=== PATIENT | female | born 1950 | race Caucasian/White ===

== ENCOUNTER 2016-03-04 14:40 | Emergency (ER) | payer OTHER, MEDICARE ==
[~2016-03-04] VITALS: Ht 147.3 cm; Wt 51.3 kg
[2016-03-04] MEDS ORDERED: LAMOTRIGINE150 M1 PO (14:44)
[2016-03-04] MEDS ORDERED: LAMICTAL200 M1 PO (14:45)
[2016-03-04] MEDS ORDERED: PAXIL30 M1 PO (14:45)
[2016-03-04] MEDS ORDERED: TRAZODONE HCL100 M1 PO (14:46)
[2016-03-04] MEDS ORDERED: KLONOPIN0.5 M1 PO (14:46)
[2016-03-04] MEDS ORDERED: WELLBUTRIN SR100 M2 PO (14:46)
[2016-03-04] MEDS ORDERED: SIMVASTATIN40 M1 PO (14:47)
[2016-03-04] MEDS ORDERED: ABILIFY5 M1 PO (14:47)
[2016-03-04] MEDS ORDERED: VESICARE10 MG PO (14:47)
[2016-03-04] MEDS ORDERED: SODIUM BICARBO650 M1 PO (14:48)
--- NOTE | 2016-03-04 16:06 | ED PSYCHIATRIC COMPLAINT ---
See Addendum History of Present Illness General Chief Complaint: Psychiatric Related Complaint Stated Complaint: ANXIETY Source: patient, old records Exam Limitations: no limitations Vital Signs & Intake/Output Vital Signs & Intake/Output Vital Signs Date Time Temp Pulse Resp B/P Pulse O2 O2 Flow FiO2 Ox Delivery Rate 03/04 1931 97.0 70 20 144/68 96 Room Air 03/04 1722 97.5 81 20 132/70 95 Room Air 03/04 1446 96 03/04 1444 99.3 84 16 140/78 96 Room Air Allergies Coded Allergies: cephalexin (INAFFECTIVE 03/04/16) hydrocodone (I DONT DO WELL AT ALL ON VICODIN 03/04/16) Reconcile Medications Aripiprazole (Abilify) 5 MG TABLET 1 TAB PO QPM MENTAL HEALTH (Reported) Bupropion HCl (Wellbutrin Sr) 100 MG TABLET.ER 1 TAB PO BID MENTAL HEALTH ( Reported) Clonazepam (Klonopin) 0.5 MG TABLET 1 TAB PO TID ANXIETY (Reported) Lamotrigine 150 MG TABLET 1 TAB PO DAILY UNKNOWN (Reported) Lamotrigine (Lamictal) 200 MG TABLET 1 TAB PO DAILY UNKNOWN (Reported) Paroxetine HCl (Paxil) 30 MG TABLET 2 TAB PO DAILY MENTAL HEALTH (Reported) Simvastatin (Simvastatin*) 40 MG TABLET 1 TAB PO QPM CHOLESTEROL (Reported) Sodium Bicarbonate 650 MG TABLET 1 TAB PO BID SUPPLEMENT (Reported) Solifenacin Succinate (Vesicare) 10 MG TABLET 1 TAB PO DAILY BLADDER ( Reported) Trazodone HCl 100 MG TABLET 2 TAB PO QPM SLEEP (Reported) Triage Note: PT BIBA FROM HOME FOR ANXIETY STATES SHE HAS SO MANY PEOPLE LIVING IN HER SECTION 8 HOUSING AND SHE IS TRYING TO GET THEM TO MOVE OUT. PT IS ALERT/ORIENTED DENIES SI/HI DRUG OR ETOH USE. PT STATES SHE IS TAKING HER MEDICATION PRESCRIBED. SECURITY IN FOR WANDING. Triage Nurses Notes Reviewed? yes HPI: Patient presents for evaluation of anxiety. The patient has a past history of anxiety but states that she has been concerned recently about the number of people staying in her apartment. She states that she is in "section 8" and is afraid that having so many people in the apartment will get her in trouble. Her visitors are beginning to leave but she is now becoming concerned that her daughter will feel uncomfortable whenever body is gone. Her daughter has expressed concerns about being home alone. Patient states that she does not feel suicidal at all and has been compliant with Clonopin and other anxiety medications. She denies any drug or alcohol use. Past History Travel History Traveled to [place] past 21 day No Medical History Any Pertinent Medical History? see below for history Cardiovascular: hyperlipidemia Psychiatric: bipolar disease Surgical History Surgical History: non-contributory Psychosocial History What is your primary language Czech Tobacco Use: Current Daily Use Daily Tobacco Use Amount/Type: => 5 Cigarettes daily ETOH Use: denies use Illicit Drug Use: denies illicit drug use Family History Hx Contributory? No Review of Systems Review of Systems Constitutional: Reports: no symptoms. EENTM: Reports: no symptoms. Respiratory: Reports: no symptoms. Cardiovascular: Reports: no symptoms. GI: Reports: no symptoms. Genitourinary: Reports: no symptoms. Musculoskeletal: Reports: no symptoms. Skin: Reports: no symptoms. Neurological/Psychological: Reports: see HPI. Hematologic/Endocrine: Reports: no symptoms. Immunologic/Allergic: Reports: no symptoms. All Other Systems: Reviewed and Negative Physical Exam Physical Exam General Appearance: see below Neurological/Psychiatric: see below Comments: General: Alert, calm, cooperative Head: Normocephalic, atraumatic Eyes: Normal inspection, no nystagmus, EOMI Ears: Normal inspection Nose: Normal inspection Throat: Moist mucosa Neck: Supple, no goiter Heart: Regular rate and rhythm, no murmurs rubs or gallops Lungs: Clear to auscultation bilaterally with good air entry Abdomen: Soft nontender nondistended, normal bowel sounds Chest: Nontender Extremities: Normal range of motion grossly, mild tremors present, no cyanosis clubbing or edema of the upper extremities Neurologic: cranial nerves II through XII grossly intact, speech clear, gait normal Psychiatric: No apparent delusions or hallucinations, no pressured speech or thought blocking SAD PERSONS Done? patient not suicidal Progress Differential Diagnosis: anxiety, depression, bipolar disorder, personality disorder Plan of Care: Orders Procedure Date/time Status URINE DRUG SCREEN FOR ER ONLY 03/04 1610 Complete ED CRISIS PSYCH CONSULT 03/04 1610 Active Laboratory Tests 03/04/16 1215: Urine Opiates Screen < 100.00, Methadone Screen 43, Barbiturate Screen < 60, Ur Phencyclidine Scrn < 6.00, Amphetamines Screen 185, U Benzodiazepines Scrn < 85, Urine Cocaine Screen < 50, Urine Cannabis Screen < 5.00 Comments: 03/04/2016 7:22:51 PM patient has been cleared for outpatient management by crisis. Departure Departure Disposition: HOME OR SELF CARE Condition: Stable Clinical Impression Primary Impression: Anxiety Referrals: GERI SIMPSON MD (PCP/Family) Additional Instructions: Follow-up with your counselor and outpatient appointment as scheduled. Notify your primary care doctor of this emergency department visit and treatment plan. Continue your current medications. Return if any concerns or sudden worsening. Departure Forms: Customer Survey General Discharge Information
--- NOTE | 2016-03-04 19:55 | ED PSYCH CRISIS CONSULTATION ---
Crisis Consult Basic Assessment Date of Consult: 03/04/16 Responsible Person/Accompanied By: ben Insurance Authorization: Insurance #1: Insurance name: MEDICARE A Phone number: Policy number: [id number] Group number: Authorization number: ED Provider: Patient's ED Provider: KEENAN WEBSTER MD Primary Care Physician: Patient's PCP: GERI SIMPSON MD PCP's Current Psychiatrist: Lilian Lott APRN Chief Complaint: Psychiatric Related Complaint Patient's Quote: 'not functioning very well" Present Illness: Pt is a 65 year old female, arriving to ER after having a panic attack. Pt looks frail and is shaking she reports her mouth is dry. Pt states she had some family;her sons and one son's girlfriend stay at her house that is section 8 approved, she is very nervous that she will lose her housing because she is not allowed to have that many people stay there. Her son Khurram left this morning to move to [place] with his Grandmother, her son Clement and his GF are moving out tomorrow. She will be left with her daughter Moraima who "talks to her self and sings all the time", she also mentions her daughter does not want to be alone in the house. The patient will not ellaborate, just states she got out of her routine, and it feels chaotic. She has visiting nurse and attends DBT group weekly at [facility] she also sees an MOLDER HELPER "Kaylie", she had a panic attack this evening leading her to come to ER. She had one previous admission in 2013 in [facility] and followed up with IOP and OP. Denies si/hi/ah/vh. Patient's Address: [address] [place] [address] Other Phone Number: Who Do You Live With? Family Family/Informants Interviewed: Moraima daughter, and Clement her son live in the house and stated Mom had a panic attack, and started shaking after there brother came to visit. Her children are not concerned about her saftey at this time Allergies - Coded Allergies: cephalexin (INAFFECTIVE 03/04/16) hydrocodone (I DONT DO WELL AT ALL ON VICODIN 03/04/16) Current Medications - Scheduled Medications Aripiprazole (Abilify) 5 MG TABLET 1 TAB PO QPM MENTAL HEALTH (Reported) Entered as Reported by GLORY TIRADO on 03/04/16 1447 Bupropion HCl (Wellbutrin Sr) 100 MG TABLET.ER 1 TAB PO BID MENTAL HEALTH ( Reported) Entered as Reported by GLORY TIRADO on 03/04/16 1446 Clonazepam (Klonopin) 0.5 MG TABLET 1 TAB PO TID ANXIETY (Reported) Entered as Reported by GLORY TIRADO on 03/04/16 1446 Lamotrigine 150 MG TABLET 1 TAB PO DAILY UNKNOWN (Reported) Entered as Reported by GLORY TIRADO on 03/04/16 1444 Lamotrigine (Lamictal) 200 MG TABLET 1 TAB PO DAILY UNKNOWN (Reported) Entered as Reported by GLORY TIRADO on 03/04/16 1445 Paroxetine HCl (Paxil) 30 MG TABLET 2 TAB PO DAILY MENTAL HEALTH (Reported) Entered as Reported by GLORY TIRADO on 03/04/16 1445 Simvastatin (Simvastatin*) 40 MG TABLET 1 TAB PO QPM CHOLESTEROL (Reported) Entered as Reported by GLORY TIRADO on 03/04/16 1447 Sodium Bicarbonate 650 MG TABLET 1 TAB PO BID SUPPLEMENT (Reported) Entered as Reported by GLORY TIRADO on 03/04/16 1448 Solifenacin Succinate (Vesicare) 10 MG TABLET 1 TAB PO DAILY BLADDER ( Reported) Entered as Reported by GLORY TIRADO on 03/04/16 1447 Trazodone HCl 100 MG TABLET 2 TAB PO QPM SLEEP (Reported) Entered as Reported by GLORY TIRADO on 03/04/16 1446 Laboratory Results: Laboratory Tests 03/04/16 1215: Urine Opiates Screen < 100.00, Methadone Screen 43, Barbiturate Screen < 60, Ur Phencyclidine Scrn < 6.00, Amphetamines Screen 185, U Benzodiazepines Scrn < 85, Urine Cocaine Screen < 50, Urine Cannabis Screen < 5.00 Past History Past Medical History Cardiovascular: hyperlipidemia Psychiatric: bipolar disease Past Surgical History Surgical History: non-contributory Psychosocial History Strengths/Capabilities: In treatment, has a visiting nurse and has housing Physical Limitations (Interventions): denies Psychiatric Treatment History Psych Treatment Psychiatric Treatment Yes Inpatient Treatment Yes Outpatient Treatment Yes Location of Treatment [facility] and [facility] in [place] Reason for Treatment Mood disorder Dates of Treatment 2012 [facility] and currently in [facility] Response to Treatment does well, its helpful Diagnosis by History: Mood disorder Substance Use/Abuse History Drug Use/Abuse Substances Used/Abused No Substance Abuse Treatment Substance Abuse Treatment Past Substance Abuse [place] No Current Mental Status Mental Status Orientation: Person, Place, Situation Affect: Anxious, Flat Speech: Perseveration Neuro-vegetative: Concentration Poor, Helpless, Loss of Interest, Sleep Disturbance Appearance Appearance- Dress/Hygiene: Looks stated age, WNL. Behaviors Thought Process: Disorganized Thought Content: WNL Memory: Immediate Insight: Fair SI/HI Risk Assessment Past Suicidal Ideation/Attempts No Current Suicidal Ideation/Att No Past Homicidal Ideation/Att: No Current Homicidal Ideation/Attempts No Degree of Intent: None Risk Factors: age (under 24/over 65), high anxiety/distress, limited support Lethality Ratin (mild) PTSD Checklist PTSD Done? patient declined ED Management Sitter: Yes Restraints: No DSM5/PS Stressors/Medical Prob Diagnosis' (DSM 5, Stressors, Medical): Major depressive disorder, recurrent, severe F33.2 benzo dependence prescribed F13.20 Current GAF: 33 Departure Disposition Psych Medical Clearance Date: 03/04/16 Medically Cleared at: 1900 Time Started: 1899 Time Ended: 2000 Psychiatrist Consulted: nico Date Disposition Established: 03/04/16 Time Disposition Established: 2000 Plan for Disposition - Modality: Outpatient Facility: [facility] Follow-up Appt Date: 03/09/16 Follow-Up Appt Time: 1000 Contact: Lilian Rationale for Disposition: Consulted with Dr. Cisneros pt has outpatient appointments Mar 09 and with her presciber the at [facility]. Pt to return to these providers. Pt denies si/hi/ah/vh. Additional Instructions: Pt to follow up with providers, and to reassess living situation after some family has elft her home. Referrals GERI SIMPSON MD (PCP/Family)
[2016-03-04 22:12] VITALS: BP 142/86
== END 2016-03-04 22:13 ==
LOC: ERH 14:40
DX: F41.9 Anxiety disorder, unspecified (principal)
CPT/HCPCS: 80307; G0463

== ENCOUNTER 2016-03-09 20:49 | Inpatient (IN) | payer OTHER, MEDICARE ==
[~2016-03-09] VITALS: Ht 152.4 cm; Wt 48.2 kg
[~2016-03-09 20:49] MED LIST: ABILIFY5 M1 PO; KLONOPIN0.5 M1 PO; LAMICTAL200 M1 PO; LAMOTRIGINE150 M1 PO; PAXIL30 M1 PO; SIMVASTATIN40 M1 PO; SODIUM BICARBO650 M1 PO; TRAZODONE HCL100 M1 PO; VESICARE10 MG PO; WELLBUTRIN SR100 M2 PO
--- NOTE | 2016-03-09 21:06 | NUR ---
2 PERSONAL BELONGINGS PUT IN CLOSET. 1 VALUABLES TO ED SAFE.
--- NOTE | 2016-03-09 21:07 | NUR ---
PT BIBA C/O INCREASED DEPRESSION, ANXIETY AND S/P MAKING A +SI STATEMENT TO SON THAT SHE WAS GOING TO STAB HERSELF. PT DENIES SI UPON ARRIVAL, DENIES HI. PT ALSO STATES SHE HAS BEEN "AFRAID OF LOUD NOISES." PT CHANGED INTO HOSPITAL SCRUBS AND WANDED BY SECURITY.
--- NOTE | 2016-03-09 21:10 | ED PSYCHIATRIC COMPLAINT ---
See Addendum History of Present Illness General Chief Complaint: Psychiatric Related Complaint Stated Complaint: BIBA FOR DEPRESSION , + SI Source: patient, old records, EMS Exam Limitations: no limitations Vital Signs & Intake/Output Vital Signs & Intake/Output Vital Signs Date Time Temp Pulse Resp B/P Pulse O2 O2 Flow FiO2 Ox Delivery Rate 03/09 2343 98.5 76 18 122/71 98 Room Air 03/09 2125 Room Air 03/09 2100 96.5 82 20 131/82 96 Room Air ED Intake and Output 03/10 0000 03/09 1200 Intake Total 240 Output Total Balance 240 Intake, Oral 240 Patient 110 lb Weight Allergies Coded Allergies: cephalexin (INAFFECTIVE 03/04/16) hydrocodone (I DONT DO WELL AT ALL ON VICODIN 03/04/16) Reconcile Medications Aripiprazole (Abilify) 5 MG TABLET 1 TAB PO QPM MENTAL HEALTH (Reported) Bupropion HCl (Wellbutrin Sr) 100 MG TABLET.ER 1 TAB PO BID MENTAL HEALTH ( Reported) Clonazepam (Klonopin) 0.5 MG TABLET 1 TAB PO TID ANXIETY (Reported) Lamotrigine 150 MG TABLET 1 TAB PO DAILY UNKNOWN (Reported) Lamotrigine (Lamictal) 200 MG TABLET 1 TAB PO DAILY UNKNOWN (Reported) Paroxetine HCl (Paxil) 30 MG TABLET 2 TAB PO DAILY MENTAL HEALTH (Reported) Simvastatin (Simvastatin*) 40 MG TABLET 1 TAB PO QPM CHOLESTEROL (Reported) Sodium Bicarbonate 650 MG TABLET 1 TAB PO BID SUPPLEMENT (Reported) Solifenacin Succinate (Vesicare) 10 MG TABLET 1 TAB PO DAILY BLADDER ( Reported) Trazodone HCl 100 MG TABLET 2 TAB PO QPM SLEEP (Reported) Triage Note: PT BIBA C/O INCREASED DEPRESSION, ANXIETY AND S/P MAKING A +SI STATEMENT TO SON THAT SHE WAS GOING TO STAB HERSELF. PT DENIES SI UPON ARRIVAL, DENIES HI. PT ALSO STATES SHE HAS BEEN "AFRAID OF LOUD NOISES." PT CHANGED INTO HOSPITAL SCRUBS AND WANDED BY SECURITY. Triage Nurses Notes Reviewed? yes HPI: Patient comes in for evaluation of worsening depression with suicidal ideations. Patient was put in the dishes away and picked up at night to prevent away and had a thought of how good it would be to use a knife to kill herself. Patient denies any hallucinations. Patient denies any homicidal ideations. Patient has been taking her medication as prescribed. Past History Travel History Traveled to [place] past 21 day No Medical History Any Pertinent Medical History? see below for history Cardiovascular: hyperlipidemia Psychiatric: bipolar disease Surgical History Surgical History: non-contributory Psychosocial History Who do you live with Family What is your primary language Japanese Tobacco Use: Current Daily Use Daily Tobacco Use Amount/Type: => 5 Cigarettes daily ETOH Use: denies use Illicit Drug Use: denies illicit drug use Family History Hx Contributory? No Review of Systems Review of Systems Constitutional: Reports: no symptoms. EENTM: Reports: no symptoms. Respiratory: Reports: no symptoms. Cardiovascular: Reports: no symptoms. GI: Reports: no symptoms. Genitourinary: Reports: no symptoms. Musculoskeletal: Reports: no symptoms. Skin: Reports: no symptoms. Neurological/Psychological: Reports: see HPI, anxiety, depressed. Hematologic/Endocrine: Reports: no symptoms. Immunologic/Allergic: Reports: no symptoms. All Other Systems: Reviewed and Negative Physical Exam Physical Exam General Appearance: well developed/nourished, mild distress Head: atraumatic Eyes: Bilateral: PERRL, EOMI. Ears, Nose, Throat: normal pharynx, normal ENT inspection, hearing grossly normal Neck: normal inspection, supple Respiratory: normal breath sounds Cardiovascular: regular rate/rhythm Gastrointestinal: soft, non-tender Extremities: normal range of motion Neurological/Psychiatric: no motor/sensory deficits, awake, alert, calm, oriented x 3 Appearance/Memory/Insight: appropriate appearance, appropriate insight Behavoir/Eye Contact/Speech: cooperative, normal speech, good eye contact Thoughts/Hallucinations: normal thought pattern, no apparent hallucination Skin: intact, normal color, warm/dry SAD PERSONS Done? CRISIS CONSULT OBTAINED Progress Differential Diagnosis: drug intoxication, drug overdose, drug withdrawal, electrolyte abnormality Plan of Care: Orders Procedure Date/time Status Continuous Observation Monitor 03/09 2108 Active URINE DRUGS OF ABUSE 03/09 2108 Active TROPONIN LEVEL 03/09 2108 Complete ETHANOL 03/09 2108 Complete COMPREHENSIVE METABOLIC PANEL 03/09 2108 Complete CBC WITHOUT DIFFERENTIAL 03/09 2108 Complete EKG 03/09 2108 Active ED CRISIS PSYCH CONSULT 03/09 2108 Active Current Medications Sig/Carol Start time Last Medication Dose Stop Time Status Admin Aripiprazole 5 MG ONCE ONE 03/10 0015 UNVr (Abilify) 03/10 0016 Laboratory Tests 03/09/16 2359: Methadone Screen Pending, Barbiturate Screen Pending, Ur Phencyclidine Scrn Pending, Amphetamines Screen Pending, U Benzodiazepines Scrn Pending, Urine Cocaine Screen Pending, Urine Cannabis Screen Pending 03/09/16 2119: Anion Gap 8, Estimated GFR 28 L, BUN/Creatinine Ratio 20.6, Glucose 145 H, Calcium 10.0, Total Bilirubin 0.4, AST 26, ALT 22, Alkaline Phosphatase 54, Troponin I < 0.01, Total Protein 7.1, Albumin 4.2, Globulin 2.9, Albumin/ Globulin Ratio 1.4, CBC w Diff NO MAN DIFF REQ, RBC 4.21, MCV 90.8, MCH 30.6, RDW 12.5, MPV 7.1 L, Gran % 76.4 H, Lymphocytes % 13.8 L, Monocytes % 8.2, Eosinophils % 1.3, Basophils % 0.3, Absolute Granulocytes 7.1 H, Absolute Lymphocytes 1.3, Absolute Monocytes 0.8 H, Absolute Eosinophils 0.1, Absolute Basophils 0, PUBS MCHC 33.7, Serum Alcohol < 10.0 Initial ED EKG: NSR, nonspecific ST T wave chg Prior EKG: unchanged Hand-Off Endorsed To: LILY RUIZ MD Endorsed Time: 0700 Pending: consult Departure Departure Disposition: STILL A PATIENT Condition: Stable Clinical Impression Primary Impression: Depression Referrals: GERI SIMPSON MD (PCP/Family) Departure Forms: Customer Survey General Discharge Information
--- NOTE | 2016-03-09 21:10 | NUR ---
AT BEDSIDE FOR EVAL
--- NOTE | 2016-03-09 21:23 | NUR ---
LABS DRAWN AND SENT TO LAB (1SST,1LAV,1GRAY). PT AWARE OF NEED FOR URINE SAMPLE. PT CALM AND COOPERATIVE AT THIS TIME. SITTER IN ATTENDANCE.
[2016-03-09 21:27] LABS: ABSOLUTE BASOPHIL COUNT 0 /CUMM (0.0-0.2); ABSOLUTE EOSINOPHIL COUNT 0.1 /CUMM (0.0-0.7); ABSOLUTE GRANULOCYTE CT 7.1 /CUMM (1.4-6.5); ABSOLUTE LYMPH COUNT 1.3 /CUMM (1.2-3.4); ABSOLUTE MONOCYTE COUNT 0.8 /CUMM (0.10-0.60); BASOPHIL % 0.3 % (0.0-2.0); EOSINOPHIL % 1.3 % (0-5); GRANULOCYTE % 76.4 % (42.2-75.2); HEMATOCRIT 38.3 % (37-47); MEAN CORPUSCULAR HGB 30.6 PG (27.0-31.0); MEAN CORPUSCULAR HGB CONC 33.7 G/DL (33.0-37.0); MEAN CORPUSCULAR VOLUME 90.8 FL (81.0-99.0); MEAN PLATELET VOLUME 7.1 FL (7.4-10.4); PLATELET COUNT 220 /CUMM (130-400); RBC DISTRIBUTION WIDTH 12.5 % (11.5-14.5); RED BLOOD CELL CT 4.21 /CUMM (4.20-5.40); WHITE BLOOD CELL COUNT 9.3 /CUMM (4.8-10.8)
--- NOTE | 2016-03-09 22:02 | RADIOLOGY REPORT ---
EXAMINATION: XR CHEST CLINICAL INFORMATION: Smoker. Cough. COMPARISON: No relevant prior imaging is available. TECHNIQUE: PA and lateral views of the chest were obtained. FINDINGS: There is a dense 6 mm subpleural pulmonary nodule within the right upper lobe near the major fissure. Lungs are otherwise clear and well expanded. There is no focal consolidative disease, pleural effusion, or pneumothorax. The cardiac silhouette and upper mediastinal contours are normal. No acute osseous finding. IMPRESSION: There is a dense likely calcified 6 mm subpleural pulmonary nodule within the right upper lobe near the major fissure. Correlation with prior imaging is recommended if available. Otherwise a dedicated CT scan of the chest can be obtained to provide a baseline for follow-up if necessary. No consolidative disease or effusion.
--- NOTE | 2016-03-09 22:08 | NUR ---
PT PROVIDED WITH BOXED LUNCH
--- NOTE | 2016-03-09 23:04 | NUR ---
Labs remain outstanding. Pt will be evaluated by crisis in the morning.
--- NOTE | 2016-03-10 00:02 | NUR ---
URINE COLLECTED AND SENT TO LAB
--- NOTE | 2016-03-10 00:25 | NUR ---
PT REQUESTING NIGHTTIME MEDS. MEDICATED WITH ABILIFY, TRAZADONE AND KLONOPIN PER ORDER (SEE MAR). WILL CTM. SITTER IN DOORWAY.
--- NOTE | 2016-03-10 02:42 | NUR ---
PT NOTED TO BE SLEEPING ON STRETCHER WITH REGULAR RR. LIGHTS IN ROOM REMAIN ON ZEKE [place] IS IN VIEW MONITORING PT.
--- NOTE | 2016-03-10 04:20 | NUR ---
PT CONTINUES TO SLEEP WITH REGULAR RR. RESPIRATIONS EVEN AND UNLABORED. SITTER IN VIEW. WILL CONTINUE TO MONITOR.
--- NOTE | 2016-03-10 07:50 | NUR ---
CRISIS AT BEDSIDE.
--- NOTE | 2016-03-10 08:30 | NUR ---
PLAN IS FOR ADMISSION TO [facility]. Informed waiting has been performed.
--- NOTE | 2016-03-10 10:30 | ED PSYCH CRISIS CONSULTATION ---
Crisis Consult Basic Assessment Date of Consult: 03/10/16 Responsible Person/Accompanied By: None Insurance Authorization: Insurance #1: Insurance name: MEDICARE A Phone number: Policy number: [id number] Group number: Authorization number: ED Provider: Patient's ED Provider: LILY RUIZ MD Primary Care Physician: Patient's PCP: GERI SIMPSON MD PCP's Current Psychiatrist: [phone] Chief Complaint: Psychiatric Related Complaint Patient's Quote: " Very Nervous." Present Illness: The patient is a 65 year old, , female presenting to the ED after having suicidal thoughts with a plan to stab herself with a knife. The patient presents disoriented, disorganized anxious and very fidgety during the evaluation. The patient reports that she has been feeling depressed, anxious, helpless, hopeless, with decreased energy, decreased concentration and has had sleep disturbance. She states that yesterday she was feeling overwhelmed with having all of her children staying with her and became suicidal. She states she was putting the dishes away and started to "fantasize, wouldn't it be wonderful if I could just put an end to the chaos." She denies any current or history of hallucinations or delusions. The patient reports that she does have a visiting nurse that comes to her home and dispenses her psychiatric medications. The patient denies any current or history of substance abuse issues. The patient notes that an inpatient admission would be helpful at this time. The patient does have a long history of mental health issues with one hospitalization on [facility] (2012). She is currently managed on an outpatient basis, with [facility] in [place] ([phone]). KOLBY spoke to Dyan ROMERO) from [facility], who gave collateral on the patient. Dyan notes that the patient has been in treatment with them 20+ years and is currently receiving medication management and attends DBT groups. Dyan notes that the patient is an intelligent women, who does very well when she is stable. Dyan notes that the patient has done very well since her last admission to [facility] in 2012, noting the change in the patient was astounding. Dyan notes that the patient struggles with relationships and setting boundaries with her children. Dyan notes that when the patient decompensates she gets very disorganized and disoriented. Dyan believes, given the patients current presentation that she requires an inpatient admission at this time. Patient's Address: [address] [place] [id number] Other Phone Number: Who Do You Live With? Patient/Self (Children have been staying ) Family/Informants Interviewed: Dyan Gill- collar worker at [facility] Allergies - Coded Allergies: cephalexin (INAFFECTIVE 03/04/16) hydrocodone (I DONT DO WELL AT ALL ON VICODIN 03/04/16) Current Medications - Scheduled Medications Aripiprazole (Abilify) 5 MG TABLET 1 TAB PO QPM MENTAL HEALTH (Reported) Entered as Reported by GLORY TIRADO on 03/04/16 144 Last Taken: 03/08/16 Bupropion HCl (Wellbutrin Sr) 100 MG TABLET.ER 1 TAB PO BID MENTAL HEALTH ( Reported) Entered as Reported by GLORY TIRADO on 03/04/16 1446 Clonazepam (Klonopin) 0.5 MG TABLET 1 TAB PO TID ANXIETY (Reported) Entered as Reported by GLORY TIRADO on 03/04/16 1446 Last Taken: 03/08/16 Lamotrigine 150 MG TABLET 1 TAB PO DAILY UNKNOWN (Reported) Entered as Reported by GLORY TIRADO on 03/04/16 1444 Lamotrigine (Lamictal) 200 MG TABLET 1 TAB PO DAILY UNKNOWN (Reported) Entered as Reported by GLORY TIRADO on 03/04/16 1445 Paroxetine HCl (Paxil) 30 MG TABLET 2 TAB PO DAILY MENTAL HEALTH (Reported) Entered as Reported by GLORY TIRADO on 03/04/16 1445 Simvastatin (Simvastatin*) 40 MG TABLET 1 TAB PO QPM CHOLESTEROL (Reported) Entered as Reported by GLORY TIRADO on 03/04/16 1447 Sodium Bicarbonate 650 MG TABLET 1 TAB PO BID SUPPLEMENT (Reported) Entered as Reported by GLORY TIRADO on 03/04/16 1448 Solifenacin Succinate (Vesicare) 10 MG TABLET 1 TAB PO DAILY BLADDER ( Reported) Entered as Reported by GLORY TIRADO on 03/04/16 1447 Trazodone HCl 100 MG TABLET 2 TAB PO QPM SLEEP (Reported) Entered as Reported by GLORY TIRADO on 03/04/16 1446 Laboratory Results: Laboratory Tests 03/09/16 7649: Urine Opiates Screen < 100.00, Methadone Screen 42, Barbiturate Screen < 60, Ur Phencyclidine Scrn < 6.00, Amphetamines Screen < 100, U Benzodiazepines Scrn < 85, Urine Cocaine Screen < 50, Urine Cannabis Screen < 5.00 03/09/16 2119: Anion Gap 8, Estimated GFR 28 L, BUN/Creatinine Ratio 20.6, Glucose 145 H, Calcium 10.0, Total Bilirubin 0.4, AST 26, ALT 22, Alkaline Phosphatase 54, Troponin I < 0.01, Total Protein 7.1, Albumin 4.2, Globulin 2.9, Albumin/ Globulin Ratio 1.4, CBC w Diff NO MAN DIFF REQ, RBC 4.21, MCV 90.8, MCH 30.6, RDW 12.5, MPV 7.1 L, Gran % 76.4 H, Lymphocytes % 13.8 L, Monocytes % 8.2, Eosinophils % 1.3, Basophils % 0.3, Absolute Granulocytes 7.1 H, Absolute Lymphocytes 1.3, Absolute Monocytes 0.8 H, Absolute Eosinophils 0.1, Absolute Basophils 0, PUBS MCHC 33.7, Serum Alcohol < 10.0 Past History Past Medical History Cardiovascular: hyperlipidemia Psychiatric: bipolar disease Cancer(s): breast cancer Past Surgical History Surgical History: non-contributory Psychosocial History Strengths/Capabilities: The patient has been connected to her outpatient provider for 20+ years, receives SSDI and has section 8 housing assistance. Physical Limitations (Interventions): None noted Psychiatric Treatment History Psych Treatment Psychiatric Treatment Yes Inpatient Treatment Yes Outpatient Treatment Yes Location of Treatment [facility] and [facility] Reason for Treatment Depression and anxiety Dates of Treatment [facility] 2012 and OPS 2012 [facility]- 1991- current Response to Treatment Per her social psychologist Dyan, the patient has been stable and doing well since her admission to [facility] in 2012. Diagnosis by History: Mood disorder Substance Use/Abuse History Drug Use/Abuse Substances Used/Abused No First Use N/A Last Used N/A How much used/taken N/A How often N/A For how long N/A Route of use N/A Substance Abuse Treatment Substance Abuse Treatment Past Substance Abuse TX No Inpatient Treatment No Outpatient Treatment No Location of Treatment N/A Reason for Treatment N/A Dates of Treatment N/A Response to Treatment N/A Comments: N/A Current Mental Status Mental Status Orientation: Confused, Disoriented- The patient believed that it was February 1969 and did not know what day of the week it is. She did appear to have memory issues and had difficulty answering some of the questions. Affect: Anxious Speech: Delayed, Soft Neuro-vegetative: Concentration Poor, Energy Decreased, Helpless, Sleep Disturbance, Feeling hopeless Appearance Appearance- Dress/Hygiene: The patient was sitting on the bed, in hospital attire,visibly anxious and fidgety during the evaluation. Behaviors Thought Process: Disorganized Thought Content: The patient was ruminating on getting her children to move out of her apartment. Memory: Impaired Insight: Fair SI/HI Risk Assessment Past Suicidal Ideation/Attempts No Current Suicidal Ideation/Att Yes Past Homicidal Ideation/Att: No Current Homicidal Ideation/Attempts No Degree of Intent: The patient states that while she was doing dishes she began to "fantasize" about stabbing herself with a knife she was putting away. She said she was thiking "how wonderful it would be if I could just put an end to the chaos." Danger To: Self Gravely Disabled: The patient is disorganized and disoriented. Risk Factors: age (under 24/over 65), chronic/serious med cond., high anxiety/ distress, history of suicide atmpts, SA/MH hospitalized, weapons access Lethality Ratin PTSD Checklist PTSD Done? patient declined (Pt. denies trauma or abuse hx.) ED Management Sitter: Yes Restraints: No DSM5/PS Stressors/Medical Prob Diagnosis' (DSM 5, Stressors, Medical): F32.9 Unspecified Depressive Disorder and F41.9 Unspecified Anxiety Disorder. Current GAF: 25 Comments: N/A Departure Disposition Psych Medical Clearance Date: 03/10/16 Medically Cleared at: 0700 Time Started: 0730 Time Ended: 0800 Psychiatrist Consulted: Pradeep Chiang MD Date Disposition Established: 03/10/16 Time Disposition Established: 08 Plan for Disposition - Modality: Inpatient Psychiatry Facility: [facility] Contact: N/A Telephone: N/A Rationale for Disposition: The patient presents with depressed mood, anxiety, decreased energy, decreased concentration, sleep disturbance, feeling helpless, feeling hopeless and fantasizing about killing herself. The patient is disoriented, disorganized and ruminating on having her children move out of her apartment. Case discussed with Dr. Chiang and he finds the patient to be an acute risk to self and in need of an inpatient hospitalization at this time. Type of IP Admission: Voluntary Additional Instructions: N/A Referrals GERI SIMPSON MD (PCP/Family)
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
--- NOTE | 2016-03-10 12:23 | NUR ---
MEDICATED WITH LAMICTAL PER EMAR. INFORMED OF PLAN FOR EVAL BY PSYCHIATRIST ONCE ADMITTED TO DETERMINE PLAN FOR POSSIBLE MED ADJUSTMENTS. SLIGHTLY TREMULOUS AND ANXIOUS ABOUT ADMISSION. ENCOURAGED TO PRACTICE MINDFULNESS AND ASSISTED BY THIS RN TO EXPLORE FEARS OF THE UNKNOWN AND THE FUTURE. RESPONSIVE TO EMOTIONAL SUPPORT
--- NOTE | 2016-03-10 14:04 | NUR ---
REPORT GIVEN TO RECEIVING RN AND DISTRIBUTION CALLED
[2016-03-10 14:27] VITALS: BP 143/66
--- NOTE | 2016-03-10 15:44 | NUR ---
65 YR OLD FEMALE ADMITTED FOR INCREASED ANXIETY AND DEPRESSION. PT HAS INCREASED STRESS AT HOME WITH 3 ADULT KIDS LIVING IN HER SECTION 8 HOUSING. PT HAS BEEN AT [facility] FOR 24 YEARS. PT LAST ON 2012. PT HELPLESS, HOPELESS, POOR SLEEP, POOR EATING. PT DENIES SI NOW. - HI. PT -AH, -VH. SHE RECEIVED KLONOPIN 0.5 ON ADMIT. SHE ADMITS TO PSYCHOSOMATIC PAIN. PT HAS HX OF BREAST CA. NO HISTORY OF DRUG AND ETOH ABUSE. SHORT TERM MEMORY ISSUES APPARENT. VISIBLE SKIN INTACT WITHOUT PROBLEM- PT DENIES ANY ALTERATION OF SKIN UNDERNEATH CLOTHING.
[2016-03-10 20:17] VITALS: BP 146/85
--- NOTE | 2016-03-10 23:17 | NUR ---
PT IS CALM, COOPERATIVE WITH STAFF AND PEERS, AND COMPLIANT WITH UNIT RULES. EARLIER IN SHIFT PT SEEMED UPSET AND WAS CRYING, BUT THIS SEEMED TO LIFT THE SHIFT PROGRESSED. PT STARTED OFF SHIFT BEING SLIGHTLY WITHDRAWN AND ISOLATIVE, THOUGH LATER WAS SPENDING LONGER PERIODS OF TIME IN [place], INTERACTING WELL WITH PEERS. PT MOOD IS STABLE, AFFECT IS EUTHYMIC, COMMUNICATION APPEARS NORMAL, AND APPETITE IS NORMAL. PT DENIES SI AT THIS TIME.
--- NOTE | 2016-03-11 04:15 | NUR ---
Patient slept well, no issues.
[2016-03-11 08:14] VITALS: BP 144/72
--- NOTE | 2016-03-11 09:11 | History & Physical ---
General Information and HPI MD Statement: I have seen and personally examined LEDIY CHAVIS and documented this H&P. The patient is a 65 year old F who presented with a patient stated chief complaint of "very nervous"]. Source of Information: patient, family Exam Limitations: no limitations History of Present Illness: 65-year-old white female is brought in by ambulance for depression and suicidal ideations with patient comes in for evaluation of worsening depression and suicidal ideations with plans to stab herself with a knife with feeling depressed and anxious hopeless, helpless, lack of energy, poor concentration and sleep problems. For all those reasons is admitted for evaluation and treatment Allergies/Medications Allergies: Coded Allergies: cephalexin (INAFFECTIVE 03/04/16) hydrocodone (I DONT DO WELL AT ALL ON VICODIN 03/04/16) Home Med list Aripiprazole (Abilify) 5 MG TABLET 1 TAB PO QPM MENTAL HEALTH (Reported) Bupropion HCl (Wellbutrin Sr) 100 MG TABLET.ER 1 TAB PO BID MENTAL HEALTH ( Reported) Clonazepam (Klonopin) 0.5 MG TABLET 1 TAB PO TID ANXIETY (Reported) Lamotrigine (Lamictal) 200 MG TABLET 1 TAB PO DAILY UNKNOWN (Reported) Paroxetine HCl (Paxil) 30 MG TABLET 2 TAB PO DAILY MENTAL HEALTH (Reported) Simvastatin (Simvastatin*) 40 MG TABLET 1 TAB PO QPM CHOLESTEROL (Reported) Sodium Bicarbonate 650 MG TABLET 1 TAB PO BID SUPPLEMENT (Reported) Solifenacin Succinate (Vesicare) 10 MG TABLET 1 TAB PO DAILY BLADDER ( Reported) Trazodone HCl 100 MG TABLET 2 TAB PO QPM SLEEP (Reported) Compliance With Home Meds: GOOD Past History Travel History Traveled to [place] past 21 day No Medical History Neurological: NONE EENT: NONE Cardiovascular: hyperlipidemia Respiratory: SMOKER- 1 PACK A DAY; Gastrointestinal: POOR EATING; INDIGESTION Renal: LITHIUM FOR MANY YEARS Musculoskeletal: ARTHRITIS Psychiatric: bipolar disease Endocrine: NONE Blood Disorders: NONE Cancer(s): breast cancer 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 Home ETOH Use: denies use Illicit Drug Use: denies illicit drug use Employment History Employment Disability Profession/Employer N/A Review of Systems Review of Systems Constitutional: Reports: see HPI. Exam & Diagnostic Data Last 24 Hrs of Vital Signs/I&O Vital Signs Date Time Temp Pulse Resp B/P Pulse O2 O2 Flow FiO2 Ox Delivery Rate 03/11 0814 96.4 89 144/72 03/10 2016 97.3 86 146/85 03/10 1427 98.0 88 143/66 03/10 1222 97.5 83 20 166/78 97 Room Air Physical Exam General Appearance Alert, Oriented X3, Cooperative, No Acute Distress Skin No Rashes, No Breakdown HEENT PERRLA, EOMI, Mucous Membr. moist/pink Neck Supple, No JVD, No thryomegaly, +2 Carotid Pulse wo Bruit, No LAD Lymphatic Axillary nl, Cervical nl Cardiovascular Regular Rate Lungs decreased breath sounds Abdomen Normal Bowel Sounds, Soft, No Tenderness Neurological Exam Findings: nonfocal Cranial Nerves II through XII: Intact Extremities No Cyanosis, No Edema Last 24 Hrs of Labs/Lars: Laboratory Tests 03/10/16 1221: Urine Color STRAW, Urine Clarity CLEAR, Urine pH 6.5, Ur Specific Cummings <= 1.005, Urine Protein NEG, Urine Ketones NEG, Urine Nitrite NEG, Urine Bilirubin NEG, Urine Urobilinogen 0.2, Ur Leukocyte Esterase NEG, Ur Microscopic SEDIMENT EXAMINED, Urine RBC 3-5, Ur Epithelial Cells RARE, Urine Hemoglobin TRACE-INTACT , Urine Glucose NEG 03/09/16 2359: Urine Opiates Screen < 100.00, Methadone Screen 42, Barbiturate Screen < 60, Ur Phencyclidine Scrn < 6.00, Amphetamines Screen < 100, U Benzodiazepines Scrn < 85, Urine Cocaine Screen < 50, Urine Cannabis Screen < 5.00 03/09/16 2119: Anion Gap 8, Estimated GFR 28 L, BUN/Creatinine Ratio 20.6, Glucose 145 H, Calcium 10.0, Total Bilirubin 0.4, AST 26, ALT 22, Alkaline Phosphatase 54, Troponin I < 0.01, Total Protein 7.1, Albumin 4.2, Globulin 2.9, Albumin/ Globulin Ratio 1.4, Triglycerides 103, Cholesterol 171, LDL Cholesterol, Calc 59 L, HDL Cholesterol 92 H, Cholesterol/HDL Ratio 2, TSH 1.770, CBC w Diff NO MAN DIFF REQ, RBC 4.21, MCV 90.8, MCH 30.6, RDW 12.5, MPV 7.1 L, Gran % 76.4 H, Lymphocytes % 13.8 L, Monocytes % 8.2, Eosinophils % 1.3, Basophils % 0.3, Absolute Granulocytes 7.1 H, Absolute Lymphocytes 1.3, Absolute Monocytes 0.8 H, Absolute Eosinophils 0.1, Absolute Basophils 0, PUBS MCHC 33.7, Serum Alcohol < 10.0 03/09/16 2109: Hemoglobin A1c 5.2 Laboratory Tests 03/10/16 1221: Urine Color STRAW, Urine Clarity CLEAR, Urine pH 6.5, Ur Specific Cummings <= 1.005, Urine Protein NEG, Urine Ketones NEG, Urine Nitrite NEG, Urine Bilirubin NEG, Urine Urobilinogen 0.2, Ur Leukocyte Esterase NEG, Ur Microscopic SEDIMENT EXAMINED, Urine RBC 3-5, Ur Epithelial Cells RARE, Urine Hemoglobin TRACE-INTACT , Urine Glucose NEG Diagnostic Data EKG Results LVH Assessment/Plan As Ranked By This Provider Problem List: 1. Depression 2. Anxiety Miscellaneous Miscellaneous Documentation Attending Case Discussed With: PRADEEP CHIANG MD Primary Care Physician: GERI SIMPSON MD Patient sees these Specialists Psychiatry Level of Patient Care: [facility] Consults Needed: Consulting Specialty: Psychiatry Consulting Physician: Pradeep Chiang MD Reason for Consult: depression and suicidal ideations
--- NOTE | 2016-03-11 10:42 | SOCIAL WORKER TX PLAN PSYCH ---
Treatment Plan - Please Document: - Evidence that there is ongoing collaboration between - the patient and the interdisciplinary team, - including the patient's active participation and - responsibility for engaging in the treatment regimen, - and that the treatment plan is individualized and - relevant to the patient's conditions. - Treatment plan should reflect documentation indicating - that all active therapeutic efforts are included. Strengths/Capabilities: The patient has been connected to her outpatient provider for 20+ years, receives SSDI and has section 8 housing assistance. Physical Limitations (Interventions): None noted Patient Identified Trmt Goals: " I want to get things in order." Discharge Plan: IOP Problem/Goals #1 Problem #1: suicidal ideation Goal (Short Term): Today I will attend 2 groups Today I will identify 2 stressors Today I will identify 2 positive supports Today I will work on recognizing 3 emotions I am feeling Goal (Extension Service Specialist In Charge): Be free of suicidal thoughts/attempts Develop 3 coping skills to deal with depression Identify 3 positive support systems to call in crisis Develop a crisis plan with 3 hurley people Identify 2 positive traits per week about myself Identify 2 things I have to look forward to Identify 2 positive people in my life and 1 thing I appreciate about them Interventions: Learn ways to manage depressive symptoms accordingly and identify positive supports to manage life stressors and mood fluctuations. Modalities: Encourage groups, education on depression, provide CBT treatment, family meeting. DSM5/PS Stressors/Medical Prob Diagnosis' (DSM 5, Stressors, Medical): F32.9 Unspecified Depressive Disorder and F41.9 Unspecified Anxiety Disorder. Current GAF: 25 Treatment Team - Responsibilities of members of the treatment team include: - Medication Management- MD or RIB PULLER - Medication Administration and Monitoring- Nurse - Group Therapy- Occupational Therapist - 1:1 Therapy,Disch Planning,family involvement-Street Light Servicer Helper
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
[2016-03-11 12:13] VITALS: BP 139/80
--- NOTE | 2016-03-11 13:58 | NUR ---
PT IS COMPLIANT AND COOPERATIVE. MOOD IS STABLE WITH A FLAT AFFECT. PT APPEARS DEPRESSED. PT DENIES SI AT THIS TIME, NO COMPLAINTS OFFERED. PT TENDS TO BE ISOLATIVE IN ROOM, HAS MINIMAL INTERACTION WITH OTHERS. PT PRESENT IN COMMUNITY FOR MEALS AND VITALS. PT IS ATTENDING SOME GROUPS. VITALS ARE STABLE, APPETITE IS GOOD.
--- NOTE | 2016-03-11 14:06 | SOCIAL WORKER PROG NOTE PSYCH ---
Social Work Progress Note Progress Note Pt would like help with having her grown children that have not been given permission to stay in her home, out of her home. She is approved with section 8 for herself and her daughter to reside in her home. "Yoni" and her other son (who she states may be inpatient at [facility]) are not allowed in her home. Pt agreeable to speaking with elderly protective services and possibly her landlord if it would be helpful in getting the unwanted co-habitant out fo her house, she doesn't feel [facility]iley eviction is appropriate because they aren't approved to live there. Pt is getting acclimated but is very fragile mentally and physically at this point.
[2016-03-11 16:09] VITALS: BP 149/75
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
[2016-03-11 19:44] VITALS: BP 145/79
--- NOTE | 2016-03-11 22:11 | NUR ---
PT IS STABLE WITH FULL RANGE OF AFFECT. PT IS VERY ANXIOUS AND IS TREMULOUS. CURRENTLY IN THE LOUNGE WATCHING TV AND INTERACTING WITH PEERS. COMPLIANT AND COOPERATIVE WITH THERAPIES. APPROPRIATE TO THE UNIT PT DID ATTEND WARP UP GROUP. VERY PLEASANT WHEN ENGAGING. VS ARE STABLE AND DENIES ANY SI/HI.
[2016-03-12 07:31] VITALS: BP 155/87
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
[2016-03-12 12:44] VITALS: BP 156/89
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
--- NOTE | 2016-03-12 14:12 | NUR ---
PT IS COMPLIANT AND COOPERATIVE. MOOD IS STABLE WITH A FLAT AFFECT. PT PRESENTS DEPRESSED AND ANXIOUS. PT DENIES SI AT THIS TIME, REPORTS HIGH ANXIETY. PT NOTED TO BE QUITE TREMULOUS. PT IS PRESENT ON UNIT AT TIMES, HAS MINIMAL INTERACTION WITH PEERS AND STAFF. PT IS ATTENDING GROUPS. VITALS ARE STABLE, APPETITE IS GOOD.
[2016-03-12 16:25] VITALS: BP 151/81
--- NOTE | 2016-03-12 16:46 | IP INCIDENTAL NOTE PSYCH ---
Incidental Note Notation: The patient's son, Clement, has called the patient advocate's office to complain about a conversation he held today, along with his mother and one of the unit's social workers. At this time, the patient has requested that neither of her sons, her son's girlfriend, or her daughter be allowed to visit her on the unit. In consultation with patient advocate, I spoke with Clement, and informed him that he and his girlfriend, his brother and sister would not be welcome on the unit this weekend. I invited him to call me on the phone on Tuesday, if he should so wish. Patient advocate will call the patient's daughter Moraima to inform her. Patient advocate will also be in touch with Security to inform them that these individuals are not welcome on [facility] this weekend. The patient and I agreed that we would revisit this decision after the weekend. Social work has been working with the patient to form a plan, which may include obtaining a Restraining Order against her two son's, and the son's girlfriend.
[2016-03-12 19:29] VITALS: BP 136/77
--- NOTE | 2016-03-12 22:22 | NUR ---
PT COMPLAINS OF FEELING DEPRESSED, TO THE POINT THAT SHE SAYS SHE IS HAVING DIFFICULTIES ACCOMPLISHING TASKS. PT IS CALM, COOPERATIVE WITH STAFF AND PEERS, AND COMPLIANT WITH UNIT RULES. PT APEARS TO BE SHAKING SLIGHTLY, AND COMPLAINS OF BEING A LITTLE ANXIOUS. PT HAS BEEN IN [place] FOR THE MOST-PART OF SHIFT, INTERACTING WELL WITH PEERS. PT MOOD IS STABLE, AFFECT IS EUTHYMIC, COMMUNICATION IS NORMAL, AND APPETITE IS NORMAL. PT DENIES SI AT THIS TIME.
[2016-03-13 08:05] VITALS: BP 146/98
[2016-03-13 12:00] VITALS: BP 134/85
--- NOTE | 2016-03-13 13:58 | NUR ---
PT IS OUT IN COMMUNITY ITNERACTING WITH STAFF AND PEERS. PT IS QUIET AND HANGS OUT THE OUTSKIRTS OF THE BIGGER GROUPS. PT MOOD IS STABLE WITH A FLAT AFFECT. PT IS AWARE SHE IS GETTING BETTER PHYICALLY AND COMMENTED THAT SHE WAS ABLE TO SHOWER BY HERSELF TODAY AND NOT NEED HELP. PT IS ACTIVE IN GROUPS. PT DENIES SI THOUGHTS
--- NOTE | 2016-03-13 14:11 | CP SOUTH PROGRESS NOTE PSYCH ---
Psych (Inpt) Progress Note Progress Note Include the following elements, when applicable: Involvement in the active treatment of the patient with behavioral observations of the patient and the patient's response to the treatment. Review of the ongoing treatment process in the context of the treatment plan. Indication of how multi-disciplinary staff members are carrying out the treatment plan. Plans for future interventions and recommendations for revision of the treatment plan. Liaison with other physicians/providers. Progress Note: Notes reviewed, discussed progress with nursing staff. Interviewed patient this morning. She reports an increase in anxiety after significant disturbance from another patient on the unit last night, though overall feels she continues to improve. She feels her mood has improved as well. She denies SI or HI or psychotic symptoms. She feels she is not getting a lot of benefit from her group treatment saying, "really everyone else seems to be using drugs, doesn't seem like the right group for me". MSE: Well-groomed, appropriately dressed, thin female, with whole body tremulousness. Chronically anxious appearing. Cooperative with interview, with good eye contact. Speech was within normal limits. Mood was "doing okay". Affect was anxious appearing, non-labile. Thought process was logical and linear. Thought content was within normal limits, denies SI or HI. Denies perceptual disturbances. Cognition was grossly intact. Insight and judgment were fair. Vitals reviewed and were within normal limits. No new laboratory results today. A/P: Improving mood and anxiety symptoms. Continue present management as per primary team.
--- NOTE | 2016-03-13 14:27 | NUR ---
PT WAS VISIBLE IN THE MILIEU TODAY. She came up with the goal during planning meeting to "work on feelings, especially anxiety". Pt has been participating in groups, she has some interactions with her peers but keeps a lot to herself. Pt did report feeling anxious and has been very shaky. She shared that a lot of her anxiety has to go on to what goes on in her household. When asked if pt has thoughts to of hurting herself, pt denies.
[2016-03-13 15:57] VITALS: BP 147/92
[2016-03-13 20:01] VITALS: BP 123/83
--- NOTE | 2016-03-13 23:33 | NUR ---
PATIENT IN A BAD MOOD THIS EVENING; SHE REPORTED AT WRAP UP HAVING HAD A BAD DAY AND NOT FEELING COMFORTABLE ON THE UNIT; SHE DID DRESS UP AND PUT ON MAKEUP TODAY, AND IS INTERACTING WITH ONE PEER SHE HAS GOTTEN TO KNOW; SHE DENIES S/I AT THIS TIME.
--- NOTE | 2016-03-14 05:55 | NUR ---
PATIENT SLEPT ALL NIGHT.
[2016-03-14 08:08] VITALS: BP 147/76
--- NOTE | 2016-03-14 11:32 | CP SOUTH PROGRESS NOTE PSYCH ---
Psych (Inpt) Progress Note Progress Note Include the following elements, when applicable: Involvement in the active treatment of the patient with behavioral observations of the patient and the patient's response to the treatment. Review of the ongoing treatment process in the context of the treatment plan. Indication of how multi-disciplinary staff members are carrying out the treatment plan. Plans for future interventions and recommendations for revision of the treatment plan. Liaison with other physicians/providers. Progress Note: Notes reviewed, discussed progress with nursing staff. Interviewed patient this morning. She reports an increase in anxiety from thinking about whether or not to take legal action against her children. Though overall feels she continues to improve. She feels her mood has improved as well. She denies SI or HI or psychotic symptoms. She meaningfully articulated her troubles with taking legal action, and at least stated that she recognizes she needs to worry about herself first. MSE: Well-groomed, appropriately dressed, thin female, with whole body tremulousness. Chronically anxious appearing. Cooperative with interview, with good eye contact. Speech was within normal limits. Mood was "a bit anxious". Affect was anxious appearing, non-labile. Thought process was logical and linear. Thought content was within normal limits, denies SI or HI. Denies perceptual disturbances. Cognition was grossly intact. Insight and judgment were fair. Vitals reviewed and were within normal limits. No new laboratory results today. A/P: Ongoing but seemingly improving mood and anxiety symptoms. Continue present management as per primary team.
[2016-03-14 12:11] VITALS: BP 136/84
--- NOTE | 2016-03-14 14:33 | NUR ---
OUT IN COMMUNITY INTERACTING/PLAYING CARDS WITH PEERS. HAS RECEIVED SEVERAL PHONE CALLS FROM CHILDREN AND REPORTS ANXIETY RELATED TO FAMILY MATTERS. REMINDED BY STAFF AND PEERS THAT SHE CAN LIMIT HER INTERACTIONS SHE SEE FIT. DENIED THOUGHTS OF SELF HARM WHEN ASKED.
[2016-03-14 16:00] VITALS: BP 150/79
[2016-03-14 19:50] VITALS: BP 116/70
--- NOTE | 2016-03-14 19:55 | NUR ---
PT. OUT TO NURSES STATION ASKING TO CHANGE HER ROOM. C/O THAT HER ROOMMATE GETS ANNOYED WITH HER BECAUSE SHE PUTS THE LIGHT ON. TOLD HER IT IS OK TO PUT THE SMALL LIGHT ON ABOVE HER BED UNTIL A REASONABLE TIME.
[2016-03-15 08:02] VITALS: BP 138/77
[2016-03-15 12:28] VITALS: BP 145/79
--- NOTE | 2016-03-15 13:42 | NUR ---
PT IS COMPLIANT AND COOPERATIVE. MOOD IS STABLE WITH A FLAT AFFECT. PT PRESENTS ANXIOUS AND REPORTS THE SAME. PT DENIES SI AT THIS TIME, C/O FEELING WEAK AND SHAKY. PT IS PRESENT IN THE COMMUNITY- CAN BE WITHDRAWN FROM OTHERS. PT HAS LITTLE INTERACTION WITH OTHERS. PT IS ATTENDING GROUPS. VITALS ARE STABLE, APPETITE IS GOOD.
--- NOTE | 2016-03-15 14:12 | CP SOUTH PROGRESS NOTE PSYCH ---
Psych (Inpt) Progress Note Progress Note Progress Note: I discussed this patient's progress to date, current mental status, treatment process in the context of the treatment plan, and discharge planning with staff/ team in the daily morning inpatient team meeting. I also met with the patient myself in individual session. A total of 15 minutes was spent with the patient with more than 50% spent in counseling and/or coordination of care. SUBJECTIVE: "I want them out of their." (Her children, out of her house.) OBJECTIVE: Current Medications Sig/Carol Start time Last Medication Dose Route Stop Time Status Admin Aripiprazole 5 MG QPM 03/10 2200 AC 03/14 PO 2140 Atorvastatin Calcium 20 MG 1700 03/10 1700 AC 03/14 PO 1712 Bupropion HCl 100 MG 0800,1700 03/11 0800 AC 03/15 PO 0809 Clonazepam 0.5 MG TID 03/10 1600 AC 03/15 PO 03/17 1559 0809 Gabapentin 300 MG 0800,1300,1700,2200 03/12 1145 AC 03/15 PO 1316 Lamotrigine 350 MG DAILY 03/10 1200 AC 03/15 PO 0809 Nicotine 2 MG Q2 HRS NEEDED PRN 03/11 1630 AC PO Oxybutynin Chloride 5 MG BID 03/10 2200 AC 03/15 PO 0932 Paroxetine HCl 50 MG 0800 03/13 0800 AC 03/15 PO 0809 Propranolol HCl 10 MG 0800,1300,0 03/15 1400 AC 03/15 PO 1357 Sodium Bicarbonate 650 MG BID 03/10 220 AC 03/15 PO 0809 Trazodone HCl 200 MG AT BEDTIME NEED.. 03/10 220 AC 03/10 PO 2110 Vital Signs Date Time Temp Pulse Resp B/P Pulse O2 O2 Flow FiO2 Ox Delivery Rate 03/15 1357 98.4 80 20 145/79 03/15 1228 80 145/79 03/15 0802 98.4 94 138/77 03/14 1950 97.6 72 116/70 03/14 1600 81 150/79 ASSESSMENT: Patient presents today with continuing tremor/shaking, apparently from the anxiety caused by the upheaval in her home, after both her sons and one of the girlfriends moved in with her. This puts her Section 8 housing at risk. I met the patient today along with protective services social worker Juana Hodgson Together we discussed a plan going forward, patient stated that she would call her son and his girlfriend to tell them that they were not welcome in the house, and that they needed to leave. She was offered the opportunity to ask for a restraining order from the court, which she is refusing to do at this time. As per our physical therapist, patient was unable to correctly draw the time on the face of a clock today. She was however able to draw the clock and its numbers. Denies suicidal ideation, homicidal ideation, auditory hallucinations, visual hallucinations, paranoid ideation. She states that she felt some suicidal thoughts, which brought her to the emergency department, however she never had any plan or actual intent to harm herself. She just felt overwhelmed with her domestic difficulties. Speech is well articulated, goal-directed, average in rate, volume and tone. Patient presents as very anxious. The patient understands the risks/benefits/side effects of the medication and is agreeable to continue taking them. PLAN: Repeat renal panel tomorrow morning. Propranolol for continuing tremor/ shaking. Anticipate family meeting tomorrow with the patient's sister. Continue with other current management as patient is improving. Continue to provide support and encouragement.
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
[2016-03-15 16:14] VITALS: BP 146/86
[2016-03-15 19:51] VITALS: BP 129/73
--- NOTE | 2016-03-15 22:26 | NUR ---
PT IS CALM, COOPERATIVE WITH STAFF AND PEERS, AND COMPLIANT WITH UNIT RULES. PT HAS BEEN IN [place] FOR THE MOST PART, INTERACTING WELL WITH STAFF/PEERS. MOOD IS STABLE, AFFECT IS RELATIVELY FLAT, COMMUNICATION IS NORMAL, AND APPETTIE IS NORMAL. PT DENIES SI AT THIS TIME.
--- NOTE | 2016-03-16 06:07 | NUR ---
PATIENT SLEPT ALL NIGHT; AWAKE AT 0600 FOR BLOOD DRAW.
[2016-03-16 08:16] VITALS: BP 117/76
--- NOTE | 2016-03-16 09:05 | CP SOUTH PROGRESS NOTE PSYCH ---
Psych (Inpt) Progress Note Progress Note Progress Note: I discussed this patient's progress to date, current mental status, treatment process in the context of the treatment plan, and discharge planning with staff/ team in the daily morning inpatient team meeting. I also met with the patient myself in individual session. A total of 25 minutes was spent with the patient with more than 50% spent in counseling and/or coordination of care. SUBJECTIVE: "I'm not able to function well. I'm a wreck. I'm dizzy, I'm afraid I'm going to fall." OBJECTIVE: Current Medications Sig/Carol Start time Last Medication Dose Route Stop Time Status Admin Aripiprazole 5 MG QPM 03/10 220 AC 03/15 PO 2134 Atorvastatin Calcium 20 MG 1700 03/10 170 AC 03/15 PO 1613 Bupropion HCl 100 MG 0800,1700 03/11 0800 AC 03/16 PO 0844 Clonazepam 0.5 MG TID 03/10 1600 AC 03/16 PO 03/17 1559 0848 Gabapentin 300 MG 0800,1300,1700,03/12 1145 AC 03/16 PO 0844 Glycerin 2 SPRAY Q2P PRN 03/16 0915 UNVr PO Lamotrigine 350 MG DAILY 03/10 1200 AC 03/16 PO 0844 Nicotine 2 MG Q2 HRS NEEDED PRN 03/11 1630 AC PO Oxybutynin Chloride 5 MG BID 03/10 220 AC 03/16 PO 0844 Paroxetine HCl 50 MG 0800 03/13 0800 AC 03/16 PO 0844 Propranolol HCl 10 MG 0800,1300,0 03/15 1400 AC 03/16 PO 0844 Sodium Bicarbonate 650 MG BID 03/10 220 AC 03/16 PO 0844 Trazodone HCl 200 MG AT BEDTIME NEED.. 03/10 2199 AC 03/10 PO 2110 Laboratory Tests 03/16 0609 Chemistry Sodium (137 - 145 mmol/L) 155 H Potassium (3.5 - 5.1 mmol/L) 5.1 Chloride (98 - 107 mmol/L) 117 H Carbon Dioxide (22 - 30 mmol/L) 30 Anion Gap (5 - 16) 8 BUN (7 - 17 mg/dL) 47 H Creatinine (0.5 - 1.0 mg/dL) 2.1 H Estimated GFR (>60 ml/min) 24 L BUN/Creatinine Ratio (7 - 25 %) 22.4 Glucose (65 - 99 mg/dL) 95 Calcium (8.4 - 10.2 mg/dL) 9.8 Phosphorus (2.5 - 4.5 mg/dL) 4.4 Albumin (3.5 - 5.0 g/dL) 3.6 Vital Signs Date Time Temp Pulse Resp B/P Pulse O2 O2 Flow FiO2 Ox Delivery Rate 03/16 0844 98.3 82 20 117/76 03/16 0816 98.3 82 117/76 03/15 1951 97.2 63 129/73 03/15 1614 66 146/86 03/15 1357 98.4 80 20 145/79 03/15 1228 80 145 ASSESSMENT: Nephrology consult was ordered this morning, I spoke with Charles Hogue MD who will have the patient admitted to medicine. Patient presented this morning crying and tearful, stating "I'm not able to function well. Complaint of dizziness and an inability to attend to some of her activities of daily living. She reports increasing depression and anxiety, stating that that "there is no flow to my life." She also reports, that as per her daughter Moraima, her son Rick and his girlfriend have moved out of her house. Her other son Khurram is currently in psychiatric care at [facility]. I discussed changing or increasing the patient's psychiatric medications, but the patient states adamantly that she had been stable for many years on the current medications, is unwilling at this time to make changes. States that her present condition is a direct result of difficulties at home, which appear to be resolving. Tremors and shaking from upper and lower extremities appears much improved this morning after initiating propranolol 10 mg 3 times daily yesterday. She continues to complain of dry mouth, and [place] mouth spray has been ordered as needed for her comfort. Denies suicidal ideation, homicidal ideation, auditory hallucinations, visual hallucinations, paranoid ideation. Patient states and also believes that she will not kill herself. She stated that she was suicidal in the emergency department, however now states this was a fleeting thought, and she has no suicidal ideation, plan or intent to harm herself. Speech is well articulated, goal-directed, average in rate, volume and tone. Alert and oriented 3. The patient understands the risks/benefits/side effects of the medication and is agreeable to continue taking them. PLAN: Patient is being admitted to medicine. Continue with current management as patient. Continue to provide support and encouragement.
--- NOTE | 2016-03-16 10:44 | SOCIAL WORKER PROG NOTE PSYCH ---
See Addendum Social Work Progress Note Progress Note Patient presented this AM sad and tearful. Patient shared late yesterday afternoon that she was able to get ahold of her daughter Moraima who confirmed that her brother Clement and his girlfriend Carmelita have left the house. Patient expressed relief after hearing this but still was concerned about her son Khurram who may be currently at [place] or [facility]. Patient this morning had a dificult time expressing her current feelings and concerns but was very tearful and upset. It appears patient may be feeling overwhelmed with everything that has occurred over the past few days, especially yesterday. Patient has agreed to refrain from calling her children today and focus on herself while she remains in the hospital.
--- NOTE | 2016-03-16 12:51 | DISCHARGE SUMMARY REPORT-PSYCH ---
Visit Information Visit Dates/Diagnosis' Admission Date: 03/10/16 Discharge Date: 03/16/16 Reason for Admission: As per Crisis: Patient states that yesterday she was feeling overwhelmed with having all of her adult children staying with her and she became suicidal. She is in Section 8 housing, and her adult children residing in her home puts her lease at risk. She states she was putting the dishes away and started to "fantasize, wouldn't it be wonderful if I could just put an end to the chaos." Psy Discharge Primary Diag: Bipolar II d/o, mre depressed. Psy Discharge Secondary Diag: Generalized Anxiety d/o; Chronic Kidney Disease ( discontinued lithium at least 10 years ago); hyperlipidemia; arthritis; hx of breast cancer. ; Hospital Course Significant Lab Findings: Lab BUN 47 mg/dL H 03/16/16 0609 BUN/Creatinine Ratio 22.4 % 03/16/16 0609 Chloride 117 mmol/L H 03/16/16 0609 Creatinine 2.1 mg/dL H 03/16/16 0609 Estimated GFR 24 ml/min L 03/16/16 0609 Sodium 155 mmol/L H 03/16/16 0609 TSH 1.770 uIU/mL 03/09/16 2119 Course Complications: The patient was discharged to medicine for hypernatremia and elevated renal labs. Consultations: Patient was seen for admission history and physical by Dr. Capellan. Please refer to his note for additional information. Patient was seen for nephrology consult by Charles Hogue MD. Please refer to his note for additional information. Allergies: Coded Allergies: cephalexin (INAFFECTIVE 03/04/16) hydrocodone (I DONT DO WELL AT ALL ON VICODIN 03/04/16) Hospital Course/TX Response: The patient was monitored on the unit for safety, suicidal ideation, mood stability, depression and anxiety. She participated in multimodal treatments on the unit. In addition to her home medications on which, as per her visiting nurse, she has been stable for many years, she was medicated with gabapentin for anxiety and propranolol for tremor/shaking. She reported tolerating her medications well, to good effect. Please refer to the discharge medications list. Although the patient has been reticent to change the dosing of her medications, or the medications themselves, we were in the process of reevaluating her medications, when she was admitted to medicine for hypernatremia and abnormal renal labs. Today, the day of discharge, she presented this morning crying and tearful, stating "I'm not able to function well." Complaining of dizziness and an inability to attend to some of her activities of daily living. She reports increasing depression and anxiety, stating that "there is no flow to my life." She also reports, that as per her daughter Moraima, her son Rick and his girlfriend have moved out of her house, as per her demand. Her other son Khurram is currently in psychiatric care at [facility]. I discussed changing or increasing the patient's psychiatric medications, but the patient states adamantly that she had been stable for many years on the current medications, is unwilling at this time to make changes. States that her present condition is a direct result of difficulties at home, which appear to be resolving. Tremors and shaking from upper and lower extremities appears much improved this morning after initiating propranolol 10 mg 3 times daily yesterday. She continues to complain of dry mouth, and [place] mouth spray has been ordered as needed for her comfort. Denies suicidal ideation, homicidal ideation, auditory hallucinations, visual hallucinations, paranoid ideation. Patient states and also believes that she will not kill herself. She stated that she was suicidal in the emergency department, however now states this was a fleeting thought, and she has no suicidal ideation, plan or intent to harm herself. Speech is well articulated, goal-directed, average in rate, volume and tone. Alert and oriented 3. The patient understands the risks/benefits/side effects of the medication and is agreeable to continue taking them. She reports tolerating her medications well, without complaint. She is being admitted directly from the [facility] to medicine for hypernatremia and elevated renal labs. Discharge HBIPS - Tobacco Use Treatment Offered Post DC Medications Offered: Script Given-See Med List Post DC Tobacco Treatment Plan: Other Tobacco Tx Pgm (Patient admitted to medicine) - EtOH/Drug Use D/O Treatment Offered Post DC Medications Offered: NA-No EtOH/Drug Use D/O Post DC EtOH/SubAbuse TX Plan: NA-No EtOH/Drug Use D/O Metabolic Screening - Screen if on a Neuroleptic Medication - Metabolic screening should include: - Blood Pressure, BMI, Glucose or Hgb A1c, & a - Lipid profile from within the past 365 days. Metabolic Screening () Not Applicable, patient not on a neuroleptic. OR ([x]) Patient on a neuroleptic(s) . Enter below results for Glucose or Hemoglobin A1C, and lipid panel if obtained during the last 365 days. BMI: Blood Pressure: 137/73 Laboratory Results (If applicable): Lab Cholesterol 171 MG/DL 03/09/162118 Cholesterol/HDL Ratio 2 % 03/09/162118 Glucose 95 mg/dL 03/16/1609 HDL Cholesterol 92 mg/dL H 03/09/162118 Hemoglobin A1c 5.2 03/09/162108 LDL Cholesterol, Calc 59 mg/dL L 03/09/162118 Triglycerides 103 mg/dL 03/09/162118 Discharge Instructions General Discharge Information Discharge Medications: Discharge Medications- (Dose, route, freq, indication): Patient is admitted to medicine. No outpatient prescriptions have been issued. HOME MEDICATION LIST START taking these NEW Home Medications: Nicotine Dose: ORAL, EVERY 2 HOURS (Nicorelief) 2 MG 2 Milligram NEEDED as needed for GUM smoking cessation Last Taken:NOT GIVEN Time: Atorvastatin Calcium Dose: ORAL, 5 PM for (Atorvastatin 20 Milligram cholesterol Calcium) 20 MG Last Taken:03/15 TABLET Time:1613 Propranolol HCl Dose: ORAL, 0800,1300,2200 for (Propranolol HCl) 10 10 Milligram TREMORS MG TABLET Last Taken:03/16 1300 Time: Gabapentin Dose: ORAL, (Gabapentin) 300 MG 300 Milligram 0800,1300,1700,2200 for CAPSULE ANXIETY Last Taken:03/16 Time:1316 Paroxetine HCl Dose: ORAL, DAILY @8 AM for (Paxil) 20 MG TABLET 50 Milligram DEPRESSION Oxybutynin Chloride Dose: ORAL, TWICE DAILY for (Oxybutynin 5 Milligram bladder health Chloride) 5 MG Last Taken:03/16 TABLET 0800 Time:Last Taken:03/16 Time:0800 CONTINUE taking these Home Medications: Trazodone HCl (Trazodone Dose: ORAL, Every night for HCl) 100 MG TABLET 2 Tablet SLEEP Last Taken:NOT GIVEN WAS ON 2OOMG lt 03/10, 10PM Time: Bupropion HCl Dose: ORAL, TWICE DAILY for (Wellbutrin Sr) 100 MG 1 Tablet MENTAL HEALTH TABLET.ER Clonazepam (Klonopin) Dose: ORAL, THREE TIMES DAILY 0.5 MG TABLET 1 Tablet for ANXIETY Last Taken:03/16 Time:9A Aripiprazole (Abilify) 5 Dose: ORAL, Every night for MG TABLET 1 Tablet MENTAL HEALTH Last Taken:03/16 Time:0800 Sodium Bicarbonate Dose: ORAL, TWICE DAILY for (Sodium Bicarbonate) 650 1 Tablet SUPPLEMENT MG TABLET Reason to Stop at ADM: not needed Last Taken:03/16 Time:0900 Lamotrigine (Lamictal) Dose: ORAL, DAILY for MOOD Renewed 200 MG TABLET 350 Milligram STABILITY Last Taken:03/16 0800A Time:350MG DOSE STOP taking these DISCONTINUED Home Medications: Paroxetine HCl (Paxil) 30 MG Dose: ORAL, DAILY for MENTAL HEALTH TABLET 2 Tablet Reason Stopped: Changed Dose Simvastatin (Simvastatin*) 40 Dose: ORAL, Every night for CHOLESTEROL MG TABLET 1 Tablet Reason Stopped: Changed Dose Solifenacin Succinate Dose: ORAL, DAILY for BLADDER (Vesicare) 10 MG TABLET 1 Tablet Reason Stopped: Changed to different med Multiple Neuroleptics: (x) Not Applicable OR Document below three failed attempts at monotherapy, or a plan to taper to monotherapy, or augmentation of Clozapine. () Patient's Diet: Regular Patient's Activity: Patient is admitted to medicine. DC Disposition: Patient is admitted to medicine. Recommendations: Patient is admitted to medicine. Referred To: Patient is admitted to medicine. Copies To: *
[2016-03-16] MEDS ORDERED: PAXIL20 M1 PO (12:57)
[2016-03-16] MEDS ORDERED: LAMICTAL200 M1 PO (13:00)
[2016-03-16] MEDS ORDERED: NICORELIEF2 MG PO (13:22)
[2016-03-16] MEDS ORDERED: ATORVASTATIN CA20 M1 PO (13:23)
[2016-03-16] MEDS ORDERED: PROPRANOLOL HCL10 M1 PO (13:24)
[2016-03-16] MEDS ORDERED: GABAPENTIN300 M2 PO (13:28)
[2016-03-16 13:32] VITALS: BP 150/94
[2016-03-16] MEDS ORDERED: OXYBUTYNIN CHLOR5 M2 PO (13:39)
--- NOTE | 2016-03-16 14:03 | NUR ---
DISCHARGE ASSESSMENT PATIENT TO BE TRANSFERRED TO MEDICINE FOR HARPER/NONA AND HYPERNATREMIA.DR. GOLDMAN EXAMINED THE PATIENT AND FELT THE PATIENT SHE NEEDED TO GO TO MEDICINE. PATIENT DENIES SI/INTENT/OR PLAN.
--- NOTE | 2016-03-16 16:08 | Cons- Nephrology ---
General Information and HPI Consulting Request Date of Consult: 03/16/16 Requested By: FELISA LOCKWOOD MD Reason for Consult: Rising creatinine and sodium levels History of Present Illness: 65-year-old woman admitted on 03/10 with depression, anxiety and suicidal ideation. Her creatinine level on 03/09/16 was 1.8 and one week later was 2.1 today. The only previous creatinine level available in [facility] was 1.2 in July 2012. Her serum sodium lubna from 147-->155 since admission despite the fact that the patient has been drinking a lot of fluid. She carries a bottle of water around with her throughout the day and is constantly thirsty. Intake and output has not been measured. She states that she had been on lithium for about 5 years but stopped 6 months ago on her own because she was concerned about side effects to her thyroid and kidneys. She is unaware of any kidney disease in the past. She has not had any fever, vomiting, or diarrhea and has not been hypotensive nor has she been exposed to any parenteral contrast, NSAIDs or other potential nephrotoxins. She was on sodium bicarbonate as an outpatient (I'm not sure why) which has been continued during this admission. Serum bicarbonate levels have not been low. Past medical history is positive for hyperlipidemia, arthritis, breast cancer, bipolar disease Current medications: See below Allergies: Hydrocodone, cephalexin Family history: Negative for any known kidney disease or hormonal disorders and her parents or other family members Social history: Lives with one of her children (daughter), , smokes 1 pack of cigarettes per day, no history of alcohol or drug abuse Allergies/Medications Allergies: Coded Allergies: cephalexin (INAFFECTIVE 03/04/16) hydrocodone (I DONT DO WELL AT ALL ON VICODIN 03/04/16) Home Med List: Aripiprazole (Abilify) 5 MG TABLET 1 TAB PO QPM MENTAL HEALTH (Reported) Atorvastatin Calcium 20 MG TABLET 20 MG PO 1700 cholesterol Bupropion HCl (Wellbutrin Sr) 100 MG TABLET.ER 1 TAB PO BID MENTAL HEALTH ( Reported) Clonazepam (Klonopin) 0.5 MG TABLET 1 TAB PO TID ANXIETY (Reported) Gabapentin 300 MG CAPSULE 300 MG PO 0800,1300,1700,2200 ANXIETY Lamotrigine (Lamictal) 200 MG TABLET 1 TAB PO DAILY UNKNOWN (Reported) Lamotrigine (Lamictal) 200 MG TABLET 350 MG PO DAILY MOOD STABILITY Nicotine (Nicorelief) 2 MG GUM 2 MG PO Q2 HRS NEEDED PRN smoking cessation Oxybutynin Chloride 5 MG TABLET 5 MG PO BID bladder health Paroxetine HCl (Paxil) 20 MG TABLET 50 MG PO 0800 DEPRESSION Propranolol HCl 10 MG TABLET 10 MG PO 0800,1300,2200 TREMORS Sodium Bicarbonate 650 MG TABLET 1 TAB PO BID SUPPLEMENT (Reported) Trazodone HCl 100 MG TABLET 2 TAB PO QPM SLEEP (Reported) Review of Systems Review of Systems Constitutional: Denies: no symptoms. EENTM: Denies: no symptoms. Cardiovascular: Denies: no symptoms. Respiratory: Denies: no symptoms. GI: Denies: no symptoms. Genitourinary: Denies: no symptoms. Musculoskeletal: Denies: no symptoms. Skin: Denies: no symptoms. Neurological/Psychological: Reports: anxiety, depressed, emotional problems. Hematologic/Endocrine: Denies: no symptoms. Immunologic/Allergic: Denies: no symptoms. 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 Home ETOH Use: denies use Illicit Drug Use: denies illicit drug use Employment History Employment: Disability Profession/Employer: N/A Exam & Diagnostic Data Vital Signs and I&O Vital Signs Date Time Temp Pulse Resp B/P Pulse O2 O2 Flow FiO2 Ox Delivery Rate 03/16 1332 74 150/94 03/16 1316 74 150/99 03/16 0844 98.3 82 20 117/76 03/16 0816 98.3 82 117/76 03/15 1951 97.2 63 129/73 03/15 1614 66 146/86 Physical Exam: General: Anxious, ectomorphic white female in NAD Skin: No rash or jaundice HEENT: Conjunctivae pink, sclerae anicteric, mucous membranes moist Neck: Without masses or thyromegaly, no supraclavicular or cervical adenopathy Chest: Clear to P&A Heart: Regular rate and rhythm without S3 or rub Abdomen: Soft and nontender without palpable masses or organomegaly Extremities: Without cyanosis or edema Neuro: No focal findings, no asterixis or myoclonus Results Pertinent Lab Results: Laboratory Tests 03/16 0609 Chemistry Sodium (137 - 145 mmol/L) 155 H Potassium (3.5 - 5.1 mmol/L) 5.1 Chloride (98 - 107 mmol/L) 117 H Carbon Dioxide (22 - 30 mmol/L) 30 Anion Gap (5 - 16) 8 BUN (7 - 17 mg/dL) 47 H Creatinine (0.5 - 1.0 mg/dL) 2.1 H Estimated GFR (>60 ml/min) 24 L BUN/Creatinine Ratio (7 - 25 %) 22.4 Glucose (65 - 99 mg/dL) 95 Calcium (8.4 - 10.2 mg/dL) 9.8 Phosphorus (2.5 - 4.5 mg/dL) 4.4 Albumin (3.5 - 5.0 g/dL) 3.6 Assessment/Plan Assessment/Recommendations Assessment: 65-year-old woman with significant kidney injury some of which may be chronic but some certainly acute with associated hypernatremia indicating significant free water deficit. 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 This remains to be documented and then addressed. Recommendations: 1. Transfer to medical floor 2. Spot urine for osmolality, sodium and protein to creatinine ratio 3. Urinalysis 4. Renal ultrasound 5. Daily weights, strict intake and output 6. IV D5W at 100 mL per hour 7. Check CBC, calcium, phosphorus, magnesium and albumin levels as well as daily BMP 8. If we can establish a diagnosis of nephrogenic diabetes insipidus, will consider long-term therapy with amiloride Thank you. Will follow along with you.
[2016-03-16 16:16] VITALS: BP 137/73
--- NOTE | 2016-03-16 17:47 | PN- Att Addend ---
Attending Addendum Attending Brief Note Medical service was notified by the inpatient psychiatric service regarding recommendations to admit this patient by the nephrology service for further workup or management of electrolyte abnormalities. Patient is a 65-year-old female was medical history significant for depression, dyslipidemia, arthritis and bipolar disorder. She was admitted to the inpatient psychiatric service on March 10 due to worsening depression and suicidal ideations. She had plans to stab herself with a knife due to feeling of hopelessness. Admission labs revealed a creatinine of 1.8 and sodium of 147. The only comparison labs are from 2012 where her creatinine was 1.2. Blood work was repeated today and revealed creatinine of 2.1 and sodium of 155. Patient denies any nausea vomiting. She denies any diarrhea she actually complains of constipation on and off. She admits to feeling thirsty all the time at [place] bottled water with her. Staff in the inpatient psychiatric service admit to seeing her drinking water frequently. Significant in her history is the fact that she was on lithium for over 5 years. She reports stopping this medication about 6 months ago on her own accord due to concerns about its side effects. Review of her current psychiatric medications no not sure any other potentially nephrotoxic medications. Vital Signs Date Time Temp Pulse Resp B/P Pulse O2 O2 Flow FiO2 Ox Delivery Rate 03/16 1616 71 137/73 03/16 1332 74 150/94 03/16 1316 74 150/99 03/16 0844 98.3 82 20 117/76 03/16 0816 98.3 82 117/76 03/15 1951 97.2 63 129/73 Gen. appearance: Well-developed, not in acute distress HEENT: Anicteric, no pallor, moist oral mucosa Heart: S1-S2 regular Lungs: Clear to auscultation bilaterally, good entry Abdomen: Soft, nontender with normal bowel sounds Extremities: No pedal edema. Skin: Intact with no rashes Laboratory Tests 03/16/16 0609: Anion Gap 8, Estimated GFR 24 L, BUN/Creatinine Ratio 22.4, Glucose 95, Calcium 9.8, Phosphorus 4.4, Albumin 3.6 Problems: 1. Acute kidney injury 2. Hypernatremia; likely secondary to nephrogenic diabetes insipidus 3. Bipolar disorder; currently on admission due to suicidal ideations. Recommendations: -Admit to the inpatient general medical service. - Fluid replacement with D5W at 100 mL per hour - Strict monitoring of input output. -Obtain urinalysis and renal ultrasound. -Nephrology consultation appreciated. Follow-up recommendations. -Place formal psychiatric consultation in the morning. Maintain one-to-one sitter for suicide precaution. -Daily serum chemistry. -DVT prophylaxis with heparin subcutaneous.
== END 2016-03-16 17:55 | disposition short-term general hospital (02) | DRG 885 ==
LOC: ENRESERVDT → ENRESERVTM → ERH 20:49 → ERHI 03-10 08:12 → ENPENDDIS 03-10 08:12 → CP SOUTH 03-10 08:12
PROVIDERS: Emergency Medicine; ADMIT Psychiatry & Neurology Psychiatry
DX: F31.9 Bipolar disorder, unspecified (principal); E78.5 Hyperlipidemia, unspecified; F41.1 Generalized anxiety disorder; N18.9 Chronic kidney disease, unspecified; M19.90 Unspecified osteoarthritis, unspecified site; Z85.3 Personal history of malignant neoplasm of breast
CPT/HCPCS: 84133; 84300; 36415; 80307; 81001; 82570; 93005; 93010; G0480; J7060

== ENCOUNTER 2016-03-16 12:52 | Inpatient (IN) | payer OTHER, MEDICARE ==
[~2016-03-16] VITALS: Ht 152.4 cm; Wt 49.0 kg
[2016-03-16] MEDS ORDERED: PAXIL20 M1 PO (12:57)
[2016-03-16] MEDS ORDERED: LAMICTAL200 M1 PO (13:00)
[2016-03-16] MEDS ORDERED: NICORELIEF2 MG PO (13:22)
[2016-03-16] MEDS ORDERED: ATORVASTATIN CA20 M1 PO (13:23)
[2016-03-16] MEDS ORDERED: PROPRANOLOL HCL10 M1 PO (13:24)
[2016-03-16] MEDS ORDERED: GABAPENTIN300 M2 PO (13:28)
[2016-03-16] MEDS ORDERED: OXYBUTYNIN CHLOR5 M2 PO (13:39)
--- NOTE | 2016-03-16 18:21 | History & Physical ---
ISI PATEL,LAWRENCE 03/16/16 1821: General Information and [facility] MD Statement: I have seen and personally examined LEIDY CHAVIS and documented this H&P. The patient is a 65 year old F who presented with a patient stated chief complaint of abnormal laboratory values. Source of Information: patient, old records Exam Limitations: no limitations History of Present Illness: Ms. Chavis is a pleasant 65 year old female with PMH HLD, bipolar depression, anxiety, breast cancer s/p left mastectomy who presented initally to [place] on 03/09/16 with worsening depression and suicidal ideations. At that time, patient endorsed thoughts about harming herself with a knife and she was subsequently admitted to [facility] for further management of suicidal ideations with underlying depression. Patient was admitted to the general medicine floor today after laboratory work showed a sodium level of 155. Current symptoms at this time include polydipsia, polyuria, anxiety, nervousness, blurred vision and dizziness. Patient reports that she is very anxious about her transfer up to the general medicine floor and she is nervous about leaving her 27 year old daughter at home while she is in the hospital. She endorses dizziness with blurred vision that have been present for at least a few weeks for which she attributed to her psychiatric medications. She denies fever, chills, confusion, lethargy, chest pain, palpitations, shortness of breath, abdominal pain, nausea, vomiting or weakness. Of note, patient reports that she has been on several medications throught the years to help with her bipolar depression, including lithium which she stopped over 6 months ago. Patient also had admission labs drawn at time of initial presentation to the ED which showed creatinine 1.8 and Na 147 (baseline cre believed to be 1.2 as seen on labs drawn in 2012). Social history is significant for tobacco abuse of 1 ppd. Allergies/Medications Allergies: Coded Allergies: cephalexin (INAFFECTIVE 03/04/16) hydrocodone (I DONT DO WELL AT ALL ON VICODIN 03/04/16) Home Med list Aripiprazole (Abilify) 5 MG TABLET 1 TAB PO QPM MENTAL HEALTH (Reported) Atorvastatin Calcium 20 MG TABLET 20 MG PO 1700 cholesterol Bupropion HCl (Wellbutrin Sr) 100 MG TABLET.ER 1 TAB PO BID MENTAL HEALTH ( Reported) Clonazepam (Klonopin) 0.5 MG TABLET 1 TAB PO TID ANXIETY (Reported) Gabapentin 300 MG CAPSULE 300 MG PO 0800,1300,1700,2200 ANXIETY Lamotrigine (Lamictal) 200 MG TABLET 350 MG PO DAILY MOOD STABILITY Nicotine (Nicorelief) 2 MG GUM 2 MG PO Q2 HRS NEEDED PRN smoking cessation Oxybutynin Chloride 5 MG TABLET 5 MG PO BID bladder health Paroxetine HCl (Paxil) 20 MG TABLET 50 MG PO 0800 DEPRESSION Propranolol HCl 10 MG TABLET 10 MG PO 0800,1300,2200 TREMORS Sodium Bicarbonate 650 MG TABLET 1 TAB PO BID SUPPLEMENT (Reported) Reason to Stop at ADM: not needed Trazodone HCl 100 MG TABLET 2 TAB PO QPM SLEEP (Reported) Compliance With Home Meds: UNKNOWN Past History Medical History Neurological: NONE EENT: NONE Cardiovascular: hyperlipidemia Respiratory: SMOKER- 1 PACK A DAY; Gastrointestinal: POOR EATING; INDIGESTION Renal: LITHIUM FOR MANY YEARS Musculoskeletal: ARTHRITIS Psychiatric: bipolar disease Endocrine: NONE Blood Disorders: NONE Cancer(s): breast cancer 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 Home Who Do You Live With? child Primary Language: Slovak Smoking Status: Current Everyday Smoker ETOH Use: denies use Illicit Drug Use: denies illicit drug use Living Will? no Functional Ability ADLs Independent: dressing, eating, toileting, bathing. Ambulation: independent IADLs Independent: shopping, housework, finances, food prep, telephone, transportation , medication admin. Review of Systems Review of Systems Constitutional: Denies: chills, fever, weakness, unexplained weight loss. EENTM: Reports: blurred vision. Denies: hearing changes, nasal congestion, throat pain. Cardiovascular: Denies: chest pain, palpitations. Respiratory: Denies: cough, short of breath, sputum production. GI: Denies: abdominal pain, bloating, constipation, diarrhea, nausea, vomiting. Genitourinary: Reports: frequency. Denies: dysuria, hematuria, pain. Musculoskeletal: Denies: back pain, joint pain, joint swelling. Skin: Denies: change in skin color, change in hair/nails, lesions. Neurological/Psychological: Reports: anxiety, emotional problems. Denies: confusion, headache, numbness, paresthesia. Hematologic/Endocrine: Reports: polyuria, polydipsia. Denies: bruising, bleeding. Immunologic/Allergic: Denies: splenectomy. All Other Systems: Reviewed and Negative Exam & Diagnostic Data Last 24 Hrs of Vital Signs/I&O None entered at time of documentation. Physical Exam General Appearance Alert, Oriented X3, Cooperative, Anxious Skin No Rashes, No Significant Lesion HEENT Atraumatic, PERRLA, EOMI, Mucous Membr. moist/pink Neck Supple, No JVD, No thryomegaly Lymphatic Cervical nl Cardiovascular Regular Rate, Normal S1, Normal S2, No Murmurs Lungs Clear to Auscultation, Normal Air Movement Abdomen Normal Bowel Sounds, Soft, No Tenderness, No Hepatospenomegaly, No Masses Neurological Normal Gait, Normal Speech, Strength at 5/5 X4 Ext, Normal Tone, Sensation Intact, Cranial Nerves 3-12 NL Extremities No Clubbing, No Cyanosis, No Edema Vascular Pulses Symmetrical Diagnostic Data CXR Results Chest XR on 03/09/16: EXAMINATION: XR CHEST CLINICAL INFORMATION: Smoker. Cough. COMPARISON: No relevant prior imaging is available. TECHNIQUE: PA and lateral views of the chest were obtained. FINDINGS: There is a dense 6 mm subpleural pulmonary nodule within the right upper lobe near the major fissure. Lungs are otherwise clear and well expanded. There is no focal consolidative disease, pleural effusion, or pneumothorax. The cardiac silhouette and upper mediastinal contours are normal. No acute osseous finding. IMPRESSION: There is a dense likely calcified 6 mm subpleural pulmonary nodule within the right upper lobe near the major fissure. Correlation with prior imaging is recommended if available. Otherwise a dedicated CT scan of the chest can be obtained to provide a baseline for follow-up if necessary. No consolidative disease or effusion. Assessment/Plan Assessment: Ms. Chavis is a pleasant 65 year old female with PMH bipolar depression previously on lithium, anxiety, HLD, arthritis and left breast cancer s/p mastectomy who was admitted to the general medicine floor from [facility] after noting abnormal renal function and hypernatremia on lab work. Patient currently admits to dizziness, occasional blurry vision, anxiety, nervousness and polyuria /polydipsia. Labs: CBC withou acute abnormality, BEP with Na 155, K 5.1, Cl 117, HCO3 30, AG 8, BUN 47, cre 2.1, Glu 95. Patient was admitted to the general medicine floor and the following is the management: 1. NONA * Cre significantly above prior cre noted in July 2012 (cre at that time was 1.2 ) * Continue IVF * Repeat BEP at 9pm and in AM * Hold all nephrotoxic medications * Nephrology on board, will continue following nephrology recommendations * UA and renal US ordered, f/u results * Spot urine for osmolality, sodium and protein to creatinine ratio 2. Hypernatremia * Likely 2/2 nephrogenic diabetes insipidus in the setting of prior lithium use for >5 years * IVF with D5W at 100 cc/h * Repeat BEP to be drawn at 9 pm to monitor Na level * Strict Is/Os 3. Bipolar depression with suicidal ideations * Continue all psychiatric medications, including paxil 50 mg PO daily, lamictal 350 mg PO daily, propanolol 10 mg PO TID, ditropan 5 mg PO BID, neurontin 300 mg PO 4x/d, klonipin 0.5 mg PO TID, wellbutrin 100 mg PO BID, abilify 5 mg PO QPM * Trazodone 200 mg PO QPM PRN for insomnia * Continue 1:1 sitter for SI * Patient currently denies SI/HI * Formal psych consult to be placed in AM 4. HLD * Continue atorvastatin 20 mg PO daily 5. Tobacco abuse * Nicotine gum 2 mg PO Q2 hours as needed for smoking FULL CODE DVTP: Heparin SC Heart Healthy Diet Mild pain pathway As Ranked By This Provider Problem List: 1. Anxiety 2. Depression 3. Hypernatremia 4. Suicidal ideations Core Measures/Miscellaneous Acute Coronary Syndrome ACS Diagnosis: No Cerebrovascular Accident CVA/TIA Diagnosis: No Congestive Heart Failure CHF Diagnosis: No Venous Thromboembolism VTE Risk Factors: Acute medical illness VTE Prophylaxis Ordered Inpt: Mech & Pharm No Mech VTE prophylaxis d/t: No contraindications No VTE Pharm Prophylaxis d/t: No contraindications VTE Diagnosis: No VTE Type: NONE VTE Confirmed by (Test): NONE Severe Sepsis Severe Sepsis Present: No Septic Shock Septic Shock Present: No Miscellaneous Documentation Attending Case Discussed With: ERICK HEBERT M.D Primary Care Physician: GERI SIMPSON MD Patient sees these Specialists Psychiatrist. Level of Patient Care: General Medicine [facility] ,GABY 03/16/164: Resident Review Statement Resident Statement: examined this patient, discussed with analysis internship, agreed with analysis internship, discussed with family, reviewed EMR data (avail), discussed with nursing , discussed with case mgmt, reviewed images, amended to note Other Findings: 65 yo female with pmh of HLD, bipolar disorder, anxiety, hx of breast ca s/p Lt. mastectomy who was initially admitted to inpatient psychiatric unit due to suicidal ideation on 03/09 was transferred to general medicine floor due to worsening kidney function with hypernatremia. Her initial Cr was 1.8 (baseline 1.2 in 2012) on 03/09 which was increased to 2.1 on 03/16. Na 147 (03/09) to 155 (). She has been on po lithium for bipolar disorder for many years but stopped it about 6 months ago. She c/o polydipsia, polyuria and constipation. She denies any nausea/vomiting/abdominal pain. She also has dizziness with blurred vision about 1 week. She denies any headache, weakness, numbness or seizures. She luiz any SI/HI currently but has anxiety. Current smoker 1 ppd, not interested in nicotine patch. V/S stable, alert, oriented x 3, anxious, PERRLA, EOM intact, normal mucosa, no cervical LAD, cardiovascular: regulr rate, normal S1/S2, no murmurs, lung: CTA, abdomen: soft, non-tendern, normal bowel sound, LE: no edema, normal pulses, motor 5/5, cranial nerves grossly intact, no tremor. Labs: (03/16 am) Na 155 K 5.1 bicarb 30 BUN/Cr 47/2.1 Ca 9.8 Phosphorus 4.4 albumin 3.6 1. Hypernatremia with NONA: likely secondary to nephrogenic DI with lithium intake. Nephrology consult is appreciated. Pt was started on IV D5W @ 100cc/hr. Check follow up BEP and adjust the rate. Check UA, spot lytes, protein/Cr ratio, serum/urine Osm, kidney ultrasound. AVOID NSAIDS or nephrotoxic medication for pain control. 2. Bipolar disorder with suicidal ideation: Continue psy medication including abilify, paxil, lamictal, wellbutrin. Keep 1:1 sitter and follow psy consult. 3. Anxiety: c/w clonazepam, propranolol, gabapentin. 4. HLD: lipid panel on 03/09 showed cholesterol 171, low LDL 59 and high HLD 92. Would hold statin. 5. Current smoker: not interested in nicotine patch as it gives headache. nicotine gum as needed. DVT ppx : SC heparin, full code. Case was discussed with attending, Dr. Hebert. LENO PATEL,[facility] 03/17/16 1154: Attending MD Review Statement Attending Statement Attending MD Statement: examined this patient, discuss w/resident/PA/INTENSIVE CARE SPECIALIST, agreed w/resident/PA/INTENSIVE CARE SPECIALIST, reviewed EMR data (avail), discussed with nursing, amended to note Attending Assessment/Plan: I have reviewed and agree with the resident's notes. Please see my addendum note in addition.
--- NOTE | 2016-03-16 20:22 | ULTRASOUND REPORT ---
EXAMINATION: US RETROPERITONEAL COMPLETE (RENAL) CLINICAL INFORMATION: Acute kidney injury. Hypernatremia. COMPARISON: None. TECHNIQUE: Real-time imaging of the kidneys and bladder. FINDINGS: RIGHT KIDNEY: 9.3 x 6.1 x 5.6 cm (SAG x AP x TRV). There is increased echogenicity of the renal parenchyma, indicative of underlying medical renal disease. Additionally, there are innumerable punctate echogenic foci scattered throughout the renal parenchyma, which could reflect renal cortical calcifications. No appreciable hydronephrosis of the right kidney. LEFT KIDNEY: 9.1 x 5.5 x 5.2 cm (SAG x AP x TRV). There is increased echogenicity of the renal parenchyma, indicative of underlying medical renal disease. Additionally, there are innumerable punctate echogenic foci scattered throughout the left kidney, which could reflect renal cortical calcifications. There is no appreciable hydronephrosis of the left kidney. BLADDER: Partially distended and filled with clear hypoechoic urine. Bilateral ureteral jets are demonstrated. Prevoid bladder volume is 139 mL. IMPRESSION: Increased echogenicity of the bilateral kidneys, indicative of underlying medical renal disease. Of note, there are innumerable punctate echogenic foci scattered throughout the parenchyma of the bilateral kidneys. These could reflect innumerable cortical calcifications. No appreciable hydronephrosis of either kidney.
[2016-03-16 22:14] VITALS: BP 110/60
--- NOTE | 2016-03-17 06:42 | PN- Housestaff ---
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 She continues to endorse both anxiety and nervousness. She also admits to continued polyuria and polydipsia. Review of Systems Constitutional: Denies: chills, fever, malaise. EENTM: Reports: blurred vision. Denies: visual changes, hearing changes, nasal congestion. Cardiovascular: Denies: chest pain, palpitations, syncope. Respiratory: Denies: cough, short of breath. Gastrointestinal: Denies: abdominal pain, bloating, constipation, diarrhea. Genitourinary: Reports: frequency. Denies: dysuria, pain. Musculoskeletal: Denies: back pain, joint pain. Skin: Denies: change in skin color, change in hair/nails. Neurological/Psychological: Reports: anxiety. Denies: confusion, headache, numbness, paresthesia, tingling. Hematologic/Endocrine: Reports: polyuria, polydipsia. Denies: bruising, bleeding. Immunologic/Allergic: Denies: splenectomy. Objective Last 24 Hrs of Vital Signs/I&O Vital Signs Date Time Temp Pulse Resp B/P Pulse O2 O2 Flow FiO2 Ox Delivery Rate 03/17 1517 98.7 64 18 110/60 97 03/17 1441 116/68 03/17 0916 126/78 03/16 2214 97.7 62 20 110/60 98 Room Air 03/16 2124 64 110/60 Intake & Output 03/17 1600 03/17 0800 03/17 0000 Intake Total 950 Output Total 900 300 Balance -900 650 Intake, IV 800 Intake, Oral 150 Output, Urine 900 300 Patient 113 lb 108 lb Weight Physical Exam General Appearance: Alert, Oriented X3, Cooperative, No Acute Distress Other Physical Findings: Skin No Rashes, No Significant Lesion HEENT Atraumatic, PERRLA, EOMI, Mucous Membr. moist/pink Neck Supple, No JVD, No thryomegaly Lymphatic Cervical nl Cardiovascular Regular Rate, Normal S1, Normal S2, No Murmurs Lungs Clear to Auscultation, Normal Air Movement Abdomen Normal Bowel Sounds, Soft, No Tenderness, No Hepatospenomegaly, No Masses Neurological Normal Gait, Normal Speech, Strength at 5/5 X4 Ext, Normal Tone, Sensation Intact, Cranial Nerves 3-12 NL Extremities No Clubbing, No Cyanosis, No Edema Vascular Pulses Symmetrical Current Medications: Current Medications Sig/Carol Start time Last Medication Dose Route Stop Time Status Admin Acetaminophen 650 MG Q6P PRN 03/16 1845 AC PO Aripiprazole 5 MG QPM 03/16 2200 AC 03/16 PO 2122 Atorvastatin Calcium 20 MG 1700 03/17 1700 CAN PO Bupropion HCl 100 MG .[0600, 1400] 03/18 0000 UNVr PO Bupropion HCl 100 MG BID 03/16 2200 r 03/17 PO 03/17 220 0916 Clonazepam 0.5 MG .[0600, 1400, 2000] 03/17 1536 UNVr PO 03/24 1535 Clonazepam 0.5 MG TID 03/16 2199 DC 03/17 PO 03/23 215 0913 Desmopressin Acetate 4 MCG ONCE ONE 03/17 1400 DC 03/17 SC 03/17 1401 1401 Dextrose/Water 1,000 ML Q20H 03/17 0915 DC 03/17 IV 0916 Dextrose/Water 1,000 ML Q20H 03/17 0715 DC IV Dextrose/Water 1,000 ML Q10H 03/16 1830 DC 03/16 IV 2125 Gabapentin 300 MG 0800,1300,1700,0 03/16 220 AC 03/17 PO 1440 Heparin Sodium 5,000 UNIT Q8 03/16 2199 AC 03/17 (Porcine) SC 1441 Lamotrigine 350 MG 0603/18 0600 UNVr PO Lamotrigine 350 MG DAILY 03/17 1000 DC 03/17 PO 0914 Nicotine 2 MG Q2 HRS NEEDED PRN 03/16 1900 AC PO Oxybutynin Chloride 5 MG BID 03/16 220 AC 03/17 PO 0916 Paroxetine HCl 50 MG 0603/18 0600 UNVr PO Paroxetine HCl 50 MG 0800 03/17 0800 DC 03/17 PO 0915 Polyethylene Glycol 17 GM AT BEDTIME PRN 03/16 1845 AC PO Propranolol HCl 10 MG 0800,1300,2200 03/16 220 AC 03/17 PO 1441 Trazodone HCl 200 MG AT BEDTIME NEED.. 03/16 2199 AC 03/16 PO 2122 Last 24 Hrs of Lab/Lars Results Last 24 Hrs of Labs/Mics: Laboratory Tests 03/17/16 1319: Urine Osmolality 149 L 03/17/16 0655: Anion Gap 7, Estimated GFR 25 L, BUN/Creatinine Ratio 25.0, Calcium 9.2, Phosphorus 4.3, Magnesium 2.5 H, Albumin 3.2 L, CBC w Diff NO MAN DIFF REQ, RBC 3.85 L, MCV 91.9, MCH 31.1 H, RDW 12.4, MPV 7.9, Gran % 62.0, Lymphocytes % 25.9, Monocytes % 8.3, Eosinophils % 3.1, Basophils % 0.7, Absolute Granulocytes 3.9, Absolute Lymphocytes 1.6, Absolute Monocytes 0.5, Absolute Eosinophils 0.2, Absolute Basophils 0, PUBS MCHC 33.9 03/16/16 2114: Anion Gap 9, Estimated GFR 21 L, BUN/Creatinine Ratio 24.8, Serum Osmolality 314 H Orders Radiology Findings: EXAMINATION: US RETROPERITONEAL COMPLETE (RENAL) CLINICAL INFORMATION: Acute kidney injury. Hypernatremia. COMPARISON: None. TECHNIQUE: Real-time imaging of the kidneys and bladder. FINDINGS: RIGHT KIDNEY: 9.3 x 6.1 x 5.6 cm (SAG x AP x TRV). There is increased echogenicity of the renal parenchyma, indicative of underlying medical renal disease. Additionally, there are innumerable punctate echogenic foci scattered throughout the renal parenchyma, which could reflect renal cortical calcifications. No appreciable hydronephrosis of the right kidney. LEFT KIDNEY: 9.1 x 5.5 x 5.2 cm (SAG x AP x TRV). There is increased echogenicity of the renal parenchyma, indicative of underlying medical renal disease. Additionally, there are innumerable punctate echogenic foci scattered throughout the left kidney, which could reflect renal cortical calcifications. There is no appreciable hydronephrosis of the left kidney. BLADDER: Partially distended and filled with clear hypoechoic urine. Bilateral ureteral jets are demonstrated. Prevoid bladder volume is 139 mL. IMPRESSION: Increased echogenicity of the bilateral kidneys, indicative of underlying medical renal disease. Of note, there are innumerable punctate echogenic foci scattered throughout the parenchyma of the bilateral kidneys. These could reflect innumerable cortical calcifications. No appreciable hydronephrosis of either kidney. Assessment/Plan Assessment: Ms. Macias is a pleasant 65 year old female with PMH bipolar depression previously on lithium, anxiety, HLD, arthritis and left breast cancer s/p mastectomy who was admitted to the general medicine floor from [facility] after noting abnormal renal function and hypernatremia on lab work. Patient currently admits to dizziness, occasional blurry vision, anxiety, nervousness and polyuria /polydipsia. Labs: CBC without acute abnormality, BEP with Na 155, K 5.1, Cl 117, HCO3 30, AG 8, BUN 47, cre 2.1, Glu 95. Patient was admitted to the general medicine floor and the following is the management: 1. NONA * Cre significantly above prior cre noted in July 2012 (cre at that time was 1.2 ) * Patient may have history of CKD as she was provided with sodium cl tablets by a nephrology office who reports she was placed on these medications for CKD * IVF on hold while we are performing a desmopressin challenge * Repeat BEP at 3pm to determine if patient will require more fluids after desmopressin challenge * Hold all nephrotoxic medications * Nephrology on board, will continue following nephrology recommendations 2. 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 Bipolar depression with suicidal ideations * Continue all psychiatric medications, including paxil 50 mg PO daily, lamictal 350 mg PO daily, propanolol 10 mg PO TID, ditropan 5 mg PO BID, neurontin 300 mg PO 4x/d, klonipin 0.5 mg PO TID, wellbutrin 100 mg PO BID, abilify 5 mg PO QPM * Trazodone 200 mg PO QPM PRN for insomnia * Discontinued 1:1 sitter for SI as patient has made a verbal contract for safety while in the hospital * Patient currently denies SI/HI * Formal psych consult appreciatd, will continue to follow rec's * Social work consult placed, will follow up rec's 4. HLD * Continue atorvastatin 20 mg PO daily 5. Tobacco abuse * Nicotine gum 2 mg PO Q2 hours as needed for smoking FULL CODE DVTP: Heparin SC Heart Healthy Diet Mild pain pathway Problem List: 1. Anxiety 2. Depression 3. Hypernatremia 4. Suicidal ideations Pain Ratin Pain Location: n/a Pain Goal: Remain pain free Pain Plan: Mild pain pathway Tomorrow's Labs & Rationales: BEP (monitor hypernatremia) ERICK BURR MD 03/17/16 1155: Attending MD Review Statement Attending Statement Attending MD Statement: examined this patient, discuss w/resident/PA/DUMPMAN, agreed w/resident/PA/DUMPMAN, reviewed EMR data (avail), discussed with nursing, discussed with case mgmt, amended to note Attending Assessment/Plan: No issues overnight reported by nursing staff. No new complaints this morning. She remains hypernatremic this morning despite hydration overnight. Urine osmolarity was very low this morning. Findings raise concern for nephrogenic diabetes insipidus. Follow-up with the nephrology service regarding fluid restriction tests/desmopressin challenge. Continue one-to-one sitter and follow -up recommendations of the psychiatric service.
[2016-03-17 08:04] LABS: ABSOLUTE BASOPHIL COUNT 0 /CUMM (0.0-0.2); ABSOLUTE EOSINOPHIL COUNT 0.2 /CUMM (0.0-0.7); ABSOLUTE GRANULOCYTE CT 3.9 /CUMM (1.4-6.5); ABSOLUTE LYMPH COUNT 1.6 /CUMM (1.2-3.4); ABSOLUTE MONOCYTE COUNT 0.5 /CUMM (0.10-0.60); BASOPHIL % 0.7 % (0.0-2.0); EOSINOPHIL % 3.1 % (0-5); HEMATOCRIT 35.4 % (37-47); MEAN CORPUSCULAR HGB 31.1 PG (27.0-31.0); MEAN CORPUSCULAR HGB CONC 33.9 G/DL (33.0-37.0); MEAN CORPUSCULAR VOLUME 91.9 FL (81.0-99.0); MEAN PLATELET VOLUME 7.9 FL (7.4-10.4); PLATELET COUNT 177 /CUMM (130-400); RBC DISTRIBUTION WIDTH 12.4 % (11.5-14.5); RED BLOOD CELL CT 3.85 /CUMM (4.20-5.40); WHITE BLOOD CELL COUNT 6.2 /CUMM (4.8-10.8)
--- NOTE | 2016-03-17 11:55 | Admission Certification ---
Admission Certification Certification Statement - As attending physician, I certify that at the time of - admission, based on clinical presentation, severity of - symptoms, need for further diagnostic testing and - therapeutic interventions, and risk of adverse outcomes - without in-hospital treatment, in my clinical assessment, - this patient requires an acute hospital stay for a minimum - of two nights or longer. I have also considered psychsocial - factors such as support system, advanced age, financial - issues, cognitive issues, and failed out-patient treatments, - past re-admission history, safety of patient, and lack of - compliance as applicable. Specific rationale supporting this admission is: Inpatient medical management is required for further workup and management of her severe hypernatremia
--- NOTE | 2016-03-17 12:31 | PN- Nephrology ---
Assessment/Plan Assessment: 1. 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 Anxiety/depression Suggestion: 1. Would hold IV fluids for the moment and proceed with testing for nephrogenic DI 2. Testing for nephrogenic DI as follows: Obtain baseline urine osmolality and baseline 2 hour urine volume. Would then administer DDAVP 2 g subcutaneously with subsequent measurement of urine osmolality and 2 hour urine volume 3. Repeat BMP later today in order to ascertain whether she will need further IV fluids 4. Once a diagnosis has been established, will consider long-term therapy Subjective Subjective: Patient remains anxious but has no other specific complaints today. She remains thirsty and voids frequently. Urine output 1200 mL over an unspecified period of time since she has been transferred up to medical floor. Serum sodium was repeated at 141 yesterday but is again up at 146 this morning. Urine osmolality this morning was low at 172. Creatinine down from 2.3 to 2.0. Objective Vital Signs and I&Os Vital Signs Date Time Temp Pulse Resp B/P Pulse O2 O2 Flow FiO2 Ox Delivery Rate 03/17 0916 126/78 03/16 2213 97.7 62 20 110/60 98 Room Air 03/16 2123 64 110/60 Intake & Output 03/17 1600 03/17 0400 03/16 1600 03/16 0400 03/15 1600 03/15 0400 Intake Total 950 Output Total 1200 Balance -250 Intake, IV 800 Intake, Oral 150 Output, Urine 1200 Patient 113 lb 108 lb Weight Physical Exam: General: Anxious, ectomorphic white female in NAD Skin: No rash or jaundice HEENT: Conjunctivae pink, sclerae anicteric, mucous membranes moist Neck: Without masses or thyromegaly, no supraclavicular or cervical adenopathy Chest: Clear to P&A Heart: Regular rate and rhythm without S3 or rub Abdomen: Soft and nontender without palpable masses or organomegaly Extremities: Without cyanosis or edema Neuro: No focal findings, no asterixis or myoclonus Current Medications: Current Medications Sig/Carol Start time Last Medication Dose Route Stop Time Status Admin Acetaminophen 650 MG Q6P PRN 03/16 1845 AC PO Aripiprazole 5 MG QPM 03/16 2199 AC 03/16 PO 2121 Atorvastatin Calcium 20 MG 1700 03/17 1700 CAN PO Bupropion HCl 100 MG BID 03/16 2200 AC 03/17 PO 0916 Clonazepam 0.5 MG TID 03/16 2199 AC 03/17 PO 03/23 2159 0913 Desmopressin Acetate 4 MCG ONCE ONE 03/17 1400 AC SC 03/17 1401 Dextrose/Water 1,000 ML Q20H 03/17 0915 DC 03/17 IV 0916 Dextrose/Water 1,000 ML Q20H 03/17 0715 DC IV Dextrose/Water 1,000 ML Q10H 03/16 1830 DC 03/16 IV 2125 Gabapentin 300 MG 0800,1300,1700,2200 03/16 220 AC 03/17 PO 0915 Heparin Sodium 5,000 UNIT Q8 03/16 2199 AC 03/17 (Porcine) SC 0615 Lamotrigine 350 MG DAILY 03/17 1000 AC 03/17 PO 0914 Nicotine 2 MG Q2 HRS NEEDED PRN 03/16 1900 AC PO Oxybutynin Chloride 5 MG BID 03/16 2199 AC 03/17 PO 0916 Paroxetine HCl 50 MG 0800 03/17 0800 AC 03/17 PO 0915 Polyethylene Glycol 17 GM AT BEDTIME PRN 03/16 1845 AC PO Propranolol HCl 10 MG 0800,1300,0 03/16 2199 AC 03/17 PO 0916 Trazodone HCl 200 MG AT BEDTIME NEED.. 03/16 2199 AC 03/16 PO 2121 Results Pertinent Lab Results: Laboratory Tests 03/17 03/16 0655 2114 Chemistry Sodium (137 - 145 mmol/L) 146 H 141 Potassium (3.5 - 5.1 mmol/L) 4.7 4.6 Chloride (98 - 107 mmol/L) 113 H 103 Carbon Dioxide (22 - 30 mmol/L) 26 29 Anion Gap (5 - 16) 7 9 BUN (7 - 17 mg/dL) 50 H 57 H Creatinine (0.5 - 1.0 mg/dL) 2.0 H 2.3 H Estimated GFR (>60 ml/min) 25 L 21 L BUN/Creatinine Ratio (7 - 25 %) 25.0 24.8 Serum Osmolality (285 - 295 MOSM/KG) 314 H Calcium (8.4 - 10.2 mg/dL) 9.2 Phosphorus (2.5 - 4.5 mg/dL) 4.3 Magnesium (1.6 - 2.3 mg/dL) 2.5 H Albumin (3.5 - 5.0 g/dL) 3.2 L Hematology CBC w Diff NO MAN DIFF REQ WBC (4.8 - 10.8 /CUMM) 6.2 RBC (4.20 - 5.40 /CUMM) 3.85 L Hgb (12.0 - 16.0 G/DL) 12.0 Hct (37 - 47 %) 35.4 L MCV (81.0 - 99.0 FL) 91.9 MCH (27.0 - 31.0 PG) 31.1 H RDW (11.5 - 14.5 %) 12.4 Plt Count (130 - 400 /CUMM) 177 MPV (7.4 - 10.4 FL) 7.9 Gran % (42.2 - 75.2 %) 62.0 Lymphocytes % (20.5 - 51.1 %) 25.9 Monocytes % (1.7 - 9.3 %) 8.3 Eosinophils % (0 - 5 %) 3.1 Basophils % (0.0 - 2.0 %) 0.7 Absolute Granulocytes (1.4 - 6.5 /CUMM) 3.9 Absolute Lymphocytes (1.2 - 3.4 /CUMM) 1.6 Absolute Monocytes (0.10 - 0.60 /CUMM) 0.5 Absolute Eosinophils (0.0 - 0.7 /CUMM) 0.2 Absolute Basophils (0.0 - 0.2 /CUMM) 0 PUBS MCHC (33.0 - 37.0 G/DL) 33.9 03/16 03/16 0900 0900 Urines Urine Color (YEL,AMB,STR) YEL Urine Clarity (CLEAR) CLEAR Urine pH (5.0 - 8.0) 6.5 Ur Specific [place] (1.001 - 1.035) <= 1.005 Urine Protein (NEG,<30 MG/DL) NEG Urine Ketones (NEG) NEG Urine Nitrite (NEG) NEG Urine Bilirubin (NEG) NEG Urine Urobilinogen (0.1 - 1.0 EU/dl) 0.2 Ur Leukocyte Esterase (NEG) NEG Ur Microscopic EXAM NOT REQUIRED Urine Hemoglobin (NEG) NEG Urine Osmolality (300 - 1000 MOSM/KG) 172 L Ur Random Creatinine (mg/dL) 13.9 Ur Random Sodium (30 - 90 mmol/L) 29 L Ur Random Potassium (mmol/L) 15.4 Fraction Sodium Excret (<1% %) 2.8 H Urine Glucose (N MG/DL) NEG
--- NOTE | 2016-03-17 15:01 | Cons- Psychiatry ---
Psychiatric Consult Date of Consult: 03/17/16 Reason for Consult: "Suicidal Ideation, bipolar disorder" History of Present Illness: This is a 65-year-old female, who presented to the hospital on 03/09/2016 with depression and suicidal ideation. She was subsequently admitted to acute inpatient psychiatry, where her suicidality resolved, but required transfer to the medical floor before her treatment was completed there for hypernatremia and NONA. House staff reports that on the evening of the transfer, 03/16/2016, the patient had made suicidal statement again. I visited the patient today, 03/17/2016, with Hilario Woodard APRN, in [facility], both of whom are treating the patient on acute inpatient psychiatry. We interviewed the patient, who denied suicidality, but reports that she is depressed about returning to her home situation. The patient normally lives at home with her disabled daughter, Moraima, who is on the section 8 housing contract and entitled to live there. However, the patient 's son and his girlfriend, both of whom are using drugs, have moved in, which is jeopardizing the patient's section 8 housing. Elderly protective services was contacted, and have told the patient that they will help her find a fci bed, if she loses her housing. The patient has another son, Khurram, who is currently being treated at [facility], possibly for schizophrenia, who normally lives in [place], and who also expects to discharge to the patient's home, further jeopardizing her chances of remaining in her housing. She has also lost her redetermination paperwork, which is possibly in the house. The patient is treated at [facility], the local [facility], and is seen by Kaylie Singleton APRN, . With the patient's written permission, I have placed a call to Kaylie, and expect a return call tomorrow, , 2016, to discuss history, treatment, medication and plan. Allergies: Coded Allergies: cephalexin (INAFFECTIVE 03/04/16) hydrocodone (I DONT DO WELL AT ALL ON VICODIN 03/04/16) Current Medications: Note: The patient has not been on lithium for the 8 years that her current home care nurse, Laury Reed, of patient care, , has known her. Current Medications Sig/Carol Start time Last Medication Dose Route Stop Time Status Admin Acetaminophen 650 MG Q6P PRN 03/16 1845 AC PO Aripiprazole 5 MG QPM 03/16 2200 AC 03/16 PO 2122 Atorvastatin Calcium 20 MG 1700 03/17 1700 CAN PO Bupropion HCl 100 MG BID 03/16 2200 AC 03/17 PO 0916 Clonazepam 0.5 MG TID 03/16 2200 AC 03/17 PO 03/23 2159 0913 Desmopressin Acetate 4 MCG ONCE ONE 03/17 1400 DC 03/17 SC 03/17 1401 1401 Dextrose/Water 1,000 ML Q20H 03/17 0915 DC 03/17 IV 0916 Dextrose/Water 1,000 ML Q20H 03/17 0715 DC IV Dextrose/Water 1,000 ML Q10H 03/16 1830 DC 03/16 IV 2125 Gabapentin 300 MG 0800,1300,1700,2200 03/16 2200 AC 03/17 PO 1440 Heparin Sodium 5,000 UNIT Q8 03/16 2200 AC 03/17 (Porcine) SC 1441 Lamotrigine 350 MG DAILY 03/17 1000 AC 03/17 PO 0914 Nicotine 2 MG Q2 HRS NEEDED PRN 03/16 1900 AC PO Oxybutynin Chloride 5 MG BID 03/16 220 AC 03/17 PO 0916 Paroxetine HCl 50 MG 0800 03/17 0800 AC 03/17 PO 0915 Polyethylene Glycol 17 GM AT BEDTIME PRN 03/16 1845 AC PO Propranolol HCl 10 MG 0800,1300,2200 03/16 2200 AC 03/17 PO 1441 Trazodone HCl 200 MG AT BEDTIME NEED.. 03/16 220 AC 03/16 PO 2122 Past History Past Medical History Neurological: NONE EENT: NONE Cardiovascular: hyperlipidemia Respiratory: SMOKER- 1 PACK A DAY; Gastrointestinal: POOR EATING; INDIGESTION Renal: LITHIUM FOR MANY YEARS Musculoskeletal: ARTHRITIS Psychiatric: bipolar disease Endocrine: NONE Blood Disorders: NONE Cancer(s): breast cancer [employer]/Reproductive: POST MENEPAUSAL Past Surgical History Surgical History: non-contributory Psychosocial History Strengths/Capabilities: The patient has been connected to her outpatient provider for 20+ years, receives SSDI and has section 8 housing assistance. Physical Limitations (Interventions): None noted Psychiatric Treatment History Diagnosis: Mood disorder Risk Factors: age (under 24/over 65), chronic/serious med cond., high anxiety/ distress, history of suicide atmpts, SA/MH hospitalized, weapons access Substance Use/Abuse History Drug Use/Abuse Substances Used/Abused No (denies) Assessment/Plan Mental Status Mental Status Exam: The patient is alert, oriented to person, place, reason for admission, but not the day. She denies auditory or visual hallucinations, and presents no cluady delusions. She reports that she normally sleeps 9 hours per night at home. Her mood is nervous and depressed, with congruent affect. She reports her current depressive symptoms as 10/10, which would be the most severe. She is unable to scale her anxiety, but reports that she feels anxious. She denies suicidal or homicidal ideation. Lab Results: Laboratory Tests 03/17 03/17 03/16 1319 0655 2114 Chemistry Sodium (137 - 145 mmol/L) 146 H 141 Potassium (3.5 - 5.1 mmol/L) 4.7 4.6 Chloride (98 - 107 mmol/L) 113 H 103 Carbon Dioxide (22 - 30 mmol/L) 26 29 Anion Gap (5 - 16) 7 9 BUN (7 - 17 mg/dL) 50 H 57 H Creatinine (0.5 - 1.0 mg/dL) 2.0 H 2.3 H Estimated GFR (>60 ml/min) 25 L 21 L BUN/Creatinine Ratio (7 - 25 %) 25.0 24.8 Serum Osmolality (285 - 295 MOSM/KG) 314 H Calcium (8.4 - 10.2 mg/dL) 9.2 Phosphorus (2.5 - 4.5 mg/dL) 4.3 Magnesium (1.6 - 2.3 mg/dL) 2.5 H Albumin (3.5 - 5.0 g/dL) 3.2 L Hematology CBC w Diff NO MAN DIFF REQ WBC (4.8 - 10.8 /CUMM) 6.2 RBC (4.20 - 5.40 /CUMM) 3.85 L Hgb (12.0 - 16.0 G/DL) 12.0 Hct (37 - 47 %) 35.4 L MCV (81.0 - 99.0 FL) 91.9 MCH (27.0 - 31.0 PG) 31.1 H RDW (11.5 - 14.5 %) 12.4 Plt Count (130 - 400 /CUMM) 177 MPV (7.4 - 10.4 FL) 7.9 Gran % (42.2 - 75.2 %) 62.0 Lymphocytes % (20.5 - 51.1 %) 25.9 Monocytes % (1.7 - 9.3 %) 8.3 Eosinophils % (0 - 5 %) 3.1 Basophils % (0.0 - 2.0 %) 0.7 Absolute Granulocytes (1.4 - 6.5 /CUMM) 3.9 Absolute Lymphocytes (1.2 - 3.4 /CUMM) 1.6 Absolute Monocytes (0.10 - 0.60 /CUMM) 0.5 Absolute Eosinophils (0.0 - 0.7 /CUMM) 0.2 Absolute Basophils (0.0 - 0.2 /CUMM) 0 PUBS MCHC (33.0 - 37.0 G/DL) 33.9 Urines Urine Osmolality (300 - 1000 MOSM/KG) 149 L Diffential Diagnosis: Bipolar disorder NOS Impression: The patient does not wish to return home until the matter of her unauthorized children living in her home has resolved. One son and his girlfriend have supposedly moved out, but returned daily to provide food to the patient's daughter Moraima, who is authorized to live there. The patient has an appointment to see her prescriber at [facility] on 03/19/2016; the patient will make a telephone call to reschedule this appointment. The patient is currently not suicidal, and is cleared psychiatrically for discharge to home. She is asking that her psychotropic medication regimen be adjusted closer to the times that she takes medications in her home: 1. Abilify 5 mg PO at bedtime 2. Bupropion/Wellbutrin SR 100 mg 2 times per day, taken at 6-7 a.m., and again no later than 2 p.m. she reports that if taken later than this, we will keep her awake at night. 3. Gabapentin 300 mg by mouth 4 times per day 4. Paroxetine 50 mg by mouth every morning at 6-7 a.m. 5. Clonazepam 0.5 mg by mouth 3 times per day, taken with bupropion, with a third dose at 8 p.m. 6. Lamotrigine 350 mg by mouth every morning at 6-7 a.m. 7. Trazodone 200 mg by mouth at bedtime Provisional Treatment Plan: 1. The 1:1 safety monitor is not required for suicidality at this time. The patient has made a verbal contract for safety while in the hospital, promises to not leave the hospital before treatment is finished, and also promises to use the call renee to call her nurse, and to provide the nurse with adequate notice before toileting. 2. Please try to adjust medication administration times, per above. In particular, the patient finds bupropion activating if taken to late in the day. 3. Please assess social work to assist the patient in discussing with her family the need for her to live alone in her home, along with her daughter Moraima , but without the other children, who may be jeopardizing her section 8 standing. 4. I am expecting a return telephone call from the patient's communications intern at [facility] , Kaylie Singleton APRN, to discuss history, treatment and plan. I will also verify that the patient has rescheduled her appointment. We will continue to follow along with you. Chan Loyola APRN, pager [phone].
[2016-03-17 15:17] VITALS: BP 110/60
--- NOTE | 2016-03-17 20:39 | NUR ---
STRICT I&O BETWEEN 12-4 INTAKE 12-2: 1003 ML OUTPUT 12-2: 750 ML OSMOLALITY SENT WITH 1ST VOIDED URINE DESMOPRESSIN GIVEN AT 1400 INTAKE 2-4: 805 ML OUTPUT 2-4: 500 ML OSMOLALITY SENT WITH 1ST VOIDED URINE
[2016-03-17 23:13] VITALS: BP 110/56
[2016-03-18 05:47] VITALS: BP 120/60
--- NOTE | 2016-03-18 06:51 | PN- Housestaff ---
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 She remains anxious and nervous and does not want to be discharged home as she feels the environment there is unsafe and will likely worsen her depression. She is aware that there is case management, social work and psychiatry on board and we are attempting to address this issue. Review of Systems Constitutional: Denies: chills, fever, malaise. EENTM: Denies: blurred vision, visual changes. Cardiovascular: Denies: chest pain. Respiratory: Denies: cough, short of breath. Gastrointestinal: Denies: abdominal pain, bloating, constipation, diarrhea. Genitourinary: Reports: frequency. Denies: dysuria. Musculoskeletal: Denies: back pain. Skin: Denies: change in skin color, change in hair/nails. Neurological/Psychological: Reports: anxiety, depressed, emotional problems. Denies: confusion, headache. Hematologic/Endocrine: Reports: polyuria, polydipsia. Immunologic/Allergic: Denies: splenectomy. Objective Last 24 Hrs of Vital Signs/I&O Vital Signs Date Time Temp Pulse Resp B/P Pulse O2 O2 Flow FiO2 Ox Delivery Rate 03/18 0838 80 118/70 03/18 0547 98.2 67 20 120/60 94 Room Air 03/17 2313 97.8 55 20 110/56 95 Room Air 03/17 2106 120/70 03/17 1517 98.7 64 18 110/60 97 03/17 1441 116/68 Intake & Output 03/18 1600 03/18 0800 03/18 0000 Intake Total 805 Output Total 600 1000 Balance -600 -195 Intake, Oral 805 Output, Urine 600 1000 Physical Exam General Appearance: Alert, Oriented X3, Cooperative, No Acute Distress Skin: No Significant Lesion HEENT: Atraumatic, Mucous Membr. moist/pink Neck: Supple, No JVD Lymphatic: Cervical nl Cardiovascular: Regular Rate, Normal S1, Normal S2 Lungs: Clear to Auscultation, Normal Air Movement Abdomen: Normal Bowel Sounds, Soft, No Tenderness, No Hepatospenomegaly Neurological: Normal Speech, Strength at 5/5 X4 Ext, Normal Tone Extremities: No Clubbing, No Cyanosis, No Edema Vascular: Pulses Symmetrical Current Medications: Current Medications Sig/Carol Start time Last Medication Dose Route Stop Time Status Admin Acetaminophen 650 MG .STK-MED ONE 03/17 2108 DC PO 03/17 2109 Acetaminophen 650 MG Q6P PRN 03/16 1845 03/17 PO 211 Aripiprazole 5 MG QPM 03/16 2199 AC 03/17 PO 2106 Bupropion HCl 100 MG 0600,1400 03/18 0600 AC 03/18 PO 0621 Bupropion HCl 100 MG BID 03/16 2199 DC 03/17 PO 03/17 Clonazepam 0.5 MG 0600,1400,03/17 1536 AC 03/18 PO 03/24 153 0620 Clonazepam 0.5 MG TID 03/16 2199 ND 03/17 PO 03/23 2158 0913 Desmopressin Acetate 4 MCG ONCE ONE 03/17 1400 DC 03/17 SC 03/17 1401 1401 Gabapentin 300 MG 0800,1300,1700,0 03/16 2199 03/18 PO 0837 Heparin Sodium 5,000 UNIT Q8 03/16 2199 03/18 (Porcine) SC 0623 Hydrochlorothiazide 12.5 MG DAILY 03/18 1000 AC PO Lamotrigine 350 MG 0600 03/18 0600 AC 03/18 PO 0621 Lamotrigine 350 MG DAILY 03/17 1000 ND 03/17 PO 0914 Nicotine 2 MG Q2 HRS NEEDED PRN 03/16 1900 AC PO Oxybutynin Chloride 5 MG BID 03/16 2199 AC 03/18 PO 0837 Paroxetine HCl 50 MG 0603/18 0600 AC 03/18 PO 0621 Paroxetine HCl 50 MG 0803/17 0800 ND 03/17 PO 0915 Polyethylene Glycol 17 GM AT BEDTIME PRN 03/16 184 AC PO Propranolol HCl 10 MG 0800,1300,2200 03/16 2199 AC 03/18 PO 0838 Trazodone HCl 200 MG AT BEDTIME NEED.. 03/16 2199 03/16 PO 2121 Last 24 Hrs of Lab/Lars Results Last 24 Hrs of Labs/Mics: Laboratory Tests 03/18/16 0728: Anion Gap 7, Estimated GFR 24 L, BUN/Creatinine Ratio 19.5 03/17/16 1602: Anion Gap 8, Estimated GFR 24 L, BUN/Creatinine Ratio 22.4, Serum Osmolality 302 H 03/17/16 1531: Urine Osmolality 184 L 03/17/16 1319: Urine Osmolality 149 L Orders Radiology Findings: EXAMINATION: US RETROPERITONEAL COMPLETE (RENAL) CLINICAL INFORMATION: Acute kidney injury. Hypernatremia. COMPARISON: None. TECHNIQUE: Real-time imaging of the kidneys and bladder. FINDINGS: RIGHT KIDNEY: 9.3 x 6.1 x 5.6 cm (SAG x AP x TRV). There is increased echogenicity of the renal parenchyma, indicative of underlying medical renal disease. Additionally, there are innumerable punctate echogenic foci scattered throughout the renal parenchyma, which could reflect renal cortical calcifications. No appreciable hydronephrosis of the right kidney. LEFT KIDNEY: 9.1 x 5.5 x 5.2 cm (SAG x AP x TRV). There is increased echogenicity of the renal parenchyma, indicative of underlying medical renal disease. Additionally, there are innumerable punctate echogenic foci scattered throughout the left kidney, which could reflect renal cortical calcifications. There is no appreciable hydronephrosis of the left kidney. BLADDER: Partially distended and filled with clear hypoechoic urine. Bilateral ureteral jets are demonstrated. Prevoid bladder volume is 139 mL. IMPRESSION: Increased echogenicity of the bilateral kidneys, indicative of underlying medical renal disease. Of note, there are innumerable punctate echogenic foci scattered throughout the parenchyma of the bilateral kidneys. These could reflect innumerable cortical calcifications. No appreciable hydronephrosis of either kidney. Assessment/Plan Assessment: Ms. Macias is a pleasant 65 year old female with PMH bipolar depression previously on lithium, anxiety, HLD, arthritis and left breast cancer s/p mastectomy who was admitted to the general medicine floor from [facility] after noting abnormal renal function and hypernatremia on lab work. Patient currently admits to dizziness, occasional blurry vision, anxiety, nervousness and polyuria /polydipsia. Labs: CBC without acute abnormality, BEP with Na 155, K 5.1, Cl 117, HCO3 30, AG 8, BUN 47, cre 2.1, Glu 95. Patient was admitted to the general medicine floor and the following is the management: 1. NONA * Cre significantly above prior cre noted in July 2012 (cre at that time was 1.2 ) * Patient likely has a history of CKD as she was provided with sodium cl tablets by a nephrology office who reports she was placed on these medications for CKD * Desmopressin challenge peformed yesterday suggestive of DI (no significant change in urine osmolality pre and post desmopressin) * As instructed by Dr. Hogue, we have started patient on low dose HCTZ for nephrogenic DI. We will hold off on amiloride at this time as patient is * Hold all nephrotoxic medications * Nephrology on board, will continue following nephrology recommendations 2. 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 Bipolar depression with suicidal ideations * Continue all psychiatric medications, including paxil 50 mg PO daily, lamictal 350 mg PO daily, propanolol 10 mg PO TID, ditropan 5 mg PO BID, neurontin 300 mg PO 4x/d, klonipin 0.5 mg PO TID, wellbutrin 100 mg PO BID, abilify 5 mg PO QPM * Trazodone 200 mg PO QPM PRN for insomnia * Discontinued 1:1 sitter for SI as patient has made a verbal contract for safety while in the hospital * Patient currently reports severe anxiety and nervousness about discharge home, will discuss with case management and social work about discharge planning * Formal psych consult appreciatd * Social work consult placed, will follow up rec's 4. HLD * Continue atorvastatin 20 mg PO daily 5. Tobacco abuse * Nicotine gum 2 mg PO Q2 hours as needed for smoking FULL CODE DVTP: Heparin SC Heart Healthy Diet Mild pain pathway Problem List: 1. Anxiety 2. Depression 3. Hypernatremia 4. Suicidal ideations Pain Ratin Pain Location: n/a Pain Goal: Remain pain free Pain Plan: Mild pain pathways. Tomorrow's Labs & Rationales: BEP (monitor Na) BEP (monitor Na)
--- NOTE | 2016-03-18 12:34 | PN- Nephrology ---
Assessment/Plan Assessment: 1. CKD/NONA - improved; suspect CKD is secondary to chronic interstitial nephritis due to lithium that her baseline creatinine is approximately 2 mg/dL 2. 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 Anxiety/depression with a number of social issues at home Suggestion: 1. Begin hydrochlorothiazide 12.5 mg by mouth daily and encourage by mouth fluids 2. Recheck labs tomorrow 3. Strict intake and output monitoring 4. Once discharged, she will need outpatient renal follow-up - perhaps closer to her home in [place] Subjective Subjective: Patient remains quite anxious today and has made it clear that she does not feel that she is ready to go home. Urine osmolality increased slightly following a dose of DDAVP but still remained quite low - consistent with a diagnosis of nephrogenic diabetes insipidus despite the fact that her urine volume appeared to have decreased somewhat following the desmopressin. Of note is the fact that her 24-hour urine volume was 4350ml. Spot urine for protein to creatinine ratio was low as expected at 0.1. Serum sodium 145 today with a potassium of 4.9. Objective Vital Signs and I&Os Vital Signs Date Time Temp Pulse Resp B/P Pulse O2 O2 Flow FiO2 Ox Delivery Rate 03/18 0838 80 118/70 03/18 0547 98.2 67 20 120/60 94 Room Air 03/17 2313 97.8 55 20 110/56 95 Room Air 03/17 2106 120/70 03/17 1517 98.7 64 18 110/60 97 03/17 1441 116/68 Intake & Output 03/18 1600 03/18 0400 03/17 1600 03/17 0400 03/16 1600 03/16 0400 Intake Total 3855 Output Total 919 422 7464 Balance -600 -500 5 Intake, IV 1000 Intake, Oral 2855 Output, Urine 758 300 1273 Patient 113 lb 108 lb Weight Physical Exam: General: Anxious white female in NAD Skin: No rash or jaundice HEENT: Conjunctivae pink, sclerae anicteric, mucous membranes moist Neck: Without masses or thyromegaly, no supraclavicular or cervical adenopathy Chest: Clear to P&A Heart: Regular rate and rhythm without S3 or rub Abdomen: Soft and nontender without palpable masses or organomegaly Extremities: Without cyanosis or edema Neuro: No focal findings, no asterixis or myoclonus Current Medications: Current Medications Sig/Carol Start time Last Medication Dose Route Stop Time Status Admin Acetaminophen 650 MG .STK-MED ONE 03/17 2108 DC PO 03/17 2109 Acetaminophen 650 MG Q6P PRN 03/16 1845 03/17 PO 211 Aripiprazole 5 MG QPM 03/16 2199 03/17 PO 2106 Bupropion HCl 100 MG 0600,1400 03/18 0600 AC 03/18 PO 0621 Bupropion HCl 100 MG BID 03/16 2199 DC 03/17 PO 03/17 Clonazepam 0.5 MG 0600,1400,03/17 1536 AC 03/18 PO 03/24 153 0620 Clonazepam 0.5 MG TID 03/16 2199 LA 03/17 PO 03/23 215 0913 Desmopressin Acetate 4 MCG ONCE ONE 03/17 1400 DC 03/17 SC 03/17 1401 1401 Gabapentin 300 MG 0800,1300,1700,0 03/16 2199 03/18 PO 0837 Heparin Sodium 5,000 UNIT Q8 03/16 2199 03/18 (Porcine) SC 0623 Hydrochlorothiazide 12.5 MG DAILY 03/18 1000 AC PO Lamotrigine 350 MG 03/18 06 03/18 PO 0621 Lamotrigine 350 MG DAILY 03/17 1000 LA 03/17 PO 0914 Nicotine 2 MG Q2 HRS NEEDED PRN 03/16 1900 AC PO Oxybutynin Chloride 5 MG BID 03/16 2199 AC 03/18 PO 0837 Paroxetine HCl 50 MG 03/18 0600 03/18 PO 0621 Paroxetine HCl 50 MG 0803/17 0800 DC 03/17 PO 0915 Polyethylene Glycol 17 GM AT BEDTIME PRN 03/16 1845 AC PO Propranolol HCl 10 MG 0800,1300,0 03/16 2199 03/18 PO 0838 Trazodone HCl 200 MG AT BEDTIME NEED.. 03/16 2199 03/16 PO 2122 Results Pertinent Lab Results: Laboratory Tests 03/18 03/17 03/17 03/17 0728 1602 1531 1319 Chemistry Sodium (137 - 145 mmol/L) 145 137 Potassium (3.5 - 5.1 mmol/L) 4.9 4.5 Chloride (98 - 107 mmol/L) 111 H 104 Carbon Dioxide (22 - 30 mmol/L) 28 25 Anion Gap (5 - 16) 7 8 BUN (7 - 17 mg/dL) 41 H 47 H Creatinine (0.5 - 1.0 mg/dL) 2.1 H 2.1 H Estimated GFR (>60 ml/min) 24 L 24 L BUN/Creatinine Ratio (7 - 25 %) 19.5 22.4 Serum Osmolality (285 - 295 MOSM/KG) 302 H Urines Urine Osmolality (300 - 1000 MOSM/KG) 184 L 149 L 03/17 03/16 03/16 0655 2114 1834 Chemistry Sodium (137 - 145 mmol/L) 146 H 141 Potassium (3.5 - 5.1 mmol/L) 4.7 4.6 Chloride (98 - 107 mmol/L) 113 H 103 Carbon Dioxide (22 - 30 mmol/L) 26 29 Anion Gap (5 - 16) 7 9 BUN (7 - 17 mg/dL) 50 H 57 H Creatinine (0.5 - 1.0 mg/dL) 2.0 H 2.3 H Estimated GFR (>60 ml/min) 25 L 21 L BUN/Creatinine Ratio (7 - 25 %) 25.0 24.8 Serum Osmolality (285 - 295 MOSM/KG) 314 H Calcium (8.4 - 10.2 mg/dL) 9.2 Phosphorus (2.5 - 4.5 mg/dL) 4.3 Magnesium (1.6 - 2.3 mg/dL) 2.5 H Albumin (3.5 - 5.0 g/dL) 3.2 L Hematology CBC w Diff NO MAN DIFF REQ WBC (4.8 - 10.8 /CUMM) 6.2 RBC (4.20 - 5.40 /CUMM) 3.85 L Hgb (12.0 - 16.0 G/DL) 12.0 Hct (37 - 47 %) 35.4 L MCV (81.0 - 99.0 FL) 91.9 MCH (27.0 - 31.0 PG) 31.1 H RDW (11.5 - 14.5 %) 12.4 Plt Count (130 - 400 /CUMM) 177 MPV (7.4 - 10.4 FL) 7.9 Gran % (42.2 - 75.2 %) 62.0 Lymphocytes % (20.5 - 51.1 %) 25.9 Monocytes % (1.7 - 9.3 %) 8.3 Eosinophils % (0 - 5 %) 3.1 Basophils % (0.0 - 2.0 %) 0.7 Absolute Granulocytes (1.4 - 6.5 /CUMM) 3.9 Absolute Lymphocytes (1.2 - 3.4 /CUMM) 1.6 Absolute Monocytes (0.10 - 0.60 /CUMM) 0.5 Absolute Eosinophils (0.0 - 0.7 /CUMM) 0.2 Absolute Basophils (0.0 - 0.2 /CUMM) 0 PUBS MCHC (33.0 - 37.0 G/DL) 33.9 Urines Ur Random Creatinine (mg/dL) 15 U Random Total Protein (0 - 12 mg/dL) 1.3 Protein/Creatinin Ratio (< 0.2) 0.1 03/16 03/16 0900 0900 Urines Urine Color (YEL,AMB,STR) YEL Urine Clarity (CLEAR) CLEAR Urine pH (5.0 - 8.0) 6.5 Ur Specific [place] (1.001 - 1.035) <= 1.005 Urine Protein (NEG,<30 MG/DL) NEG Urine Ketones (NEG) NEG Urine Nitrite (NEG) NEG Urine Bilirubin (NEG) NEG Urine Urobilinogen (0.1 - 1.0 EU/dl) 0.2 Ur Leukocyte Esterase (NEG) NEG Ur Microscopic EXAM NOT REQUIRED Urine Hemoglobin (NEG) NEG Urine Osmolality (300 - 1000 MOSM/KG) 172 L Ur Random Creatinine (mg/dL) 13.9 Ur Random Sodium (30 - 90 mmol/L) 29 L Ur Random Potassium (mmol/L) 15.4 Fraction Sodium Excret (<1% %) 2.8 H Urine Glucose (N MG/DL) NEG
[2016-03-18] MEDS ORDERED: HYDROCHLOROTH12.5 M3 PO (13:39)
[2016-03-18] MEDS ORDERED: PAXIL20 M1 PO ×2 (13:39→13:40)
--- NOTE | 2016-03-18 13:43 | Patient Discharge Instructions ---
Discharge Instructions General Discharge Information You were seen/treated for: Suicidal ideations Hypernatremia Diabetes insipidus Special Instructions: Please follow up with your PCP Dr. Harris within 1 week of discharge. Please take all medications as directed. I have called all of your prescriptions in to [facility], you may pick them up there. Please follow up with your signal intelligence analyst in [place] within 2 weeks of discharge and discuss that you were started on hydrochlorothiazide for nephrogrenic diabetes insipidus. If you would like to follow up with Dr. Hogue, the signal intelligence analyst who saw you while you were admitted, you may call his office to schedule an appt ( ). Please attend/participate in your outpatient psychiatric care/follow up. Diet Recommended Diet: Heart Healthy Activity Activity Self Limited: Yes Acute Coronary Syndrome Inclusion Criteria At DC or during hospital stay patient has or had the following: ACS DIAGNOSIS No Discharge Core Measures Meds if any: Prescribed or Continued at Discharge Meds if any: NOT Prescribed or Continued at Discharge Congestive Heart Failure Inclusion Criteria At DC or during hospital stay patient has or had the following: CHF DIAGNOSIS No Discharge Core Measures Meds if any: Prescribed or Continued at Discharge Meds if any: NOT Prescribed or Continued at Discharge Cerebrovascular accident Inclusion Criteria At DC or during hospital stay patient has or had the following: CVA/TIA Diagnosis No Discharge Core Measures Meds if any: Prescribed or Continued at Discharge Meds if any: NOT Prescribed or Continued at Discharge Venous thromboembolism Inclusion Criteria VTE Diagnosis No VTE Type NONE VTE Confirmed by (Test) NONE Discharge Core Measures - Per Current guidelines, there needs to be overlap - treatment for the first 5 days of Warfarin therapy. - If discharged on Warfarin prior to 5 days of - overlap therapy, the patient will need to be - assessed for post discharge needs including - *Post discharge parental anticoagulation - *Warfarin and/or parental anticoagulation education - *Follow up date to check INR post discharge At least 5 days overlap therapy as Inpatient No Meds if any: Prescribed or Continued at Discharge Note: Overlap Therapy is Warfarin and Anticoagulant Meds if any: NOT Prescribed or Continued at Discharge
[2016-03-18 13:46] VITALS: BP 118/72
--- NOTE | 2016-03-18 14:30 | PN- Psychiatry ---
Assessment/Plan Impression: Patient seen at 1315 today. Brenda denies suicidality, but reports she is very anxious about returning to her home, if her two sons are still there, thus jeopardizing her [employer] [address] housing. She is supposed to live in the unit with her disabled daughter, Moraima, only. With the patient's written permission, I have spoken to her prescriber, Kaylie Singleton APRN, at [facility], the [facility], who are aware of the social problem at the home. We agree with the medical team that the housing problem is so distressing to the patient, that it might lead to rehospitaliztion, if not addressed. The patient does not have a psych social worker at [facility]. Our medical record librarians teacher, Meghan German LCSW, has been following this case. Psychotropic medications confirmed with [facility] Singleton: 1. Abilify 5 mg PO at bedtime 2. Bupropion SR 100 mg PO 2X/day 3. Paroxetine 60 mg PO daily 4. Clonazepam 0.5 mg PO 3X/day 5. Lamotrigine 350 mg PO daily 6. Trazodone 200 mg PO at bedtime Gabapentin is not prescribed by CHAP[facility] Singleton Suggestion: 1. Continue psychotropic medications as currently ordered, except, change the praoxetine to 60 mg PO daily. This is a larger dose than recommended for depression, but her prescriber states that she has been tolerating it. 2. Continue to try and determine if the patient's sons have moved out of her house. 3. Discharge summary to Kaylie Singleton APRN at [place], [place] [facility] [place] APRN, Pager [phone] Subjective Subjective: The patient is alert, with nervous mood, congruent affect. She is alert to person, place, reason for admission. She endorses anxiety r/t her pending discharge to home. She denies SI/HI. Objective Last 24 Hrs of Vital Signs/I&O Vital Signs Date Time Temp Pulse Resp B/P Pulse O2 O2 Flow FiO2 Ox Delivery Rate 03/18 1346 98.3 65 20 118/72 98 03/18 1308 72 118/80 03/18 0838 80 118/70 03/18 0547 98.2 67 20 120/60 94 Room Air 03/17 2313 97.8 55 20 110/56 95 Room Air 03/17 2106 120/70 Intake & Output 03/18 1600 03/18 0800 03/18 0000 Intake Total 600 805 Output Total 0968 485 9454 Balance -500 -600 -195 Intake, Oral 600 805 Output, Urine 3173 151 4496 Laboratory Tests 03/18 0728 Chemistry Sodium (137 - 145 mmol/L) 145 Potassium (3.5 - 5.1 mmol/L) 4.9 Chloride (98 - 107 mmol/L) 111 H Carbon Dioxide (22 - 30 mmol/L) 28 Anion Gap (5 - 16) 7 BUN (7 - 17 mg/dL) 41 H Creatinine (0.5 - 1.0 mg/dL) 2.1 H Estimated GFR (>60 ml/min) 24 L BUN/Creatinine Ratio (7 - 25 %) 19.5 Serum Osmolality (285 - 295 MOSM/KG) 316 H Current Medications: Current Medications Sig/Carol Start time Last Medication Dose Route Stop Time Status Admin Acetaminophen 650 MG .STK-MED ONE 03/17 210 DC PO 03/17 211 Acetaminophen 650 MG Q6P PRN 03/16 1845 03/17 PO 2111 Aripiprazole 5 MG QPM 03/16 220 03/17 PO 2106 Bupropion HCl 100 MG 0600,1400 03/18 0600 03/18 PO 1306 Bupropion HCl 100 MG BID 03/16 2199 [place] 03/17 PO 03/17 2199 2107 Clonazepam 0.5 MG 0600,1400,2000 03/17 1536 AC 03/18 PO 03/24 1535 1306 Gabapentin 300 MG 0800,1300,1700,2200 03/16 2200 03/18 PO 1549 Heparin Sodium 5,000 UNIT Q8 03/16 (Porcine) SC 1305 Hydrochlorothiazide 12.5 MG DAILY 03/18 1000 AC 03/18 PO 1305 Lamotrigine 350 MG 0600 03/18 0600 03/18 PO 0621 Nicotine 2 MG Q2 HRS NEEDED PRN 03/16 1900 AC PO Oxybutynin Chloride 5 MG BID 03/16 220 03/18 PO 0837 Paroxetine HCl 60 MG 0600 03/19 0600 AC PO Paroxetine HCl 50 MG 0600 03/18 0600 DC 03/18 PO 0621 Patient Medication 1 ED .STK-MED ONE 03/18 1343 DC Teaching ED 03/18 1344 Polyethylene Glycol 17 GM AT BEDTIME PRN 03/16 1845 AC PO Propranolol HCl 10 MG 0800,1300,0 03/16 2199 03/18 PO 1308 Trazodone HCl 200 MG AT BEDTIME NEED.. 03/16 2199 03/16 PO 2122
--- NOTE | 2016-03-18 14:59 | Discharge Summary ---
Visit Information Visit Dates Admission Date: 03/16/16 Discharge Date: 03/20/16 Hospital Course Course Attending Physician: ERICK BURR M.D Primary Care Physician: GERI SIMPSON MD Consulting Request: 1 Consulting Specialty: Psychiatry Consulting Physician: LAMAR Loyola Reason for Consult: Suicidal ideations in the setting of bipolar depression Consulting Request: 2 Consulting Specialty: Nephrology Consulting Physician: Dr. Hogue Reason for Consult: NONA on CKD, nephrogenic diabetes insipidus Hospital Course: Ms. Macias is a pleasant 65 year old female with PMH HLD, bipolar depression, anxiety, breast cancer s/p left mastectomy who presented initally to [facility] on 03/09/16 with worsening depression and suicidal ideations. At that time, patient endorsed thoughts about harming herself with a knife and she was subsequently admitted to [facility] for further management of suicidal ideations with underlying depression. Patient was admitted to the general medicine floor subsequently on 03/16/16 after laboratory work showed a sodium level of 155. Symptoms at that time included polydipsia, polyuria, anxiety, nervousness, blurred vision and dizziness. Patient reported that she was very anxious about her transfer up to the general medicine floor and she was nervous about leaving her 27 year old daughter at home while she is in the hospital. She endorsed dizziness with blurred vision that has been present for at least a few weeks for which she attributed to her psychiatric medications. She denied fever, chills, confusion, lethargy, chest pain, palpitations, shortness of breath, abdominal pain, nausea, vomiting or weakness. Of note, patient reported that she had been on several medications throughout the years to help with her bipolar depression, including lithium which she stopped over 6 months ago. Patient also had admission labs drawn at time of initial presentation to the ED which showed creatinine 1.8 and Na 147 (baseline cre believed to be 1.2 as seen on labs drawn in 2012). Social history was significant for tobacco abuse of 1 ppd. Physical exam showed: General Appearance Alert, Oriented X3, Cooperative, Anxious Skin No Rashes, No Significant Lesion HEENT Atraumatic, PERRLA, EOMI, Mucous Membr. moist/pink Neck Supple, No JVD, No thryomegaly Lymphatic Cervical nl Cardiovascular Regular Rate, Normal S1, Normal S2, No Murmurs Lungs Clear to Auscultation, Normal Air Movement Abdomen Normal Bowel Sounds, Soft, No Tenderness, No Hepatospenomegaly, No Masses Neurological Normal Gait, Normal Speech, Strength at 5/5 X4 Ext, Normal Tone, Sensation Intact, Cranial Nerves 3-12 NL Extremities No Clubbing, No Cyanosis, No Edema Vascular Pulses Symmetrical Patient was admitted to the general medicine floor and the following was the management: 1. Acute on chronic kidney injury: BUN/cre noted to be 47/2.1 with prior BUN/cre noted to be 17/1.2 in July of 2012. This drastic change along with the mild increase of BUN/cre from admission labs on the prompted the diagnosis of acute kidney injury. BEP was trended daily and cre remained close to 2 during her stay. It was noted that the patient was previously followed outpatient in 2012 by a magnetic healer whose office was called and it was discovered that the patient has a history of CKD. This CKD is likely secondary to chronic interstitial nephritis in the setting of lithium use. Patient should have her BEP checked periodically and she should follow with her magnetic healer from [place] for continued care. 2. 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 Patient did report occasional blurred vision and dizziness along with polydipsia/polyuria. We encouraged oral hydration. BEP was checked periodically and Na trended down to normal limits. Patient had a desmopressin challenge with measurements of pre and post desmopressin urine osmolality and results were consistent with nephrogenic diabetes insipidus. This nephrogenic DI is likely due to prior lithium use. Patient was started on 12.5 mg PO daily of HCTZ to address this issue; amiloride was not added as patient's potassium was consistently on the higher end of normal. Again, patient should follow up closely with her magnetic healer in [place]. A referral to Dr. Hogue's office was provided in case she wants to transfer her care there. 3. Bipolar depression with suicidal ideations: Patient initially had a continuous observation monitor as she was believed to be actively suicidal due to the fact that was the reason she was admitted in [facility]. A formal psychiatric consult was placed and they suggested the patient made a formal contract for her safety and she would not harm herself. Therefore, her 1:1 sitter was discontinued. She was continued on all of her psychotropic medications. As patient was nervous about her living situation, social work was consulted. Social work was needed to assist the patient in discussing with her family the need for her to live alone in her home, along with her daughter Moraima , but without the other children, who may be jeopardizing her section 8 standing. This was accomplished and patient was safely discharged home with home services. We stressed that the patient should have close contact with her cafeteria monitor Kaylie Singleton APRN. 4. HLD: Patient was continued on her home medication of atorvastatin 20 mg PO daily. 5. Tobacco abuse: Nicotine gum 2 mg PO Q2 hours as needed for smoking was provided. She may continue this upon discharge. 6. Code: FULL 7. DVT Prophylaxis: SC Heparin Complications: None. Allergies: Coded Allergies: cephalexin (INAFFECTIVE 03/04/16) hydrocodone (I DONT DO WELL AT ALL ON VICODIN 03/04/16) Significant Procedures: EXAMINATION: US RETROPERITONEAL COMPLETE (RENAL) CLINICAL INFORMATION: Acute kidney injury. Hypernatremia. COMPARISON: None. TECHNIQUE: Real-time imaging of the kidneys and bladder. FINDINGS: RIGHT KIDNEY: 9.3 x 6.1 x 5.6 cm (SAG x AP x TRV). There is increased echogenicity of the renal parenchyma, indicative of underlying medical renal disease. Additionally, there are innumerable punctate echogenic foci scattered throughout the renal parenchyma, which could reflect renal cortical calcifications. No appreciable hydronephrosis of the right kidney. LEFT KIDNEY: 9.1 x 5.5 x 5.2 cm (SAG x AP x TRV). There is increased echogenicity of the renal parenchyma, indicative of underlying medical renal disease. Additionally, there are innumerable punctate echogenic foci scattered throughout the left kidney, which could reflect renal cortical calcifications. There is no appreciable hydronephrosis of the left kidney. BLADDER: Partially distended and filled with clear hypoechoic urine. Bilateral ureteral jets are demonstrated. Prevoid bladder volume is 139 mL. IMPRESSION: Increased echogenicity of the bilateral kidneys, indicative of underlying medical renal disease. Of note, there are innumerable punctate echogenic foci scattered throughout the parenchyma of the bilateral kidneys. These could reflect innumerable cortical calcifications. No appreciable hydronephrosis of either kidney. Disposition Summary Disposition Principal Diagnosis: Nephrogenic diabetes insipidus with hypernatremia Acute on chronic kidney injury Suicidal ideations in the setting bipolar depression Additional Diagnosis: Anxiety HLD Tobacco abuse Discharge Disposition: home health services Discharge Instructions General Discharge Information Code Status: Full Code Patient's Diet: Heart Healthy. Patient's Activity: Self-limited. Follow-Up Instructions/Appts: Please follow up with your PCP Dr. Simpson within 1 week of discharge. Please take all medications as directed. Please follow up with your magnetic healer in [place] within 2 weeks of discharge and discuss that you were started on hydrochlorothiazide for nephrogrenic diabetes insipidus. Please attend/participate in your outpatient psychiatric care/follow up. Medications at Discharge Discharge Medications: Stop taking the following medications: Sodium Bicarbonate (Sodium Bicarbonate) 650 MG TABLET ORAL TWICE DAILY Continue taking these medications: Trazodone HCl (Trazodone HCl) 100 MG TABLET 2 Tablet ORAL Every night Comments: Last Taken: 03/20/16 Time: 9PM Bupropion HCl (Wellbutrin Sr) 100 MG TABLET.ER 1 Tablet ORAL TWICE DAILY Comments: Last Taken: 03/20/16 Time: 5:30AM Clonazepam (Klonopin) 0.5 MG TABLET 1 Tablet ORAL THREE TIMES DAILY Comments: Last Taken: 03/20/16 Time: 5:30AM Aripiprazole (Abilify) 5 MG TABLET 1 Tablet ORAL Every night Comments: Last Taken: 03/19/16 Time: 9PM Nicotine (Nicorelief) 2 MG GUM 2 Milligram ORAL EVERY 2 HOURS NEEDED as needed for smoking cessation Qty = 30 Comments: Last Taken:NOT GIVEN Time: Atorvastatin Calcium (Atorvastatin Calcium) 20 MG TABLET 20 Milligram ORAL 5 PM Qty = 14 Comments: Last Taken:NOT GIVEN IN HOSPITAL Time: Propranolol HCl (Propranolol HCl) 10 MG TABLET 10 Milligram ORAL 0800,1300,2200 Qty = 14 Comments: Last Taken: 03/20/16 Time: 8AM Gabapentin (Gabapentin) 300 MG CAPSULE 300 Milligram ORAL 0800,1300,1700,2200 Qty = 56 Comments: Last Taken: 03/20/16 Time: 8AM Lamotrigine (Lamictal) 200 MG TABLET 350 Milligram ORAL DAILY Days = 14 Comments: Last Taken: 03/20/16 Time: 6AM Oxybutynin Chloride (Oxybutynin Chloride) 5 MG TABLET 5 Milligram ORAL TWICE DAILY Qty = 28 Comments: Last Taken: 03/20/16 Time: 8AM Paroxetine HCl (Paxil) 20 MG TABLET 3 Tablet ORAL DAILY Days = 28 Start taking the following new medications: Hydrochlorothiazide (Hydrochlorothiazide) 12.5 MG CAPSULE 1 Capsule ORAL DAILY Qty = 30 Refills = 1 Comments: Last Taken: 03/20/16 Time: 8AM Copies To: TATIANA PATEL,GERI; Kaylie Singleton APRN Attending MD Review Statement Documenting Attending: ERICK BURR M.D Other Findings: I have reviewed the discharge summary
--- NOTE | 2016-03-18 18:11 | NUR ---
PT STATED THAT SHE THINKS SHE LEFT A [employer] BACKPACK IN [facility] BEFORE HER TRANSFER. THIS RN CALLED [facility] TO SEE IF BACKPACK WAS DOWN THERE. PER [employer] EMPLOYEE, BACKPACK IS DOWN IN [facility]. [facility] TO BRING UP BACKPACK. PT AWARE. WILL CONTINUE TO MONITOR.
--- NOTE | 2016-03-18 19:13 | NUR ---
Referral received yesterday via electronic job order clerk. This patient is a 65 year old female, admitted to the medical unit from inpatient psychiatry on the evening of 03/16/16 for acute kidney injury and hypernatremia. Reason for social woek consult "Patient feels unsafe for discharge home". Patient lives in [place], [facility] her adult daughter, and both are approved to live in a section 8 apartment. However, it seems as though the patient has 2 other sons who tend to stay there as well, thus violating the terms of the section 8 contract. While Brenda was hospitalized in the inpatient unit, a referral was made to Adult Protective Services by the socially responsible investment adviser. Unfortunately, the referral was not accepted as the agency felt as though the patient should assert herself and tell her children that they needed to leave. I met with patient this afternoon. She was alert, pleasant and engaged in interview. She remains anxious about the "situation" at home and gave me permisison to call her daughter Moraima, to check on the "situation". Call placed to Moraima who reports that her brothers are no longer "staying there at night; they come during the day and bring me food". Carla asked again, directly, if the siblings are staying there, she reports not. Please see comprehensive note from Gama Loyola APRN which outines recommended aftercare plan. Follow.
[2016-03-18 22:33] VITALS: BP 120/80
[2016-03-19 06:03] VITALS: BP 130/60
--- NOTE | 2016-03-19 07:20 | PN- Housestaff ---
See Addendum Subjective Follow-up For: NONA Nephrogenic diabetes insipidus Suicidal ideations Subjective: Patient seen and examined at bedside this AM. She reports she feels well, however she is worried about her living situation at home. I discussed with her that we would clarify who is currently living at her house and I will discuss with Meghan German her interpretation of the living situation. She also admits to low back pain due to abnormal sleeping position. Review of Systems Constitutional: Denies: chills, fever. EENTM: Denies: visual changes, hearing changes. Cardiovascular: Denies: chest pain, palpitations. Respiratory: Denies: cough, short of breath. Gastrointestinal: Denies: abdominal pain, bloating, constipation, diarrhea. Genitourinary: Reports: frequency. Denies: dysuria, hematuria. Musculoskeletal: Reports: back pain. Denies: joint pain. Skin: Denies: change in skin color, change in hair/nails. Neurological/Psychological: Reports: anxiety, emotional problems. Denies: confusion, headache, paresthesia. Hematologic/Endocrine: Reports: polyuria, polydipsia. Denies: bruising. Objective Last 24 Hrs of Vital Signs/I&O Vital Signs Date Time Temp Pulse Resp B/P Pulse O2 O2 Flow FiO2 Ox Delivery Rate 03/19 0603 98.2 60 20 130/60 93 Room Air 03/18 2233 97.7 60 20 120/80 98 Room Air 03/18 2128 64 120/80 03/18 1346 98.3 65 20 118/72 98 03/18 1308 72 118/80 03/18 0838 80 118/70 Intake & Output 03/19 1600 03/19 0800 03/19 0000 Intake Total 200 700 Output Total 1500 2100 Balance -1300 -1400 Intake, IV 0 0 Intake, Oral 200 700 Number 0 0 Bowel Movements Output, Urine 1500 2100 Patient 110 lb Weight Physical Exam General Appearance: Alert, Oriented X3, Cooperative, No Acute Distress Other Physical Findings: Skin: No Significant Lesion HEENT: Atraumatic, Mucous Membr. moist/pink Neck: Supple, No JVD Lymphatic: Cervical nl Cardiovascular: Regular Rate, Normal S1, Normal S2 Lungs: Clear to Auscultation, Normal Air Movement Abdomen: Normal Bowel Sounds, Soft, No Tenderness, No Hepatospenomegaly Neurological: Normal Speech, Strength at 5/5 X4 Ext, Normal Tone Extremities: No Clubbing, No Cyanosis, No Edema Vascular: Pulses Symmetrical Current Medications: Current Medications Sig/Carol Start time Last Medication Dose Route Stop Time Status Admin Acetaminophen 650 MG Q6P PRN 03/16 1845 AC 03/17 PO 2111 Aripiprazole 5 MG QPM 03/16 2200 AC 03/18 PO 2128 Bupropion HCl 100 MG 0600,1400 03/18 0600 AC 03/19 PO 0611 Clonazepam 0.5 MG 0600,1400,2000 03/17 1536 AC 03/19 PO 03/24 1535 0609 Gabapentin 300 MG 0800,1300,1700,2200 03/16 2200 AC 03/18 PO 2128 Heparin Sodium 5,000 UNIT Q8 03/16 2199 03/19 (Porcine) SC 0609 Hydrochlorothiazide 12.5 MG DAILY 03/18 1000 AC 03/18 PO 1305 Lamotrigine 350 MG 0600 03/18 0600 03/19 PO 0611 Nicotine 2 MG Q2 HRS NEEDED PRN 03/16 1900 AC PO Oxybutynin Chloride 5 MG BID 03/16 2200 03/18 PO 2128 Paroxetine HCl 60 MG 0603/19 0600 AC 03/19 PO 0609 Paroxetine HCl 50 MG 03/18 0600 DC 03/18 PO 0621 Patient Medication 1 ED .STK-MED ONE 03/18 1343 [facility] 03/18 1344 Polyethylene Glycol 17 GM AT BEDTIME PRN 03/16 1845 AC PO Propranolol HCl 10 MG 0800,1300,0 03/16 2200 03/18 PO 2128 Trazodone HCl 200 MG AT BEDTIME NEED.. 03/16 2199 03/16 PO 2122 Last 24 Hrs of Lab/Lars Results Last 24 Hrs of Labs/Mics: Laboratory Tests 03/19/16 0640: Sodium Pending, Potassium Pending, Chloride Pending, Carbon Dioxide Pending, Anion Gap Pending, BUN Pending, Creatinine Pending, BUN/Creatinine Ratio Pending Orders Radiology Findings: EXAMINATION: US RETROPERITONEAL COMPLETE (RENAL) CLINICAL INFORMATION: Acute kidney injury. Hypernatremia. COMPARISON: None. TECHNIQUE: Real-time imaging of the kidneys and bladder. FINDINGS: RIGHT KIDNEY: 9.3 x 6.1 x 5.6 cm (SAG x AP x TRV). There is increased echogenicity of the renal parenchyma, indicative of underlying medical renal disease. Additionally, there are innumerable punctate echogenic foci scattered throughout the renal parenchyma, which could reflect renal cortical calcifications. No appreciable hydronephrosis of the right kidney. LEFT KIDNEY: 9.1 x 5.5 x 5.2 cm (SAG x AP x TRV). There is increased echogenicity of the renal parenchyma, indicative of underlying medical renal disease. Additionally, there are innumerable punctate echogenic foci scattered throughout the left kidney, which could reflect renal cortical calcifications. There is no appreciable hydronephrosis of the left kidney. BLADDER: Partially distended and filled with clear hypoechoic urine. Bilateral ureteral jets are demonstrated. Prevoid bladder volume is 139 mL. IMPRESSION: Increased echogenicity of the bilateral kidneys, indicative of underlying medical renal disease. Of note, there are innumerable punctate echogenic foci scattered throughout the parenchyma of the bilateral kidneys. These could reflect innumerable cortical calcifications. No appreciable hydronephrosis of either kidney. Assessment/Plan Assessment: Ms. Macias is a pleasant 65 year old female with PMH bipolar depression previously on lithium, anxiety, HLD, arthritis and left breast cancer s/p mastectomy who was admitted to the general medicine floor from [facility] after noting abnormal renal function and hypernatremia on lab work. Patient currently admits to dizziness, occasional blurry vision, anxiety, nervousness and polyuria /polydipsia. Labs: CBC without acute abnormality, BEP with Na 155, K 5.1, Cl 117, HCO3 30, AG 8, BUN 47, cre 2.1, Glu 95. Patient was admitted to the general medicine floor and the following is the management: 1. NONA * Cre significantly above prior cre noted in July 2012 (cre at that time was 1.2 ) * Patient likely has a history of CKD as she was provided with sodium bicarb tablets by a nephrology office who reports she was placed on these medications for CKD * Desmopressin challenge peformed suggestive of DI (no significant change in urine osmolality pre and post desmopressin) * As instructed by Dr. Hogue, we have started patient on low dose HCTZ for nephrogenic DI. We will hold off on amiloride at this time as patient has consistently demonstrated a K at the high end of normal * Hold all nephrotoxic medications * Encourage PO hydration * Nephrology on board, will continue following nephrology recommendations 2. Hypernatremia * Likely 2/2 nephrogenic diabetes insipidus in the setting of prior lithium use for >5 years * Monitor Na level and consider IVF if Na becomes elevated * Repeat BEP in AM to monitor for need for fluids * Strict Is/Os 3. Bipolar depression with suicidal ideations * Continue all psychiatric medications, including paxil 50 mg PO daily, lamictal 350 mg PO daily, propanolol 10 mg PO TID, ditropan 5 mg PO BID, neurontin 300 mg PO 4x/d, klonipin 0.5 mg PO TID, wellbutrin 100 mg PO BID, abilify 5 mg PO QPM * Trazodone 200 mg PO QPM PRN for insomnia * Discontinued 1:1 sitter for SI as patient has made a verbal contract for safety while in the hospital. Have discontinued finger foods as well. * Patient currently reports severe anxiety and nervousness about discharge home, will discuss with case management and social work about discharge planning * Formal psych consult appreciated * Social work consult placed, Meghan German has called Brenda's daugther who reports that her brothers ARE NOT staying there at night and only bring her food while her mother is in the hospital 4. HLD * Continue atorvastatin 20 mg PO daily 5. Tobacco abuse * Nicotine gum 2 mg PO Q2 hours as needed for smoking FULL CODE DVTP: Heparin SC Heart Healthy Diet Mild pain pathway Problem List: 1. Anxiety 2. Depression 3. Hypernatremia 4. Suicidal ideations Pain Ratin Pain Location: Low back Pain Goal: Pain 4 or less Pain Plan: Mild pain pathway. Tomorrow's Labs & Rationales: BEP to monitor Na level, K and renal function in the setting of hypernatremia and nephrogenic DI. Consulting Request: Consulting Specialty: Nephrology Consulting Physician: Dr. Hogue Reason for Consult: NONA on CKD, nephrogenic diabetes insipidus
[2016-03-19 14:25] VITALS: BP 1120/80
--- NOTE | 2016-03-19 15:32 | PN- Nephrology ---
Assessment/Plan Assessment: 1. CKD/NONA - improved and now stable; suspect CKD is secondary to chronic interstitial nephritis due to lithium and that her baseline creatinine is approximately 2 mg/dL 2. 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 Anxiety/depression with a number of social issues at home Suggestion: 1. Continue hydrochlorothiazide 12.5 mg by mouth daily as outpatient and encourage by mouth fluids 2. Repeat electrolytes as an outpatient early next week 3. She will need outpatient renal follow-up - perhaps closer to her home in [place] Subjective Subjective: She remains quite anxious and is not happy about the possibility of impending discharge. She has no other specific symptoms. Serum sodium 146 today, potassium 4.6, CO2 29 with urine output of 2900 mL yesterday and 3200 mL thus far today. Objective Vital Signs and I&Os Vital Signs Date Time Temp Pulse Resp B/P Pulse O2 O2 Flow FiO2 Ox Delivery Rate 03/19 1425 98.2 80 20 1120/80 98 03/19 1323 70 130/70 03/19 0832 70 122/70 03/19 0603 98.2 60 20 130/60 93 Room Air 03/18 2233 97.7 60 20 120/80 98 Room Air 03/18 2128 64 120/80 Intake & Output 03/19 1600 03/19 0400 03/18 1600 03/18 0400 03/17 1600 03/17 0400 Intake Total 800 318 674 5529 Output Total 1400 3000 7638 421 0095 Balance -600 -2300 -1100 -500 5 Intake, IV 0 0 1000 Intake, Oral 800 316 916 8363 Number 0 0 Bowel Movements Output, Urine 1400 3000 7853 [id number] Patient 110 lb 113 lb 108 lb Weight Physical Exam: General: Anxious white female in NAD Skin: No rash or jaundice HEENT: Conjunctivae pink, sclerae anicteric, mucous membranes moist Neck: Without masses or thyromegaly, no supraclavicular or cervical adenopathy Chest: Clear to P&A Heart: Regular rate and rhythm without S3 or rub Abdomen: Soft and nontender without palpable masses or organomegaly Extremities: Without cyanosis or edema Neuro: No focal findings, no asterixis or myoclonus Current Medications: Current Medications Sig/Carol Start time Last Medication Dose Route Stop Time Status Admin Acetaminophen 650 MG Q6P PRN 03/16 1845 AC 03/19 PO 0832 Aripiprazole 5 MG QPM 03/16 2200 AC 03/18 PO 2128 Bupropion HCl 100 MG 0600,1400 03/18 0600 AC 03/19 PO 1323 Clonazepam 0.5 MG 0600,1400,2000 03/17 1536 AC 03/19 PO 03/24 1535 1322 Gabapentin 300 MG 0800,1300,1700,0 03/16 220 AC 03/19 PO 1323 Heparin Sodium 5,000 UNIT Q8 03/16 2199 AC 03/19 (Porcine) SC 1323 Hydrochlorothiazide 12.5 MG DAILY 03/18 1000 AC 03/19 PO 1322 Lamotrigine 350 MG 0600 03/18 0600 03/19 PO 0611 Nicotine 2 MG Q2 HRS NEEDED PRN 03/16 1900 AC PO Oxybutynin Chloride 5 MG BID 03/16 2199 03/19 PO 0832 Paroxetine HCl 60 MG 0600 03/19 0600 03/19 PO 0609 Patient Medication 1 ED .STK-MED ONE 03/19 1425 [place] Teaching ED 03/19 1426 Polyethylene Glycol 17 GM AT BEDTIME PRN 03/16 1845 AC PO Propranolol HCl 10 MG 0800,1300,0 03/16 2199 03/19 PO 1323 Trazodone HCl 200 MG AT BEDTIME NEED.. 03/16 2199 03/16 PO 2122 Results Pertinent Lab Results: Laboratory Tests 03/19 03/18 03/17 03/17 03/17 0640 0728 1602 1531 1319 Chemistry Sodium (137 - 145 mmol/L) 146 H 145 137 Potassium (3.5 - 5.1 mmol/L) 4.6 4.9 4.5 Chloride (98 - 107 mmol/L) 109 H 111 H 104 Carbon Dioxide (22 - 30 mmol/L) 29 28 25 Anion Gap (5 - 16) 7 7 8 BUN (7 - 17 mg/dL) 43 H 41 H 47 H Creatinine (0.5 - 1.0 mg/dL) 2.1 H 2.1 H 2.1 H Estimated GFR (>60 ml/min) 24 L 24 L 24 L BUN/Creatinine Ratio (7 - 25 %) 20.5 19.5 22.4 Serum Osmolality (285 - 295 MOSM/KG) 316 H 302 H Urines Urine Osmolality (300 - 1000 MOSM/KG) 184 L 149 L 03/17 03/16 03/16 0655 2114 1834 Chemistry Sodium (137 - 145 mmol/L) 146 H 141 Potassium (3.5 - 5.1 mmol/L) 4.7 4.6 Chloride (98 - 107 mmol/L) 113 H 103 Carbon Dioxide (22 - 30 mmol/L) 26 29 Anion Gap (5 - 16) 7 9 BUN (7 - 17 mg/dL) 50 H 57 H Creatinine (0.5 - 1.0 mg/dL) 2.0 H 2.3 H Estimated GFR (>60 ml/min) 25 L 21 L BUN/Creatinine Ratio (7 - 25 %) 25.0 24.8 Serum Osmolality (285 - 295 MOSM/KG) 314 H Calcium (8.4 - 10.2 mg/dL) 9.2 Phosphorus (2.5 - 4.5 mg/dL) 4.3 Magnesium (1.6 - 2.3 mg/dL) 2.5 H Albumin (3.5 - 5.0 g/dL) 3.2 L Hematology CBC w Diff NO MAN DIFF REQ WBC (4.8 - 10.8 /CUMM) 6.2 RBC (4.20 - 5.40 /CUMM) 3.85 L Hgb (12.0 - 16.0 G/DL) 12.0 Hct (37 - 47 %) 35.4 L MCV (81.0 - 99.0 FL) 91.9 MCH (27.0 - 31.0 PG) 31.1 H RDW (11.5 - 14.5 %) 12.4 Plt Count (130 - 400 /CUMM) 177 MPV (7.4 - 10.4 FL) 7.9 Gran % (42.2 - 75.2 %) 62.0 Lymphocytes % (20.5 - 51.1 %) 25.9 Monocytes % (1.7 - 9.3 %) 8.3 Eosinophils % (0 - 5 %) 3.1 Basophils % (0.0 - 2.0 %) 0.7 Absolute Granulocytes (1.4 - 6.5 /CUMM) 3.9 Absolute Lymphocytes (1.2 - 3.4 /CUMM) 1.6 Absolute Monocytes (0.10 - 0.60 /CUMM) 0.5 Absolute Eosinophils (0.0 - 0.7 /CUMM) 0.2 Absolute Basophils (0.0 - 0.2 /CUMM) 0 PUBS MCHC (33.0 - 37.0 G/DL) 33.9 Urines Ur Random Creatinine (mg/dL) 15 U Random Total Protein (0 - 12 mg/dL) 1.3 Protein/Creatinin Ratio (< 0.2) 0.1
--- NOTE | 2016-03-19 15:48 | NUR ---
Case discussed at [facility]'s this morning. Patient with projected discharge tomorrow. I met with the patient again this afternoon; she still is exhibiting some symptoms of anxiety related to her chaotic living situation. Brenda is aware that if her sons are at her house tomorrow, she will need to call the police to ask them to leave. She reports she will go to [facility] on Tuesday for her group therapy. Please call if other social work needs are identified.
[2016-03-19 22:00] VITALS: BP 124/62
[2016-03-20 06:32] VITALS: BP 114/66
--- NOTE | 2016-03-20 07:57 | PN- Housestaff ---
See Addendum Subjective Follow-up For: Hypernatremia Nephrogenic diabetes insipidus Suicidal ideations Subjective: Patient seen and examined at bedside this AM. She was sitting up comfortably in bed enjoying her breakfast. Her mood appeared appropriate and she is content with discharge home today. I verbalized that I called [facility] and have called in all of her prescriptions so they will be ready for her to pick them up today. Review of Systems Constitutional: Denies: chills, fever, malaise. EENTM: Denies: blurred vision, visual changes, hearing changes. Cardiovascular: Denies: chest pain, palpitations. Respiratory: Denies: cough. Gastrointestinal: Denies: abdominal pain, bloating, constipation, diarrhea. Genitourinary: Reports: frequency. Denies: dysuria, hematuria. Musculoskeletal: Denies: back pain, joint pain. Skin: Denies: change in skin color, change in hair/nails. Neurological/Psychological: Reports: anxiety, emotional problems. Denies: headache, numbness, paresthesia. Hematologic/Endocrine: Reports: polyuria, polydipsia. Denies: bruising, bleeding. Immunologic/Allergic: Denies: splenectomy. Objective Last 24 Hrs of Vital Signs/I&O Vital Signs Date Time Temp Pulse Resp B/P Pulse O2 O2 Flow FiO2 Ox Delivery Rate 03/20 0632 97.9 66 16 114/66 95 Room Air 03/19 2200 98.2 65 18 124/62 98 Room Air 03/19 2100 65 124/62 03/19 1425 98.2 80 20 1120/80 98 03/19 1323 70 130/70 03/19 0832 70 122/70 Intake & Output 03/20 1600 03/20 0800 03/20 0000 Intake Total 150 600 Output Total 300 700 Balance -150 -100 Intake, Oral 150 600 Output, Urine 300 700 Patient 108 lb Weight Physical Exam General Appearance: Alert, Oriented X3, Cooperative, No Acute Distress Other Physical Findings: Skin: No Significant Lesion HEENT: Atraumatic, Mucous Membr. moist/pink Neck: Supple, No JVD Lymphatic: Cervical nl Cardiovascular: Regular Rate, Normal S1, Normal S2 Lungs: Clear to Auscultation, Normal Air Movement Abdomen: Normal Bowel Sounds, Soft, No Tenderness, No Hepatospenomegaly Neurological: Normal Speech, Strength at 5/5 X4 Ext, Normal Tone Extremities: No Clubbing, No Cyanosis, No Edema Vascular: Pulses Symmetrical Current Medications: Current Medications Sig/Carol Start time Last Medication Dose Route Stop Time Status Admin Acetaminophen 650 MG .STK-MED ONE 03/19 0822 DC PO 03/19 0823 Acetaminophen 650 MG Q6P PRN 03/16 1845 AC 03/19 PO 0832 Aripiprazole 5 MG QPM 03/16 2200 AC 03/19 PO 2100 Bupropion HCl 100 MG 0600,1400 03/18 0600 AC 03/20 PO 0524 Clonazepam 0.5 MG 0600,1400,2000 03/17 1536 AC 03/20 PO 03/24 1535 0524 Gabapentin 300 MG 0800,1300,1700,2200 03/16 2200 AC 03/20 PO 0808 Heparin Sodium 5,000 UNIT Q8 03/16 2200 AC 03/20 (Porcine) SC 0524 Hydrochlorothiazide 12.5 MG DAILY 03/18 1000 AC 03/20 PO 0808 Lamotrigine 350 MG 0600 03/18 0600 AC 03/20 PO 0524 Nicotine 2 MG Q2 HRS NEEDED PRN 03/16 1900 AC PO Oxybutynin Chloride 5 MG BID 03/16 2200 AC 03/20 PO 0808 Paroxetine HCl 60 MG 0603/19 0600 AC 03/20 PO 0524 Patient Medication 1 ED .[facility]-MED ONE 03/19 1425 [place] Teaching ED 03/19 1426 Polyethylene Glycol 17 GM AT BEDTIME PRN 03/16 1845 AC PO Propranolol HCl 10 MG 0800,1300,2200 03/16 2200 AC 03/20 PO 0808 Trazodone HCl 200 MG AT BEDTIME NEED.. 03/16 220 AC 03/16 PO 2122 Last 24 Hrs of Lab/Lars Results Last 24 Hrs of Labs/Mics: Laboratory Tests 03/20/16 0625: Anion Gap 6, Estimated GFR 22 L, BUN/Creatinine Ratio 19.5 Orders Radiology Findings: EXAMINATION: US RETROPERITONEAL COMPLETE (RENAL) CLINICAL INFORMATION: Acute kidney injury. Hypernatremia. COMPARISON: None. TECHNIQUE: Real-time imaging of the kidneys and bladder. FINDINGS: RIGHT KIDNEY: 9.3 x 6.1 x 5.6 cm (SAG x AP x TRV). There is increased echogenicity of the renal parenchyma, indicative of underlying medical renal disease. Additionally, there are innumerable punctate echogenic foci scattered throughout the renal parenchyma, which could reflect renal cortical calcifications. No appreciable hydronephrosis of the right kidney. LEFT KIDNEY: 9.1 x 5.5 x 5.2 cm (SAG x AP x TRV). There is increased echogenicity of the renal parenchyma, indicative of underlying medical renal disease. Additionally, there are innumerable punctate echogenic foci scattered throughout the left kidney, which could reflect renal cortical calcifications. There is no appreciable hydronephrosis of the left kidney. BLADDER: Partially distended and filled with clear hypoechoic urine. Bilateral ureteral jets are demonstrated. Prevoid bladder volume is 139 mL. IMPRESSION: Increased echogenicity of the bilateral kidneys, indicative of underlying medical renal disease. Of note, there are innumerable punctate echogenic foci scattered throughout the parenchyma of the bilateral kidneys. These could reflect innumerable cortical calcifications. No appreciable hydronephrosis of either kidney. Assessment/Plan Assessment: Ms. Macias is a pleasant 65 year old female with PMH bipolar depression previously on lithium, anxiety, HLD, arthritis and left breast cancer s/p mastectomy who was admitted to the general medicine floor from [facility] after noting abnormal renal function and hypernatremia on lab work. Patient currently admits to dizziness, occasional blurry vision, anxiety, nervousness and polyuria /polydipsia. Labs: CBC without acute abnormality, BEP with Na 155, K 5.1, Cl 117, HCO3 30, AG 8, BUN 47, cre 2.1, Glu 95. Patient was admitted to the general medicine floor and the following is the management: 1. NONA * Cre significantly above prior cre noted in July 2012 (cre at that time was 1.2 ) * Patient likely has a history of CKD as she was provided with sodium bicarb tablets by a nephrology office who reports she was placed on these medications for CKD * Desmopressin challenge peformed suggestive of DI (no significant change in urine osmolality pre and post desmopressin) * As instructed by Dr. Hogue, we have started patient on low dose HCTZ for nephrogenic DI. We will hold off on amiloride at this time as patient has consistently demonstrated a K at the high end of normal * Hold all nephrotoxic medications * Encourage PO hydration (patient taking in adequate fluids as her Na level this AM is WNL, I have discussed with patient need to continue hydration at her current level to prevent hypernatremia) * Nephrology on board, suggest patient follow up closely with her kitchen mechanic near [place], patient agrees to continue her care there 2. Hypernatremia * Likely 2/2 nephrogenic diabetes insipidus in the setting of prior lithium use for >5 years * Monitor Na level and consider IVF if Na becomes elevated * Repeat BEP this AM shows Na 144, patient stable for discharge home * Strict Is/Os 3. Bipolar depression with suicidal ideations * Continue all psychiatric medications, including paxil 50 mg PO daily, lamictal 350 mg PO daily, propanolol 10 mg PO TID, ditropan 5 mg PO BID, neurontin 300 mg PO 4x/d, klonipin 0.5 mg PO TID, wellbutrin 100 mg PO BID, abilify 5 mg PO QPM * Trazodone 200 mg PO QPM PRN for insomnia * Discontinued 1:1 sitter for SI as patient has made a verbal contract for safety while in the hospital. Have discontinued finger foods as well. * Patient currently reports severe anxiety and nervousness about discharge home, we have discussed with case management/social work and a discharge home is a safe plan * Formal psych consult appreciated * Social work consult placed, Meghan German has called Brenda's daugther who reports that her brothers ARE NOT staying there at night and only bring her food while her mother is in the hospital 4. HLD * Continue atorvastatin 20 mg PO daily 5. Tobacco abuse * Nicotine gum 2 mg PO Q2 hours as needed for smoking FULL CODE DVTP: Heparin SC Heart Healthy Diet Mild pain pathway Problem List: 1. Anxiety 2. Depression 3. Hypernatremia 4. Suicidal ideations Pain Ratin Pain Location: n/a Pain Goal: Remain pain free Pain Plan: Mild pain pathway Tomorrow's Labs & Rationales: None, discharge today. Consulting Request: Consulting Specialty: Nephrology Consulting Physician: Dr. Hogue Reason for Consult: NONA on CKD, nephrogenic diabetes insipidus
== END 2016-03-20 14:25 | disposition home health service (06) | DRG 699 ==
LOC: ENPENDDIS 18:00 → 2NA 18:00
PROVIDERS: Internal Medicine; ADMIT Internal Medicine
DX: N25.1 Nephrogenic diabetes insipidus (principal); R45.851 Suicidal ideations; N14.1 Nephropathy induced by other drugs, medicaments and biological substances; T43.595A Adverse effect of other antipsychotics and neuroleptics, initial encounter; N17.9 Acute kidney failure, unspecified; F41.9 Anxiety disorder, unspecified; E78.5 Hyperlipidemia, unspecified; F31.9 Bipolar disorder, unspecified; F17.210 Nicotine dependence, cigarettes, uncomplicated; Z85.3 Personal history of malignant neoplasm of breast
CPT/HCPCS: 2NAP; 2NASP; 84133; 84300; 36415; 76775; 81003; 82436; 82570; 93005; 93010; 99232; J1644; J2597; J7060

== ENCOUNTER 2016-03-27 15:21 | Inpatient (IN) | payer OTHER, MEDICARE ==
[~2016-03-27] VITALS: Ht 157.5 cm; Wt 52.2 kg
[~2016-03-27 15:21] MED LIST changes: +ATORVASTATIN CA20 M1 PO; +GABAPENTIN300 M2 PO; +HYDROCHLOROTH12.5 M3 PO; +NICORELIEF2 MG PO; +OXYBUTYNIN CHLOR5 M2 PO; +PAXIL20 M1 PO; +PROPRANOLOL HCL10 M1 PO
[2016-03-27] MEDS ORDERED: SIMVASTATIN40 M1 PO (15:33)
--- NOTE | 2016-03-27 15:33 | NUR ---
PT BIBA TO ROOM 14. PT STATES "I AM DIAGNOSED WITH GENERALIZED ANXIETY DISORDER, I WAS HERE BEFORE AND I AM NOT FUNCTIONING AT HOME". PT SEEMS ANXIOUS, CALM AND COOPERATIVE, AAOX3. PT DENIES SI/HI.
[2016-03-27] MEDS ORDERED: VESICARE10 MG PO (15:35)
[2016-03-27] MEDS ORDERED: SODIUM BICARBO650 M1 PO (15:36)
--- NOTE | 2016-03-27 15:42 | NUR ---
2 BAGS AND A SUITCASE PLACED IN CLOSET 1 VALUABLES BAG PLACED IN SAFE
--- NOTE | 2016-03-27 15:54 | ED PSYCHIATRIC COMPLAINT ---
History of Present Illness General Chief Complaint: Psychiatric Related Complaint Stated Complaint: BIBA FOR PSYCH EVAL Source: patient, old records, EMS Exam Limitations: no limitations Vital Signs & Intake/Output Vital Signs & Intake/Output Vital Signs Date Time Temp Pulse Resp B/P Pulse O2 O2 Flow FiO2 Ox Delivery Rate 03/27 1632 Room Air 03/27 1540 99.2 77 20 135/50 94 Room Air Allergies Coded Allergies: cephalexin (INAFFECTIVE 03/04/16) hydrocodone (I DONT DO WELL AT ALL ON VICODIN 03/04/16) Reconcile Medications Aripiprazole (Abilify) 5 MG TABLET 1 TAB PO QPM MENTAL HEALTH (Reported) Atorvastatin Calcium 20 MG TABLET 20 MG PO 1700 cholesterol Bupropion HCl (Wellbutrin Sr) 100 MG TABLET.ER 1 TAB PO BID MENTAL HEALTH ( Reported) Clonazepam (Klonopin) 0.5 MG TABLET 1 TAB PO TID ANXIETY (Reported) Gabapentin 300 MG CAPSULE 300 MG PO 0800,1300,1700,2200 ANXIETY Hydrochlorothiazide 12.5 MG CAPSULE 1 CAP PO DAILY Diabetes insipidus Lamotrigine (Lamictal) 200 MG TABLET 350 MG PO DAILY MOOD STABILITY Oxybutynin Chloride 5 MG TABLET 5 MG PO BID bladder health Paroxetine HCl (Paxil) 20 MG TABLET 3 TAB PO DAILY Mental Health (Reported) Propranolol HCl 10 MG TABLET 10 MG PO 0800,1300,2200 TREMORS Simvastatin (Simvastatin*) 40 MG TABLET 1 TAB PO QPM CHOLESTEROL (Reported) Sodium Bicarbonate 650 MG TABLET 1 TAB PO BID SUPPLEMENT (Reported) Solifenacin Succinate (Vesicare) 10 MG TABLET 1 TAB PO DAILY BLADDER ( Reported) Trazodone HCl 100 MG TABLET 2 TAB PO QPM SLEEP (Reported) Triage Note: PT BIBA TO ROOM 14. PT STATES "I AM DIAGNOSED WITH GENERALIZED ANXIETY DISORDER, I WAS HERE BEFORE AND I AM NOT FUNCTIONING AT HOME". PT SEEMS ANXIOUS, CALM AND COOPERATIVE, AAOX3. PT DENIES SI/HI. Triage Nurses Notes Reviewed? yes Onset: Gradual Duration: week(s): (FEW) Timing: recent history Associated Symptoms: anxiety HPI: This is a 65-year-old male history of generalized anxiety disorder who presents via EMS from home for chief complaint of overwhelming anxiety, not feeling well at home and states that she can't handle her home environment. She states that she has a 26-year-old daughter and a 30-year-old son living with her. She is tried to Alexandr son but states that he is resistant to leave. Secondary to that she is afraid she is going to lose her housing. Denies any SI or HI. She was recently discharged from Inpatient Psychiatry. She states that her visiting nurse comes daily to give her medications. Denies any hallucinations. Denies any drug use. She is a one pack per day smoker. Past History Travel History Traveled to [place] past 21 day No Medical History Any Pertinent Medical History? see below for history Neurological: NONE EENT: NONE Cardiovascular: hyperlipidemia Respiratory: SMOKER- 1 PACK A DAY; Gastrointestinal: POOR EATING; INDIGESTION Renal: LITHIUM FOR MANY YEARS Musculoskeletal: ARTHRITIS Psychiatric: bipolar disease Endocrine: NONE Blood Disorders: NONE Cancer(s): breast cancer ON CALL/Reproductive: POST MENEPAUSAL History of MRSA: No History of VRE: No History of CDIFF: No Influenza Vaccine: 12/23/15 Surgical History Surgical History: non-contributory Psychosocial History Who do you live with Patient/Self What is your primary language Mosotho Tobacco Use: Current Daily Use Daily Tobacco Use Amount/Type: => 5 Cigarettes daily Family History Hx Contributory? No Review of Systems Review of Systems Constitutional: Denies: chills, fever. EENTM: Reports: no symptoms. Respiratory: Denies: hemoptysis, short of breath. Cardiovascular: Denies: chest pain, palpitations. GI: Denies: nausea, vomiting. Genitourinary: Reports: no symptoms. Musculoskeletal: Reports: no symptoms. Skin: Reports: no symptoms. Neurological/Psychological: Reports: anxiety, depressed, emotional problems. Denies: headache. Hematologic/Endocrine: Denies: bruising, bleeding, polyuria, polydipsia. Immunologic/Allergic: Reports: no symptoms. All Other Systems: Reviewed and Negative Physical Exam Physical Exam General Appearance: alert, awake, mild distress, thin Head: atraumatic Eyes: Bilateral: PERRL, EOMI. Ears, Nose, Throat: normal pharynx, normal ENT inspection, hearing grossly normal Neck: normal inspection, supple Respiratory: normal breath sounds Cardiovascular: regular rate/rhythm Gastrointestinal: soft, non-tender Extremities: normal range of motion Neurological/Psychiatric: awake, alert, anxious Appearance/Memory/Insight: disheveled, impaired insight Thoughts/Hallucinations: no apparent hallucination Skin: intact, normal color, warm/dry SAD PERSONS Done? patient not suicidal Progress Differential Diagnosis: ANXIETY DISORDER, HYPOKALEMIA, CRI Plan of Care: Orders Procedure Date/time Status Admit to inpatient psych 03/27 172 Active Add-on Test (ER Only) 03/27 165 Active ED CRISIS PSYCH CONSULT 03/27 1626 Active ETHANOL 03/27 160 Complete URINE DRUGS OF ABUSE 03/27 155 Complete URINALYSIS 03/27 155 Complete COMPREHENSIVE METABOLIC PANEL 03/27 155 Complete CBC WITHOUT DIFFERENTIAL 03/27 155 Complete Laboratory Tests 03/27/16 1607: Anion Gap 12, Estimated GFR 22 L, BUN/Creatinine Ratio 15.9, Glucose 160 H, Calcium 10.1, Total Bilirubin 0.8, AST 33, ALT 49, Alkaline Phosphatase 60, Total Protein 7.6, Albumin 4.4, Globulin 3.2, Albumin/Globulin Ratio 1.4, CBC w Diff NO MAN DIFF REQ, RBC 4.51, MCV 89.7, MCH 31.1 H, RDW 12.5, MPV 7.0 L, Gran % 82.3 H, Lymphocytes % 11.5 L, Monocytes % 5.0, Eosinophils % 0.5, Basophils % 0.7, Absolute Granulocytes 10.3 H, Absolute Lymphocytes 1.4, Absolute Monocytes 0.6, Absolute Eosinophils 0.1, Absolute Basophils 0.1, PUBS MCHC 34.7, Serum Alcohol < 10.0 03/27/16 1604: Urine Opiates Screen < 100.00, Methadone Screen 41, Barbiturate Screen < 60, Ur Phencyclidine Scrn < 6.00, Amphetamines Screen 191, U Benzodiazepines Scrn < 85, Urine Cocaine Screen < 50, Urine Cannabis Screen < 5.00, Urine Color STRAW, Urine Clarity HAZY H, Urine pH 6.0, Ur Specific [place] <= 1.005, Urine Protein NEG, Urine Ketones NEG, Urine Nitrite NEG, Urine Bilirubin NEG, Urine Urobilinogen 0.2, Ur Leukocyte Esterase TRACE H, Ur Microscopic SEDIMENT EXAMINED, Urine RBC RARE, Urine WBC RARE, Ur Epithelial Cells RARE, Urine Mucus RARE, Urine Hemoglobin TRACE-INTACT, Urine Glucose NEG Departure Departure Time of Disposition: 1728 Disposition: STILL A PATIENT Condition: Stable Clinical Impression Primary Impression: BEBE (generalized anxiety disorder) Secondary Impressions: CRI (chronic renal insufficiency), Hypokalemia Referrals: TATIANA PATEL,GERI (PCP/Family) Departure Forms: Customer Survey General Discharge Information Psych Admission Note Psychiatric Admission: I have seen and evaluated LEIDY CHAVIS. I have also reviewed all the pertinent lab results and diagnostic results. LEIDY CHAVIS will be admitted to our inpatient Psychiatric unit for treatment and care.
--- NOTE | 2016-03-27 16:09 | NUR ---
URINE TRIO SENT TO LAB BY VAL DWYER BLOOD DRAWN AND SENT TO LAB BY THIS RN -SST,LAV
[2016-03-27 16:16] LABS: ABSOLUTE BASOPHIL COUNT 0.1 /CUMM (0.0-0.2); ABSOLUTE EOSINOPHIL COUNT 0.1 /CUMM (0.0-0.7); ABSOLUTE GRANULOCYTE CT 10.3 /CUMM (1.4-6.5); ABSOLUTE LYMPH COUNT 1.4 /CUMM (1.2-3.4); ABSOLUTE MONOCYTE COUNT 0.6 /CUMM (0.10-0.60); BASOPHIL % 0.7 % (0.0-2.0); EOSINOPHIL % 0.5 % (0-5); GRANULOCYTE % 82.3 % (42.2-75.2); HEMATOCRIT 40.5 % (37-47); MEAN CORPUSCULAR HGB 31.1 PG (27.0-31.0); MEAN CORPUSCULAR HGB CONC 34.7 G/DL (33.0-37.0); MEAN CORPUSCULAR VOLUME 89.7 FL (81.0-99.0); PLATELET COUNT 275 /CUMM (130-400); RBC DISTRIBUTION WIDTH 12.5 % (11.5-14.5); RED BLOOD CELL CT 4.51 /CUMM (4.20-5.40); WHITE BLOOD CELL COUNT 12.6 /CUMM (4.8-10.8)
--- NOTE | 2016-03-27 16:48 | NUR ---
PT MEDICATED WITH 40 MEQ KDUR PER EMAR
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
--- NOTE | 2016-03-27 19:14 | NUR ---
REPORT GIVEN TO SUMAN FRAZIER IN [facility]
--- NOTE | 2016-03-27 20:08 | NUR ---
REPORT GIVEN BY SUMAN TALAMANTES. PT AWAITING ADMISSION ORDERS.
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
[2016-03-27 21:19] VITALS: BP 98/72
--- NOTE | 2016-03-27 21:44 | NUR ---
PT. ADMITTED TO [facility] ALERT VERY WEEPY VSS PT. COOPERATIVE WITH CARE INTERVIEW OBTAINED PT. ORIENTED TO SURROUNDINGS. CRYING THROUGH ADMISSION AFRAID OF SON "HE HAS A TERRIBLE TEMPER". EMOTIONAL SUPPORT GIVEN UTD WITH FLU VACCINE. PT JUST WANTING TO GO TO SLEEP. AWAITING FURTHER ORDERS HOD PAGED FOR FOLLOW UP NOTED TO BE DONE.
--- NOTE | 2016-03-27 23:39 | PN- Att Addend ---
Attending Addendum Attending Brief Note 65 yo F smoker, with h/o bipolar disorder, anxiety, HLD, arthritis, breast cancer s/p left mastectomy, is here for evaluation of generalized anxiety disorder. Patient was recently admitted to [facility] (Mar 09) Inpatient psychiatry for depression and SI. She was subsequently transferred to medical floor for evaluation and management of NONA with hypernatremia. 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 Her baseline creatinine is approximately 2 mg/dL. She was discharged on Mar 20 and she returns today as she feels, she is a "nervous wreck" and "cant cope at home". Multiple social issues as noted in Psych H and P. She c/o dyspnea especially when she is anxious, but denies chest pain, palpitations, lightheadedness, nausea or diaphoresis. She reports constipation. 12 point ROS is essentially otherwise negative. Vital Signs Date Time Temp Pulse Resp B/P Pulse O2 O2 Flow FiO2 Ox Delivery Rate 03/27 2118 97.5 69 98/72 03/27 2020 98.9 75 18 125/60 95 Room Air 03/27 1632 Room Air 03/27 1540 99.2 77 20 135/50 94 Room Air Exam: Gen. appearance: Well-developed, not in acute distress HEENT: Anicteric, no pallor, moist oral mucosa Heart: S1-S2 regular Lungs: Clear to auscultation bilaterally, good entry Abdomen: Soft, nontender with normal bowel sounds Extremities: No pedal edema. Skin: Intact with no rashes. Laboratory Tests 03/27 03/27 1607 1604 Chemistry Sodium (137 - 145 mmol/L) 133 L Potassium (3.5 - 5.1 mmol/L) 3.3 L Chloride (98 - 107 mmol/L) 91 L Carbon Dioxide (22 - 30 mmol/L) 30 Anion Gap (5 - 16) 12 BUN (7 - 17 mg/dL) 35 H Creatinine (0.5 - 1.0 mg/dL) 2.2 H Estimated GFR (>60 ml/min) 22 L BUN/Creatinine Ratio (7 - 25 %) 15.9 Glucose (65 - 99 mg/dL) 160 H Calcium (8.4 - 10.2 mg/dL) 10.1 Total Bilirubin (0.2 - 1.3 mg/dL) 0.8 AST (14 - 36 U/L) 33 ALT (9 - 52 U/L) 49 Alkaline Phosphatase (<127 U/L) 60 Total Protein (6.3 - 8.2 g/dL) 7.6 Albumin (3.5 - 5.0 g/dL) 4.4 Globulin (1.9 - 4.2 gm/dL) 3.2 Albumin/Globulin Ratio (1.1 - 2.2 %) 1.4 Hematology CBC w Diff NO MAN DIFF REQ WBC (4.8 - 10.8 /CUMM) 12.6 H RBC (4.20 - 5.40 /CUMM) 4.51 Hgb (12.0 - 16.0 G/DL) 14.0 Hct (37 - 47 %) 40.5 MCV (81.0 - 99.0 FL) 89.7 MCH (27.0 - 31.0 PG) 31.1 H RDW (11.5 - 14.5 %) 12.5 Plt Count (130 - 400 /CUMM) 275 MPV (7.4 - 10.4 FL) 7.0 L Gran % (42.2 - 75.2 %) 82.3 H Lymphocytes % (20.5 - 51.1 %) 11.5 L Monocytes % (1.7 - 9.3 %) 5.0 Eosinophils % (0 - 5 %) 0.5 Basophils % (0.0 - 2.0 %) 0.7 Absolute Granulocytes (1.4 - 6.5 /CUMM) 10.3 H Absolute Lymphocytes (1.2 - 3.4 /CUMM) 1.4 Absolute Monocytes (0.10 - 0.60 /CUMM) 0.6 Absolute Eosinophils (0.0 - 0.7 /CUMM) 0.1 Absolute Basophils (0.0 - 0.2 /CUMM) 0.1 PUBS MCHC (33.0 - 37.0 G/DL) 34.7 Toxicology Urine Opiates Screen (>2000 NG/ML) < 100.00 Methadone Screen (>300 NG/ML) 41 Barbiturate Screen (>200 NG/ML) < 60 Ur Phencyclidine Scrn (>25 NG/ML) < 6.00 Amphetamines Screen (>1000 NG/ML) 191 U Benzodiazepines Scrn (>200 NG/ML) < 85 Urine Cocaine Screen (>300 NG/ML) < 50 Urine Cannabis Screen (>50 NG/ML) < 5.00 Serum Alcohol (<10 MG/DL) < 10.0 Urines Urine Color (YEL,AMB,STR) STRAW Urine Clarity (CLEAR) HAZY H Urine pH (5.0 - 8.0) 6.0 Ur Specific [place] (1.001 - 1.035) <= 1.005 Urine Protein (NEG,<30 MG/DL) NEG Urine Ketones (NEG) NEG Urine Nitrite (NEG) NEG Urine Bilirubin (NEG) NEG Urine Urobilinogen (0.1 - 1.0 EU/dl) 0.2 Ur Leukocyte Esterase (NEG) TRACE H Ur Microscopic SEDIMENT EXAMINED Urine RBC (0 - 5 /HPF) RARE Urine WBC (0 - 2 /HPF) RARE Ur Epithelial Cells (NONE,FEW) RARE Urine Mucus (FEW,NONE) RARE Urine Hemoglobin (NEG) TRACE-INTACT Urine Glucose (N MG/DL) NEG Assessment and plan: 1. Generalized anxiety disorder, BPD. Management per Psych team. 2. Nephrogenic diabetes insipidus. Continue HCTZ. Patient should follow up with her administrative accountant in [place]. 3. Hypokalemia likely in the setting of diuretic use. Will replete with PO potassium supplements. Recheck in AM. 4. CKD stage 4. Stable. 5. Smoking cessation counseling. Nicotine gum. 6. Leukocytosis likely reactive. 7. HLD. Ct atorvastatin. 8. Overactive bladder. Ct. oxybutinin. 9. Constipation. Senna S added to regimen. DVT prophylaxis - low risk, early ambulation.
[2016-03-28 07:54] VITALS: BP 111/65
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
[2016-03-28 12:22] VITALS: BP 134/71
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
--- NOTE | 2016-03-28 14:17 | NUR ---
1300 PROPANOLOL ADMINISTERED 1415. MED NOT AVAILABLE ON UNIT. CALLED AND WENT TO PHARMACY TO OBTAIN MED.
[2016-03-28 15:42] VITALS: BP 112/55
[2016-03-28 19:40] VITALS: BP 108/56
--- NOTE | 2016-03-28 21:26 | NUR ---
PT IS CALM, COOPERATIVE WITH STAFF AND PEERS, AND COMPLIANTW WITH UNIT RULES. PT IS IN [place], BUT TENDS TO STAY BY SELF, NOT INTERACTING MUCH WITH PEERS. PT MOOD IS STABLE, AFFECT IS EUTHYMIC, SLIGHTLY ANXIOUS THROUGHOUT EVENING REPORTED BY PT, COMMUNICATION NORMAL, AND APPETITE IS NORMAL. PT DENIES SI AT THIS TIME.
--- NOTE | 2016-03-29 06:57 | NUR ---
PATIENT SLEPT ALL NIGHT.
[2016-03-29 07:55] VITALS: BP 122/60
[2016-03-29 12:25] VITALS: BP 110/57
--- NOTE | 2016-03-29 13:48 | NUR ---
PT STATED SHE HAD SOME ANXIETY TODAY AND HER PLAN WAS TO GO TO GROUPS. SHE DENIED ANY SUICIDAL THOUGHTS WHEN ASKED AND SHE IS COMPLIANT WITH HER MED REGIME AND TREATMENT PLAN
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
--- NOTE | 2016-03-29 15:57 | SOCIAL WORKER TX PLAN PSYCH ---
Treatment Plan - Please Document: - Evidence that there is ongoing collaboration between - the patient and the interdisciplinary team, - including the patient's active participation and - responsibility for engaging in the treatment regimen, - and that the treatment plan is individualized and - relevant to the patient's conditions. - Treatment plan should reflect documentation indicating - that all active therapeutic efforts are included. Strengths/Capabilities: The patient has been connected to her outpatient provider for 20+ years, receives SSDI and has section 8 housing assistance. Physical Limitations (Interventions): None noted Patient Identified Trmt Goals: "I need to resolve these issues with my children." Discharge Plan: IOP Problem/Goals #1 Problem #1: depression Goal (Short Term): Today I will attend 2 groups Today I will identify 2 stressors Today I will identify 2 positive supports Today I will work on recognizing 3 emotions I am feeling Goal (Dimension Quarry Supervisor): Be free of suicidal thoughts/attempts Develop 3 coping skills to deal with depression Identify 3 positive support systems to call in crisis Develop a crisis plan with 3 hurley people Identify 2 positive traits per week about myself Identify 2 things I have to look forward to Identify 2 positive people in my life and 1 thing I appreciate about them Interventions: Learn ways to manage depressive symptoms accordingly and identify positive supports to manage life stressors and mood fluctuations. Modalities: Encourage groups, education on depression, provide CBT treatment, family meeting. 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 Medical - renal issues. Current GAF: 24 Treatment Team - Responsibilities of members of the treatment team include: - Medication Management- MD or RN NEONATAL ICU - Medication Administration and Monitoring- Nurse - Group Therapy- Occupational Therapist - 1:1 Therapy,Disch Planning,family involvement-Furniture Lumber Production Worker
--- NOTE | 2016-03-29 16:05 | SOCIAL WORKER PROG NOTE PSYCH ---
Social Work Progress Note Progress Note KOLBY met with patient today for the first time since re-admission to hospital. Patient presents tearful during meeting discussing that her son and girlfriend still remain in her house and she wants them to leave. Patient denies any suicidal thoughts but expresses anxiety and concern over them in her house. Patient is planning to inform her son that if he does not leave her house then she will be taking legal action and will be obtaining a restraining order. Patient has agreed that she plans to return home soon and follow through with IOP at . [facility] has been put in place to provide transporation for patient. Patient plans to confront her son and his girlfriend upon returning home and will ask her sister for transportation to [facility] if she needs to file a restraining order.
[2016-03-29 16:08] VITALS: BP 120/78
[2016-03-29 16:15] VITALS: BP 120/78
[2016-03-29 19:35] VITALS: BP 100/87
[2016-03-30 07:41] VITALS: BP 122/72
--- NOTE | 2016-03-30 09:50 | SOCIAL WORKER PROG NOTE PSYCH ---
Social Work Progress Note Progress Note Patient to discharge the hospital today. Patient denies SI/HI/AH/VH at present. Patient reports some anxiety and fear about returning home to the same situation she left regarding her son and refusing to leave patients home. Patient reports that she spoke to him yesterday on the phone and informed him that if he does not leave the house with his girlfriend, then she will be filing a restraining order against him. She reported that he did not appear to take this seriously and he stated back that he would get a restraining order against her. Patient is aware that at this time she is the only one who can take action and she plans to do so. Patient has agreed that she will need additional support during this time and is in agreement to attend IOP with . I have arranged [employer] transportation for patient to and from [facility] recurrent going forward for the afternoon mental health track. Patient has intake scheduled for tomorrow, 03/31/16 @ 12:45pm and [employer] will be picking her up from home around 12pm. Jalent will resume VNS with Patient Care, Laury Reed RN, this evening as well.
--- NOTE | 2016-03-30 10:14 | NUR ---
PT IS SCHEDULED FOR D/C TO [facility] TODAY. SHE DENIES THOUGHTS OF SUICIDE AT THIS TIME. SHE DOES FEEL ANXIOUS ABOUT GOING HOME BUT AGREES TO FOLLOW UP WITH [facility]. SHE IS COMPLIANT WITH HER MED REGIME AND TREATMENT PLAN. PT STATES SHE HAS NURSES THAT ASSIST WITH MED MANAGEMENT. PT IS GIVEN EDUCATION ON MANAGING DEPRESSION AND ANXIETY AND ON SUICIDE PREVENTION
[2016-03-30] MEDS ORDERED: SENNA PLUS TAB1 EACH PO (11:38)
[2016-03-30] MEDS ORDERED: NICORELIEF2 MG PO (11:42)
[2016-03-30 12:17] VITALS: BP 129/77
[2016-03-30 13:05] VITALS: BP 129/77
--- NOTE | 2016-03-30 15:14 | CP SOUTH PROGRESS NOTE PSYCH ---
Psych (Inpt) Progress Note Progress Note Include the following elements, when applicable: Involvement in the active treatment of the patient with behavioral observations of the patient and the patient's response to the treatment. Review of the ongoing treatment process in the context of the treatment plan. Indication of how multi-disciplinary staff members are carrying out the treatment plan. Plans for future interventions and recommendations for revision of the treatment plan. Liaison with other physicians/providers. Progress Note: Case and treatment plan discussed in team meeting. Staff reports that the patient is very angry. Doesn't want to go. Has IOP intake tomorrow at 12:45 pm. Patient seen at 12:27 pm. She is neatly dressed. States she feels "okay, I guess." States that daughter told her that Clement (son) and Carmelita are going to move out tonight. Doesn't know if that will happen but the patient hopes so. Affect is mildly anxious. Mood is very anxious at 10/10. Sad ~7/10. Plans to attend [facility]. Feels hopeless and helpless. Denies feeling worthless. Feels guilty for not having been able to straighten housing situation out. Denies active and passive SI, HI, AH, VH and PI. Sleep: ok. Appetite: "well here, it' s good, at home it's not." Reports having dizziness, especially when in the shower. I advised the patient to get up slowly, to push fluids, and to be careful in the shower. Energy: not good. The patient is afraid of her son. She is not afraid of harming herself. IMPRESSION: Condition stable for discharge to home. Follow up at [facility], as above.
--- NOTE | 2016-03-30 15:56 | DISCHARGE SUMMARY REPORT-PSYCH ---
Visit Information Visit Dates/Diagnosis' Admission Date: 03/27/16 Discharge Date: 03/30/16 Reason for Admission: Anxiety and depression. Psy Discharge Primary Diag: Generalized anxiety d/o Psy Discharge Secondary Diag: Unspecified depressive do Chronic kidney disease Hyperlipidemia Arthritis Hx breast cancer Hospital Course Significant Lab Findings: EKG 03/16/2016 showed sinus rhythm at a rate of 63, left atrial abnormality, nonspecific T abnormalities, ant-lat leads, no significant change since previous tracing, abnormal ECG, QT 420, QTc 430. Lab ALT 49 U/L 03/27/16 1607 AST 33 U/L 03/27/16 1607 BUN 35 mg/dL H 03/27/16 1607 Chloride 91 mmol/L L 03/27/16 1607 Creatinine 2.2 mg/dL H 03/27/16 1607 Estimated GFR 22 ml/min L 03/27/16 1607 Glucose 160 mg/dL H 03/27/16 1607 Potassium 3.3 mmol/L L 03/27/16 1607 Potassium 4.0 mmol/L 03/29/16 0759 Sodium 133 mmol/L L 03/27/16 1607 Sodium 135 mmol/L L 03/29/16 0759 WBC 12.6 /CUMM H 03/27/16 1607 Ur Epithelial Cells RARE 03/27/16 1604 Ur Leukocyte Esterase TRACE H 03/27/16 1604 Ur Microscopic SEDIMENT EXAMINED 03/27/16 1604 Urine Clarity HAZY H 03/27/16 1604 Urine Hemoglobin TRACE-INTACT 03/27/16 1604 Urine Mucus RARE 03/27/16 1604 Urine RBC RARE /HPF 03/27/16 1604 Urine WBC RARE /HPF 03/27/16 1604 PATIENT: LEIDY CHAVIS PRESENT AGE: 65 PATIENT ACCOUNT NO: [id number] : 49 LOCATION: [facility] ORDERING PHYSICIAN: CHARLEY TURNER MD SERVICE DATE: 03/09/16 EXAM TYPE: RAD - XRY-CHEST XRAY, PA AND LATERAL EXAMINATION: XR CHEST CLINICAL INFORMATION: Smoker. Cough. COMPARISON: No relevant prior imaging is available. TECHNIQUE: PA and lateral views of the chest were obtained. FINDINGS: There is a dense 6 mm subpleural pulmonary nodule within the right upper lobe near the major fissure. Lungs are otherwise clear and well expanded. There is no focal consolidative disease, pleural effusion, or pneumothorax. The cardiac silhouette and upper mediastinal contours are normal. No acute osseous finding. IMPRESSION: There is a dense likely calcified 6 mm subpleural pulmonary nodule within the right upper lobe near the major fissure. Correlation with prior imaging is recommended if available. Otherwise a dedicated CT scan of the chest can be obtained to provide a baseline for follow-up if necessary. No consolidative disease or effusion. DICTATED BY: CLEMENT PRITCHETT MD DATE/TIME DICTATED:03/09/162152 TRIMMER OPERATOR THREE KNIFE:XIOMY DATE/TIME TRANSCRIBED:03/09/162152 CONFIDENTIAL, DO NOT COPY WITHOUT APPROPRIATE AUTHORIZATION. <Electronically signed in Other Vendor System> SIGNED BY: CLEMENT PRITCHETT MD 03/09 PATIENT: LEIDY CHAVIS PRESENT AGE: 65 PATIENT ACCOUNT NO: [id number] : 49 LOCATION: [facility] ORDERING PHYSICIAN: GABY BELL MD SERVICE DATE: 03/16/16- EXAM TYPE: US - US-RENAL/KIDNEY EXAMINATION: US RETROPERITONEAL COMPLETE (RENAL) CLINICAL INFORMATION: Acute kidney injury. Hypernatremia. COMPARISON: None. TECHNIQUE: Real-time imaging of the kidneys and bladder. FINDINGS: RIGHT KIDNEY: 9.3 x 6.1 x 5.6 cm (SAG x AP x TRV). There is increased echogenicity of the renal parenchyma, indicative of underlying medical renal disease. Additionally, there are innumerable punctate echogenic foci scattered throughout the renal parenchyma, which could reflect renal cortical calcifications. No appreciable hydronephrosis of the right kidney. LEFT KIDNEY: 9.1 x 5.5 x 5.2 cm (SAG x AP x TRV). There is increased echogenicity of the renal parenchyma, indicative of underlying medical renal disease. Additionally, there are innumerable punctate echogenic foci scattered throughout the left kidney, which could reflect renal cortical calcifications. There is no appreciable hydronephrosis of the left kidney. BLADDER: Partially distended and filled with clear hypoechoic urine. Bilateral ureteral jets are demonstrated. Prevoid bladder volume is 139 mL. IMPRESSION: Increased echogenicity of the bilateral kidneys, indicative of underlying medical renal disease. Of note, there are innumerable punctate echogenic foci scattered throughout the parenchyma of the bilateral kidneys. These could reflect innumerable cortical calcifications. No appreciable hydronephrosis of either kidney. DICTATED BY: BREN CHAIDEZ MD DATE/TIME DICTATED:03/16/162005 TRIMMER OPERATOR THREE KNIFE:XIOMY DATE/TIME TRANSCRIBED:03/16/162005 CONFIDENTIAL, DO NOT COPY WITHOUT APPROPRIATE AUTHORIZATION. <Electronically signed in Other Vendor System> SIGNED BY: BREN CHAIDEZ MD 03/16/162021 Course Complications: None. Consultations: Patient was seen for admission H&P by Dr. Per Alejandra. Her assessment and plan: 1. Generalized anxiety disorder, BPD. Management per Psych team. 2. Nephrogenic diabetes insipidus. Continue HCTZ. Patient should follow up with her impregnator helper in [place]. 3. Hypokalemia likely in the setting of diuretic use. Will replete with PO potassium supplements. Recheck in AM. 4. CKD stage 4. Stable. 5. Smoking cessation counseling. Nicotine gum. 6. Leukocytosis likely reactive. 7. HLD. Ct atorvastatin. 8. Overactive bladder. Ct. oxybutinin. 9. Constipation. Senna S added to regimen. DVT prophylaxis - low risk, early ambulation. Allergies: Coded Allergies: cephalexin (INAFFECTIVE 03/04/16) hydrocodone (I DONT DO WELL AT ALL ON VICODIN 03/04/16) Hospital Course/TX Response: The patient was monitored on the unit for anxiety and mood disturbance. She had no SI or HI. There were no changes made in psychopharmacotherapy. Progress note from date of discharge, 03/30/16: Progress Note: Case and treatment plan discussed in team meeting. Staff reports that the patient is very angry. Doesn't want to go. Has IOP intake tomorrow at 12:45 pm. Patient seen at 12:27 pm. She is neatly dressed. States she feels "okay, I guess." States that daughter told her that Clement (son) and Carmelita are going to move out tonight. Doesn't know if that will happen but the patient hopes so. Affect is mildly anxious. Mood is very anxious at 10/10. Sad ~7/10. Plans to attend [facility]. Feels hopeless and helpless. Denies feeling worthless. Feels guilty for not having been able to straighten housing situation out. Denies active and passive SI, HI, AH, VH and PI. Sleep: ok. Appetite: "well here, it' s good, at home it's not." Reports having dizziness, especially when in the shower. I advised the patient to get up slowly, to push fluids, and to be careful in the shower. Energy: not good. The patient is afraid of her son. She is not afraid of harming herself. IMPRESSION: Condition stable for discharge to home. Follow up at [facility], as above. Discharge HBIPS - Tobacco Use Treatment Offered Post DC Medications Offered: Script Given-See Med List Post DC Tobacco Treatment Plan: [facility]x Pgm Program Appt Date: 03/31/16 Program Appt Time: 1600 - EtOH/Drug Use D/O Treatment Offered Post DC Medications Offered: NA-No EtOH/Drug Use D/O Post DC EtOH/SubAbuse TX Plan: NA-No EtOH/Drug Use D/O Metabolic Screening - Screen if on a Neuroleptic Medication - Metabolic screening should include: - Blood Pressure, BMI, Glucose or Hgb A1c, & a - Lipid profile from within the past 365 days. Metabolic Screening () Not Applicable, patient not on a neuroleptic. OR () Patient on a neuroleptic(s) . Enter below results for Glucose or Hemoglobin A1C, and lipid panel if obtained during the last 365 days. BMI: 21.000 Blood Pressure: 129/77 Laboratory Results (If applicable): Lab Cholesterol 171 MG/DL 03/09/162118 Cholesterol/HDL Ratio 2 % 03/09/162118 Glucose 160 mg/dL H 03/27/16 1607 HDL Cholesterol 92 mg/dL H 03/09/162118 LDL Cholesterol, Calc 59 mg/dL L 03/09/162118 Triglycerides 103 mg/dL 03/09/162118 Discharge Instructions General Discharge Information Discharge Medications: Discharge Medications- (Dose, route, freq, indication): START taking these NEW Home Medications: Sennosides/Docusate Dose: ORAL, TWICE DAILY as Qty: 28 Sodium (Senna Plus 1 Tablet needed for CONSTIPATION Refills: 0 Tablet) 8.6 MG-50 MG TABLET Nicotine Dose: ORAL, EVERY 2 HOURS Qty: 60 (Nicorelief) 2 MG 2 Milligram NEEDED as needed for Refills: 0 GUM smoking cessation CONTINUE taking these Home Medications: Trazodone HCl (Trazodone Dose: ORAL, Every night for HCl) 100 MG TABLET 2 Tablet SLEEP Last Taken:03/29/16 Time:2215 Bupropion HCl Dose: ORAL, TWICE DAILY for (Wellbutrin Sr) 100 MG 1 Tablet DEPRESSION TABLET.ER Last Taken:03/30/16 Time:0800 Clonazepam (Klonopin) Dose: ORAL, THREE TIMES DAILY 0.5 MG TABLET 1 Tablet for ANXIETY Last Taken:03/30/16 Time:0800 Aripiprazole (Abilify) 5 Dose: ORAL, Every night for MG TABLET 1 Tablet Depression/clear thoughts Last Taken:03/29/16 Time:2215 Atorvastatin Calcium Dose: ORAL, 5 PM for (Atorvastatin Calcium) 20 Milligram cholesterol 20 MG TABLET Last Taken:03/29/16 Time:2215 Propranolol HCl Dose: ORAL, 0800,1300,2200 (Propranolol HCl) 10 MG 10 Milligram for TREMORS TABLET Last Taken:03/30/16 Time:0800 Gabapentin (Gabapentin) Dose: ORAL, 300 MG CAPSULE 300 Milligram 0800,1300,1700,2200 for ANXIETY Last Taken:03/30/16 Time:0800 Lamotrigine (Lamictal) Dose: ORAL, DAILY for MOOD 200 MG TABLET 350 Milligram STABILITY Last Taken:03/30/16 Time:0800 Oxybutynin Chloride Dose: ORAL, TWICE DAILY for (Oxybutynin Chloride) 5 5 Milligram bladder health MG TABLET Last Taken:03/30/16 Time:0800 Hydrochlorothiazide Dose: ORAL, DAILY for (Hydrochlorothiazide) 1 Capsule Diabetes insipidus 12.5 MG CAPSULE Last Taken:03/30/16 Time:0800 Paroxetine HCl (Paxil) Dose: ORAL, DAILY for 20 MG TABLET 3 Tablet Depression/anxiety Last Taken:03/30/16 Time:0854 STOP taking these DISCONTINUED Home Medications: Simvastatin (Simvastatin*) 40 Dose: ORAL, Every night for CHOLESTEROL MG TABLET 1 Tablet Reason Stopped: Changed to different med Solifenacin Succinate Dose: ORAL, DAILY for BLADDER (Vesicare) 10 MG TABLET 1 Tablet Reason Stopped: Changed to different med Sodium Bicarbonate (Sodium Dose: ORAL, TWICE DAILY for SUPPLEMENT Bicarbonate) 650 MG TABLET 1 Tablet Reason Stopped: Med no longer needed Multiple Neuroleptics: ([x]) Not Applicable OR Document below three failed attempts at monotherapy, or a plan to taper to monotherapy, or augmentation of Clozapine. () Patient's Diet: Heart healthy. Patient's Activity: No restrictions. DC Disposition: Returning to home. Recommendations: Patient was advised to see PCP about test results list on page 3 of handwritten discharge instructions sheet. Referred To: [facility] with intake 03/31/16 at 12:45 pm. Copies To: Intensive Outpt Psychiatry
== END 2016-03-30 14:15 | DRG 880 ==
LOC: ERH 15:21 → ERHI 20:35 → CP SOUTH 20:35
PROVIDERS: Emergency Medicine; ADMIT Psychiatry & Neurology Psychiatry
DX: F41.1 Generalized anxiety disorder (principal); F32.9 Major depressive disorder, single episode, unspecified; N18.9 Chronic kidney disease, unspecified; E78.5 Hyperlipidemia, unspecified; M19.90 Unspecified osteoarthritis, unspecified site; Z85.3 Personal history of malignant neoplasm of breast
CPT/HCPCS: 36415; 80307; 81001; G0480

== ENCOUNTER 2016-05-08 12:10 | Inpatient (IN) | payer OTHER, MEDICARE ==
[~2016-05-08] VITALS: Ht 152.4 cm; Wt 49.9 kg
[~2016-05-08 12:10] MED LIST changes: +SENNA PLUS TAB1 EACH PO
--- NOTE | 2016-05-08 12:20 | NUR ---
PT TO ROOM14 BIBA ON PEER FOR +SI. PT STATED TO HER DAUGHTER THAT SHE WANTED TO KILL HERSELF. PT DENIES SI PLAN, DENIES HI, DENIES ETOH OR ILLICIT DRUGS USE. HX BIPOLAR DISEASE,ANXIETY,DEPRESSION. PT ANXIOUS ON ARRIVAL, VSS.
--- NOTE | 2016-05-08 12:25 | NUR ---
PT WANDED BY SECURITY, CHANGED INTO HOSPITAL SCRUBS, 2 BELONGINGS BAG IN CLOSET, 1 VALUABLES BAG IN ER SAFE.
[2016-05-08] MEDS ORDERED: GABAPENTIN300 M2 PO (12:32)
[2016-05-08] MEDS ORDERED: OXYBUTYNIN CHLOR5 M2 PO (12:34)
--- NOTE | 2016-05-08 12:43 | NUR ---
URINE TRIO SENT TO LAB.
--- NOTE | 2016-05-08 13:56 | ED PSYCHIATRIC COMPLAINT ---
See Addendum History of Present Illness General Chief Complaint: Psychiatric Related Complaint Stated Complaint: BIBA FOR PSYCH EVAL +SI Source: patient, EMS, police Exam Limitations: no limitations Vital Signs & Intake/Output Vital Signs & Intake/Output Vital Signs Date Time Temp Pulse Resp B/P Pulse O2 O2 Flow FiO2 Ox Delivery Rate 05/08 1502 99.6 86 18 131/64 100 Room Air 05/08 1220 99.1 83 18 163/94 100 Room Air Allergies Coded Allergies: cephalexin (INAFFECTIVE 03/04/16) hydrocodone (I DONT DO WELL AT ALL ON VICODIN 03/04/16) Reconcile Medications Aripiprazole (Abilify) 5 MG TABLET 0.5 TAB PO QPM Depression/clear thoughts ( Reported) Atorvastatin Calcium 20 MG TABLET 20 MG PO 1700 cholesterol Bupropion HCl (Wellbutrin Sr) 100 MG TABLET.ER 1 TAB PO BID DEPRESSION ( Reported) Clonazepam (Klonopin) 0.5 MG TABLET 1 TAB PO TID ANXIETY (Reported) Gabapentin 300 MG CAPSULE 1 CAP PO TID ANXIETY (Reported) Hydrochlorothiazide 12.5 MG CAPSULE 1 CAP PO DAILY Diabetes insipidus Lamotrigine (Lamictal) 200 MG TABLET 350 MG PO DAILY MOOD STABILITY Oxybutynin Chloride 5 MG TABLET 1 TAB PO QPM BLADDER HEALTH (Reported) Paroxetine HCl (Paxil) 20 MG TABLET 3 TAB PO DAILY Depression/anxiety ( Reported) Propranolol HCl 10 MG TABLET 10 MG PO 0800,1300,2200 TREMORS Trazodone HCl 100 MG TABLET 2 TAB PO QPM SLEEP (Reported) Triage Note: PT TO ROOM14 BIBA ON PEER FOR +SI. PT STATED TO HER DAUGHTER THAT SHE WANTED TO KILL HERSELF. PT DENIES SI PLAN, DENIES HI, DENIES ETOH OR ILLICIT DRUGS USE. HX BIPOLAR DISEASE,ANXIETY,DEPRESSION. PT ANXIOUS ON ARRIVAL, VSS. Triage Nurses Notes Reviewed? yes HPI: Patient presents for evaluation of suicidal ideation. Patient has no specific plan she states that she has been thinking of suicide secondary to multiple life stressors including having to place restraining order on her son and taking care of her daughter with "mental challenges". Patient states that she is feeling severely anxious despite the use of her usual medications. Became particularly severe when her visiting nurse, who provides her medications, did not arrive at her house this morning. She called another visiting nurse and was eventually able to receive her medications. However these did not help her anxiety and she continued to express suicidal ideation. Police and EMS were contacted and the patient was brought to the emergency department. Past History Travel History Traveled to [place] past 21 day No Medical History Any Pertinent Medical History? see below for history Neurological: NONE EENT: NONE Cardiovascular: hyperlipidemia Respiratory: SMOKER- 1 PACK A DAY; Gastrointestinal: POOR EATING; INDIGESTION Hepatic: NONE Renal: LITHIUM FOR MANY YEARS Musculoskeletal: ARTHRITIS Psychiatric: bipolar disease Endocrine: NONE Blood Disorders: NONE Cancer(s): breast cancer SLUBBER HAND/Reproductive: POST MENEPAUSAL History of MRSA: No History of VRE: No History of CDIFF: No Surgical History Surgical History: non-contributory Psychosocial History Who do you live with Patient and family What is your primary language Turkish Tobacco Use: Current Daily Use Daily Tobacco Use Amount/Type: => 5 Cigarettes daily Family History Hx Contributory? No Review of Systems Review of Systems Constitutional: Reports: no symptoms. EENTM: Reports: no symptoms. Respiratory: Reports: no symptoms. Cardiovascular: Reports: no symptoms. GI: Reports: no symptoms. Genitourinary: Reports: no symptoms. Musculoskeletal: Reports: no symptoms. Skin: Reports: no symptoms. Neurological/Psychological: Reports: see HPI. Hematologic/Endocrine: Reports: no symptoms. Immunologic/Allergic: Reports: no symptoms. All Other Systems: Reviewed and Negative Physical Exam Physical Exam General Appearance: see below Neurological/Psychiatric: see below Comments: General: Alert, anxious but otherwise cooperative Head: Normocephalic, atraumatic Eyes: Normal inspection, no nystagmus, EOMI Ears: Normal inspection Nose: Normal inspection Throat: Moist mucosa Neck: Supple, no goiter Heart: Regular rate and rhythm, no murmurs rubs or gallops Lungs: Clear to auscultation bilaterally with good air entry Abdomen: Soft nontender nondistended, normal bowel sounds Chest: Nontender Extremities: Normal range of motion grossly, mild tremors present, no cyanosis clubbing or edema of the upper extremities Neurologic: cranial nerves II through XII grossly intact, speech clear, gait normal Psychiatric: No apparent delusions or hallucinations, no pressured speech or thought blocking SAD PERSONS Done? DEFERRED TO CRISIS Progress Differential Diagnosis: anxiety, bipolar disorder Plan of Care: Orders Procedure Date/time Status Regular Diet 05/08 D Active Admit to inpatient psych 05/08 1549 Active Patient Data - inpatient psych 05/08 1531 Active Admit to inpatient psych 05/08 1531 Active Continuous Observation Monitor 05/08 1519 Active ED CRISIS PSYCH CONSULT 05/08 1356 Active ETHANOL 05/08 1341 Complete COMPREHENSIVE METABOLIC PANEL 05/08 1341 Complete CBC WITHOUT DIFFERENTIAL 05/08 1341 Complete URINE DRUG SCREEN FOR ER ONLY 05/08 1235 Complete Vital Signs 05/08 UNK Active Activity/Ambulation 05/08 UNK Active Current Medications Sig/Carol Start time Last Medication Dose Stop Time Status Admin Clonazepam 0.5 MG ONCE ONE 05/08 1600 UNVr (KlonoPIN) 05/08 1601 Laboratory Tests 05/08/16 1350: Anion Gap 9, Estimated GFR 28 L, BUN/Creatinine Ratio 11.1, Glucose 116 H, Calcium 10.1, Total Bilirubin 0.5, AST 26, ALT 29, Alkaline Phosphatase 52, Total Protein 6.5, Albumin 3.8, Globulin 2.7, Albumin/Globulin Ratio 1.4, CBC w Diff NO MAN DIFF REQ, RBC 3.90 L, MCV 90.0, MCH 31.0, RDW 13.0, MPV 6.6 L, Gran % 75.7 H, Lymphocytes % 16.6 L, Monocytes % 6.6, Eosinophils % 0.8, Basophils % 0.3, Absolute Granulocytes 6.9 H, Absolute Lymphocytes 1.5, Absolute Monocytes 0.6, Absolute Eosinophils 0.1, Absolute Basophils 0, PUBS MCHC 34.5, Serum Alcohol < 10.0 05/08/16 1236: Urine Opiates Screen 189.00, Methadone Screen 42, Barbiturate Screen < 60, Ur Phencyclidine Scrn < 6.00, Amphetamines Screen < 100, U Benzodiazepines Scrn < 85, Urine Cocaine Screen < 50, Urine Cannabis Screen < 5.00 Departure Departure Disposition: STILL A PATIENT Condition: Stable Clinical Impression Primary Impression: Depression Qualifiers: Depression Type: unspecified Qualified Code: F32.9 - Major depressive disorder, single episode, unspecified Secondary Impressions: Anxiety Referrals: GERI SIMPSON MD (PCP/Family) Departure Forms: Customer Survey General Discharge Information
[2016-05-08 14:00] LABS: ABSOLUTE BASOPHIL COUNT 0 /CUMM (0.0-0.2); ABSOLUTE EOSINOPHIL COUNT 0.1 /CUMM (0.0-0.7); ABSOLUTE GRANULOCYTE CT 6.9 /CUMM (1.4-6.5); ABSOLUTE LYMPH COUNT 1.5 /CUMM (1.2-3.4); ABSOLUTE MONOCYTE COUNT 0.6 /CUMM (0.10-0.60); BASOPHIL % 0.3 % (0.0-2.0); EOSINOPHIL % 0.8 % (0-5); GRANULOCYTE % 75.7 % (42.2-75.2); HEMATOCRIT 35.1 % (37-47); MEAN CORPUSCULAR HGB CONC 34.5 G/DL (33.0-37.0); MEAN PLATELET VOLUME 6.6 FL (7.4-10.4); PLATELET COUNT 209 /CUMM (130-400); WHITE BLOOD CELL COUNT 9.1 /CUMM (4.8-10.8)
--- NOTE | 2016-05-08 14:09 | NUR ---
POC: ADMISSION PER CRISIS.
--- NOTE | 2016-05-08 14:37 | ED PSYCH CRISIS CONSULTATION ---
See Addendum Crisis Consult Basic Assessment Date of Consult: 05/08/16 Responsible Person/Accompanied By: AYALA on a PEER Insurance Authorization: Insurance #1: Insurance name: MEDICARE A Phone number: Policy number: [id number] Group number: Authorization number: ED Provider: Patient's ED Provider: KEENAN WEBSTER MD Primary Care Physician: Patient's PCP: GERI SIMPSON MD PCP's Current Psychiatrist: Chandni Lanier APRN- [facility] Chief Complaint: Psychiatric Related Complaint Patient's Quote: " I was having suicidal thoughts." Present Illness: The patient is a 65 year old , female presenting to the ED on a PEER with +SI and plan to use a knife to kill herself. The patient presents anxious, shaky, older then stated age and disheveled. The patient reports that since she has been discharged from [facility] in March 2016, she has been attending [facility] [place]. The patient reports that she has been going to [facility], however does not find it helpful, and states, " I don't feel comfortable there, like during the check in." She states that she has been feeling "overwhelmed and frightened," however is not able to articulate what those feelings are in regard to. The patient states that she has a daughter that is "emotionally and medically challenged," and that she is difficult to cope with. The patient has been taking her medications and states that she has a visiting RN that distributes them for her. She notes that today she was "very nervous," because the visiting RN was later then usual. The patient reports that she has been feeling depressed, anxious, helpless, hopeless, with decreased energy, decreased concentration and sleep disturbances. She denies any current or history of HI / AH / VH. She continues to report feeling suicidal and is fearful that she will act on these thoughts. She is requesting to be admitted into the psychiatric unit. KOLBY spoke to her daughter, Moraima Macias ([phone]), who confirms that the patient made suicidal statements and called 911 on herself. Moraima notes that the patient has appeared to be confused and having memory issues. Moraima believes that the patient is overmedicated and needs to have her medications adjusted. Moraima did share that she also has mental health issues and that they have been having disagreements over her (Moraima), speaking with her brother, via phone. Moraima notes that she is aware that the patient has a restraining order against her brother, however still wants to maintain her own relationship with him. Moraima notes that she attempts to speak with her brother, when the patient is not around, however states that the patient will come into her room, while she is on the phone. Patient's Address: [address] [place] [address] Other Phone Number: Who Do You Live With? Patient and family (Daughter) Family/Informants Interviewed: Daughter- Moraima Macias [phone] Allergies - Coded Allergies: cephalexin (INAFFECTIVE 03/04/16) hydrocodone (I DONT DO WELL AT ALL ON VICODIN 03/04/16) Current Medications - Scheduled Medications Aripiprazole (Abilify) 5 MG TABLET 0.5 TAB PO QPM Depression/clear thoughts ( Reported) Entered as Reported by GLORY TIRADO on 03/04/16 1447 Atorvastatin Calcium 20 MG TABLET 20 MG PO 1700 cholesterol #14 TAB Prescribed by JANAY MUNOZ APRN on 03/16/16 Bupropion HCl (Wellbutrin Sr) 100 MG TABLET.ER 1 TAB PO BID DEPRESSION ( Reported) Entered as Reported by GLORY TIRADO on 03/04/16 1446 Clonazepam (Klonopin) 0.5 MG TABLET 1 TAB PO TID ANXIETY (Reported) Entered as Reported by GLORY TIRADO on 03/04/16 1446 Gabapentin 300 MG CAPSULE 1 CAP PO TID ANXIETY (Reported) Entered as Reported by GLORY TIRADO on 05/08/16 1232 Hydrochlorothiazide 12.5 MG CAPSULE 1 CAP PO DAILY Diabetes insipidus #30 CAP Prescribed by LAWRENCE SNOWDEN MD on 03/18/16 Lamotrigine (Lamictal) 200 MG TABLET 350 MG PO DAILY MOOD STABILITY 14 Days Prescribed by JANAY MUNOZ APRN on 03/16/16 Oxybutynin Chloride 5 MG TABLET 1 TAB PO QPM BLADDER HEALTH (Reported) Entered as Reported by GLORY TIRADO on 05/08/16 1234 Paroxetine HCl (Paxil) 20 MG TABLET 3 TAB PO DAILY Depression/anxiety 28 Days (Reported) Entered as Reported by LAWRENCE SNOWDEN MD on 03/18/16 1340 Propranolol HCl 10 MG TABLET 10 MG PO 0800,1300,2200 TREMORS #14 TAB Prescribed by JANAY MUNOZ APRN on 03/16/16 Trazodone HCl 100 MG TABLET 2 TAB PO QPM SLEEP (Reported) Entered as Reported by GLORY TIRADO on 03/04/16 1446 Laboratory Results: Laboratory Tests 05/08/16 1350: Anion Gap 9, Estimated GFR 28 L, BUN/Creatinine Ratio 11.1, Glucose 116 H, Calcium 10.1, Total Bilirubin 0.5, AST 26, ALT 29, Alkaline Phosphatase 52, Total Protein 6.5, Albumin 3.8, Globulin 2.7, Albumin/Globulin Ratio 1.4, CBC w Diff NO MAN DIFF REQ, RBC 3.90 L, MCV 90.0, MCH 31.0, RDW 13.0, MPV 6.6 L, Gran % 75.7 H, Lymphocytes % 16.6 L, Monocytes % 6.6, Eosinophils % 0.8, Basophils % 0.3, Absolute Granulocytes 6.9 H, Absolute Lymphocytes 1.5, Absolute Monocytes 0.6, Absolute Eosinophils 0.1, Absolute Basophils 0, PUBS MCHC 34.5, Serum Alcohol < 10.0 05/08/16 1236: Urine Opiates Screen 189.00, Methadone Screen 42, Barbiturate Screen < 60, Ur Phencyclidine Scrn < 6.00, Amphetamines Screen < 100, U Benzodiazepines Scrn < 85, Urine Cocaine Screen < 50, Urine Cannabis Screen < 5.00 Past History Past Medical History Neurological: NONE EENT: NONE Cardiovascular: hyperlipidemia Respiratory: SMOKER- 1 PACK A DAY; Gastrointestinal: POOR EATING; INDIGESTION Hepatic: NONE Renal: LITHIUM FOR MANY YEARS Musculoskeletal: ARTHRITIS Psychiatric: bipolar disease Endocrine: NONE Blood Disorders: NONE Cancer(s): breast cancer 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 Physical Limitations (Interventions): None noted Psychiatric Treatment History Psych Treatment Psychiatric Treatment Yes Inpatient Treatment Yes Outpatient Treatment Yes Location of Treatment [facility] and [facility] Reason for Treatment Depression and Anxiety Dates of Treatment [facility] [id number], Current [facility]- last IP [facility] Response to Treatment The patient notes that she does not feel comfortable in IOP at this time and therefore does not like to share how she is feeling. Diagnosis by History: Mood disorder, Bipolar D/O, BEBE Substance Use/Abuse History Drug Use/Abuse Substances Used/Abused No (Pt. denies) First Use N/A Last Used N/A How much used/taken N/A How often N/A For how long N/A Route of use N/A Substance Abuse Treatment Substance Abuse Treatment Past Substance Abuse [place] No Inpatient Treatment No Outpatient Treatment No Location of Treatment N/A Reason for Treatment N/A Dates of Treatment N/A Response to Treatment N/A Comments: N/A Current Mental Status Mental Status Orientation: Person, Place, The patient was aware that it was 2016, however was unable to state the date, day of the week or month. Affect: Anxious Speech: WNL Neuro-vegetative: Concentration Poor, Energy Decreased, Helpless, Sleep Disturbance, Hopeless Appearance Appearance- Dress/Hygiene: The patient was sitting on the bed, anxious, shaky and disheveled. She had poor eye contact during the evaluation. Behaviors Thought Process: WNL Thought Content: WNL Memory: Impaired (Per daughter) Insight: WNL SI/HI Risk Assessment Past Suicidal Ideation/Attempts Yes (Denies hx. of attempts) Current Suicidal Ideation/Att Yes Past Homicidal Ideation/Att: No Current Homicidal Ideation/Attempts No Degree of Intent: Plan, States Intent, The patient notes that she has been having consistent thoughts to kill herself. She notes that she will use a knife and is fearful that she will act on these thoughts. Danger To: Self Risk Factors: access to lethal means, high anxiety/distress, SA/MH hospitalized, limited support Lethality Ratin PTSD Checklist PTSD Done? patient declined (Pt. denies trauma or abuse hx.) ED Management Sitter: Yes Restraints: No DSM5/PS Stressors/Medical Prob Diagnosis' (DSM 5, Stressors, Medical): F32.9 Unspecified Depressive Disorder and F41.9 Unspecified Anxiety Disorder. Medical: Hyperlipidemia, history of breast Cancer Stressors: Relationship with children, chronic mental health issues. Current GAF: 25 Comments: N/A Departure Disposition Psych Medical Clearance Date: 05/08/16 Medically Cleared at: 1345 Time Started: 1350 Time Ended: 1415 Psychiatrist Consulted: Dr. Alexx De Luna Date Disposition Established: 05/08/16 Time Disposition Established: 1414 Plan for Disposition - Modality: Inpatient Psychiatry Facility: [facility] Contact: N/A Telephone: N/A Rationale for Disposition: The patient presents with +SI and a plan to kill herself with a knife. She notes she is feeling depressed, anxious, helpless,hopeless, with decreased energy, decreased concentration and sleep disturbances. Case discussed with Dr. De Luna and he finds her to be a risk to herself and in need of an inpatient admission at this time. The patient will sign a voluntary form. Type of IP Admission: Voluntary Additional Instructions: N/A Referrals GERI SIMPSON MD (PCP/Family)
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
--- NOTE | 2016-05-08 16:06 | NUR ---
PT MEDICATED WITH KLONOPIN PER EMAR.
--- NOTE | 2016-05-08 16:43 | NUR ---
REPORT CALLED TO CPS TO SUMAN ECHOLS.
--- NOTE | 2016-05-08 16:43 | NUR ---
DISTIBUTION CALLED FOR TRANSPORTATION.
--- NOTE | 2016-05-08 16:49 | NUR ---
PT sister Kiera Freddy can be reached at [phone]
--- NOTE | 2016-05-08 16:51 | ED PSY CRISIS COLLATERAL NOTE ---
Collateral Note Collateral Note Family/Inform/Jorge Contacts: Pt provided sister's phone number. Kiera Freddy- [phone]
--- NOTE | 2016-05-08 18:45 | NUR ---
PT PRESENTS ANXIOUS BUT CALM, COOPERATIVE AND NOT TEARFUL OR LABILE, PLEASANT AND AFFECT IS FLAT YET SMILES INTERMITTENTLY AND IS APPROPRIATE. SKIN THAT IS VISIBLE IS CLEAN DRY AND INTACT AND DENIES ANY ALTERATION TO SKIN THAT IS NOT VISIBLE. REPORTED FEELING SUICIDAL AT HOME HOWEVER CURRENTL IS NOT, ALSO WHEN ASKED DIRECTLY DENIES HI AND HALLUCINATIONS AND WOULD LET STAFF KNOW IF ANYTHING CHANGES, FEELS SAFE AND COMFORTABLE HERE AND WOULD NOT HARM SELF, IS HOPEFUL FOR HELP AND THE FUTURE. IS A&OX4 HOWEVER D/T ANXIOUS STATE VERBALIZES IT'S REPORTS RECENT SLIGHT DIFFICULTY SWALLOWING MEDICATION PILLS AND HX OF CKD WITH RENAL LABS OFF - THIS REPORTED TO DR. VILCHIS (HOD) WHEN INFORMED OF H&P TODAY @ 1810 AND NO FURTHER ORDERS AT THIS TIME. MEDICATIONS RECONCILED WITH PT AND IOP NOTE WITH MEDS FROM 05/05/16 FROM SONU SMALLS APRN NOTE OF CURRENT MEDS REVIEWED AND CONFIRMED WITH PT AND DR. ZIEGLER CONTACTED TO DISCUSS AND PER MD WILL REVIEW AND ENTER IN SHORTLY, PT IN NO ACUTE DISTRESS, NO OTHER ISSUES OR COMPLAINTS.
[2016-05-08 19:05] VITALS: BP 150/73
--- NOTE | 2016-05-08 19:48 | Admission Certification ---
Admission Certification Certification Statement - As attending physician, I certify that at the time of - admission, based on clinical presentation, severity of - symptoms, need for further diagnostic testing and - therapeutic interventions, and risk of adverse outcomes - without in-hospital treatment, in my clinical assessment, - this patient requires an acute hospital stay for a minimum - of two nights or longer. I have also considered psychsocial - factors such as support system, advanced age, financial - issues, cognitive issues, and failed out-patient treatments, - past re-admission history, safety of patient, and lack of - compliance as applicable. Specific rationale supporting this admission is: Depression and suicidal ideation.
--- NOTE | 2016-05-08 19:48 | History & Physical ---
General Information and HPI MD Statement: I have seen and personally examined LEIDY CHAVIS and documented this H&P. The patient is a 65 year old F who presented with a patient stated chief complaint of [Depression, SI]. 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 Please refer to Psych H and P for further details. Patient reports, she was at [facility] few days ago for lower abdominal pain, underwent colonoscopy (essentially negative per patient) and still feels bloated due to the preparation. She also c/o urinary frequency and dysuria at times. Nausea+ but no vomiting. She has difficulty swallowing pills, but has no dysphagia to solid or liquid foods. Denies heartburn. Constipation+. Denies chest pain, palpitations, dyspnea (unless she is anxious) or lightheadedness. The patient has been taking her medications and states that she has a visiting RN that distributes them for her. Allergies/Medications Allergies: Coded Allergies: hydrocodone (I DONT DO WELL AT ALL ON VICODIN 03/04/16) Home Med list Aripiprazole (Abilify) 5 MG TABLET 0.5 TAB PO QPM Depression/clear thoughts ( Reported) Atorvastatin Calcium 20 MG TABLET 20 MG PO 1700 cholesterol Bupropion HCl (Wellbutrin Sr) 100 MG TABLET.ER 1 TAB PO BID DEPRESSION ( Reported) Clonazepam (Klonopin) 0.5 MG TABLET 1 TAB PO TID ANXIETY (Reported) Gabapentin 300 MG CAPSULE 1 CAP PO TID ANXIETY (Reported) Hydrochlorothiazide 12.5 MG CAPSULE 1 CAP PO DAILY Diabetes insipidus Lamotrigine (Lamictal) 200 MG TABLET 350 MG PO DAILY MOOD STABILITY Oxybutynin Chloride 5 MG TABLET 1 TAB PO QPM BLADDER HEALTH (Reported) Paroxetine HCl (Paxil) 20 MG TABLET 3 TAB PO DAILY Depression/anxiety ( Reported) Propranolol HCl 10 MG TABLET 10 MG PO 0800,1300,2200 TREMORS Trazodone HCl 100 MG TABLET 2 TAB PO QPM SLEEP (Reported) Compliance With Home Meds: GOOD Past History Travel History Traveled to [place] past 21 day No Medical History Neurological: NONE EENT: NONE Cardiovascular: hyperlipidemia Respiratory: NONE Gastrointestinal: NONE Hepatic: NONE Renal: chronic kidney disease, 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, overactive bladder Musculoskeletal: ARTHRITIS Psychiatric: anxiety, bipolar disease Endocrine: NONE Blood Disorders: NONE Cancer(s): breast cancer 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 MOTHER (Hypertension). Psychosocial History Where do you live? Home Who Do You Live With? child (daughter) Services at Home: Nursing Primary Language: Grenadian Smoking Status: Current Everyday Smoker ETOH Use: denies use Illicit Drug Use: denies illicit drug use Living Will? no Functional Ability ADLs Independent: dressing, eating, toileting, bathing. Ambulation: independent IADLs Independent: shopping, housework, finances, food prep, telephone, transportation , medication admin. Employment History Employment Disability Profession/Employer N/A Review of Systems Review of Systems Constitutional: Denies: chills, fever, malaise, weakness. EENTM: Reports: no symptoms. Cardiovascular: Denies: chest pain, orthopena, palpitations. Respiratory: Reports: short of breath (when anxious). Denies: cough, sputum production, wheezing. GI: Reports: constipation, nausea. Denies: abdominal pain, diarrhea, vomiting. Genitourinary: Reports: dysuria, frequency. Denies: hematuria, pain. Musculoskeletal: Reports: no symptoms. Skin: Reports: no symptoms. Neurological/Psychological: Reports: see HPI. All Other Systems: Reviewed and Negative Exam & Diagnostic Data Last 24 Hrs of Vital Signs/I&O Vital Signs Date Time Temp Pulse Resp B/P Pulse O2 O2 Flow FiO2 Ox Delivery Rate 05/08 1905 98.9 90 150/73 05/08 1650 99.5 75 18 137/78 97 Room Air 05/08 1502 99.6 86 18 131/64 100 Room Air 05/08 1220 99.1 83 18 163/94 100 Room Air Intake & Output 05/08 1600 03/18 0800 05/08 0000 Intake Total Output Total Balance Patient 110 lb Weight Physical Exam General Appearance Alert, Oriented X3, Cooperative, No Acute Distress Skin No Rashes, No Breakdown HEENT Atraumatic, EOMI, Mucous Membr. moist/pink Neck Supple Cardiovascular Regular Rate, Normal S1, Normal S2, No Murmurs Lungs Clear to Auscultation, Normal Air Movement Abdomen Normal Bowel Sounds, Soft, No Tenderness Neurological Exam Findings: Normal Gait, Normal Speech, Strength at 5/5 X4 Ext, Sensation Intact, Cranial Nerves 3-12 NL, Reflexes 2+ Cranial Nerves II through XII: Grossly intact Extremities No Edema, Normal Pulses, No Tenderness/Swelling Vascular Normal Pulses, Pulses Symmetrical Last 24 Hrs of Labs/Lars: Laboratory Tests 05/08/16 1350: Anion Gap 9, Estimated GFR 28 L, BUN/Creatinine Ratio 11.1, Glucose 116 H, Calcium 10.1, Total Bilirubin 0.5, AST 26, ALT 29, Alkaline Phosphatase 52, Total Protein 6.5, Albumin 3.8, Globulin 2.7, Albumin/Globulin Ratio 1.4, CBC w Diff NO MAN DIFF REQ, RBC 3.90 L, MCV 90.0, MCH 31.0, RDW 13.0, MPV 6.6 L, Gran % 75.7 H, Lymphocytes % 16.6 L, Monocytes % 6.6, Eosinophils % 0.8, Basophils % 0.3, Absolute Granulocytes 6.9 H, Absolute Lymphocytes 1.5, Absolute Monocytes 0.6, Absolute Eosinophils 0.1, Absolute Basophils 0, PUBS MCHC 34.5, Serum Alcohol < 10.0 05/08/16 1236: Urine Opiates Screen 189.00, Methadone Screen 42, Barbiturate Screen < 60, Ur Phencyclidine Scrn < 6.00, Amphetamines Screen < 100, U Benzodiazepines Scrn < 85, Urine Cocaine Screen < 50, Urine Cannabis Screen < 5.00 05/08/16 1235: Urine Color STRAW, Urine Clarity CLEAR, Urine pH 7.0, Ur Specific Kelly <= 1.005, Urine Protein NEG, Urine Ketones NEG, Urine Nitrite NEG, Urine Bilirubin NEG, Urine Urobilinogen 0.2, Ur Leukocyte Esterase NEG, Ur Microscopic EXAM NOT REQUIRED, Urine Hemoglobin NEG, Urine Glucose NEG Diagnostic Data EKG Results -- CXR Results -- Assessment/Plan Assessment: 65 yo F admitted to Inpatient Psychiatry for worsening depression and suicidal ideations. 1. Management of primary disorder per Psych team. 2. Nephrogenic diabetes insipidus 2/2 previous lithium use. Continue HCTZ 12.5 mg daily. Patient has not followed up with manager community development at [place], please reinforce on discharge that she needs to have regular follow up. Her K is 3.7, will monitor for now. 3. 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 Stable. 4. Smoking cessation counseling. Patient refuses nicotine patch or gum (reports they make her more anxious). 5. HLD. Ct atorvastatin. 6. Overactive bladder. Ct. oxybutinin. 7. Urinary symptoms. Urinalysis does not show evidence of a UTI. 8. Difficulty swallowing pills, but no dysphagia to solid or liquids foods. Advised to take meds with apple sauce and water. If persistent symptoms, will consider swallow eval with therapist. DVT prophylaxis - low risk, early ambulation. As Ranked By This Provider Problem List: 1. Depression Qualifiers Depression Type: unspecified Qualified Code: F32.9 - Major depressive disorder, single episode, unspecified 2. Suicidal ideations 3. CRI (chronic renal insufficiency) Miscellaneous Miscellaneous Documentation Attending Case Discussed With: KARLIE PATEL,STEPHANI Primary Care Physician: GERI SIMPSON MD Patient sees these Specialists -- Level of Patient Care: RONEN Dennis MD Review Statement Attending Statement Attending Statement: examined this patient
--- NOTE | 2016-05-09 05:49 | NUR ---
PT APPEARED TO SLEEP WELL.
[2016-05-09 08:05] VITALS: BP 128/70
[2016-05-09 12:01] VITALS: BP 121/67
--- NOTE | 2016-05-09 13:23 | NUR ---
Pt is present on the unit and does require some direction for activities/her day due to becoming overwhelmed so easily even by the most simple daily task such as showering, became tearful when expressing how she just wants to be better and that her sister "refused" to drop clothes off to her and felt insecure wearing the same clothes or scrubs through the day, reassurance and comfort provided which eased the pt's concerns, + appetite, attending groups and does appear to be putting forth effort in treatment.
[2016-05-09 15:38] VITALS: BP 124/67
--- NOTE | 2016-05-09 15:54 | CPS MD/APRN INITIAL ASSE PSYCH ---
Psychiatric Admission Assistant Teaching Professor's Note Reviewed: Yes Patient Seen and Examined: Yes Identifying Information: 65-year-old White female admitted through -ED for thoughts of suicide with a plan to use a knife to kill herself. Chief Complaint: suicide thoughts Reaction to Hospitalization: She was in agreement History of Present Illness Onset of Illness: The patient reports that since she has been discharged from [facility] in March 2016, she has been attending [facility] at [place]. The patient reports that she has been going to [facility], however does not find it helpful, and states, " I don't feel comfortable there." She states that she has been feeling "overwhelmed and frightened," however is not able to articulate what those feelings are in regard to. The patient states that she has a daughter that is "emotionally and medically challenged," and that she is difficult to cope with. Circumstances Leading to Admission: see above Problem(s) Justifying Need for Admission: suicidal thinking with plan Other HPI: Per Crisis: The patient reports that she has been feeling depressed, anxious, helpless, hopeless, with decreased energy, decreased concentration and sleep disturbances. She denies any current or history of HI / AH / VH. She continues to report feeling suicidal and is fearful that she will act on these thoughts. Past Psychiatric History Past Diagnosis(es)- if any: generalized anxiety d/o, unspecified depressive d/o, unspecified personality d.o Past Precipitating Factors- if any: Conflict with daughter - Include inpatient and outpatient treatment Treatment History: discharged from [facility] in March 2016, she has been attending [facility] at [place]. The patient reports that she has been going to [facility], however does not find it helpful, and states, " I don't feel comfortable there." History of Suicide Attempts or Gestures No actual attempts Substance Abuse History: denied Allergies: Coded Allergies: hydrocodone (I DONT DO WELL AT ALL ON VICODIN 03/04/16) Home Med List: Aripiprazole (Abilify) 5 MG TABLET 0.5 TAB PO QPM Depression/clear thoughts ( Reported) Entered as Reported by GLORY TIRADO on 03/04/16 1447 Atorvastatin Calcium 20 MG TABLET 20 MG PO 1700 cholesterol #14 TAB Prescribed by JANAY MUNOZ APRN on 03/16/16 Bupropion HCl (Wellbutrin Sr) 100 MG TABLET.ER 1 TAB PO BID DEPRESSION ( Reported) Entered as Reported by GLORY TIRADO on 03/04/16 1446 Clonazepam (Klonopin) 0.5 MG TABLET 1 TAB PO TID ANXIETY (Reported) Entered as Reported by GLORY TIRADO on 03/04/16 1446 Gabapentin 300 MG CAPSULE 1 CAP PO TID ANXIETY (Reported) Entered as Reported by GLORY TIRADO on 05/08/16 1232 Hydrochlorothiazide 12.5 MG CAPSULE 1 CAP PO DAILY Diabetes insipidus #30 CAP Prescribed by LAWRENCE SNOWDEN MD on 03/18/16 Lamotrigine (Lamictal) 200 MG TABLET 350 MG PO DAILY MOOD STABILITY 14 Days Prescribed by JANAY MUNOZ APRN on 03/16/16 Oxybutynin Chloride 5 MG TABLET 1 TAB PO QPM BLADDER HEALTH (Reported) Entered as Reported by GLORY TIRADO on 05/08/16 1234 Paroxetine HCl (Paxil) 20 MG TABLET 3 TAB PO DAILY Depression/anxiety 28 Days (Reported) Entered as Reported by LAWRENCE SNOWDEN MD on 03/18/16 1340 Propranolol HCl 10 MG TABLET 10 MG PO 0800,1300,2200 TREMORS #14 TAB Prescribed by JANAY MUNOZ APRN on 03/16/16 Trazodone HCl 100 MG TABLET 2 TAB PO QPM SLEEP (Reported) Entered as Reported by GLORY TIRADO on 03/04/16 1446 - Include any medical condition(s) that may - impact the patient's recovery/remission Past History Medical History Neurological: NONE EENT: NONE Cardiovascular: hyperlipidemia Respiratory: NONE Gastrointestinal: NONE Hepatic: NONE Renal: chronic kidney disease, 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 overactive bladder Musculoskeletal: ARTHRITIS Psychiatric: anxiety, bipolar disease Endocrine: NONE Blood Disorders: NONE Cancer(s): breast cancer, ovarian cancer 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 MENEPAUSAL History of MRSA: No History of VRE: No History of CDIFF: No Isolation History: Standard Influenza Vaccine: 12/23/15 Surgical History Surgical History: mastectomy Psychiatric Family/Social Hx Family History Psychiatric Illness: daughter Bipolarm two sisters w/ etoh use Substance Use: 2 sisters with ALCOHOL USE DISORDER Suicides: no Social History Living Situation: with daughter Significant Relationships (family/friends): heide (conflictual relationship) Education: almost a master's Vocation/Occupation: on disability Legal: none Healthly Behaviors Screening Tobacco Screening Tobacco Use from ED Docu: Current Daily Use Daily Tobacco Use Amount/Type: => 5 Cigarettes daily - If tobacco counseling indicated - the following topics are required. - #1 Recognizing dangerous situations. - #2 Coping Skills. - #3 Basic information about quitting. Status of Tobacco Cessation Counseling: #1, #2 AND #3 Completed Cessation Med Status: Nicotine Gum Ordered Alcohol Screening - ETOH screen POS if BAL >=80 or Audit-C>= M4/F3 Audit-C Score from Diag Assess: 0 Blood Alcohol Level: Laboratory Tests 05/08 1350 Toxicology Serum Alcohol (<10 MG/DL) < 10.0 Alcohol Use Screening Results: Neg per Audit C &/or BAL - If ETOH counseling indicated - the following topics are required. - #1 Express concern about the patient's - drinking at unhealthy levels, include informing - of national norms for moderate drinking: - men <= 14 drinks/week, max 4 drinks/occasion - women <= 7 drinks/week, max 3 drinks/occasion - #2 Providing feedback, including linking alcohol to - negative physical effects (liver injury, hypertension) - negative emotional effects (relationship problems and - depression) - negative occupational consequences (reduced work - performance) - #3 Advising the patient to abstain from alcohol or - to drink below national norms for moderate drinking - (as listed above). Status of ETOH Use Counseling: N/A B/C NO ETOH Use Metabolic Screening - Screen if on a Neuroleptic Medication - Metabolic screening should include: - Blood Pressure, BMI, Glucose or Hgb A1c, & a - Lipid profile from within the past 365 days. Metabolic Screening () Not Applicable, patient not on a neuroleptic. OR ([X]) Patient on a neuroleptic(s) . Enter below results for Glucose or Hemoglobin A1C, and lipid panel if obtained during the last 365 days. BMI: 21.400 Blood Pressure: 124/67 Laboratory Results (If applicable): [see appropriate section in electronic health record] Exam and Plan Mental Status Examination Ambulation Status: fully mobile Appearance: older than age Attitude towards examiner: cooperative Psychomotor activity: normal Behavior: very tearful Quality of speech: normal rate Affect: tearful, distraught Mood: depressed Suicidal Ideation: not today Homicidal Ideation: none Hallucinations: none Paranoid/Delusional Material: none Difficulties with thought organization: minor Insight: fair Judgment: poor Orientation: x 3 Cognition: difficulties with concentration Memory Function: no memory deficits on gross exam Estimate of intellectual functioning: average Assets/Strengths Patient Identified Assets/Strengths: well educated Impression/Plan Impression and Plan: Severely depressed and overwhelemed Inpatient is appropriate - Include all active medical diagnosis that require tx DSM 5 Diagnosis(es): MDD, BEBE, Personality Disorder - Initial Tx Plan for Active Psych & Medical Conditions Treatment Plan: inpatient obervation daily evaluation by psychiatrist or ROUTE SALES DELIVERY DRIVER nursing assessment nce a shift Group and bhupendra thermarvin - Factors that would help patient function - in a less restrictive setting. Factors: Conflict resolution with daughter
--- NOTE | 2016-05-09 17:31 | IP INCIDENTAL NOTE PSYCH ---
Incidental Note Notation: I failed to mention in my regular progress note that I discussed with Brenda adjusting up her antidepressant, Wellbutrin, because of the severity of her depression and that fact that she has been on 100 mg BID for several months (if not years) Plan: Increase Wellbutrin SR to 150 mg BID
[2016-05-09 20:09] VITALS: BP 115/77
--- NOTE | 2016-05-09 23:24 | NUR ---
PT DID PARTICIPATE IN GROUPS. SHE REMAINS ANXIOUS AND SAYS THAT THIS IS NOT BETTER. SHE IS SOCIAL WITH [employer].
--- NOTE | 2016-05-10 06:04 | NUR ---
PT UP X 1 TO TOILET IN THE NIGHT.
[2016-05-10 08:25] VITALS: BP 125/67
--- NOTE | 2016-05-10 10:13 | SOCIAL WORKER PROG NOTE PSYCH ---
Social Work Progress Note Progress Note SW met with patient for first time since readmission the hospital. Patient reports continued depression and +SI. She reports feeling very overwhelmed lately and uneasy. Patient reports that she recently evicted her son Clement and his girlfriend from her house. She identies this experience as very stressful and difficult for her. Patient has court this 05/12/16, and requested this creative services writer to send letter to court confirming her admission to the hospital. Patient is unsure what the court date involves but believes it has to do with restraining order she filed against her son and his girlfriend. This creative services writer faxed letter this AM to court confirming admission to the hospital and I then received call from Lobo at the clerks office at the [facility]. He reported that the restraining orders have been disposed of as of 04/16/16 and he did not see anything else in family or criminal cases pending. He does not believe patient has any pending cases and see's nothing for 05/12/16. Patient will be notified of this.
--- NOTE | 2016-05-10 12:01 | SOCIAL WORKER TX PLAN PSYCH ---
Treatment Plan - Please Document: - Evidence that there is ongoing collaboration between - the patient and the interdisciplinary team, - including the patient's active participation and - responsibility for engaging in the treatment regimen, - and that the treatment plan is individualized and - relevant to the patient's conditions. - Treatment plan should reflect documentation indicating - that all active therapeutic efforts are included. Strengths/Capabilities: The patient receives SSDI and has section 8 housing assistance. Physical Limitations (Interventions): None noted Patient Identified Trmt Goals: " I want to feel better. I am a mess." Discharge Plan: IOP Problem/Goals #1 Problem #1: suicidal ideation Goal (Short Term): Today I will attend 2 groups Today I will identify 2 stressors Today I will identify 2 positive supports Today I will work on recognizing 3 emotions I am feeling Goal (Kitchen[employer] Maker): Be free of suicidal thoughts/attempts Develop 3 coping skills to deal with depression Identify 3 positive support systems to call in crisis Develop a crisis plan with 3 hurley people Identify 2 positive traits per week about myself Identify 2 things I have to look forward to Identify 2 positive people in my life and 1 thing I appreciate about them Interventions: Learn ways to manage depressive symptoms accordingly and identify positive supports to manage life stressors and mood fluctuations. Modalities: Encourage groups, education on depression, provide CBT treatment, family meeting. DSM5/PS Stressors/Medical Prob Diagnosis' (DSM 5, Stressors, Medical): F32.9 Unspecified Depressive Disorder and F41.9 Unspecified Anxiety Disorder. Medical: Hyperlipidemia, history of breast Cancer Stressors: Relationship with children, chronic mental health issues. Current GAF: 25 Treatment Team - Responsibilities of members of the treatment team include: - Medication Management- MD or DEAN OF STUDENTS - Medication Administration and Monitoring- Nurse - Group Therapy- Occupational Therapist - 1:1 Therapy,Disch Planning,family involvement-Business Objects Report Developer
[2016-05-10 12:31] VITALS: BP 139/70
--- NOTE | 2016-05-10 13:29 | NUR ---
PT IS COMPLIANT AND COOPERATIVE. MOOD IS STABLE WITH A FLAT AFFECT. PT DENIES SI AT THIS TIME, NO COMPLAINTS OFFERED. PT APPEARS ANXIOUS; VISIBLY SHAKING AT TIMES. PT IS PRESENT IN THE COMMUNITY AND HAS SOME INTERACTION WITH PEERS AND STAFF. PT IS ATTENDING GROUPS. VITALS ARE STABLE, APPETITE IS GOOD.
--- NOTE | 2016-05-10 16:43 | CP SOUTH PROGRESS NOTE PSYCH ---
Psych (Inpt) Progress Note Progress Note Progress Note: I discussed this patient's progress to date, current mental status, treatment process in the context of the treatment plan, and discharge planning with staff/ team in the daily morning inpatient team meeting. I also met with the patient myself in individual session. A total of 25 minutes was spent with the patient with more than 50% spent in counseling and/or coordination of care. SUBJECTIVE: "I get very nervous. I couldn't cope. I had suicidal thought, and so I called." OBJECTIVE: Current Medications Sig/Carol Start time Last Medication Dose Route Stop Time Status Admin Aripiprazole 2 MG DAILY 05/09 1000 AC 05/10 PO 0905 Aripiprazole 5 MG AT BEDTIME 05/08 2199 AC 05/09 PO 2146 Atorvastatin Calcium 20 MG 1700 05/09 1700 AC 05/10 PO 1714 Bupropion HCl 150 MG BID 05/09 2199 DC 05/10 PO 0905 Clonazepam 0.5 MG TID 05/08 2199 AC 05/10 PO 05/15 215 1714 Gabapentin 300 MG 1800 05/08 2030 AC 05/10 PO 1714 Hydrochlorothiazide 12.5 MG DAILY 05/08 1948 AC 05/10 PO 0905 Lamotrigine 150 MG BID 05/08 2199 AC 05/10 PO 0905 Nicotine 2 MG Q2 HRS NEEDED PRN 05/09 1615 AC PO Oxybutynin Chloride 5 MG BID 05/08 2199 AC 05/10 PO 0905 Paroxetine HCl 60 MG DAILY 05/09 1000 AC 05/10 PO 0905 Senna/Docusate Sodium 1 TAB BID PRN 05/08 2000 AC PO Trazodone HCl 200 MG AT BEDTIME 05/08 2199 AC 05/09 PO 2146 Laboratory Tests 05/10 0658 Chemistry BUN (7 - 17 mg/dL) 39 H Creatinine (0.5 - 1.0 mg/dL) 2.2 H Estimated GFR (>60 ml/min) 22 L BUN/Creatinine Ratio (7 - 25 %) 17.7 Vital Signs Date Time Temp Pulse Resp B/P Pulse O2 O2 Flow FiO2 Ox Delivery Rate 05/10 1655 71 114/71 05/10 1231 72 139/70 05/10 0825 98.1 86 125/67 05/09 2008 98.9 90 115/77 ASSESSMENT: Patient presents today very depressed and anxious. Tearful during our visit today. Also states that she has a lot of guilt about her son, against whom there is currently a restraining order. States that she feels guilty that she threw him out of the house, even though his staying at the house would be grounds for her to lose her section 8 housing. States that she had run out of her Klonopin, and had not had any for approximately 3 days prior to arrival in the emergency department. Depression:9/10; Anxiety:9/10 (with 10 the worst.) Denies suicidal ideation, homicidal ideation, auditory hallucinations, visual hallucinations. She states that she has not been going out of the house because she was afraid that her neighbors would be able to tell that she was depressed. Speech is well articulated, goal-directed, average in rate, volume and tone. The patient understands the risks/benefits/side effects of the medication and is agreeable to continue taking them. PLAN: Discontinue Wellbutrin, as Wellbutrin may be contributing to anxiety. Continue with current management as patient is improving. Continue to provide support and encouragement.
[2016-05-10 16:55] VITALS: BP 114/71
[2016-05-10 19:37] VITALS: BP 121/66
--- NOTE | 2016-05-10 21:10 | NUR ---
PT IS CALM, COOPERATIVE WITH STAFF AND PEERS, AND COMPLIANT WITH UNIT RULES. PT IS OFTEN IN [place] INTERACTING WELL WITH OTHERS. MOOD IS STABLE, AFFECT APPEARS EUTHYMIC TO FULL RANGE, COMMUNICATION IS ORGANIZED AND APPEARS NORMAL IN ALL RESPECTS, AND APPETITE IS NORMAL. PT DENIES SI AT THIS TIME.
[2016-05-11 07:49] VITALS: BP 98/64
--- NOTE | 2016-05-11 11:29 | NUR ---
PT VISIBLE IN THE [place] TODAY. HER GOAL WAS TO FIND WAYS TO COPE WITH ANXIETY. PT HAS BEEN ATTENDING GROUPS AND HAS SOME INTERACTIONS. IN THE [place] PT HAS BEEN PLEASANT, CALM AND COOPERATIVE. SHE DENIES THOUGTS OF HURTING SELF WHEN ASKED.
[2016-05-11 12:36] VITALS: BP 126/72
--- NOTE | 2016-05-11 14:54 | SOCIAL WORKER PROG NOTE PSYCH ---
Social Work Progress Note Progress Note Met with patient today and patient presents with brighter mood and affect today. Patient called [facility] herself today and confirmed that there is no pending case for her. Together we looked on the [place] pending cases website and realized that her son, Clement Macias, has a pending court date tomorrow 05/12/16. Patients daughter must have misinterpreted the message she received, but patient is relieved that the court date does not involve her. Patient reported lessened anxiety and stress now. She denied active suicidal thoughts but still some hopelessness/helplessness. Patient seen attending groups on the unit throughout the day and engaging with peers.
[2016-05-11 16:02] VITALS: BP 134/76
--- NOTE | 2016-05-11 18:27 | CP SOUTH PROGRESS NOTE PSYCH ---
Psych (Inpt) Progress Note Progress Note Progress Note: I discussed this patient's progress to date, current mental status, treatment process in the context of the treatment plan, and discharge planning with staff/ team in the daily morning inpatient team meeting. I also met with the patient myself in individual session. A total of 25 minutes was spent with the patient with more than 50% spent in counseling and/or coordination of care. SUBJECTIVE: "I have nothing good to say about myself in the group. It's embarrassing. I want to be proud of something. I"m not even proud of myself. I 've nothing to hold onto. I felt so trapped. I had suicidal ideation before I came here, it made me so ashamed." OBJECTIVE: Current Medications Sig/Carol Start time Last Medication Dose Route Stop Time Status Admin Aripiprazole 5 MG AT BEDTIME 05/08 2199 AC 05/10 PO 2148 Atorvastatin Calcium 20 MG 1700 05/09 1700 AC 05/11 PO 1611 Clonazepam 0.5 MG TID 05/08 2199 AC 05/11 PO 05/15 2159 1611 Gabapentin 300 MG 1800 05/08 2030 DC 05/10 PO 1714 Hydrochlorothiazide 12.5 MG DAILY 05/08 1948 AC 05/11 PO 0815 Hydroxyzine HCl 10 MG 0800,1300,1700,2200 05/11 1715 AC 05/11 PO 1811 Lamotrigine 150 MG BID 05/08 2199 AC 05/11 PO 0817 Nicotine 2 MG Q2 HRS NEEDED PRN 05/09 1615 AC PO Oxybutynin Chloride 5 MG BID 05/08 2199 AC 05/11 PO 0815 Paroxetine HCl 60 MG DAILY 05/09 1000 AC 05/11 PO 0816 Prazosin HCl 1 MG AT BEDTIME 05/11 2199 UNVr PO Senna/Docusate Sodium 1 TAB BID PRN 05/08 2000 AC PO Trazodone HCl 200 MG AT BEDTIME 05/08 2199 AC 05/10 PO 2148 Laboratory Tests 05/11 0624 Chemistry TSH (0.270 - 4.200 uIU/mL) 0.991 Vital Signs Date Time Temp Pulse Resp B/P Pulse O2 O2 Flow FiO2 Ox Delivery Rate 05/11 1602 72 134/76 05/11 1236 63 126/72 05/11 0749 97.2 98 98/64 05/10 1936 97.8 65 121/66 ASSESSMENT: Patient presents as cooperative but anxious, tearful during parts of our interview today. Reports that part of her anxiety is triggered by the fact that she learned today that her son Clement will be in court tomorrow, related to his drug abuse. She continues to feel guilty that there is a restraining order against him, and that she threw him out of her house. I reviewed this case with patient's [facility] medical provider, Chandni rivera APRN. We decided to continue discontinuation of gabapentin, as it appeared to not be helpful for the patient. Wellbutrin discontinued yesterday, for the suspicion that it may be causing activation, agitation and perhaps akathisia. Will initiate hydroxyzine today for continuing anxiety. Depression:11/30; Anxiety:10/31 (with 10 the worst.) Denies suicidal ideation, homicidal ideation, auditory hallucinations, visual hallucinations, paranoid ideation. States and also believes that she will not kill herself. She reports last night her appetite is okay, she has been eating meals. Speech is well articulated, goal-directed, average in rate, volume and tone. Cooperative and pleasant. Anxious. Alert and oriented 3. Logical. The patient understands the risks/benefits/side effects of the medication and is agreeable to continue taking them. PLAN: Discontinue gabapentin. Initiate Atarax. Prazosin 1 mg for nightmares. Continue with current management as patient is improving. Continue to provide support and encouragement.
[2016-05-11 19:45] VITALS: BP 138/73
--- NOTE | 2016-05-11 20:45 | NUR ---
PT IS CALM, COOPERATIVE WITH STAFF AND PEERS, AND COMPLIAT WITH UNIT RULES. PT IS OFTEN IN [place], INTERACTING WELL WOTH OTHERS. MOOD IS STABLE, AFFECT IS EUTHYMIC TO FULL RANGE, APPEARS AT TIMES SLIGHTLY ANXIOUS, COMMUNICATION IS ORGANIZED AND NORMAL IN ALL RESPECTS, AND APPETITE IS NORMAL. PT DENIES IS AT THIS TIME.
[2016-05-12 07:56] VITALS: BP 106/67
[2016-05-12 12:26] VITALS: BP 133/69
--- NOTE | 2016-05-12 14:15 | NUR ---
PT IS PRESENT ON THE UNIT, ATTENDING GROUPS AND WENT TO ACCUPUNCTURE, PRESENTS AND EXPRESSES ANXIETY AND PROVIDER AWARE AND MEDICATIONS ADJUSTED AND TOLERATING WELL THUS FAR, NO OTHER ISSUES OR COMPLAITS REPORTED OR OBSERVED, MOOD IS OVERALL STABLE NO LABILITY THUS FAR, ON THE PERIPHERY, CALM AND COOPERATIVE WITH CARE AND TREATMENT.
--- NOTE | 2016-05-12 14:46 | SOCIAL WORKER PROG NOTE PSYCH ---
Social Work Progress Note Progress Note Patient continues to report anxiety and depression today. She reports feeling uneasy thinking about discharge and wants to feel "strong" to return home. Patient reports fearing that she will not be able to cope with day to day stressors when she returns home. Patient denies suicidal thoughts at present. She does appear anxious and depressed and is shaky. Patient reports that her shelter case manager from [facility] is planning to visit her in the hospital either tomorrow or Tuesday and is open to me meeting with her as well. Patient is able to recognize the need for IOP post discharge but is unsure if she wants to return to [facility]. [facility] also [facility] [place] and patient is going to consider the two and let me know.
[2016-05-12 16:00] VITALS: BP 131/81
--- NOTE | 2016-05-12 18:28 | CP SOUTH PROGRESS NOTE PSYCH ---
Psych (Inpt) Progress Note Progress Note Progress Note: I discussed this patient's progress to date, current mental status, treatment process in the context of the treatment plan, and discharge planning with staff/ team in the daily morning inpatient team meeting. I also met with the patient myself in individual session. A total of 25 minutes was spent with the patient with more than 50% spent in counseling and/or coordination of care. SUBJECTIVE: "I'm confused. I can't make decisions. I can't make choices. I feel pressured." OBJECTIVE: EKG on 03/16/2016: sinus rhythm 63; QTC 430 Current Medications Sig/Carol Start time Last Medication Dose Route Stop Time Status Admin Aripiprazole 5 MG AT BEDTIME 05/08 2199 DC 05/11 PO 214 Atorvastatin Calcium 20 MG 1700 05/09 170 AC 05/12 PO 1638 Clonazepam 0.5 MG TID 05/08 2199 AC 05/12 PO 05/15 215 1638 Hydrochlorothiazide 12.5 MG DAILY 05/09 1947 AC 05/12 PO 0804 Hydroxyzine HCl 10 MG 0800,1300,1700,0 05/11 1715 DC 05/12 PO 1638 Lamotrigine 150 MG BID 05/08 2199 AC 05/12 PO 0804 Nicotine 2 MG Q2 HRS NEEDED PRN 05/09 1615 AC PO Oxybutynin Chloride 5 MG BID 05/08 2199 AC 05/12 PO 0804 Paroxetine HCl 60 MG DAILY 05/09 1000 AC 05/12 PO 0804 Prazosin HCl 2 MG 05/12 UNVr PO Prazosin HCl 1 MG AT BEDTIME 05/11 2199 DC 05/11 PO 2142 Risperidone 0.5 MG 0800,05/12 UNVr PO Senna/Docusate Sodium 1 TAB BID PRN 05/09 1999 AC PO Trazodone HCl 200 MG AT BEDTIME 05/08 2199 AC 05/11 PO 2142 Vital Signs Date Time Temp Pulse Resp B/P Pulse O2 O2 Flow FiO2 Ox Delivery Rate 05/12 1600 69 131/81 05/12 1226 66 133/69 05/12 0756 98.0 83 106/67 05/11 1945 98.6 68 138/73 ASSESSMENT: Patient continues to complain of terrible depression and anxiety. Unable to think clearly. States Atarax was not helpful for anxiety. Nursing reports that the patient is finding it difficult to make decisions. Patient is amenable to discontinuing Abilify, and starting risperidone for clear thoughts, and off label for chronic anxiety. Discussed risks, benefits and side effects of risperidone, including dystonic reactions and tardive dyskinesia, irreversible involuntary muscle movements. Denies suicidal ideation, homicidal ideation, auditory hallucinations, visual hallucinations, paranoid ideation. Patient states and also believes that she will not kill herself. Speech is well articulated, goal-directed, average in rate, volume and tone. Anxious affect. Cooperative, pleasant. Logical. Alert and oriented 3. The patient understands the risks/benefits/side effects of the medication and is agreeable to continue taking them. PLAN: Discontinue Abilify. Discontinue Atarax as it was not helpful. Initiate risperidone 0.5 mg twice daily. Continue with current management as patient is improving. Continue to provide support and encouragement.
[2016-05-12 19:28] VITALS: BP 125/70
--- NOTE | 2016-05-12 21:07 | NUR ---
PT IS VISIBLE ON UNIT, WATCHING TV IN LOUNGE. PT IS VERY QUIET AND HAS MINIMAL INTERACTION WITH PEERS AND STAFF. NO COMPLAINTS OR SI REPORTED. COOPERATIVE AND COMPLIANT WITH STAFF. PT HAS A STABLE MOOD AND FLAT/CONSTRICTED AFFECT.
--- NOTE | 2016-05-13 06:31 | NUR ---
PT UP TO THE TOILET A FEW TIMES.
[2016-05-13 07:57] VITALS: BP 114/68
[2016-05-13 12:09] VITALS: BP 123/73
--- NOTE | 2016-05-13 12:59 | NUR ---
PT IS COMPLIANT AND COOPERATIVE. MOOD IS STABLE WITH A FLAT AND ANXIOUS AFFECT. PT DENIES SI AT THIS TIME- C/O HEIGHTENED ANXIETY. PT IS PRESENT ON THE UNIT AND HAS SOME INTERACTION WITH PEERS AND STAFF. PT IS ATTENDING GROUPS. VITALS ARE STABLE, APPETITE IS GOOD.
--- NOTE | 2016-05-13 15:26 | SOCIAL WORKER PROG NOTE PSYCH ---
Social Work Progress Note Progress Note Patient reports feeling nervous and worried about disharging home tomorrow. Together we process patients feelings. Patient reports that she fears returning to her home but is able to recognize that whether she stays another day or two she will ultimately be returning to the same environment. Patient has agreed to restart IOP with [facility] and instead would like to try the morning track. We attempted to call [facility] in [place], [place] and they have a 2-3 week wait before patient could be scheduled for intake. Patient would like to start IOP treatment [facility] and not have a waiting period. I will arrange for [employer] transportation to return patient home tomorrow and set up for next week IOP as well.
[2016-05-13 16:18] VITALS: BP 109/67
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
[2016-05-13 19:39] VITALS: BP 119/72
--- NOTE | 2016-05-13 21:38 | NUR ---
PT IS VISIBLE ON UNIT BUT IS WITHDRAWN AND HAS MINIMAL INTERACTION WITH PEERS. PT MADE SOME PHONE CALLS THROUGHOUT EVENING. VERY PLEASANT AND COOPERATIVE. ATTENDED WRAP UP MEETING AND PARTICIPATED. NO COMPLAINTS OR SI REPORTED. PT HAS AN ANXIOUS MOOD AND AFFECT.
--- NOTE | 2016-05-14 05:54 | NUR ---
PT UP TO THE TOILET X 2. PT APPEARED TO SLEEP WELL.
[2016-05-14 07:43] VITALS: BP 132/69
[2016-05-14] MEDS ORDERED: NICORELIEF2 MG PO (08:43)
--- NOTE | 2016-05-14 09:06 | CP SOUTH PROGRESS NOTE PSYCH ---
Psych (Inpt) Progress Note Progress Note Progress Note: I discussed this patient's progress to date, current mental status, treatment process in the context of the treatment plan, and discharge planning with staff/ team in the daily morning inpatient team meeting. I also met with the patient myself in individual session. A total of 30 minutes was spent with the patient with more than 50% spent in counseling and/or coordination of care. SUBJECTIVE: "I'm worried about going home. But if I stay here for the weekend I 'll be bored, lonely, and frustrated." OBJECTIVE: Current Medications Sig/Carol Start time Last Medication Dose Route Stop Time Status Admin Atorvastatin Calcium 20 MG 0 05/09 170 AC 05/13 PO 1639 Clonazepam 0.5 MG TID 05/08 2199 AC 05/14 PO 05/15 215 0816 Hydrochlorothiazide 12.5 MG DAILY 05/08 194 AC 05/14 PO 0759 Ibuprofen 400 MG Q6P PRN 05/13 1300 AC 05/14 PO 0816 Lamotrigine 150 MG BID 05/08 2199 AC 05/14 PO 0802 Nicotine 2 MG Q2 HRS NEEDED PRN 05/09 1615 AC PO Oxybutynin Chloride 5 MG BID 05/08 2199 AC 05/14 PO 0759 Paroxetine HCl 40 MG 0800 05/14 0800 AC PO Paroxetine HCl 60 MG DAILY 05/09 1000 DC 05/13 PO 0833 Prazosin HCl 2 MG 05/12 AC 05/13 PO 2010 Risperidone 0.5 MG 0800,05/12 AC 05/14 PO 0759 Senna/Docusate Sodium 1 TAB BID PRN 05/09 1999 AC PO Trazodone HCl 200 MG AT BEDTIME 05/08 2199 AC 05/13 PO 2156 Vital Signs Date Time Temp Pulse Resp B/P Pulse O2 O2 Flow FiO2 Ox Delivery Rate 05/14 0743 97.3 94 132/69 05/13 2010 66 119/72 05/13 1939 96.7 66 119/72 05/13 1618 71 109/67 05/13 1209 67 123/73 ASSESSMENT: Patient presents this morning awake, alert and oriented 3, anxious. No tremors or shaking noted in patient's body, upper or lower extremities. She is concerned about going home. There are repairs that need to be done in the house, and she is afraid to speak with her landlord. Although there is a restraining order against her son returning to her home, he still has his belongings in the house, and this also concerns her. We spoke about returning to [facility], and the benefits she might derive from participating in groups. States that she feels that her problems are "embarrassing." Says that she is willing to return to [facility], and will try to participate. Denies suicidal ideation, homicidal ideation, auditory hallucinations, visual hallucinations, paranoid ideation. Patient states and also believes that she will not kill herself. Speech is well articulated, goal-directed, average in rate, volume and tone. Cooperative, logical. The patient understands the risks/benefits/side effects of the medication and is agreeable to continue taking them. PLAN: Anticipate discharge today, to IOP intake. Prescriptions have been called in to her pharmacy, and have already been picked up by her visiting nurse who plans on seeing her this afternoon. Continue with current management as patient is improving. Continue to provide support and encouragement.
--- NOTE | 2016-05-14 09:09 | DISCHARGE SUMMARY REPORT-PSYCH ---
See Addendum Visit Information Visit Dates/Diagnosis' Admission Date: 05/08/16 Discharge Date: 05/14/16 Reason for Admission: Admitted through -ED for thoughts of suicide with a plan to use a knife to kill herself. This is the third [facility] inpatient psychiatric admission in the past three months. Patient was also admitted in July 2012. Psy Discharge Primary Diag: Generalized anxiety d/o. Psy Discharge Secondary Diag: Unspecified depressive d/o; history of bipolar disorder; CKD; hyperlipidemia; arthritis; hx of breast cancer s/p radiation and masectomy, overactive bladder, nephrogenic diabetes insididus. Hospital Course Significant Lab Findings: Lab BUN 39 mg/dL H 05/10/16 0658 BUN/Creatinine Ratio 17.7 % 05/10/16 0658 Creatinine 2.2 mg/dL H 05/10/16 0658 Estimated GFR 22 ml/min L 05/10/16 0658 TSH 0.991 uIU/mL 05/11/16 0624 Absolute Granulocytes 6.9 /CUMM H 05/08/16 1350 Gran % 75.7 % H 05/08/16 1350 Hct 35.1 % L 05/08/16 1350 Lymphocytes % 16.6 % L 05/08/16 1350 MPV 6.6 FL L 05/08/16 1350 RBC 3.90 /CUMM L 05/08/16 1350 Course Complications: None. Consultations: Patient was seen for admission history and physical by Dr. Alejandra. Please refer to her note for additional information. Allergies: Coded Allergies: hydrocodone (I DONT DO WELL AT ALL ON VICODIN 03/04/16) Hospital Course/TX Response: Patient was monitored on the unit for safety, depression, mood stability, anxiety, and suicidal ideation. She participated in multi-modal treatments on the unit. She was medicated with prazosin for nightmares, Lamictal was continued for mood stability, trazodone for sleep. Paxil was decreased to 40mg daily for depression and anxiety. Abilify and wellbutrin were discontinued for their activating properties, and the suspicion that these medications may be contributing to anxiety. Risperidone was initiated for mood stability, clear thoughts, and off label for exacerbations of anxiety. Clonazepam which has been prescribed on an outpatient basis was continued. Today, the day of discharge, she states "I'm worried about going home. But if I stay here for the weekend I'll be bored, lonely, and frustrated." Patient presents this morning awake, alert and oriented 3, anxious. No tremors or shaking noted in patient's body, upper or lower extremities. She is concerned about going home. There are repairs that need to be done in the house , and she is afraid to speak with her landlord. Although there is a restraining order against her son returning to her home, he still has his belongings in the house, and this also concerns her. We spoke about returning to [facility], and the benefits she might derive from participating in groups. States that she feels that her problems are "embarrassing." Says that she is willing to return to [facility], and will try to participate. Denies suicidal ideation, homicidal ideation, auditory hallucinations, visual hallucinations, paranoid ideation. Patient states and also believes that she will not kill herself. Speech is well articulated, goal-directed, average in rate, volume and tone. Cooperative, logical. The patient understands the risks/benefits/side effects of the medication and is agreeable to continue taking them. Patient reports tolerating her medications well, without complaint. States she feels safe and ready for discharge. Discharge HBIPS - Tobacco Use Treatment Offered Post DC Medications Offered: Script Given-See Med List Post DC Tobacco Treatment Plan: [facility] Program Appt Date: 05/26/16 Program Appt Time: 1600 - EtOH/Drug Use D/O Treatment Offered Post DC Medications Offered: NA-No EtOH/Drug Use D/O Post DC EtOH/SubAbuse TX Plan: NA-No EtOH/Drug Use D/O Metabolic Screening - Screen if on a Neuroleptic Medication - Metabolic screening should include: - Blood Pressure, BMI, Glucose or Hgb A1c, & a - Lipid profile from within the past 365 days. Metabolic Screening ([x]) Not Applicable, patient not on a neuroleptic. OR () Patient on a neuroleptic(s) . Enter below results for Glucose or Hemoglobin A1C, and lipid panel if obtained during the last 365 days. BMI: 21.400 Blood Pressure: 132/69 Laboratory Results (If applicable): Lab Cholesterol 171 MG/DL 03/09/169 Cholesterol/HDL Ratio 2 % 03/09/162118 HDL Cholesterol 92 mg/dL H 03/09/162118 Hemoglobin A1c 5.2 03/09/162108 LDL Cholesterol, Calc 59 mg/dL L 03/09/162118 Triglycerides 103 mg/dL 03/09/162118 Discharge Instructions General Discharge Information Discharge Medications: Discharge Medications- (Dose, route, freq, indication): START taking these NEW Home Medications: Nicotine Dose: ORAL, EVERY 2 HOURS Qty: 30 Called in to (Nicorelief) 2 MG 2 Milligram NEEDED as needed for Refills: 0 Pharm 1 GUM tobacco cravings Prazosin HCl Dose: ORAL, 1999 for nightmares Qty: 14 Called in to (Prazosin HCl) 2 MG 2 Milligram Last Taken: 05/13/16 Refills: 0 Pharm 1 CAPSULE Time: 1999 Lamotrigine Dose: ORAL, TWICE DAILY for Qty: 28 Called in to (Lamictal) 150 MG 150 Milligram MOOD STABILITY Refills: 0 Pharm 1 TABLET Last Taken: 05/14/16 Time: 0800 Paroxetine HCl Dose: ORAL, DAILY for Qty: 14 Called in to (Paxil) 40 MG TABLET 40 Milligram DEPRESSION Refills: 0 Pharm 1 Last Taken: 05/14/16 Time: 0800 Trazodone HCl Dose: ORAL, AT BEDTIME for Qty: 28 Called in to (Trazodone HCl) 100 200 Milligram SLEEP Refills: 0 Pharm 1 MG TABLET Last Taken: 05/13/16 Time: 2200 Risperidone Dose: ORAL, TWICE DAILY for Qty: 28 Called in to (Risperdal) 0.5 MG 0.5 Milligram CLEAR THOUGHTS Refills: 0 Pharm 1 TABLET Last Taken: 05/14/16 Time: 0800 CONTINUE taking these Home Medications: Clonazepam (Klonopin) Dose: ORAL, THREE TIMES DAILY 0.5 MG TABLET 1 Tablet for ANXIETY Last Taken: 05/14/16 Time: 0800 Atorvastatin Calcium Dose: ORAL, 5 PM for (Atorvastatin Calcium) 20 Milligram cholesterol 20 MG TABLET Last Taken: 05/13/16 Time: 1700 Hydrochlorothiazide Dose: ORAL, DAILY for (Hydrochlorothiazide) 1 Capsule Diabetes insipidus 12.5 MG CAPSULE Last Taken: 05/14/16 Time: 0800 Oxybutynin Chloride Dose: ORAL, Every night for (Oxybutynin Chloride) 5 1 Tablet [facility] MG TABLET Last Taken: 05/14/16 Time: 0800 STOP taking these DISCONTINUED Home Medications: Bupropion HCl (Wellbutrin Sr) Dose: ORAL, TWICE DAILY for DEPRESSION 100 MG TABLET.ER 1 Tablet Reason Stopped: Per Doctor Decision Aripiprazole (Abilify) 5 MG Dose: ORAL, Every night for TABLET 0.5 Tablet Depression/clear thoughts Reason Stopped: Per Doctor Decision Paroxetine HCl (Paxil) 20 MG Dose: ORAL, DAILY for TABLET 3 Tablet Depression/anxiety Reason Stopped: Changed Dose Gabapentin (Gabapentin) 300 MG Dose: ORAL, THREE TIMES DAILY for CAPSULE 1 Capsule ANXIETY Reason Stopped: Per Doctor Decision 1: [facility], [address] [place] [id number] Your Preferred Pharmacy [facility] [address] [place] [phone] Multiple Neuroleptics: ([x]) Not Applicable OR Document below three failed attempts at monotherapy, or a plan to taper to monotherapy, or augmentation of Clozapine. () Patient's Diet: Regular Patient's Activity: No restrictions. DC Disposition: Patient is returning to her home, where she lives with her daughter. Recommendations: Follow up with [facility] and visiting nurse. Referred To: INTENSIVE OUTPT PSYCHIATRY Service Date: 05/14/16 [address] [place] [id number] Notes: [facility] [address] [address] Intake today, 05/14/16 @ 12:45pm Patient Care Visiting Nurse Attn: SUMAN Cortez Dr[address] Dc Copies To: Intensive Outpt Psychiatry; Patient Care Visiting Nurse
--- NOTE | 2016-05-14 11:04 | SOCIAL WORKER PROG NOTE PSYCH ---
Social Work Progress Note Progress Note Patient to discharge the hospital today. Patient has intake today at [facility] at 12:45pm. Patient has logisticare transportation set up to return her home after intake and ongoing transportation is arranged for next week for patient to attend the mental health groups. Patient denies SI/HI/AH/VH at present and reports being ready to return home today. Initially hesitent, but reports no reason to remain in the hospital over the weekend. Patient will return to her home with her daughter, Moraima. Patients VNVini, Laury Reed, from Patient Care has been notified of patients discharge home this afternoon.
[2016-05-14] MEDS ORDERED: PRAZOSIN HCL2 M1 PO (11:23)
[2016-05-14] MEDS ORDERED: LAMICTAL150 M1 PO (11:24)
[2016-05-14] MEDS ORDERED: TRAZODONE HCL100 M1 PO (11:25)
[2016-05-14] MEDS ORDERED: RISPERDAL0.5 M1 PO (11:25)
[2016-05-14] MEDS ORDERED: PAXIL40 M1 PO (11:25)
--- NOTE | 2016-05-14 11:53 | NUR ---
PT IS PRESENT ON THE UNIT, ATTENDING GROUPS, MOOD STABLE WITH APPROPRIATE AFFECT. INFORMATION PACKET RE: SI AND DEPRESSION GIVEN AND PT RESOURCE GUIDE ALONG WITH W-10 REVIEWED WITH PT AND ALL PERTINENT INFO AND NUMBERS WELL, VERBALIZED UNDERSTANDING AND MOTIVATED FOR FOLLOW-UP DISCHARGE PLAN. WHEN ASKED DIRECTLY DENIES SI/HI/HALLUCINATIONS AND REPORTS AN OVERALL IMPROVEMENT IN MOOD, ANXIETY AND BEHAVIOR, + APPETITE AND SLEEP, ALREADY MET WITH TEAM AND SCHEDULED FOR DISCHARGE TODAY.
== END 2016-05-14 12:46 | DRG 880 ==
LOC: ERH 12:10 → CP SOUTH 15:49 → ERHI 15:49 → ENPENDDIS 15:49 → EDBEDREQ 16:03 → CP SOUTH 17:05
PROVIDERS: Emergency Medicine; ADMIT Psychiatry & Neurology Psychiatry
DX: F41.1 Generalized anxiety disorder (principal); N25.1 Nephrogenic diabetes insipidus; F32.9 Major depressive disorder, single episode, unspecified; N18.9 Chronic kidney disease, unspecified; E78.5 Hyperlipidemia, unspecified; M19.90 Unspecified osteoarthritis, unspecified site; Z85.3 Personal history of malignant neoplasm of breast; N32.81 Overactive bladder
CPT/HCPCS: 36415; 80307; 81003; G0480; J1815; J3490

== ENCOUNTER 2016-06-04 13:41 | Inpatient (IN) | payer OTHER, MEDICARE ==
[~2016-06-04] VITALS: Ht 152.4 cm; Wt 48.3 kg
[~2016-06-04 13:41] MED LIST changes: +LAMICTAL150 M1 PO; +PAXIL40 M1 PO; +PRAZOSIN HCL2 M1 PO; +RISPERDAL0.5 M1 PO
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
--- NOTE | 2016-06-04 14:09 | NUR ---
CLOTHING PLACED IN WATER SOLUABLE BAG AND THEN DOUBLE BAGGED IN PT BELONGINGS BAGS FOR PRECAUTIONS. TELETYPE TECHNICIAN CALLING LAUNDRY TO WASH CLOTHING A PRECAUTION, PT UPDATED. PT CONTINUES TO C/O ANXIETY AND DEPRESSION, DENIES SI OR HI.
--- NOTE | 2016-06-04 14:40 | NUR ---
DR WEBSTER IN TO [facility].
--- NOTE | 2016-06-04 14:46 | ED PSYCHIATRIC COMPLAINT ---
History of Present Illness General Chief Complaint: Psychiatric Related Complaint Stated Complaint: BIBA PSYCH EVAL Source: patient, old records Exam Limitations: ANXIETY Vital Signs & Intake/Output Vital Signs & Intake/Output Vital Signs Date Time Temp Pulse Resp B/P Pulse O2 O2 Flow FiO2 Ox Delivery Rate 06/04 1753 97.2 72 17 118/66 100 Room Air 06/04 1554 96.8 78 18 119/63 99 Room Air 06/04 1400 97.6 98 20 127/89 94 Room Air Room Air Allergies Coded Allergies: haloperidol (From HALDOL) (EYES ROLLED IN BACK OF HEAD 06/04/16) hydrocodone (LOOPY 06/04/16) Reconcile Medications Atorvastatin Calcium 20 MG TABLET 20 MG PO 1700 cholesterol Clonazepam (Klonopin) 0.5 MG TABLET 1 TAB PO TID ANXIETY (Reported) Hydrochlorothiazide 12.5 MG CAPSULE 1 CAP PO DAILY Diabetes insipidus Lamotrigine (Lamictal) 150 MG TABLET 150 MG PO BID MOOD STABILITY Nicotine (Nicorelief) 2 MG GUM 2 MG PO Q2 HRS NEEDED PRN tobacco cravings Paroxetine HCl (Paxil) 40 MG TABLET 40 MG PO DAILY DEPRESSION Risperidone (Risperdal) 0.5 MG TABLET 1 TAB PO TID CLEAR THOUGHTS (Reported) Trazodone HCl 100 MG TABLET 200 MG PO AT BEDTIME SLEEP Triage Note: PT TO ED WITH C/O DEPRESSION, SAW COUNSELOR AND TOLD SHE SHOULD COME IN TO THE ED, PT STATING "AND I AGREE". PER EMS "THE POLICE TOLD US THERE MIGHT BE BUGS ON HER BELONGINGS, SO WE DIDN'T TAKE ANY OF HER BELONGINGS". PT AMBULATORY TO ROOM # 15 VIA AMBULANCE DOOR, CHANGED INTO HOSP SCRUBS OVER WHITE SHEET, BODY AND CLOTHING, HAIR INSPECTED, NO BUGS NOTED ON PT OR CLOTHING. SECURITY AT BEDSIDE FOR WANDING AND BAGGING OF CLOTHING AFTER WANDING. Triage Nurses Notes Reviewed? yes HPI: Patient presents for evaluation of severe anxiety. She was asked by her visiting nurse to go to the emergency department for an evaluation of her nervousness and anxiety. In addition she states she got very upset today because her bag had bugs on it. She denies suicide ideation and states she is receiving care from [facility]. She is compliant with anxiety and depression medications and denies alcohol or drug use. Past History Travel History Traveled to [place] past 21 day No Medical History Any Pertinent Medical History? 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 MOTHER (Hypertension). Hx Contributory? No Review of Systems Review of Systems Constitutional: Reports: no symptoms. EENTM: Reports: no symptoms. Respiratory: Reports: no symptoms. Cardiovascular: Reports: no symptoms. GI: Reports: no symptoms. Genitourinary: Reports: no symptoms. Musculoskeletal: Reports: no symptoms. Skin: Reports: no symptoms. Neurological/Psychological: Reports: see HPI. Hematologic/Endocrine: Reports: no symptoms. Immunologic/Allergic: Reports: no symptoms. All Other Systems: Reviewed and Negative Physical Exam Physical Exam General Appearance: SEE BELOW Neurological/Psychiatric: SEE BELOW Comments: General: Alert, calm, cooperative Head: Normocephalic, atraumatic Eyes: Normal inspection, no nystagmus, EOMI Ears: Normal inspection Nose: Normal inspection Throat: Moist mucosa Neck: Supple, no goiter Heart: Regular rate and rhythm, no murmurs rubs or gallops Lungs: Clear to auscultation bilaterally with good air entry Abdomen: Soft nontender nondistended, normal bowel sounds Chest: Nontender Extremities: Normal range of motion grossly, mild tremors present, no cyanosis clubbing or edema of the upper extremities Neurologic: cranial nerves II through XII grossly intact, speech clear, gait normal Psychiatric: No apparent delusions or hallucinations, no pressured speech or thought blocking SAD PERSONS Done? DEFERRED TO CRISIS Progress Differential Diagnosis: DEPRESSION, BIPOLAR Plan of Care: Orders Procedure Date/time Status Regular Diet 06/05 B Active EKG 06/05 0800 Active Admit to inpatient psych 06/04 1924 Active Patient Data - inpatient psych 06/04 1836 Active Admit to inpatient psych 06/04 1836 Active ETHANOL 06/04 1458 Complete CBC WITHOUT DIFFERENTIAL 06/04 1458 Complete BASIC METABOLIC PANEL 06/04 1458 Complete ED CRISIS PSYCH CONSULT 06/04 1458 Active URINE DRUG SCREEN FOR ER ONLY 06/04 1409 Complete Vital Signs 06/04 UNK Active Activity/Ambulation 06/04 UNK Active Current Medications Sig/Carol Start time Last Medication Dose Stop Time Status Admin Atorvastatin Calcium 20 MG 1700 06/05 170 UNVr (Lipitor) Hydrochlorothiazide 12.5 MG DAILY 06/05 1000 UNVr (Hydrodiuril) Paroxetine HCl 40 MG DAILY 06/05 1000 UNVr (Paxil) Clonazepam 0.5 MG TID 06/04 2199 UNVr (KlonoPIN) 06/11 2158 Lamotrigine 150 MG BID 06/04 2199 UNVr (LaMICtal) Risperidone 0.5 MG TID 06/04 2199 UNVr (Risperidone) Trazodone HCl 200 MG AT BEDTIME 06/04 2199 UNVr (Desyrel) Nicotine 2 MG Q2 HRS NEEDED PRN 06/04 193 UNVr (Nicotine) Laboratory Tests 06/04/16 1510: Anion Gap 11, Estimated GFR 26 L, BUN/Creatinine Ratio 16.8, Glucose 140 H, Calcium 10.1, CBC w Diff NO MAN DIFF REQ, RBC 4.05 L, MCV 91.2, MCH 30.8, RDW 12.8, MPV 6.9 L, Gran % 79.1 H, Lymphocytes % 14.3 L, Monocytes % 5.7, Eosinophils % 0.6, Basophils % 0.3, Absolute Granulocytes 7.8 H, Absolute Lymphocytes 1.4, Absolute Monocytes 0.6, Absolute Eosinophils 0.1, Absolute Basophils 0, PUBS MCHC 33.8, Serum Alcohol < 10.0 06/04/16 1420: Urine Opiates Screen < 100.00, Methadone Screen < 40, Barbiturate Screen < 60, Ur Phencyclidine Scrn < 6.00, Amphetamines Screen < 100, U Benzodiazepines Scrn < 85, Urine Cocaine Screen < 50, Urine Cannabis Screen < 5.00 Departure Departure Disposition: STILL A PATIENT Condition: Stable Clinical Impression Primary Impression: Depression Qualifiers: Depression Type: unspecified Qualified Code: F32.9 - Major depressive disorder, single episode, unspecified Secondary Impressions: Chronic renal insufficiency Qualifiers: Chronic kidney disease stage: unspecified stage Qualified Code: N18.9 - Chronic kidney disease, unspecified Referrals: GERI SIMPSON MD (PCP/Family) Departure Forms: Customer Survey General Discharge Information Psych Admission Note Psychiatric Admission: I have seen and evaluated LEIDY CHAVIS. I have also reviewed all the pertinent lab results and diagnostic results. LEIDY CHAVIS will be admitted to our inpatient Psychiatric unit for treatment and care.
--- NOTE | 2016-06-04 15:11 | NUR ---
BLOODWORK DRAWN/SENT TO LAB, BLUE,LAV AND SST TOP SENT TO LAB.
[2016-06-04 15:16] LABS: ABSOLUTE BASOPHIL COUNT 0 /CUMM (0.0-0.2); ABSOLUTE EOSINOPHIL COUNT 0.1 /CUMM (0.0-0.7); ABSOLUTE GRANULOCYTE CT 7.8 /CUMM (1.4-6.5); ABSOLUTE LYMPH COUNT 1.4 /CUMM (1.2-3.4); ABSOLUTE MONOCYTE COUNT 0.6 /CUMM (0.10-0.60); BASOPHIL % 0.3 % (0.0-2.0); EOSINOPHIL % 0.6 % (0-5); GRANULOCYTE % 79.1 % (42.2-75.2); HEMATOCRIT 36.9 % (37-47); MEAN CORPUSCULAR HGB 30.8 PG (27.0-31.0); MEAN CORPUSCULAR HGB CONC 33.8 G/DL (33.0-37.0); MEAN CORPUSCULAR VOLUME 91.2 FL (81.0-99.0); MEAN PLATELET VOLUME 6.9 FL (7.4-10.4); PLATELET COUNT 245 /CUMM (130-400); RBC DISTRIBUTION WIDTH 12.8 % (11.5-14.5); RED BLOOD CELL CT 4.05 /CUMM (4.20-5.40); WHITE BLOOD CELL COUNT 9.9 /CUMM (4.8-10.8)
[2016-06-04] MEDS ORDERED: RISPERDAL0.5 M1 PO (15:33)
--- NOTE | 2016-06-04 15:48 | NUR ---
RECEIVED REPORT ON PT AND NOTED TO BE SITTING ON BED AND ASKING FOR WHEN SHE WILL BE EVALUATED. PT INFORMED THAT ONCE LAB RESULTS ARE RECIEVED CRISIS WILL REVIEW AND EVAL PT. PT UNDERSTANDING AND CRISIS AWARE
[2016-06-04] MEDS ORDERED: VESICARE10 MG PO (15:58)
--- NOTE | 2016-06-04 16:58 | NUR ---
CALLED AND SPOKE WITH ELAYNE FROM [facility] AND HE WILL SENT SOMEONE TO COME DOWN AND FETCH CLOTHS THAT NEEDS TO BE LAUMDERED
--- NOTE | 2016-06-04 17:08 | NUR ---
ENVIROMENTAL PICKED UP PT CLOTHINGS AND CRISIS AT BEDSIDE TO EVAL PT
--- NOTE | 2016-06-04 17:12 | ED PSY CRISIS COLLATERAL NOTE ---
Collateral Note Collateral Note Family/Inform/Jorge Contacts: Phone contact with Mabel Pierre APRN. She states Brenda Macias who is an IOP pt will be brought to the ED today. Mabel states the pt was anxious, scared and unable to leave her home and come to the outpatient program. Mabel said Brenda is not suicidal or homicidal, but she is presenting symtoms of paranoia, depression and anxiety. "Brenda is very nervous of what people preceive of her" says Mabel. "She is afraid of people looking at her and can tell she is mentally ill" Mabel is asking [facility] to evaluate whether she is psychotic at this time.
--- NOTE | 2016-06-04 17:41 | ED PSYCH CRISIS CONSULTATION ---
Crisis Consult Basic Assessment Date of Consult: 06/04/16 Responsible Person/Accompanied By: AYALA Insurance Authorization: Insurance #1: Insurance name: MEDICARE A Phone number: Policy number: [id number] Group number: Authorization number: ED Provider: Patient's ED Provider: KEENAN WEBSTER MD Primary Care Physician: Patient's PCP: GERI SIMPSON MD PCP's Chief Complaint: Psychiatric Related Complaint Patient's Quote: "I'm very depressed and anxious." Present Illness: The patient is a 65 year old, female presenting to the ED, via ambulance after calling [facility] and stating she was "not functioning, and was anxious and scared." The patient presents with a depressed, anxious mood and a flat affect. She struggles with chronic mental health issues and has been hospitalized 3 times in 2017. She was going to treatment at [facility] for 20+ years and had long periods of stability, however over the last 3-4 months she has been decompensating quickly and has not had much stability, after her discharges from the hospital. She is currently in IOP at [facility], however states that she is "too worried about how people see her," to fully participate in the program. She currently reports feeling depressed, anxious, feeling helpless, feeling hopeless and having suicidal ideations, with a plan to use a kitchen knife to kill herself. She denies any current or history of homicidal ideations. She reports that she has been feeling paranoid, with beliefs that her "neighbors can see through her bedroom curtains, when she is dressing." She also reports that they can tell that she is depressed, despite not leaving her house or speaking to them. She states that she has started to hear her daughters voice, making derogatory comments, when her daughter is not in the room with her. She has been on disability and has assistance with housing from Section 8. She lives with an adult daughter, who also has mental health issues. She denies any current or history of drug or alcohol abuse. She has been taking her medications and has a visiting nurse that dispenses them to her daily.She is requesting to be admitted back into the hospital. KOLBY spoke to her daughter Moraima Macias ([phone]), who states that her mother has been depressed and anxious. Moraima notes that she has her own stressors and that she may be taking her problems out on her mother. She also believes that the patient is still struggling with the of her mother. Moraima believes that the patients "meds are fine," and is not sure what would be helpful at this time. Patient's Address: [address] [place] [id number] Other Phone Number: Who Do You Live With? Daughter Family/Informants Interviewed: Daughter Moraima Macias -[phone] Allergies - Coded Allergies: haloperidol (From HALDOL) (EYES ROLLED IN BACK OF HEAD 06/04/16) hydrocodone (LOOPY 06/04/16) Current Medications - Scheduled Medications Atorvastatin Calcium 20 MG TABLET 20 MG PO 1700 cholesterol #14 TAB Prescribed by JANAY MUNOZ APRN on 03/16/16 Clonazepam (Klonopin) 0.5 MG TABLET 1 TAB PO TID ANXIETY (Reported) Entered as Reported by GLORY TIRADO on 03/04/16 1446 Hydrochlorothiazide 12.5 MG CAPSULE 1 CAP PO DAILY Diabetes insipidus #30 CAP Prescribed by LAWRENCE SNOWDEN MD on 03/18/16 Lamotrigine (Lamictal) 150 MG TABLET 150 MG PO BID MOOD STABILITY #28 TAB Prescribed by JANAY MUNOZ APRN on 05/14/16 Paroxetine HCl (Paxil) 40 MG TABLET 40 MG PO DAILY DEPRESSION #14 TAB Prescribed by JANAY MUNOZ APRN on 05/14/16 Prazosin HCl 2 MG CAPSULE 2 MG PO 1999 nightmares #14 CAP Prescribed by JANAY MUNOZ APRN on 05/14/16 Last Taken: Unknown Dose at an unknown date and time Risperidone (Risperdal) 0.5 MG TABLET 1 TAB PO TID CLEAR THOUGHTS (Reported) Entered as Reported by ILENE LAZCANO on 06/04/16 1533 Solifenacin Succinate (Vesicare) 10 MG TABLET 1 TAB PO QPM BLADDER #90 ( Reported) Entered as Reported by ILENE LAZCANO on 06/04/16 1558 Trazodone HCl 100 MG TABLET 200 MG PO AT BEDTIME SLEEP #28 TAB Prescribed by JANAY MUNOZ APRN on 05/14/16 Scheduled PRN Medications Nicotine (Nicorelief) 2 MG GUM 2 MG PO Q2 HRS NEEDED PRN tobacco cravings # 30 GUM Prescribed by JNAAY MUNOZ APRN on 05/14/16 Last Taken: Unknown Dose at an unknown date and time Laboratory Results: Laboratory Tests 06/04/16 1510: Anion Gap 11, Estimated GFR 26 L, BUN/Creatinine Ratio 16.8, Glucose 140 H, Calcium 10.1, CBC w Diff NO MAN DIFF REQ, RBC 4.05 L, MCV 91.2, MCH 30.8, RDW 12.8, MPV 6.9 L, Gran % 79.1 H, Lymphocytes % 14.3 L, Monocytes % 5.7, Eosinophils % 0.6, Basophils % 0.3, Absolute Granulocytes 7.8 H, Absolute Lymphocytes 1.4, Absolute Monocytes 0.6, Absolute Eosinophils 0.1, Absolute Basophils 0, PUBS MCHC 33.8, Serum Alcohol < 10.0 06/04/16 1420: Urine Opiates Screen < 100.00, Methadone Screen < 40, Barbiturate Screen < 60, Ur Phencyclidine Scrn < 6.00, Amphetamines Screen < 100, U Benzodiazepines Scrn < 85, Urine Cocaine Screen < 50, Urine Cannabis Screen < 5.00 Past History Past Medical History Neurological: NONE EENT: NONE Cardiovascular: hyperlipidemia Respiratory: NONE Gastrointestinal: NONE Hepatic: NONE Renal: chronic kidney disease, 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 Physical Limitations (Interventions): None noted Psychiatric Treatment History Psych Treatment Psychiatric Treatment Yes Inpatient Treatment Yes Outpatient Treatment Yes Location of Treatment [facility] and [facility] Reason for Treatment Depression and anxiety Dates of Treatment [facility] from 1373-0507, Current with [facility] and recent April 2016 Response to Treatment The patient has had long periods of stablity, while in treatment with [facility], however has not had stablity over the last 3-4 months. Diagnosis by History: Mood disorder, Bipolar D/O, BEBE Substance Use/Abuse History Drug Use/Abuse Substances Used/Abused No (Pt. denies) First Use N/A Last Used N/A How much used/taken N/A How often N/A For how long N/A Route of use N/A Substance Abuse Treatment Substance Abuse Treatment Past Substance Abuse [place] No Inpatient Treatment No Outpatient Treatment No Location of Treatment N/A Reason for Treatment N/A Dates of Treatment N/A Response to Treatment N/A Comments: N/A Current Mental Status Mental Status Orientation: Confused Affect: Anxious, Depressed Speech: Soft (slowed responses) Neuro-vegetative: Helpless, Feeling hopeless Appearance Appearance- Dress/Hygiene: The patient was sitting on the bed, in hospital attire, disheveled, with poor eye contact and appeared older then stated age. Behaviors Thought Process: The patient was slow to respond Thought Content: Auditory Hallucinations, Paranoid, The patient states that she is hearing her daughter make derogatory comments when she is not in the room. She also notes that she believe that her neighbors can see she her dressing through her bedroom curtains and that they can tell she is depressed, despite not speaking to her or talking to her. Memory: WNL Insight: WNL SI/HI Risk Assessment Past Suicidal Ideation/Attempts Yes (Denies history of attempts) Current Suicidal Ideation/Att Yes Past Homicidal Ideation/Att: No Current Homicidal Ideation/Attempts No Degree of Intent: The patient states that she is having thoughts to kill herself with a kitchen knife . Danger To: Self Gravely Disabled: N/A Risk Factors: high anxiety/distress, SA/MH hospitalized Lethality Ratin ED Management Sitter: Yes Restraints: No DSM5/PS Stressors/Medical Prob Diagnosis' (DSM 5, Stressors, Medical): F32.9 Unspecified Depressive Disorder and F41.9 Unspecified Anxiety Disorder Current GAF: 25 Comments: N/A Departure Disposition Psych Medical Clearance Date: 06/04/16 Medically Cleared at: 1700 Time Started: 1715 Time Ended: 1800 Psychiatrist Consulted: Dr. Miles Date Disposition Established: 06/04/16 Time Disposition Established: 1900 Plan for Disposition - Modality: Inpatient Psychiatry Facility: [facility] Contact: N/A Telephone: N/A Rationale for Disposition: The patient presents to the ED with depressed mood, anxiety, feeling helpless, feeling hopeless, and having suicidal thoughts with a plan to use a kitchen knife to kill herself. The patient has also been feeling paranoid and having auditory hallucinations. Case discussed with Dr. Miles and she finds the patient to be an acute risk to self and in need of an inpatient hospitalization at this time. She will sign in voluntarily. Type of IP Admission: Voluntary Additional Instructions: N/A Referrals GERI SIMPSON MD (PCP/Family)
--- NOTE | 2016-06-04 19:07 | NUR ---
LEIDY CHAVIS Nurse Note by: ULI GREEN I agree with the CATALYST PLANT SUPERVISOR findings/evaluation of this patient's condition. Entered by: ULI GREEN Date: 06/04/16 Time: 2124
--- NOTE | 2016-06-04 19:12 | NUR ---
ENVIRONMENTAL CALLED REGRDING STATUS OF PT'S CLOTHING. NO ANSWER FROM ENVIRONMENTAL. THIS RN WILL RETURN CALL.
--- NOTE | 2016-06-04 19:21 | NUR ---
PT SITTING ON SIDE OF BED. NO COMPLAINTS OFFERED. WILL CONTINUE TO MONITOR. SITTER IN PLACE.
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
--- NOTE | 2016-06-04 19:58 | NUR ---
ENVIRONMENTAL CALLED AGAIN. MESSAGE LEFT.
--- NOTE | 2016-06-04 20:12 | NUR ---
PT STATES THAT SHE IS SCARED. WHEN ASKED WHAT IS MAKING HER FEEL THIS WAY PT RELAYS THAT SHE DOES NOT HAVE HER CLOTHES WITH HER. PT MADE AWARE THAT HER CLOTHES ARE BEING CLEANED AND WILL BE RETURNED TO HER.
--- NOTE | 2016-06-04 21:02 | NUR ---
REPORT GIVEN TO KINZA ON CPS.
[2016-06-04 22:01] VITALS: BP 123/78
--- NOTE | 2016-06-05 00:14 | NUR ---
65 YEAR OLD FEMALE PATIENT ADMITTED TO [facility] DUE TO DEPRESSION, ANXIETY DISORDER, AND PASSIVE SUICIDAL IDEATION; SHE PRESENTS WITH FLAT TEARFUL AFFECT, DEPRESSED MOOD, MILD CONFUSION; SHE IS MOSTLY ORIENTED, TO PERSON, PLACE AND TIME BUT COULD NOT REMEMBER HOW TO WORK THE SINKS, EVEN THOUGH SHE ONLY LEFT [facility] A VERY SHORT TIME AGO; ANXIETY APPEARS MODERATE TO SEVERE; VITAL SIGNS WNL; PATIENT MEDICALLY STABLE; SKIN INTACT; DR. VILCHIS NOTIFIED FOR FOLLOW UP NOTE; DR. JARAMILLO WRITING ADMISSION ORDERS.
--- NOTE | 2016-06-05 05:47 | NUR ---
PATIENT SLEPT ALL NIGHT.
[2016-06-05 08:22] VITALS: BP 148/65
--- NOTE | 2016-06-05 11:59 | CPS MD/APRN INITIAL ASSE PSYCH ---
Psychiatric Admission Contract Sheltered Workshop Supervisor's Note Reviewed: Yes Patient Seen and Examined: Yes Identifying Information: 65yoF with hx of unspecified mood disorder Chief Complaint: "I just can't..." Reaction to Hospitalization: none noted History of Present Illness Onset of Illness: decades ago Circumstances Leading to Admission: worsening depression and anxiety Problem(s) Justifying Need for Admission: depression and SI Other HPI: Pt with long psych hx now iwth worsening mood and anxiety. She feels that she has been "not well" for months characterized by "depressed, shakey, confused, scared all the time." She notes "terrible sleep." She spoke at length this morning about feeling "terrified" to take a shower. She denies SI or HI but notes she is very overwhelmed with her emotions "all the time." Denies AVHs. Denies manic sx. Denies TRS. Past Psychiatric History Past Diagnosis(es)- if any: Unspecified mood disorder Past Precipitating Factors- if any: none - Include inpatient and outpatient treatment Treatment History: [facility] has outpatient tx and [facility] History of Suicide Attempts or Gestures worsening SI Substance Abuse History: Denied Allergies: Coded Allergies: haloperidol (From HALDOL) (EYES ROLLED IN BACK OF HEAD 06/04/16) hydrocodone (LOOPY 06/04/16) Home Med List: see ER note - Include any medical condition(s) that may - impact the patient's recovery/remission Past Medical History: see below Past History Medical History Neurological: NONE EENT: NONE Cardiovascular: hyperlipidemia Respiratory: NONE Gastrointestinal: NONE Hepatic: NONE Renal: chronic kidney disease, 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 overactive bladder Musculoskeletal: ARTHRITIS Psychiatric: bipolar disease, ANXIETY, DEPRESSION Endocrine: NONE Blood Disorders: NONE Cancer(s): breast cancer, ovarian cancer 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 History of MRSA: No History of VRE: No History of CDIFF: No Isolation History: Standard Influenza Vaccine: 12/23/15 Surgical History Surgical History: LEFT MASTECTOMY/IMPLANT Psychiatric Family/Social Hx Family History Psychiatric Illness: depression and anxiety Substance Use: denied Suicides: denied Social History Living Situation: lives in [place] with daughter (?mental illness) Significant Relationships (family/friends): daughter Education: almost completed a masters in Latvian 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 - #1 Recognizing dangerous situations. - #2 Coping Skills. - #3 Basic information about quitting. Status of Tobacco Cessation Counseling: #1, #2 AND #3 Completed Cessation Med Status: Nicotine Gum Ordered Alcohol Screening - ETOH screen POS if BAL >=80 or Audit-C>= M4/F3 Audit-C Score from Diag Assess: 0 Blood Alcohol Level: Laboratory Tests 06/04 1510 Toxicology Serum Alcohol (<10 MG/DL) < 10.0 Alcohol Use Screening Results: Neg per Audit C &/or BAL - If ETOH counseling indicated - the following topics are required. - #1 Express concern about the patient's - drinking at unhealthy levels, include informing - of national norms for moderate drinking: - men <= 14 drinks/week, max 4 drinks/occasion - women <= 7 drinks/week, max 3 drinks/occasion - #2 Providing feedback, including linking alcohol to - negative physical effects (liver injury, hypertension) - negative emotional effects (relationship problems and - depression) - negative occupational consequences (reduced work - performance) - #3 Advising the patient to abstain from alcohol or - to drink below national norms for moderate drinking - (as listed above). Status of ETOH Use Counseling: #1, #2 AND #3 Completed. Metabolic Screening - Screen if on a Neuroleptic Medication - Metabolic screening should include: - Blood Pressure, BMI, Glucose or Hgb A1c, & a - Lipid profile from within the past 365 days. Metabolic Screening () Not Applicable, patient not on a neuroleptic. OR () Patient on a neuroleptic(s) . Enter below results for Glucose or Hemoglobin A1C, and lipid panel if obtained during the last 365 days. BMI: 20.700 Blood Pressure: 148/65 Laboratory Results (If applicable): Laboratory Tests 06/04 06/04 1510 1420 Chemistry Sodium (137 - 145 mmol/L) 138 Potassium (3.5 - 5.1 mmol/L) 3.9 Chloride (98 - 107 mmol/L) 95 L Carbon Dioxide (22 - 30 mmol/L) 32 H Anion Gap (5 - 16) 11 BUN (7 - 17 mg/dL) 32 H Creatinine (0.5 - 1.0 mg/dL) 1.9 H Estimated GFR (>60 ml/min) 26 L BUN/Creatinine Ratio (7 - 25 %) 16.8 Glucose (65 - 99 mg/dL) 140 H Calcium (8.4 - 10.2 mg/dL) 10.1 Hematology CBC w Diff NO MAN DIFF REQ WBC (4.8 - 10.8 /CUMM) 9.9 RBC (4.20 - 5.40 /CUMM) 4.05 L Hgb (12.0 - 16.0 G/DL) 12.5 Hct (37 - 47 %) 36.9 L MCV (81.0 - 99.0 FL) 91.2 MCH (27.0 - 31.0 PG) 30.8 RDW (11.5 - 14.5 %) 12.8 Plt Count (130 - 400 /CUMM) 245 MPV (7.4 - 10.4 FL) 6.9 L Gran % (42.2 - 75.2 %) 79.1 H Lymphocytes % (20.5 - 51.1 %) 14.3 L Monocytes % (1.7 - 9.3 %) 5.7 Eosinophils % (0 - 5 %) 0.6 Basophils % (0.0 - 2.0 %) 0.3 Absolute Granulocytes (1.4 - 6.5 /CUMM) 7.8 H Absolute Lymphocytes (1.2 - 3.4 /CUMM) 1.4 Absolute Monocytes (0.10 - 0.60 /CUMM) 0.6 Absolute Eosinophils (0.0 - 0.7 /CUMM) 0.1 Absolute Basophils (0.0 - 0.2 /CUMM) 0 PUBS MCHC (33.0 - 37.0 G/DL) 33.8 Toxicology Urine Opiates Screen (>2000 NG/ML) < 100.00 Methadone Screen (>300 NG/ML) < 40 Barbiturate Screen (>200 NG/ML) < 60 Ur Phencyclidine Scrn (>25 NG/ML) < 6.00 Amphetamines Screen (>1000 NG/ML) < 100 U Benzodiazepines Scrn (>200 NG/ML) < 85 Urine Cocaine Screen (>300 NG/ML) < 50 Urine Cannabis Screen (>50 NG/ML) < 5.00 Serum Alcohol (<10 MG/DL) < 10.0 Exam and Plan Mental Status Examination Ambulation Status: freely but very slowly Appearance: disheveled, older than stated age Attitude towards examiner: cooperative but very difficult to engage Psychomotor activity: marked retardation Behavior: cooperative Quality of speech: slow and low volume Affect: sad, flat, depressed, non-labile, appropriate Mood: "not well" Suicidal Ideation: denied Homicidal Ideation: denied Hallucinations: denied Paranoid/Delusional Material: denied Difficulties with thought organization: very slow, no thought blocking Insight: limited Judgment: limited Orientation: A/O x3, did not know the day of the week Attemped SLUMS, pt easily frustrated Cognition: grossly intact though slowed and poor attention, concern for depression Memory Function: grossly intact, though unable to complete SLUMS Estimate of intellectual functioning: average/above average Assets/Strengths Patient Identified Assets/Strengths: some support Impression/Plan Impression and Plan: A/P: Pt with unspecified mood disorder and marked anxiety with mulitple recent hospitalizations. At this time, would consider ECT for depression given poor response to meds, marked psychomotor retardation, and apprehension around meds. - Continue current med regimen - Added seroquel 25mg qhs for marked rumination - Consider ECT - Encourage groups - Would consider neuropsych testing after discharge - Include all active medical diagnosis that require tx DSM 5 Diagnosis(es): Unspecified mood disorder, likely MDD BEBE - Initial Tx Plan for Active Psych & Medical Conditions Treatment Plan: as above - Factors that would help patient function - in a less restrictive setting. Factors: poor support
[2016-06-05 12:09] VITALS: BP 123/77
--- NOTE | 2016-06-05 13:18 | NUR ---
PT ATTENDED PLANNING MEETING WHERE SHE REPORTED - SLEEP AND OK MOOD, GOAL WAS TO ADJUST TO THE UNIT, ALSO ATTENDED FOCUS GROUP AND HAD + PARTICIPATION AND INTERACTIONS, MOOD IS OVERALL STABLE YET ANXIOUS, OUT IN THE [place] WITH NO ISSUES OR COMPLAINTS REPORTED OR OBSERVED, VSS.
--- NOTE | 2016-06-05 13:48 | NUR ---
HOD DR AZAR NOTIFIED (REMINDED) OF NEED FOR F/U NOTE.
[2016-06-05 16:14] VITALS: BP 137/77
--- NOTE | 2016-06-05 17:35 | History & Physical ---
General Information and HPI MD Statement: I have seen and personally examined LEIDY CHAVIS and documented this H&P. The patient is a 65 year old F who presented with a patient stated chief complaint of severe anxiety. 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 She was advised by her counselor to go to ED for evaluation. She denied any SI/HI at this time. She was seen by Crisis Intervention and decision was to admit. She denies any chest pain, palpitations, fever, chills, flank pain or abdominal pain. Does not approximately 1 week history of burning dysuria. Denies vaginal discharge. Has no h/o UTI's or antibiotic allergies. Allergies/Medications Allergies: Coded Allergies: haloperidol (From HALDOL) (EYES ROLLED IN BACK OF HEAD 06/04/16) hydrocodone (LOOPY 06/04/16) Home Med list Atorvastatin Calcium 20 MG TABLET 20 MG PO 1700 cholesterol Clonazepam (Klonopin) 0.5 MG TABLET 1 TAB PO TID ANXIETY (Reported) Hydrochlorothiazide 12.5 MG CAPSULE 1 CAP PO DAILY Diabetes insipidus Lamotrigine (Lamictal) 150 MG TABLET 150 MG PO BID MOOD STABILITY Nicotine (Nicorelief) 2 MG GUM 2 MG PO Q2 HRS NEEDED PRN tobacco cravings Paroxetine HCl (Paxil) 40 MG TABLET 40 MG PO DAILY DEPRESSION Risperidone (Risperdal) 0.5 MG TABLET 1 TAB PO TID CLEAR THOUGHTS (Reported) Trazodone HCl 100 MG TABLET 200 MG PO AT BEDTIME SLEEP Compliance With Home Meds: UNKNOWN Past History Travel History Traveled to [place] past 21 day No Medical History Neurological: NONE EENT: NONE Cardiovascular: hyperlipidemia Respiratory: NONE Gastrointestinal: NONE Hepatic: NONE Renal: chronic kidney disease, 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 MOTHER (Hypertension). Psychosocial History Where do you live? Home Who Do You Live With? child (daughter) Services at Home: Nursing Primary Language: German ETOH Use: denies use Illicit Drug Use: denies illicit drug use Living Will? no Functional Ability ADLs Independent: dressing, eating, toileting, bathing. Ambulation: independent IADLs Independent: shopping, housework, finances, food prep, telephone, transportation , medication admin. Employment History Employment Disability Profession/Employer N/A Review of Systems Review of Systems Constitutional: Reports: malaise. EENTM: Denies: no symptoms. Cardiovascular: Denies: no symptoms. Respiratory: Denies: no symptoms. GI: Denies: no symptoms. Genitourinary: Reports: dysuria (1 WEEK BURNING DYSURIA), frequency. Denies: hematuria. Musculoskeletal: Denies: no symptoms. Skin: Denies: no symptoms. Neurological/Psychological: Reports: anxiety, depressed, emotional problems. Hematologic/Endocrine: Denies: no symptoms. Immunologic/Allergic: Denies: no symptoms. Post Menopausal: Yes Exam & Diagnostic Data Last 24 Hrs of Vital Signs/I&O Vital Signs Date Time Temp Pulse Resp B/P Pulse O2 O2 Flow FiO2 Ox Delivery Rate 06/05 1950 97.6 69 105/70 06/05 1614 82 137/77 06/05 1209 73 123/77 06/05 0822 98.8 92 148/65 06/04 2201 97.6 74 123/78 Intake & Output 06/05 1600 06/05 0800 06/05 0000 Intake Total Output Total Balance Patient 48.308 kg Weight Physical Exam General Appearance Alert, Oriented X3, Cooperative, Mild Distress (ANXIETY) Skin No Rashes, No Breakdown, No Significant Lesion HEENT Atraumatic, PERRLA, EOMI, Mucous Membr. moist/pink Neck Supple, No JVD, No thryomegaly, +2 Carotid Pulse wo Bruit, No LAD Cardiovascular Regular Rate, Normal S1, Normal S2, No Murmurs Lungs Clear to Auscultation, Normal Air Movement Abdomen Normal Bowel Sounds, Soft, No Tenderness, No Hepatospenomegaly, No Masses Neurological Exam Findings: Normal Gait, Normal Speech, Strength at 5/5 X4 Ext, Normal Tone, Sensation Intact, Cranial Nerves 3-12 NL, Reflexes 2+ Cranial Nerves II through XII: INTACT Extremities No Clubbing, No Cyanosis, No Edema, Normal Pulses, No Tenderness/ Swelling Vascular Normal Pulses, Pulses Symmetrical Last 24 Hrs of Labs/Lars: Laboratory Tests 06/05/161801: Urine Color YEL, Urine Clarity CLEAR, Urine pH 6.0, Ur Specific [place] 1.010, Urine Protein NEG, Urine Ketones NEG, Urine Nitrite NEG, Urine Bilirubin NEG, Urine Urobilinogen 0.2, Ur Leukocyte Esterase TRACE H, Ur Microscopic SEDIMENT EXAMINED, Urine RBC 1-3, Urine WBC 1-3 H, Ur Epithelial Cells RARE, Urine Hemoglobin TRACE-LYSED, Urine Glucose NEG Microbiology 06/05 1801 URINE ROUT: Urine Culture - RECD Assessment/Plan Assessment: #Anxiety- severe on day of admission. Has h/o depression/SI in past. Patient appears motivated to get help. Plan: Admit to [facility],. Treatment as per psychiatry. #Dysuria- patient describes approximately 1 week h/o burning dysuria. No vaginal discharge, fever, upper tract symptoms. Plan: Will check urinalysis and C&S. Empiric Amoxicillin 250 mg tid x 3 days pending culture. #CKD 4- h/o diabetes insipidus secondary to prior Li. Renal function has been stable. Plan: Will follow-up post discharge. As Ranked By This Provider Problem List: 1. Anxiety 2. Depression Qualifiers Depression Type: unspecified Qualified Code: F32.9 - Major depressive disorder, single episode, unspecified 3. CRI (chronic renal insufficiency) Qualifiers Chronic kidney disease stage: unspecified stage Qualified Code: N18.9 - Chronic kidney disease, unspecified Miscellaneous Miscellaneous Documentation Attending Case Discussed With: MARTHA JARAMILLO MD Primary Care Physician: GERI SIMPSON MD Patient sees these Specialists None Level of Patient Care: RONEN Dennis MD Review Statement Attending Statement Attending MD Statement: examined this patient, reviewed EMR data (avail), discussed with nursing, amended to note Attending Assessment/Plan: The patient was seen and discussed with nursing staff. Agree with plan of care.
[2016-06-05 19:50] VITALS: BP 105/70
--- NOTE | 2016-06-05 20:28 | NUR ---
PT IS ISOLATIVE, WITHDRAWN, TEARFUL AT TIMES, COMPLIANT AND COOPERATIVE. PT HAS BEEN OUT IN THE COMMUNITY AND INTERACTING MINIMALLY WITH PEERS/STAFF THIS EVENING SHIFT. PT WAS OOB FOR VS, DINNER, MEDICATIONS. PT WAS PREOCCUPIED WITH FINDING OUT ABOUT HER LUGGAGE FROM HOME BUT WAS ABLE TO BE REDIRECTED AND ENCOURAGED TO CONTACT HER DAUGHTER REGARDING HER BELONGINGS. VS ARE STABLE AND DENIES ANY SI/HI TO THIS MHW.
--- NOTE | 2016-06-06 06:10 | NUR ---
PATIENT SLEPT ALL NIGHT.
[2016-06-06 08:15] VITALS: BP 135/69
[2016-06-06 11:34] VITALS: BP 139/77
--- NOTE | 2016-06-06 12:06 | CP SOUTH PROGRESS NOTE PSYCH ---
Psych (Inpt) Progress Note Progress Note Include the following elements, when applicable: Involvement in the active treatment of the patient with behavioral observations of the patient and the patient's response to the treatment. Review of the ongoing treatment process in the context of the treatment plan. Indication of how multi-disciplinary staff members are carrying out the treatment plan. Plans for future interventions and recommendations for revision of the treatment plan. Liaison with other physicians/providers. Progress Note: Pt notes that she slept well overnight. Feeling "a little better" but very anxious. Denies SI or HI. Denies AVHs. Current Medications Sig/Carol Start time Last Medication Dose Route Stop Time Status Admin Acetaminophen 650 MG Q6P PRN 06/05 0945 AC 06/05 PO 1706 Amoxicillin 250 MG TID 06/05 2199 AC 06/06 PO 06/07 1601 0804 Atorvastatin Calcium 20 MG 1700 06/05 1700 AC 06/05 PO 1642 Clonazepam 0.5 MG TID 06/04 2199 AC 06/06 PO 06/11 2158 0804 Hydrochlorothiazide 12.5 MG DAILY 06/05 1000 AC 06/06 PO 0804 Lamotrigine 150 MG BID 06/04 220 AC 06/06 PO 0804 Lidocaine 1 PAT DAILY 06/05 1022 AC 06/05 EXT 1130 Nicotine 2 MG Q2 HRS NEEDED PRN 06/04 1930 AC PO Paroxetine HCl 40 MG DAILY 06/05 1000 AC 06/06 PO 0804 Phenazopyridine HCl 100 MG PC PRN 06/05 2115 AC 06/05 PO 2213 Quetiapine Fumarate 25 MG AT BEDTIME 06/05 2199 AC 06/05 PO 2159 Risperidone 0.5 MG TID 06/04 220 AC 06/06 PO 0804 Trazodone HCl 200 MG AT BEDTIME 06/04 220 AC 06/05 PO 2158 Laboratory Tests 06/06 06/05 0625 1802 Chemistry Sodium (137 - 145 mmol/L) 144 Potassium (3.5 - 5.1 mmol/L) 3.7 Chloride (98 - 107 mmol/L) 103 Carbon Dioxide (22 - 30 mmol/L) 30 Anion Gap (5 - 16) 11 BUN (7 - 17 mg/dL) 42 H Creatinine (0.5 - 1.0 mg/dL) 2.1 H Estimated GFR (>60 ml/min) 24 L BUN/Creatinine Ratio (7 - 25 %) 20.0 Urines Urine Color (YEL,AMB,STR) YEL Urine Clarity (CLEAR) CLEAR Urine pH (5.0 - 8.0) 6.0 Ur Specific [place] (1.001 - 1.035) 1.010 Urine Protein (NEG,<30 MG/DL) NEG Urine Ketones (NEG) NEG Urine Nitrite (NEG) NEG Urine Bilirubin (NEG) NEG Urine Urobilinogen (0.1 - 1.0 EU/dl) 0.2 Ur Leukocyte Esterase (NEG) TRACE H Ur Microscopic SEDIMENT EXAMINED Urine RBC (0 - 5 /HPF) 1-3 Urine WBC (0 - 2 /HPF) 1-3 H Ur Epithelial Cells (NONE,FEW) RARE Urine Hemoglobin (NEG) TRACE-LYSED Urine Glucose (N MG/DL) NEG 06/04 06/04 1510 1420 Chemistry Sodium (137 - 145 mmol/L) 138 Potassium (3.5 - 5.1 mmol/L) 3.9 Chloride (98 - 107 mmol/L) 95 L Carbon Dioxide (22 - 30 mmol/L) 32 H Anion Gap (5 - 16) 11 BUN (7 - 17 mg/dL) 32 H Creatinine (0.5 - 1.0 mg/dL) 1.9 H Estimated GFR (>60 ml/min) 26 L BUN/Creatinine Ratio (7 - 25 %) 16.8 Glucose (65 - 99 mg/dL) 140 H Calcium (8.4 - 10.2 mg/dL) 10.1 Hematology CBC w Diff NO MAN DIFF REQ WBC (4.8 - 10.8 /CUMM) 9.9 RBC (4.20 - 5.40 /CUMM) 4.05 L Hgb (12.0 - 16.0 G/DL) 12.5 Hct (37 - 47 %) 36.9 L MCV (81.0 - 99.0 FL) 91.2 MCH (27.0 - 31.0 PG) 30.8 RDW (11.5 - 14.5 %) 12.8 Plt Count (130 - 400 /CUMM) 245 MPV (7.4 - 10.4 FL) 6.9 L Gran % (42.2 - 75.2 %) 79.1 H Lymphocytes % (20.5 - 51.1 %) 14.3 L Monocytes % (1.7 - 9.3 %) 5.7 Eosinophils % (0 - 5 %) 0.6 Basophils % (0.0 - 2.0 %) 0.3 Absolute Granulocytes (1.4 - 6.5 /CUMM) 7.8 H Absolute Lymphocytes (1.2 - 3.4 /CUMM) 1.4 Absolute Monocytes (0.10 - 0.60 /CUMM) 0.6 Absolute Eosinophils (0.0 - 0.7 /CUMM) 0.1 Absolute Basophils (0.0 - 0.2 /CUMM) 0 PUBS MCHC (33.0 - 37.0 G/DL) 33.8 Toxicology Urine Opiates Screen (>2000 NG/ML) < 100.00 Methadone Screen (>300 NG/ML) < 40 Barbiturate Screen (>200 NG/ML) < 60 Ur Phencyclidine Scrn (>25 NG/ML) < 6.00 Amphetamines Screen (>1000 NG/ML) < 100 U Benzodiazepines Scrn (>200 NG/ML) < 85 Urine Cocaine Screen (>300 NG/ML) < 50 Urine Cannabis Screen (>50 NG/ML) < 5.00 Serum Alcohol (<10 MG/DL) < 10.0 Vital Signs Date Time Temp Pulse Resp B/P Pulse O2 O2 Flow FiO2 Ox Delivery Rate 06/06 1134 83 139/77 06/06 0815 98.5 98 135/69 06/05 1950 97.6 69 105/70 06/05 1614 82 137/77 06/05 1209 73 123/77 MSE Appears as stated age. Cooperative behavior, good, appropriate eye contact. Nl speech rate and prosody. ++ psychomotor retardation. Mood fine Affect falt, depressed, constricted, appropriate, non-liable. Linear and goal directed thought process. Denies SI or HI. Does not appear to be responding to internal stimuli. Denies AVHs, paranoia, or delusions. I/J: limited A/P: Pt with unspecified mood disorder and marked anxiety with mulitple recent hospitalizations. At this time, would consider ECT for depression given poor response to meds, marked psychomotor retardation, and apprehension around meds. - Continue current med regimen - Added seroquel 25mg qhs for marked rumination, slept well but concerned about oversedation if increase dose. - Consider ECT as now trialed on various meds, limited response, multiple recent admission, and kidney issues. - Encourage groups - Would consider neuropsych testing after discharge
--- NOTE | 2016-06-06 13:42 | NUR ---
PT VISIBLE MOST OF THE DAY IN THE [facility]IE[facility]. HER GOAL WAS TO TAKE CARE OF SELF. PT WAS ABLE TO TAKE A SHOWER TODAY INDEPENDENTLY. SHE ATTENDED ALL THREE GROUPS TODAY, AND DENIES THOUGHTS OF HURTING HERSELF WHEN ASKED.
[2016-06-06 15:56] VITALS: BP 118/73
[2016-06-06 19:18] VITALS: BP 132/70
[2016-06-06 19:24] VITALS: BP 111/67
--- NOTE | 2016-06-06 19:45 | NUR ---
PT IS STABLE WITH CONSTRICTED AFFECT, ANXIOUS, SEEKS HELP FROM PEERS TO AID WITH ADL'S SUCH LAUNDRY, ETC. PT IS QUIET YET WILL INTERACT WITH PEERS/STAFF AND IS APPROPRIATE, COMLPIANT, COOPERATIVE. DENIES ANY SI/HI TO THIS MHW, VS ARE STABLE.
--- NOTE | 2016-06-07 07:10 | NUR ---
PATIENT SLEPT ALL NIGHT.
[2016-06-07 08:01] VITALS: BP 118/66
--- NOTE | 2016-06-07 11:48 | CP SOUTH PROGRESS NOTE PSYCH ---
Psych (Inpt) Progress Note Progress Note Include the following elements, when applicable: Involvement in the active treatment of the patient with behavioral observations of the patient and the patient's response to the treatment. Review of the ongoing treatment process in the context of the treatment plan. Indication of how multi-disciplinary staff members are carrying out the treatment plan. Plans for future interventions and recommendations for revision of the treatment plan. Liaison with other physicians/providers. Progress Note: PSYCHIATRIST NOTE, 06/07/2016: I discussed this patient's presentation and progress thus far, current mental status, treatment and discharge planning with staff team today in the daily morning ITTM and also met with her myself in individual session. Patient appears profoundly saddened and demoralized; she was not able to give complete or elaborated responses to some of my questions out of fatigue, lack of concentration/ability to attend and current memory deficits (?largely related to severe depression). This is actually patient's 4th [facility] admission since just 03/10/2016, exactly three months, whereas, she had not been here before then since 2013 and denied having any other interval hospitalizations. Clearly, something basic has been destabilized in her life over the past several months. Patient is living with her daughter, and a family meeting should be arranged for as soon as possible, particularly in an effort to shed more light on patient's life in the recent past. Currently, patient is being prescribed two different anti-psychotic medications; she agreed to have me discontinue the Risperdal and double the regular dose of Seroquel at HS, start PRN's of Seroquel. I noted that there appeared to be remarkably little change in patient's psychotropic medication regimen since she was here in 2013; it looks that the Wellbutrin had been discontinued and recently the Prazosin which had been started more recently was discontinued ("because it GAVE ME nightmares!"). Consideration might be given to starting another mood stabilizer such as Tegretol; Rodney might prove more complicated, and I wouldn't treat concomitantly with Depakote and Lamictal ( patient currently on 150mg 2x/day of the latter). I was thinking of recommending possible change in anti-depressant Paxil, perhaps with Effexor, but patient might also experience significant "withdrawal" symptoms from stopping that particular SSRI which could further complicate matters.
[2016-06-07 12:08] VITALS: BP 111/74
--- NOTE | 2016-06-07 14:10 | NUR ---
PT REPORTED FEELING DEPRESSED AND ANXIOUS THIS MORNING. SHE DOES ATTEND GROUPS AND IS COMPLIANT WITH HER MED REGIME. HER AFFECT IS FLAT AND AT TIMES EXPREESSED HELPLESSNESS.SHE DENIED THOUGHTS OF SUICIDE OR SELF HARM ATTHIS TIME
[2016-06-07 16:21] VITALS: BP 113/61
--- NOTE | 2016-06-07 16:51 | SOCIAL WORKER PROG NOTE PSYCH ---
Social Work Progress Note Progress Note SW met with patient today for the first time since re-admission to the hospital. Patient found sleeping in her room late this afternoon. Patient reports feeling "not good." She reports depression 10 on a scale of 1-10 with 10 being the highest. She denies SI at present. She presented with sad mood and tearful at times during our meeting. Patient reports her primary concern recently has been her home life and not getting along with her daughter Moraima who resides with patient. Patient reports that she wishes that could get along better, and she feels very stressed and overwhelmed dealing with Moraima. Patient wishes to have a family meeting with Moraima during her stay but reports that Moraima currently is without transportation. Patient reports that her sister, Kiera, resides in [place] and maybe could help assist Moraima with transportation. Patient believes her sister will not be interested in participating in her treatment but has agreed to allow me to call her to inquire. Patient reports feeling abandoned by family and feeling alone. Together we discussed the possibility that patient may need more care than just living at home, and I brought up the idea of an assited living. Patient stated she does not want this and plans to return home after hospitalization.
--- NOTE | 2016-06-07 16:56 | SOCIAL WORKER TX PLAN PSYCH ---
Treatment Plan - Please Document: - Evidence that there is ongoing collaboration between - the patient and the interdisciplinary team, - including the patient's active participation and - responsibility for engaging in the treatment regimen, - and that the treatment plan is individualized and - relevant to the patient's conditions. - Treatment plan should reflect documentation indicating - that all active therapeutic efforts are included. Strengths/Capabilities: The patient receives SSDI and has section 8 housing assistance. Physical Limitations (Interventions): None noted Patient Identified Trmt Goals: " I want to manage my life better." Discharge Plan: IOP Problem/Goals #1 Problem #1: suicidal ideation Goal (Short Term): Today I will attend 2 groups Today I will identify 2 stressors Today I will identify 2 positive supports Today I will work on recognizing 3 emotions I am feeling Goal (Senior Living): Be free of suicidal thoughts/attempts Develop 3 coping skills to deal with depression Identify 3 positive support systems to call in crisis Develop a crisis plan with 3 hurley people Identify 2 positive traits per week about myself Identify 2 things I have to look forward to Identify 2 positive people in my life and 1 thing I appreciate about them Interventions: Learn ways to manage depressive symptoms accordingly and identify positive supports to manage life stressors and mood fluctuations. Modalities: Encourage groups, education on depression, provide CBT treatment, family meeting. DSM5/PS Stressors/Medical Prob Diagnosis' (DSM 5, Stressors, Medical): F32.9 Unspecified Depressive Disorder and F41.9 Unspecified Anxiety Disorder Current GAF: 25 Treatment Team - Responsibilities of members of the treatment team include: - Medication Management- MD or FAMILY PSYCHOLOGIST - Medication Administration and Monitoring- Nurse - Group Therapy- Occupational Therapist - 1:1 Therapy,Disch Planning,family involvement-Airport Duty Manager
--- NOTE | 2016-06-07 16:56 | SOCIAL WORKER PROG NOTE PSYCH ---
Social Work Progress Note Progress Note Patient completed Mini Mental Status Exam today and scored 28 which shows no cognitive impairment.
[2016-06-07 19:38] VITALS: BP 117/68
--- NOTE | 2016-06-07 21:29 | NUR ---
PT IS CALM, COOPERATIVE WITH STAFF AND PEERS, AND COMPLIANT WITH UNIT RULES. PT IS BOTH IN AND AT OF MILIEU, AT TIMES APPEARING MORE ISOLATIVE STAYING IN PT ROOM FOR EXTEDNED PERIODS OF TIMES. MOOD IS STABLE, AFFECT APPEARS EUTHYMIC, COMMUNICATION IS ORGANIZED AND APPEARS NORMAL IN ALL RESPECTS, AND APPETITE IS NORMAL. PT DENIES SI AT THIS TIME.
--- NOTE | 2016-06-08 06:29 | NUR ---
PT IN BED EARLY. PT APPEARED TO SLEEP.
[2016-06-08 08:07] VITALS: BP 139/70
--- NOTE | 2016-06-08 11:55 | NUR ---
PT IS STABLE WITH CONSTRICTED AFFECT, COMPLIANT, COOPERATIVE, PRESENT WITHIN THE COMMUNITY AND INTERACTING WITH PEERS/STAFF MEMBERS. PT ATTENDED PLANNING MEETING THIS MORNING AND STATED THAT HER GOAL WAS TO "GO TO GROUPS" AND THAT HER BACK HURTS HER AND REPORTED A POOR NIGHTS SLEEP. PT IS CURRENTLY IN ACUPUNCTURE GROUP. VS ARE STABLE AND DENIES ANY SI/HI TO THIS MHW.
[2016-06-08 12:31] VITALS: BP 145/86
--- NOTE | 2016-06-08 14:07 | SOCIAL WORKER PROG NOTE PSYCH ---
Social Work Progress Note Progress Note Pt is "having a horrible day", she vents that she is upset no one will bring her clothes, and that her back is in pain, and she cant get comfortable. Pt is depressed, frail and reports she doesn't know how to cope with her daughters mental health issues and the lack of her getting help. Laury continues to be a big support. She reports being fearful of going into a [facility], and we explored IOP, and several options of her new learn and maintain ways to cope with stress and anxiety.
[2016-06-08 15:53] VITALS: BP 127/68
--- NOTE | 2016-06-08 17:41 | CP SOUTH PROGRESS NOTE PSYCH ---
Psych (Inpt) Progress Note Progress Note Include the following elements, when applicable: Involvement in the active treatment of the patient with behavioral observations of the patient and the patient's response to the treatment. Review of the ongoing treatment process in the context of the treatment plan. Indication of how multi-disciplinary staff members are carrying out the treatment plan. Plans for future interventions and recommendations for revision of the treatment plan. Liaison with other physicians/providers. Progress Note: PSYCHIATRIST NOTE, 06/08/2016: I discussed this patient's slow progress to date, current mental status, treatment and discharge planning with staff team today in the daily morning ITTM and also met with her again myself in individual session. Patient continues to be depressed, despondent and the focus of her concerns primarily around her not knowing what to do with/about her daughter Moraima who has been living with her for quite a while; patient had actually had to take out a restraining order against one of her sons to keep him from harassing/overburdening her; she may have to do something similar about Moraima but is concerned about the latter's mental health issues/problems; it sounds as if Moraima has an untreated or undertreated bipolar disorder ranging more on the high side, whereas, patient is more predominately depressive. I am going to try to reduce the daily dose of Klonopin (from 0.5mg 3x/day to twice a day) while at the same time starting a very low regular dose of Seroquel (12.5mg) 3 times throughout the day. We are hoping to get a family meeting together with patient, Moraima and patient's sister Kiera this week. I will discuss additional mood stabilizing/anti-depressant treatment with patient (?past experience with [facility]).
[2016-06-08 20:07] VITALS: BP 124/70
--- NOTE | 2016-06-08 21:15 | NUR ---
PT IS CALM, COOPERATIVE WITH STAFF AND PEERS, AND COMPLIANT WITH UNIT RULES. PT IS BOTH IN AND OUT OF [facility], REMAINING SLIGHTLY WITHDRAWN, BUT WILL INTERACT WITH OTHERS TO SOME EXTENT. MOOD IS STABLE, AFFECT IS EUTHYMIC, COMMUNCICATION IS ORGANIZED AND APPEARS NORMAL IN ALL RESPECTS, AND APPETITE IS NORMAL. PT DENIES SI AT THIS TIME.
--- NOTE | 2016-06-09 02:59 | NUR ---
Slept well, no complaints offered.
[2016-06-09 08:09] VITALS: BP 135/82
--- NOTE | 2016-06-09 11:50 | NUR ---
PT IS COMPLIANT AND COOPERATIVE WITH UNIT RULES. PT IS OUT IN COMMUNITY INTERACTING WITH STAFF AND PEERS. PT IS WITHDRAWN AT TIMES AND NEEDS SOME ENCOURGMENT TO TALK DURING GROUPS. PT IS ATTENDING GROUPS. PT MOOD IS STABLE WITH A FLAT, ANXIOUS AFFECT. PT DENIES SI THOGUHTS.
[2016-06-09 12:37] VITALS: BP 123/85
--- NOTE | 2016-06-09 13:55 | SOCIAL WORKER PROG NOTE PSYCH ---
Social Work Progress Note Progress Note Patient reports feeling anxious today and presents as anxious and depressed. Patient reports continuous concern about returning home with her daughter Moraima after discharge from the hospital. This senior grant writer spoke with patients case Melissa solitario, at [facility]. Melissa has been working with Brenda for many years and is very familiar with patients family life. She belives that patients children are her primary stressor and the main reason she keeps seeking hospitalization. She believes at this time that Moraima needs to seek treatment on her own but unfortunately is not willing to do so. Melissa has discussed with patient looking into getting Moraima conserved in order to mandate treatment for her. I have continued to call Moraima to try to set up family meeting with no response and also left message for patient sister, Kiera, today.
--- NOTE | 2016-06-09 15:59 | CP SOUTH PROGRESS NOTE PSYCH ---
Psych (Inpt) Progress Note Progress Note Include the following elements, when applicable: Involvement in the active treatment of the patient with behavioral observations of the patient and the patient's response to the treatment. Review of the ongoing treatment process in the context of the treatment plan. Indication of how multi-disciplinary staff members are carrying out the treatment plan. Plans for future interventions and recommendations for revision of the treatment plan. Liaison with other physicians/providers. Progress Note: PSYCHIATRIST NOTE, 06/09/2016: I discussed this patient's progress to date, current mental status, treatment and discharge planning with staff team today in the daily morning ITTM and also met with her again myself in individual session. Patient was somewhat more interactive with me today but still profoundly depressed, particularly in relation to her dilemma as to how to get her daughter Moraima the help she appears to need (for bipolar disorder?) or get her out of her home; daughter appears to have a dominating personaity (perhaps particularly so when hypomanic) which patient cannot stand up to particularly when she herself is clinically depressed. Patient denied daytime sedation or other side effects from the increased dose of Seroquel (12.5mg 3x/day added to help with anxiety throughout the day and allow tapering of the potential depressant Klonopin), but she has not utilized any PRN's of same despite telling me she had difficulties sleeping last night; I have recommended that she ask for a PRN dose of Seroquel tonight if she again has trouble settling down for restful sleep. Patient does not appear MORE anxious with the reduction in daily dose of Klonopin by 33% and the retarting of Wellbutrin (the latter having been considered possibly overstimulating at a dose to 300mg daily on an outpatient basis); however, I will wait before further upward titration in dose of Wellbutrin. We are still trying to get patient's daughter Moraima and sister Kiera in for a family meeting as soon as possible.
[2016-06-09 16:00] VITALS: BP 120/73
[2016-06-09 19:37] VITALS: BP 112/57
--- NOTE | 2016-06-09 21:15 | NUR ---
PT IS VISIBLE ON UNIT, MOSTLY STAYING TO HERSELF AND WATCHING TV IN LOUNGE. MINIMAL INTERACTION WITH PEERS, COOPERATIVE AND COMPLIANT WITH STAFF. ATTENDED WRAP UP MEETING. NO COMPLAINTS OR SI REPORTED. PT HAS A STABLE MOOD AND FLAT AFFECT.
--- NOTE | 2016-06-10 07:07 | NUR ---
PATIENT SLEPT ALL NIGHT.
[2016-06-10 08:05] VITALS: BP 115/68
--- NOTE | 2016-06-10 11:46 | SOCIAL WORKER PROG NOTE PSYCH ---
Social Work Progress Note Progress Note Patient continues to report "not good" when asked how she is today. Patient continues to present with depressed affect and mood. She has been seen attending groups and according to nursing staff participates well in group activitie. Patient has agreed to try IOP at [facility] in [place] VS. IOP again. I faxed referral today to [facility] and waiting to hear from them to schedule intake. Patient denies SI at present but does report continuing to not feel good and nervous about returning home. I did speak with patients daughter, Moraima, today. Moraima reports that she thinks patient is sounding better on the phone and getting better. Moraima states that she is afraid that patient may be developing dementia, stating that her memory seems impaired at times. She reports that they tend to have the same argument over and over again, and Moraima gets fed up having the same discussion constantly. Moraima reports that they are normal arguments about cleaning the house etc. but become overwhelming when discussed over and over again.
[2016-06-10 12:34] VITALS: BP 124/78
--- NOTE | 2016-06-10 14:03 | NUR ---
PT VISIBLE IN THE MILIEU TODAY. HER GOAL WAS TO JOURNALIZE HER FEELINGS AND ATTEND GROUPS. PT HAS BEEN GOING TO GROUPS, AND ACTIVELY PARTICIPATING IN THEM. IN THE MILIEU PT IS COOPERATIVE BUT HAS DIFFICULTY MAKING DECISIONS ABOUT HER CARE, FOR INSTANCE PT ASKED THIS MHW ON A FEW OCCASSIONS IF SHE SHOULD TAKE A SHOWER NOW. PT WAS DIRECTED TO TAKE A SHOWER WHEN SHE FELT COMFORTABLE, LONG IT WAS NOT DURING GROUPS. PT DENIES THOUGHTS OF HURTING HERSELF WHEN ASKED.
[2016-06-10 16:17] VITALS: BP 127/71
[2016-06-10 19:47] VITALS: BP 117/72
--- NOTE | 2016-06-10 20:52 | NUR ---
PT IS COOPERATIVE WITH STAFF AND PEERS, AND COMPLIANT WITH UNIT RULES. PT IS OFTEN IN MILIEU, THOUGH SLIGHTLY WITHDRAWN, STAYING TO SELF MOST OF THE TIME. MOOD IS STABLE, AFFECT IS EUTHYMIC, CAN APPEAR ANXIOUS AT TIMES, COMMUNICATION SI ORGANIZED AND APPEARS NORMAL IN ALL RESPECTS, AND APPETITE IS NORMAL. PT DENIES SI AT THIS TIME.
--- NOTE | 2016-06-10 21:50 | CP SOUTH PROGRESS NOTE PSYCH ---
Psych (Inpt) Progress Note Progress Note Include the following elements, when applicable: Involvement in the active treatment of the patient with behavioral observations of the patient and the patient's response to the treatment. Review of the ongoing treatment process in the context of the treatment plan. Indication of how multi-disciplinary staff members are carrying out the treatment plan. Plans for future interventions and recommendations for revision of the treatment plan. Liaison with other physicians/providers. Progress Note: PSYCHIATRIST NOTE, 06/10/2016: I discussed this patient's slow progress to date, current mental status, treatment and discharge planning with staff team today in the daily morning ITTM and also met with her again myself in individual session. Patient continues to be very depressed, particularly demoralized by the fact that neither her daughter nor her sister have even come in to see her or bring in the clothes from home she needs. However, anxiety is not increasing with taper of Klonopin and restarting Wellbutrin. Patient is willing to increase dose of Wellbutrin to 100mg tomorrow AM; I plan to reduce Klonopin from 1mg to 0.75mg/day as well. Patient is eating and sleeping a little better. She continues with constricted, very sad affect and low energy/initiative, denying suicidality in hospital but such enters her mind when he contemplates going home and the situation there with her daughter Moraima who she feels "doesn't pull her weight" in terms of helping with the work around patient's home which she has been sharing with daughter for some time now.
[2016-06-11 08:12] VITALS: BP 105/74
--- NOTE | 2016-06-11 10:52 | SOCIAL WORKER PROG NOTE PSYCH ---
See Addendum Social Work Progress Note Progress Note Patient continues to present with sad and depressed mood and was tearful throughout our meeting. Patient is aware that she will remain in the hospital over the weekend and expresses fear of discharging Tuesday. Patient reports that she was hyperventalating in the shower this AM and feels "awful". We called her daughter Moraima together today and had discussion about preparing for patient to return home. Patient was assertive with Moraima and asked for Moraima to patient with her because she is having a hard time. Moraima agreed and responded telling patient she loved her. Together they discussed taking on different responsibilities in the house and coming up with a list that they are each responsible for. Patient still reports fear that Moraima will not be respectful when she returns home and believes Moraima "talks a good talk." Intake has been scheduled at [facility] for June 29, 2016 @ 12PM. Patient's protective services case worker, Melissa, from [facility] plans to take patient to this intake. In the mean time, patient can attend weekly DBT groups at [facility] and will continue to see Melissa frequently. Melissa plans to see patient at [facility] [place] the day she returns home from the hospital. I informed Melissa that we are anticipating discharge from the hospital this coming 06/14/16. Melissa plans to be there around 3PM to see patient. Patient will also need to resume VNS on Tuesday as well and her VNS, Laury Reed, from [facility] should be contacted regarding discharge. Patient has [employer] scheduled for sampler pickup Tuesday at 1PM to drive her home.
[2016-06-11 12:28] VITALS: BP 136/71
--- NOTE | 2016-06-11 14:30 | NUR ---
PT VISIBLE IN THE MILIEU THROUGHOUT THE DAY. HER GOAL WAS TO PARTICIPATE IN GROUPS. PT HAS BEEN GOING TO GROUPS AND ACTIVELY PARTICIPATING IN THEM. SHE CONTINUES TO BE TEARFUL AT TIMES, AND ANXIOUS AT TIMES BUT BETTER THAN SHE WAS YESTERDAY. IN THE MILIEU PT IS COOPERATIVE WITH STAFF DIRECTION, AND DENIES THOUGHTS OF HURTING HERSELF.
[2016-06-11 15:51] VITALS: BP 135/71
--- NOTE | 2016-06-11 18:47 | CP SOUTH PROGRESS NOTE PSYCH ---
Psych (Inpt) Progress Note Progress Note Include the following elements, when applicable: Involvement in the active treatment of the patient with behavioral observations of the patient and the patient's response to the treatment. Review of the ongoing treatment process in the context of the treatment plan. Indication of how multi-disciplinary staff members are carrying out the treatment plan. Plans for future interventions and recommendations for revision of the treatment plan. Liaison with other physicians/providers. Progress Note: PSYCHIATRIST NOTE, 06/11/2016: I discussed this patient's slow progress to date, current mental status, treatment and discharge planning with staff team today in the daily morning ITTM and also met with her again myself in individual session. Patient and Juana Flowers LCSW, had spoken with her daughter earlier today; patient said the discussion was good but that "my daughter talks a good game but..." I very much encouraged patient again with regard to trying to organize a family meeting with her daughter prior to discharge, preferrably on 06/14/2016; I believe Moraima could make it to a meeting if she wanted to and tried AND if patient really encouraged her to come in to meet with her and us. Though patient was grateful for having received some new clothes (blouses and slacks) which fit her so she doesn't have to wash and wear everyday the same clothes she came into the E.D. wearing, she is still depressed with severely constricted to blunted affect and dysphoric mood still hovering close to hopelessness. I am concerned about the current aftercare plan (see the very detailed/comprehensive progress note of this date by Juana Flowers LCSW) which I do not believe provides her with sufficient support immediately coming out of hospital, particularly given how depressed she has been and continues to be; I discussed with patient reconsidering attending our own behavioral health IOP which she had initially rejected at the outset, saying she had been there before and she's depresed again. Now, patient is much more receptive to attending our IOP, and I would recommend that f/u be changed from the [facility] (the second week of June) to our own with intake to take place on date of discharge. Perhaps this can be discussed with patient's worker Melissa to see if she could provide or help arrange transportation. Patient denies feeling jittery or shaky on current dose of Wellbutrin and agreed to increase from 100mg to 150mg/day tomorrow morning, . Since she is still anxious (but NOT jittery) and having difficulty with sleep contnuity, I recommended increase in daytime Seroquel from 12.5mg 3x/ day to 25mg twice a day and increasing HS Seroquel by 50% to 75mg. I am also continuing the very slow taper of Klonopin dose; over the coming weekend patient 's dose will be reduced from 0.75mg/day to 0.5mg HS.
[2016-06-11 20:19] VITALS: BP 108/70
--- NOTE | 2016-06-11 21:24 | NUR ---
PT HAS SPENT SOME TIME IN HER ROOM. DURING CHECKS SHE WAS FOUND STANDING, LOOKING OUT THE WINDOW. PT TALKS TO STAFF AND TALKS ABOUT HER ANXIETY AND CONCERNS REGARDING HER FAMILY. COMPLIANT. PT DENIES ANY SI AT THIS TIME.
[2016-06-12 08:37] VITALS: BP 119/73
--- NOTE | 2016-06-12 11:57 | NUR ---
PT REPORTS FEELING DEPRESSED AND ANXIOUS THIS MORNING. SHE DID DENY SUICIDAL THOUGHTS. SHE WAS ASKING STAFF AND HER PEERS TO ASSIST HER IN THE SHOWER BUT SHE WAS ENC TO WAIT TO SHOWER UNTIL SHE FELT STRONG ENOUGH TO DO IT HERSELF. SHE IS COMPLIANT WITH HER MED REGIME AND SHE IS ATTENDING GROUPS
--- NOTE | 2016-06-12 12:22 | CP SOUTH PROGRESS NOTE PSYCH ---
Psych (Inpt) Progress Note Progress Note Include the following elements, when applicable: Involvement in the active treatment of the patient with behavioral observations of the patient and the patient's response to the treatment. Review of the ongoing treatment process in the context of the treatment plan. Indication of how multi-disciplinary staff members are carrying out the treatment plan. Plans for future interventions and recommendations for revision of the treatment plan. Liaison with other physicians/providers. Progress Note: Stated that she is a mess today, that she feels self conscious about people staring at her, uncomfortable and anxious. Stated that her son called and made her upset, precipitating her being more anxious than usual. Appears to be as anxious/depressed and withdrawn as previous notes; and as previous presentations. No overt psychotic thinking noted. MSE: older woman, fair hygiene and grooming. Thin. Tremulous overall. Fair eye contact. Psychomotor slowing noted. Speech soft, regular rate and rhythm. Mood anxious, affect constricted overall, congruent to mood. Some reactivity present. Thought content positive global anxiety, depressed mood. Denied SI/HI. No voices and not internally preoccupied. Thought process concrete. Insight fair to poor. Judgment appropriate. A: 65 y/o woman w/ hx depressive illness, anxiety sx, multiple medical problems, appears anxious, likely close to her recent clinical status. Risk: Hx significant psychiatric sx, significant medical problems, and tx resistant sx which elevate her chronic risk of harm to self/others. Recent suicidal thoughts prior to admission and current anxiety elevate her risk of harm to self/others. Mitigate w/ education, room close to nursing station, clinical re-eval, continue current meds; milieu therapy, encourage to be in the milieu and engage w/ staff. P: Continue current plan of care. Reviewed labs, Cr appears to be around her baseline (1.8-2); elevated.
[2016-06-12 12:24] VITALS: BP 119/79
[2016-06-12 16:06] VITALS: BP 146/75
[2016-06-12 19:41] VITALS: BP 119/61
--- NOTE | 2016-06-12 20:51 | NUR ---
PT IS CALM, COOPERATIVE WITH STAFF AND PEERS, AND COMPLIANT WITH UNIT RULRS. PT IS OFTEN IN MILIEU, THOUGH WITHDRAWN, NOT INTERACTING MUCH WITH PEERS. MOOD IS STABLE, AFFECT IS EUTHYMIC, COMMUNICATION IS ORGANZIED AND APPEARS NORMAL IN ALL RESPECTS, AND APPETITE IS NORMAL. PT DENIES SI AT THIS TIME.
--- NOTE | 2016-06-13 05:21 | NUR ---
PT APPEARED TO SLEEP. PT CONTINUES ANXIOUS, REQUIRING REASSURANCE FROM STAFF. PT SOCIAL WITH SELECT PEERS.
[2016-06-13 08:04] VITALS: BP 135/93
--- NOTE | 2016-06-13 11:58 | NUR ---
PT REPORTS WAKING UP FEELING DEPRESSED AND ANXIOUS. SHE DENIES SUICIDAL THOUGHTS BUT FEELS OVERWHELMED AND UNABLE TO TAKE CARE OF HERSELF. SHE WAS TEARFUL AT ONE POINT AND STATED SHE WAS WORRIED ABOUT HER CHILDREN AND HER ABILITY TO CARE FOR HERSELF. SHE WAS ENC TO TAKE A PRN.SHE IS GOING TO GROUPS AND TAKING HER MEDS
[2016-06-13 11:59] VITALS: BP 140/64
--- NOTE | 2016-06-13 12:17 | CP SOUTH PROGRESS NOTE PSYCH ---
Psych (Inpt) Progress Note Progress Note Include the following elements, when applicable: Involvement in the active treatment of the patient with behavioral observations of the patient and the patient's response to the treatment. Review of the ongoing treatment process in the context of the treatment plan. Indication of how multi-disciplinary staff members are carrying out the treatment plan. Plans for future interventions and recommendations for revision of the treatment plan. Liaison with other physicians/providers. Progress Note: More tearful today, still anxious, depressed and uncomfortable. Stated that she feels ugly and not herself w/o makeup; that she is nervous to take a shower for fear of falling, but knows she feels better after a shower. We attempted some breathing; provided calming techniques, suggested asking RN for good time to take a shower so she does not standard machine stitcher the hallway waiting, to consider a PRN, watch tv or distract self to calm down prior to showering. Feels not ready to go home, is fearful to continue relapsing anxiety and distress over weekend likely related to fear of discharge this week. MSE: older woman, fair hygiene and grooming. Thin. Tremulous, tearful at times. Better eye contact. Psychomotor slowing. Speech soft. Mood is depresesd and anxious, affect is constricted; congruent to her mood. Thought process is perseverative on her anxiety and fear of not getting better. Thought content positive depression, anxiety but no actual thoughts of SI. No AH/VH. Insight fair to poor. Judgment appropriate. A: 65 y/o woman w/ hx depressive illness, anxiety sx, multiple medical problems, appears anxious, depressed, concerned about relapsing again. P: Continue current plan of care. Discussed calming techniques; encouraged beh activation and distraction to help cope w/ her anxiety. Seroquel was increased yesterday, may help w/ some of her sx.
[2016-06-13 12:19] VITALS: BP 127/58
[2016-06-13 15:57] VITALS: BP 123/70
--- NOTE | 2016-06-13 17:02 | NUR ---
Patient is A&O X 3, present in the community and compliant with medication and group therapies. Pt persistently verbalizes anxiety and visibly shakes uncontrollably and overwhelmingly . Rreport some irrational dread of some of her ADLs like not able to take shower by herself asking help from her room for shower and to clean after herself. Mood and affect are very anxious, vital sign is stable, denies thought of self-harm and to someone else.
[2016-06-13 19:58] VITALS: BP 139/71
--- NOTE | 2016-06-13 20:54 | NUR ---
PT IS COOPERATIVE WITH STAFF AND PEERS, AND COMPLIANT WITH UNIT RULES. PT IS OFTEN IN MILIEU, BUT SLIGHTLY WITHDRAWN AT TIMES. MOOD IS STABLE, AFFECT IS EUTHYMIC, COMPLAINS OF ANXIETY, COMMUNICATION IS ORGANIZED AND APPEARS NORMAL IN ALL RESPECTS, AND APPETITE IS NORMAL. PT DENIES SI AT THIS TIME.
--- NOTE | 2016-06-14 06:54 | NUR ---
PT SLEPT WELL. PT ANXIOUS WHEN AWAKE.
[2016-06-14 08:13] VITALS: BP 126/62
--- NOTE | 2016-06-14 11:27 | SOCIAL WORKER PROG NOTE PSYCH ---
Social Work Progress Note Progress Note New transportation booked for 06/15/16 at 1pm reference number [id number] through [place] [phone]
--- NOTE | 2016-06-14 11:46 | NUR ---
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 SHE IS ATTENDING GROUPS AND TAKING HER MEDS.SHE DENIED SUICIDAL THOUGHTS WHEN ASKED THIS MORNING.
[2016-06-14 12:32] VITALS: BP 113/63
--- NOTE | 2016-06-14 13:24 | CP SOUTH PROGRESS NOTE PSYCH ---
Psych (Inpt) Progress Note Progress Note Progress Note: I discussed this patient's progress to date, current mental status, treatment process in the context of the treatment plan, and discharge planning with staff/ team in the daily morning inpatient team meeting. I also met with the patient myself in individual session. A total of 25 minutes was spent with the patient with more than 50% spent in counseling and/or coordination of care. SUBJECTIVE:" I'm having a hard time making simple decisions, like choosing from the menu. I'm very nervous and tense. I'm lost, I don't know what to do anymore." OBJECTIVE: Current Medications Sig/Carol Start time Last Medication Dose Route Stop Time Status Admin Acetaminophen 650 MG Q6P PRN 06/05 0945 AC 06/13 PO 0939 Atorvastatin Calcium 20 MG 17006/05 170 AC 06/13 PO 1602 Bupropion HCl 150 MG 0800 06/12 0800 AC 06/14 PO 0931 Clonazepam 0.5 MG 06/11 220 AC 06/13 PO 06/18 1714 2218 Lamotrigine 150 MG BID 06/04 220 AC 06/14 PO 0931 Lidocaine 1 PAT DAILY PRN 06/13 1052 AC EXT Mirtazapine 7.5 MG 06/08 220 AC 06/13 PO 2218 Nicotine 2 MG Q2 HRS NEEDED PRN 06/04 1930 AC PO Paroxetine HCl 40 MG DAILY 06/05 1000 AC 06/14 PO 0931 Phenazopyridine HCl 100 MG PC PRN 06/05 2115 AC 06/06 PO 2153 Quetiapine Fumarate 50 MG 0800,1400 06/14 1400 AC 06/14 PO 1306 Quetiapine Fumarate 25 MG 1000,1600 06/12 1000 DC 06/14 PO 0931 Quetiapine Fumarate 75 MG 06/11 AC 06/13 PO 1940 Quetiapine Fumarate 12.5 MG Q4H PRN 06/11 1715 AC 06/13 PO 1817 Trazodone HCl 200 MG AT BEDTIME 06/04 2199 AC 06/13 PO 2218 Laboratory Tests 06/14 0744 Chemistry BUN (7 - 17 mg/dL) 52 H Creatinine (0.5 - 1.0 mg/dL) 1.9 H Estimated GFR (>60 ml/min) 26 L BUN/Creatinine Ratio (7 - 25 %) 27.4 H Vital Signs Date Time Temp Pulse Resp B/P B/P Pulse O2 O2 Flow FiO2 Mean Ox Delivery Rate 06/14 1232 79 113/63 06/14 0813 97.6 85 126/62 06/13 1958 98.3 67 139/71 06/13 1557 75 123/70 ASSESSMENT: Patient continues to present in a very anxious, tense manner. Tearful during our conversation this afternoon. She reports continuing high levels of depression and anxiety. States that she is very nervous about returning home, as she finds it difficult to live alongside her daughter. States that she does not have much to do at home. She would like to listen to music, and was given a radio by her sister. However she says she cannot use the radio because no one ever showed her how to use it, and she can't figure it out on her own. Today we practiced meditation/breathing exercise, and I suggested that she try sitting and doing mindful breathing a few times daily. Denies suicidal ideation, homicidal ideation, auditory hallucinations, visual hallucinations, paranoid ideation. Patient states and also believes that she will not kill herself. Speech is well articulated, goal-directed, average in rate, volume and tone. Alert and oriented 3. Cooperative. She reports sleeping well last night. The patient understands the risks/benefits/side effects of the medication and is agreeable to continue taking them. PLAN: Increase Seroquel to 50 mg in the morning and afternoon. Patient encouraged to take prn Seroquel when necessary. Encourage meditation/ breathing exercise. Continue with other current management as patient. Continue to provide support and encouragement.
--- NOTE | 2016-06-14 14:28 | SOCIAL WORKER PROG NOTE PSYCH ---
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 We explored options for additional in home services like a home health aide I will call Laury from patient [facility] to find out of she thinks this could be helpful.
[2016-06-14 16:09] VITALS: BP 119/55
[2016-06-14 20:07] VITALS: BP 105/67
--- NOTE | 2016-06-15 04:45 | NUR ---
Slept well, with no complaints offered.
[2016-06-15 07:49] VITALS: BP 101/73
--- NOTE | 2016-06-15 10:48 | NUR ---
PT REPORTS A LOT OF ANXIETY TODAY ABOUT AND THE POSSABILTY OF DISCHARGE TODAY. PT IS ALSO FOCUSED ON HER CLOTHING AND WHAT TO WEAR/ WEAR HOME. EVEN AFTER EXPLAING SHE HAD CLOTHING IN HER ROOM, SHE STILL FELT WORRIED. PT IS TEARFUL AT TIMES. PT IS OUT IN COMMUNITY AT TIMES, MINIMAL INTERACTION WITH STAFF AND PEERS. PT IS ATTENDING SOME GROUPS. PT DENIES SI ELIZABETH.
[2016-06-15 12:11] VITALS: BP 142/65
--- NOTE | 2016-06-15 12:36 | SOCIAL WORKER PROG NOTE PSYCH ---
Social Work Progress Note Progress Note Met with Brenda this morning, she stated she does not feel ready to discharge. She was tearful in session. She denied SI/HI, no psychosis (overt), but appears very depressed and anxious. She did state she slept well, appetite has decreased. She is grinding her teech more so than usual she stated. She has alot of thoughts running around in her head (worries). She reported feeling dizzy in the shower last night. Upated Dr. Cisneros. Recieved call from her case filler at [facility], Melissa Stinson x [phone]. She stated she would like to know discharge plans and see Pt when she is discharged. She was receiving medication, groups and case management with [facility] in recent past.
--- NOTE | 2016-06-15 12:59 | CP SOUTH PROGRESS NOTE PSYCH ---
Psych (Inpt) Progress Note Progress Note Include the following elements, when applicable: Involvement in the active treatment of the patient with behavioral observations of the patient and the patient's response to the treatment. Review of the ongoing treatment process in the context of the treatment plan. Indication of how multi-disciplinary staff members are carrying out the treatment plan. Plans for future interventions and recommendations for revision of the treatment plan. Liaison with other physicians/providers. Progress Note: PSYCHIATRIST NOTE, 06/15/2016: I discussed this patient's slow progress to date, current mental status, treatment and discharge planning with staff team today in the [facility] and also met with her in individual session, along with Cindy Fraire. Patient was shaky today, telling us she was "very nervous" about going home; I observed that in the 4 admissions here already in 2017 we have done all we can with her, adjusted medications, sent her repeatedly to [facility] and that there was not much more we could do with her alone; the situation in her home with her psychiatrically impaired daughter, Moraima, has not changed and during the current admission we could not get Moraima in even to bring her mother some clothes, let alone for a family meeting; whether or not daughter has a car, she could have found a way to get her here if she had tried. Patient told us Moraima "used to go to [facility]" but has been out of treatment and off medication for some time, and making patient's life more difficult than it is already. We urged her to speak with her worker at [facility], [facility], about the possibility of sending out a mobile team to evaluate Moraima or, if patient were to become afraid for her own safety she should dial "[phone]," that that might be the only way to get Moraima evaluated, in an E.R., and from there back into treatment; we noted that this is, unfortunately but necessarily, the way that many patients with major psychiatric disorders get reinvolved with treatment after falling away from it. Over the course of our discussion, patient became less teary and really seemed to be listening to what we were saying, asking questions and for us to repeat several thing we said/ suggested for her. There is really nothing more to be done with patient's psychotropic medications at this point other than continuing to take them (with the daily assistance of visiting nurse Schaeffer) and give them time to help; otherwise, patient needs to do what is right by herself and her daughter going forward.
--- NOTE | 2016-06-15 13:25 | SOCIAL WORKER PROG NOTE PSYCH ---
Social Work Progress Note Progress Note LEIDY CHAVIS [id number] 1950 LEIDY CHAVIS [id number] Pended Authorization # Client Authorization # Type of Request [id number] CONCURRENT Date of Admission/ Start of Services Requested From Submission Date 06/04/2016 06/15/2016 06/15/2016
--- NOTE | 2016-06-15 13:34 | SOCIAL WORKER PROG NOTE PSYCH ---
Social Work Progress Note Progress Note Met with pt explored options to have her adult daughter start her own mental health treatment as pt states her lifestyle is a stressor for her to feel comfortable in her own home. I spoke with [facility] [place] [phone] will set up a home health aide to start Tuesday. Laury will resume services. I left her a mesage as well. [phone]. I arranged [facility] for pt transportation from the hospital to home for at 1pm. [phone]. Reservation # [id number] Pt feels comfortable with plan and will attend intake appointment with [facility] for June 29, 2016 @ 12PM. Patient's rehabilitation caseworker, Melissa, from [facility] plans to take patient to this intake. In the mean time, patient can attend weekly DBT groups at [facility] and will continue to see Melissa frequently. Melissa plans to see patient at patients house the day she returns home from the hospital.
[2016-06-15 15:55] VITALS: BP 125/64
[2016-06-15 20:35] VITALS: BP 126/69
--- NOTE | 2016-06-15 21:57 | NUR ---
PATIENT HAS BEEN WALKING LAPS UP AND DOWN THE HALLWAY DURING EVENING SHIFT; ANXIETY STILL EVIDENT; AFFECT REMAINS CONSTRICTED, WITH VAGUE/SLOW RESPONSES TO QUESTIONS; PATIENT ATTENDED AND PARTICIPATED (WITH ENCOURAGEMENT) IN WRAP UP MEETING; VITAL SIGNS WNL.
--- NOTE | 2016-06-16 06:31 | NUR ---
PATIENT WAS BRIEFLY AWAKE X1, OTHERWISE SLEPT ALL NIGHT.
[2016-06-16 08:17] VITALS: BP 109/81
--- NOTE | 2016-06-16 08:47 | SOCIAL WORKER PROG NOTE PSYCH ---
Social Work Progress Note Progress Note Brenda is discharging today. She reports no SI/HI, no psychosis. She is anxious, understands her discharge plan. A referral was made to [facility] for a home health aide. She has some good supports in place with a nurse and family independence case manager that know her well. HEr family independence case manager, Montrell Farris will make sure she gets to all her appointments. Spoke with Melissa Collins, family independence case manager of [facility], she will see Brenda this afternoon at around 4pm to check in with her. Ms. Collins will see Brenda 2x per week, and transport her to her intake at [facility] on 06/29/16 at 12noon. Also, [facility] will engage Brenda in groups until she starts [facility]. [facility] has a DBT Group on 06/22 at 10am and a WRAP group on 06/18 and 06/25 at 11am. W10 faxed to [facility], [facility] and [facility].
--- NOTE | 2016-06-16 10:05 | NUR ---
PT IS TENTATIVELY SCHEDULED FOR [place] [facility] [place]. SHE REPORTS FEELING ANXIOUS ABOUT LEAVING THE HOSPITAL BUT SHE DENIES ANY THOUGHTS OF SUICIDE OR SELF HARM. SHE DENIES AH AND IS COMPLIANT WITH HER MED REGIME. SHE AGREES WITH FOLLOW UP PLANS. SHE HAS A PIECE GOODS PACKER AT [facility] WHO WILL SEE HER 2X WEEKLY. SHE WILL ATTEND [facility] AND SHE HAS HER DBT GROUP WEEKLY.PT IS GIVEN EDUCATION R/T MANAGING HER MOOD D/O AND ON PREVENTING SUICIDE
[2016-06-16] MEDS ORDERED: LAMICTAL100 M2 PO (12:06)
[2016-06-16] MEDS ORDERED: KLONOPIN0.5 M1 PO (12:06)
[2016-06-16] MEDS ORDERED: BUPROPION HCL150 M4 PO (12:07)
[2016-06-16] MEDS ORDERED: REMERON15 M2 PO (12:08)
[2016-06-16] MEDS ORDERED: PAXIL20 M1 PO (12:10)
[2016-06-16] MEDS ORDERED: TRAZODONE HCL100 M1 PO (12:10)
[2016-06-16] MEDS ORDERED: QUETIAPINE FUMA25 M1 PO (12:11)
[2016-06-16] MEDS ORDERED: SEROQUEL50 M1 PO (12:12)
[2016-06-16 12:39] VITALS: BP 129/68
--- NOTE | 2016-06-16 13:16 | CP SOUTH PROGRESS NOTE PSYCH ---
Psych (Inpt) Progress Note Progress Note Include the following elements, when applicable: Involvement in the active treatment of the patient with behavioral observations of the patient and the patient's response to the treatment. Review of the ongoing treatment process in the context of the treatment plan. Indication of how multi-disciplinary staff members are carrying out the treatment plan. Plans for future interventions and recommendations for revision of the treatment plan. Liaison with other physicians/providers. Progress Note: PSYCHIATRIST NOTE (DISCHARGE), 06/16/2016: I discussed this patient's slow progress to date, current mental status, treatment and discharge plans with staff team today in the daily morning ITTM and met with her again myself in individual session prior to discharging her to return to her ongoing outpatient treatment with [facility] while she awaits admission to the [facility] in [facility], on 2016 at noon. She will continue to have visiting nurse services from [facility] for daily medication administratoin; Laury from [facility] will visit patient in her home at 3pm on day of discharge. Patient will continue to receive twice weekly home visits from her clinical case manager at [facility], Melissa Farris , resuming on day of discharge, 06/16/2016, at 4pm. Referral has been made for a home health aide at least 2x/week. Patient is also to attend groups at [facility] on 06/18/2016 and 06/25/2016 at 11am and DBT group on 06/22/2016; Melissa will drive patient to all [facility] appointments, as well as to her intake at [facility]. Patient did not wish to return to the [facility] at this time. Patient has been focused during this admission on the stressful impact on her fragile mental state having her (mentally ill and lnx-ut-qtwgkqzfo/off medications) daughter in her home; she will discuss with her treaters at [facility] how daughter might be re -established there as a patient where she once had been treated before she dropped out. Though still anxious and dysphoric at times, at time of discharge patient showed no evidence of suicidality or homicidality and was well aware of her safety plan should she ever in future come to believe she is at acute risk of harming herself or others. Patient denied any side effects on current medication regimen; she had tolerated taper of Klonopin dose from 1.5mg to 0.5mg /day though that taper was likely contributing to some extent to her residual anxiety. I called into [facility] in [place], [place] on day of discharge, 06/16/2016 ( to be picked up that afternoon by Laury the nurse from [facility] visiting nurse service): Paxil, 40mg: i tab daily in AM (40mg/day); #14 with no refill (anti- depressant) Wellbutrin SR, 150mg: i tab dailyin AM (150mg/day); #14 with no refill ( augmentation of Paxil rx) Seroquel, 50mg: i tab 3x/day; #42 with no refill (to clarify thinking) Seroquel, 25mg: i tab HS (to clarify thinking) i tab PRN for racing thoughts; #28 with no refill (patient is currently taking 175-200mg of Seroquel daily) Lamictal, 150mg: i tab 2x/day (300mg daily); #28 with no refill (mood stabilization) Remeron, 7.5mg: i tab nightly at HS (7.5mg/night); #14 with no refill (sleep induction/anxiety) trazodone, 100mg: ii tabs nightly at HS (200mg/night); #28 with no refill ( sleep induction) Klonopin, 0.5mg: i tab HS PRN DFA (max. 0.5mg/night); #14 with no refill patient was encouraged to utilize nicotine gum, 2-4mg OTC to reduce cigarette/ nicotine cravings and given an appointment card for the next [facility] scheduled for 06/23/2016 at 4pm, facilitated by Jeny Donaldson LCSW patient also had an adequate supply at home to continue taking: Lipitor, 20mg/nightly
--- NOTE | 2016-06-16 13:17 | DISCHARGE SUMMARY REPORT-PSYCH ---
Visit Information Visit Dates/Diagnosis' Admission Date: 06/04/16 Discharge Date: 06/16/16 Reason for Admission: "I just can't...I'm very depressed and anxious..." Psy Discharge Primary Diag: Unspecified Mood Disorder severe; depressed with persistent suicidality Psy Discharge Secondary Diag: R/O Unspecified Biopolar Disorder, severe; MRE Depressed Unspecified Anxiety Disorder with components of BEBE/panic/social anx. Hypothyroidism Hospital Course Significant Lab Findings: BUN = 52, creatinine = 1.9, GFR = 26; RBC = 4.05; lymph 14.3%, gran 79.1% with 7.8% gran abs; MARGARET = less than 10.0; urine for drugs of abuse--negative (for complete details of all normal range laboratory data from this admission, see the electronic medical record) Course Complications: none Consultations: patient was seen for an admission medical H&P by Jose Daniel Ibarra M.D., with followed medically during this admission by the hospitalist staff/[facility] medical attending physicians Allergies: Coded Allergies: haloperidol (From HALDOL) (EYES ROLLED IN BACK OF HEAD 06/04/16) hydrocodone (LOOPY 06/04/16) Hospital Course/TX Response: (see also, all admission/initial assessments and daily M.D/RESEARCH FELLOW and REFERRAL NURSE progress notes, in the electronic medical record) Initially, patient reported being "not well for months" (in fact, having been admitted to [facility] now 4 times since 02/2016), feeling "depressed, shaky, confused, scared all the time..." with "terrible sleep" and even being "terrified to take a shower," being overwhelmed by her emotions "all the time." She was diagnosed with unspecified mood disorder with marked anxiety. Dr. Miles had suggested a trial of ECT "given poor response to medications and marked psychomotor retardation" and started Seroquel, 25mg HS for persistent ruminations. Early on, patient appeared profoundly saddened and demoralized by lack of improvement in how she was feeling despite repeated admissions to [facility]. She was not a good historian, at least partially due to her poor concentration and fatigue related to severe depression. Patient was at the outset prescribed two different neuroleptic medications, Risperdal and the Seroquel started on admission; she agreed to discontinuation of the Risperdal and upward titration of Seroquel dose. Review of patient's most recent admission before 02/2016, that in 2013 showed that there had been very little adjustment in patient's psychotropic medication regimen in the past 3 years; Wellbutrin had been discontinued and prazosin started but discontinued due to paradoxical increase in nightmares. Introduction of a mood stabilizer was considered but Madeira appeared out of the question due to patient's currently marginal renal function. Seroquel was slowly titrated up to a total of 225mg/ day and Paxil doubled from preadmission dose to 40mg daily with Wellbutrin tapered down from 200mg to 150mg/day and Klonopin from a total of 1.5mg to 0.5mg given only at HS, and Remeron added to help with sleep induction/maintenance ( along with increased Seroquel at HS). Patient decided against returning to the [facility] upon discharge, opting instead to continue with [facility], and [facility] in [place], [place]. Patient had been focused during this admission largely on the stressful impact of having her daughter (who is seriously mentally ill but has dropped out of treatment and been off psychotropic medications) living with her; she hoped that daughter's erstwhile treaters at [facility] would be able to reconnect with their former patient and relieve some of the increased stress this situation was creating in patient's home. Though still anxious and dysphoric at times, by date of discharge patient showed no evidence of suicidal or homicidal ideation, plans, intent or impulses and was well aware of her safety plan should she ever in future coming to believe herself at acute risk of self-harm. Though the taper of Klonopin was likely contributing to some extent to patient's residual anxiety, I felt that the negative effects of this drug on patient's mood disorder, energy, initiative , attention and to a degree to deficiencies in her recall/memory outweighed this and that the withdrawal effects would gradually dissipate if the Klonopin dose was not increased in future. Discharge HBIPS - Tobacco Use Treatment Offered Post DC Medications Offered: Script Given-See Med List Post DC Tobacco Treatment Plan: [facility] Appt Date: 06/23/16 Program Appt Time: 1600 (Smoking Cessation Group at 4pm) - EtOH/Drug Use D/O Treatment Offered Post DC Medications Offered: NA-No EtOH/Drug Use D/O Post DC EtOH/SubAbuse TX Plan: NA-No EtOH/Drug Use D/O Metabolic Screening - Screen if on a Neuroleptic Medication - Metabolic screening should include: - Blood Pressure, BMI, Glucose or Hgb A1c, & a - Lipid profile from within the past 365 days. Metabolic Screening () Not Applicable, patient not on a neuroleptic. OR ([x]) Patient on a neuroleptic(s) . Enter below results for Glucose or Hemoglobin A1C, and lipid panel if obtained during the last 365 days. BMI: 20.700 Blood Pressure: 129/68 Laboratory Results (If applicable): [x] glucose = 91 ( both drawn 06/12/2016) glycos hgb A1c = 5.5 cholesterol = 171 (all drawn 03/09/2016) triglycerides = 103 HDL = 92 LDL = 59 Discharge Instructions General Discharge Information Discharge Medications: Discharge Medications (dose, route, frequenct, indications): (see also M.D. discharge progress note of 06/16/2016) I called into [facility], [place], [place] (to be picked up on afternoon of discharge by nurse Schaeffer from [facility] visiting nurse service): Paxil, 40mg: i tab daily in AM (40mg/day); #14 with no refill (anti- depressant; also for panic anxiety) Wellbutrin SR, 150mg: i tab daily in AM (150mg/day); #14 with no refill ( augment anti-depressant effect Paxil) Seroquel, 50mg: i tab 3x/day: #42 with no refill (clarify thinking) Seroquel, 25mg: i tab PRN DFA/racing thoughts; #28 with no refill (patient currently prescribed 150-200mg/day of Seroquel) Lamictal, 150mg: i tab 2x/day (300mg daily); #28 with no refill (stabilize mood/prophylaxis of depression) Remeron, 7.5mg: i tab nightly at HS (7.5mg/night); #14 with no refill (sleep induction/reduction of HS anxiety) trazodone, 100mg: ii tabs nightly at HS (200mg/night); #28 with no refill ( sleep induction) Klonopin, 0.5mg: i tab HS PRN DFA (maximum of 0.5mg/night; none during the day ); #14 with no refill patient was encouraged to utilize nicotine gum, 2-4mg OTC to reduce craving for cigarettes/tobacco and was also given an appointment card for the next [facility] scheduled for 06/23/2016 at 4pm, facilitated by Jeny Donaldson LCSW patient told me she had adequate supply at home to continue to take: Lipitor, 20mg/day (to control lipids) Multiple Neuroleptics: ([x]) Not Applicable OR Document below three failed attempts at monotherapy, or a plan to taper to monotherapy, or augmentation of Clozapine. () Patient's Diet: heart healthy Patient's Activity: without restrictions DC Disposition: to home (with daughter) Recommendations: Following an interval of outpatient stabilization I would recommend attempt to slowly taper down current dose of Seroquel. I would advise continued taper and complete discontinuation of Klonopin (not increasing dose again). Referred To: Patient decided to not resume her outpatient treatment with the [facility] but to continue outpatient appointments with [facility]; her family service caseworker from [facility], Melissa Farris, will check in with her at home on afternoon of discharge, see her at home twice a week thereafter, accompany/drive her to all appointments and follow through with the referral made for a home health aide at least 2x/week; patient is also to attend group at [facility] on 06/18 and 06/25/2016 at 11am, as well as DBT group there on 06/22/2016. Patient will have an intake appointment for the [facility] in [facility], on 06/29/2016 at noontime. Patient was given an appointment card for the [facility] next scheduled for 06/23/2016 at 4pm, facilitated by Ms. Donaldson. Copies To: Lyle Quintana (attn. of [facility]); KEI VOGEL,GERI
== END 2016-06-16 12:59 | DRG 885 ==
LOC: ENRESERVDT → ENRESERVTM → ERH 13:41 → CP SOUTH 19:29 → ERHI 19:29 → CP SOUTH 21:20 → ENPENDDIS 06-16 14:00
PROVIDERS: Emergency Medicine; ADMIT Psychiatry & Neurology Addiction Medicine
DX: F39 Unspecified mood [affective] disorder (principal); E03.9 Hypothyroidism, unspecified; F41.9 Anxiety disorder, unspecified
CPT/HCPCS: 36415; 80307; 81001; 82436; 87086; 93005; 93010; G0480; J3490

== ENCOUNTER 2017-05-14 11:40 | Emergency (ER) | payer OTHER, MEDICARE ==
[~2017-05-14] VITALS: Ht 152.4 cm; Wt 49.9 kg
[~2017-05-14 11:40] MED LIST changes: +BUPROPION HCL150 M4 PO; +LAMICTAL100 M2 PO; +QUETIAPINE FUMA25 M1 PO; +REMERON15 M2 PO; +SEROQUEL50 M1 PO
--- NOTE | 2017-05-14 12:43 | ED PSYCHIATRIC COMPLAINT ---
See Addendum History of Present Illness General Chief Complaint: General Adult Stated Complaint: ANXIETY Source: patient, old records Exam Limitations: no limitations Vital Signs & Intake/Output Vital Signs & Intake/Output Vital Signs Date Time Temp Pulse Resp B/P B/P Pulse O2 O2 Flow FiO2 Mean Ox Delivery Rate 05/14 1856 97.6 70 18 113/68 98 Room Air 05/14 1712 97.9 81 16 121/76 98 Room Air 05/14 1442 98.2 78 18 122/79 97 Room Air 05/14 1342 97 Room Air 05/14 1153 98.5 76 20 117/79 96 Room Air Allergies Coded Allergies: haloperidol (From HALDOL) (EYES ROLLED IN BACK OF HEAD 06/04/16) hydrocodone (LOOPY 06/04/16) Reconcile Medications Atorvastatin Calcium 20 MG TABLET 20 MG PO 1700 cholesterol Bupropion HCl (Bupropion HCl Sr) 150 MG TABLET.ER 150 MG PO 0800 anti- depressant augmentation Clonazepam (Klonopin) 0.5 MG TABLET 0.5 MG PO 2200 reducing anxiety at bedtime Lamotrigine (Lamictal) 100 MG TABLET 150 MG PO BID mood stabilization Mirtazapine (Remeron) 15 MG TABLET 7.5 MG PO 2200 sleep induction/HS anxiety Nicotine (Nicorelief) 2 MG GUM 2 MG PO Q2 HRS NEEDED PRN tobacco cravings Paroxetine HCl (Paxil) 20 MG TABLET 40 MG PO DAILY anti-depressant Quetiapine Fumarate 25 MG TABLET 75 MG PO 2000 clarify thinking Quetiapine Fumarate (Seroquel) 50 MG TABLET 50 MG PO 0800,1400 clarify thinking Trazodone HCl 100 MG TABLET 200 MG PO AT BEDTIME sleep induction/depression Triage Note: C/O FEELING DEPRESSED AND ANXIOUS. STAES "IM MOT FUNCTIONING VERY WELL". STATES SHE WAS ADMITTED PREVIOUSLY TO [facility] FOR [facility], CANNOT RECALL DATES. SENT BY VISITING NURSE. CRYING, DENIES SI OR HI. LIVES WITH DAUGHTER WHO IS "VERY TROUBLED" AND "BI-POLAR". Triage Nurses Notes Reviewed? yes Onset: Last week Duration: day(s):, constant, continues in ED Timing: recent history Severity: severe Associated Symptoms: anxiety, impaired concentration LMP (ages 10-50): post menopausal : No Patient currently breastfeeds: No HPI: Several weeks prior to admission patient complains of increasing isolation anxiety depression with anorexia and anhedonia. She denies fever chills nausea vomiting diarrhea abdominal pain chest pain shortness breath headache dysuria rash bleeding suicidal ideation homicidal ideation hallucination. (Hector Gtz MD) Past History Travel History Traveled to [place] past 21 day No Medical History Any Pertinent Medical History? 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 MOTHER (Hypertension). Hx Contributory? No (Hector Gtz MD) Review of Systems Review of Systems Constitutional: Reports: no symptoms. EENTM: Reports: no symptoms. Respiratory: Reports: no symptoms. Cardiovascular: Reports: no symptoms. GI: Reports: no symptoms. Genitourinary: Reports: no symptoms. Musculoskeletal: Reports: no symptoms. Skin: Reports: no symptoms. Neurological/Psychological: Reports: see HPI, anxiety, depressed, emotional problems. Hematologic/Endocrine: Reports: no symptoms. Immunologic/Allergic: Reports: no symptoms. All Other Systems: Reviewed and Negative (Hector Gtz MD) Physical Exam Physical Exam General Appearance: well developed/nourished, alert, awake, anxious, moderate distress Head: atraumatic, active bleeding Eyes: Bilateral: normal appearance, PERRL, EOMI. 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 patient not suicidal (Ulisses PATEL,Hector) Progress Differential Diagnosis: drug intoxication, drug overdose, drug withdrawal, electrolyte abnormality, hypoglycemia Plan of Care: Orders Procedure Date/time Status Regular Diet 05/14 D Active Patient Safety Monitor 05/14 1640 Active Patient Safety Monitor 05/14 1241 Active URINE DRUG SCREEN FOR ER ONLY 05/14 1241 Complete ETHANOL 05/14 1241 Complete COMPREHENSIVE METABOLIC PANEL 05/14 1241 Complete CBC WITHOUT DIFFERENTIAL 05/14 1241 Complete ED CRISIS PSYCH CONSULT 05/14 1241 Active Current Medications Sig/Carol Start time Last Medication Dose Stop Time Status Admin Paroxetine HCl 40 MG DAILY 05/15 1000 UNVr (Paxil) Bupropion HCl 150 MG 0800 05/15 0800 UNVr (Wellbutrin SR) Quetiapine Fumarate 50 MG 0800,1400 05/15 0800 UNVr (SEROquel) Clonazepam 0.5 MG 05/14 UNVr 05/14 (KlonoPIN) 05/21 2158 223 Mirtazapine 7.5 MG 05/14 UNVr 05/14 (Remeron) 223 Trazodone HCl 200 MG AT BEDTIME 05/14 2199 UNVr 05/14 (Desyrel) 223 Quetiapine Fumarate 75 MG 05/14 UNVr 05/14 (Seroquel) 223 Lamotrigine 150 MG BID 05/14 1406 UNVr 05/14 (LaMICtal) 2233 Laboratory Tests 05/14/17 1330: Anion Gap 13, Estimated GFR 26 L, BUN/Creatinine Ratio 21.6, Glucose 87, Calcium 10.1, Total Bilirubin 0.4, AST 19, ALT 32, Alkaline Phosphatase 45, Total Protein 7.2, Albumin 4.0, Globulin 3.2, Albumin/Globulin Ratio 1.3, CBC w Diff NO MAN DIFF REQ, RBC 3.80 L, MCV 92.9, MCH 30.8, MCHC 33.2, RDW 13.9, MPV 6.8 L, Gran % 73.9, Lymphocytes % 19.3 L, Monocytes % 6.0, Eosinophils % 0.5, Basophils % 0.3, Absolute Granulocytes 6.2, Absolute Lymphocytes 1.6, Absolute Monocytes 0.5, Absolute Eosinophils 0, Absolute Basophils 0, Serum Alcohol < 10.0 05/14/17 1300: Urine Opiates Screen < 100, Methadone Screen < 40, Barbiturate Screen < 60, Ur Phencyclidine Scrn < 6.00, Amphetamines Screen < 100, U Benzodiazepines Scrn < 85, Urine Cocaine Screen < 50, Urine Cannabis Screen < 5.00 Hand-Off Endorsed To: Pradeep Malone MD Endorsed Time: 190 Pending: consult (Hector Gtz MD) Hand-Off Endorsed To: Hector Gtz MD Endorsed Time: 07 Pending: consult (Pradeep Malone MD) Departure Departure Disposition: STILL A PATIENT Condition: Stable Clinical Impression Primary Impression: Major depression Referrals: Gavi Harris MD (PCP/Family) Departure Forms: Customer Survey General Discharge Information (Hector Gtz MD)
[2017-05-14 13:51] LABS: ABSOLUTE BASOPHIL COUNT 0 /CUMM (0.0-0.2); ABSOLUTE EOSINOPHIL COUNT 0 /CUMM (0.0-0.7); ABSOLUTE GRANULOCYTE CT 6.2 /CUMM (1.4-6.5); ABSOLUTE LYMPH COUNT 1.6 /CUMM (1.2-3.4); ABSOLUTE MONOCYTE COUNT 0.5 /CUMM (0.10-0.60); BASOPHIL % 0.3 % (0.0-2.0); EOSINOPHIL % 0.5 % (0-5); GRANULOCYTE % 73.9 % (42.2-75.2); HEMATOCRIT 35.3 % (37-47); MEAN CORPUSCULAR HGB 30.8 PG (27.0-31.0); MEAN CORPUSCULAR HGB CONC 33.2 G/DL (33.0-37.0); MEAN CORPUSCULAR VOLUME 92.9 FL (81.0-99.0); MEAN PLATELET VOLUME 6.8 FL (7.4-10.4); PLATELET COUNT 291 /CUMM (130-400); RBC DISTRIBUTION WIDTH 13.9 % (11.5-14.5); WHITE BLOOD CELL COUNT 8.4 /CUMM (4.8-10.8)
--- NOTE | 2017-05-14 22:28 | ED PSYCH CRISIS CONSULTATION ---
See Addendum Crisis Consult Basic Assessment Date of Consult: 05/14/17 Responsible Person/Accompanied By: BIBA/self Insurance Authorization: Insurance #1: Insurance name: MEDICARE A Phone number: Policy number: [id number] Group number: Authorization number: ED Provider: Patient's ED Provider: Hector Gtz MD Primary Care Physician: Patient's PCP: Gavi Harris MD PCP's Chief Complaint: General Adult Patient's Quote: "I can't go on like this" Present Illness: Pt. is a 66 year old female who called 911 today and asked to be brought to the ED. 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 Pt. reported taht she has been experinecing severe anxiety and depression for the last few weeks and has been "fighting" to stay out of the hospital, but woke up this morning thinking, "I can't go on like this". Pt. reports that she is "barely functioning". Pt. reports that she has been "off balance", confused and forgetful. She also reports that her sleep is not good and that she has no appetite, but has been "forcing" herself to eat. She reports that she is unmotivated and has decreased energy. Pt. reports current stressors of living with her daughter who has untreated Bipolar Disorder and having a son who is in jail in [place] for murdereing his girlfriend. Pt. had four admissions to [facility] in 2017 for Depression and Depression witrh SI. Pt. also reports that she has had two more recent hospitalizations - one at [place] and one at [facility] about two monmths ago. She reports taht she is inj treatment at [facility] in [facility] and sees RN REVIEW, "Kaylynn", therapist, "Jacqui" and chief payroll clerk, "Latanya". Pt. reports that she has been compliant with her medication. Pt. believes that she needs help and would benefit form hospitalization at this time. The CSSRS was completed with patient. Pt. identified risk factors: recent significant negactive events (son in [facility]ci, daughter has untreated Bipolar), feels alone (no family support), previous psychiatric treatment and diagnoses, hopelessness, helplessness, feels trapped, Major Depressive episode and severe anxiety. Pt. identified protective factors: lives with family, has good support network at [facility]. Patient's Address: [address] [place] [id number] Other Phone Number: Who Do You Live With? Daughter Family/Informants Interviewed: not necessary- pt. wants admission Allergies - Coded Allergies: haloperidol (From HALDOL) (EYES ROLLED IN BACK OF HEAD 06/04/16) hydrocodone (LOOPY 06/04/16) Current Medications - Scheduled Medications Atorvastatin Calcium 20 MG TABLET 20 MG PO 1700 cholesterol #14 TAB Prescribed by Hilario Woodard APRN on 03/16/16 Bupropion HCl (Bupropion HCl Sr) 150 MG TABLET.ER 150 MG PO 0800 anti- depressant augmentation #14 TAB Prescribed by Tai Cisneros MD on 06/16/16 Clonazepam (Klonopin) 0.5 MG TABLET 0.5 MG PO 2200 reducing anxiety at bedtime #14 TAB Prescribed by Tai Cisneros MD on 06/16/16 Lamotrigine (Lamictal) 100 MG TABLET 150 MG PO BID mood stabilization #42 TAB Prescribed by Tai Cisneros MD on 06/16/16 Mirtazapine (Remeron) 15 MG TABLET 7.5 MG PO 2200 sleep induction/HS anxiety # 7 TAB Prescribed by Tai Cisneros MD on 06/16/16 Paroxetine HCl (Paxil) 20 MG TABLET 40 MG PO DAILY anti-depressant #28 TAB Prescribed by Tai Cisneros MD on 06/16/16 Quetiapine Fumarate 25 MG TABLET 75 MG PO 2000 clarify thinking #42 TAB Prescribed by Tai Cisneros MD on 06/16/16 Quetiapine Fumarate (Seroquel) 50 MG TABLET 50 MG PO 0800,1400 clarify thinking #28 TAB Prescribed by Tai Cisneros MD on 06/16/16 Trazodone HCl 100 MG TABLET 200 MG PO AT BEDTIME sleep induction/depression # 28 TAB Prescribed by Tai Cisneros MD on 06/16/16 Scheduled PRN Medications Nicotine (Nicorelief) 2 MG GUM 2 MG PO Q2 HRS NEEDED PRN tobacco cravings # 30 GUM Prescribed by Hilario Woodard APRN on 05/14/16 Laboratory Results: Laboratory Tests 05/14/17 1330: Anion Gap 13, Estimated GFR 26 L, BUN/Creatinine Ratio 21.6, Glucose 87, Calcium 10.1, Total Bilirubin 0.4, AST 19, ALT 32, Alkaline Phosphatase 45, Total Protein 7.2, Albumin 4.0, Globulin 3.2, Albumin/Globulin Ratio 1.3, CBC w Diff NO MAN DIFF REQ, RBC 3.80 L, MCV 92.9, MCH 30.8, MCHC 33.2, RDW 13.9, MPV 6.8 L, Gran % 73.9, Lymphocytes % 19.3 L, Monocytes % 6.0, Eosinophils % 0.5, Basophils % 0.3, Absolute Granulocytes 6.2, Absolute Lymphocytes 1.6, Absolute Monocytes 0.5, Absolute Eosinophils 0, Absolute Basophils 0, Serum Alcohol < 10.0 05/14/17 1300: Urine Opiates Screen < 100, Methadone Screen < 40, Barbiturate Screen < 60, Ur Phencyclidine Scrn < 6.00, Amphetamines Screen < 100, U Benzodiazepines Scrn < 85, Urine Cocaine Screen < 50, Urine Cannabis Screen < 5.00 (Brenda Meng LCSW) Addendum Addendum 05/15/2017, 6:25PM Pt was re-evaluated by this crisis clincian on evening shift. Pt. was sitting up in bed and was alert and oriented x 3. Pt. reported that she felt less anxious than yesterday and that she had slept well last night. She said that she was worried about her 29 year old daughter being home alone, but also said that she had spoken to her over the phone and that she seemed "okay". Pt. said that she still agreed with the plan for her to be admitted inpatient. Pt. said that she understood that there were no beds available tonight and that she would be staying over again in the ED. Pt. offered no other complaints. (Brenda Meng LCSW) Addendum Crisis reassessment completed - patient understands plan of care is inpatient admission / bed search. Patient reported jaw pain and leg pain - Dr. Florian evaluated patient as well and indicated this may be a tardive diskinesia symptom . Dr. Florian requested Dr. Hiponna order Cogentin for patient. Patient reported her home environment is difficult for her and contributes to her depression. Patient reported her son is incarcerated and her daughter struggles with mental illness. 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 Physical Limitations (Interventions): None noted Psychiatric Treatment History Psych Treatment Psychiatric Treatment Yes Inpatient Treatment Yes Outpatient Treatment Yes Location of Treatment Outpatient - [facility]; Inpatient - [facility], [place], [facility] Reason for Treatment Depression, anxiety, passive SI Dates of Treatment Outpatient - currently; Inpatient - 02/2016, 03/2016, 04/2016 , 05/2016, 2017 Response to Treatment Quickly decompensates after being discharged from hospital Diagnosis by History: Mood disorder, Bipolar D/O, BEBE Substance Use/Abuse History Drug Use/Abuse Substances Used/Abused No Substance Abuse Treatment Substance Abuse Treatment Past Substance Abuse [place] No Comments: n/a (Brenda Meng LCSW) Current Mental Status Mental Status Orientation: Person, Place, Situation Affect: Anxious Speech: WNL Neuro-vegetative: Anhedonia, Appetite Decreased, Energy Decreased, Helpless, Sleep Disturbance Appearance Appearance- Dress/Hygiene: disheveled Behaviors Thought Process: WNL Thought Content: WNL Memory: WNL Insight: Fair SI/HI Risk Assessment Past Suicidal Ideation/Attempts Yes (passive SI only) Current Suicidal Ideation/Att No Past Homicidal Ideation/Att: No Current Homicidal Ideation/Attempts No Degree of Intent: None Danger To: none Gravely Disabled: Inability Risk Factors: age (under 24/over 65), high anxiety/distress, SA/MH hospitalized, limited support Lethality Ratin (mild) PTSD Checklist PTSD Done? patient declined ED Management Sitter: Yes Restraints: No (Brenda Meng LCSW) DSM5/PS Stressors/Medical Prob Diagnosis' (DSM 5, Stressors, Medical): F32.9 - Unspecified Depression, F41.1 - BEBE. Stressors - relationship with daughter, son is in jail. Medical - hyperlipidemia, hx of breast cancer Current GAF: 24 Comments: Due to pt's severe depression and anxiety, she is not functioning - poor sleep, appetite, isolation, low energy, low motivation, crying. (Brenda Meng LCSW) Departure Disposition Psych Medical Clearance Date: 05/14/17 Medically Cleared at: 1814 Time Started: 1814 Time Ended: 1899 Psychiatrist Consulted: Ellen Florian MD Date Disposition Established: 05/14/17 Time Disposition Established: 1899 Plan for Disposition - Modality: Bed Search Facility: D Contact: n/a Telephone: n/a Rationale for Disposition: Pt. reports that she is not functioning and "cannot go on like this" due to severe anxiety and depression. Pt. is gravely disabled and needs inpatient admission. As there are no beds on [facility] and it is too late for a transfer, pt. will be h/o in ED tonight and a bed search will be conducted tomorrow. Type of IP Admission: Voluntary Additional Instructions: n/a Referrals Gavi Harris MD (PCP/Family) (Brenda Meng LCSW)
[2017-05-15] MEDS ORDERED: CLONAZEPAM0.5 M2 PO (20:46)
--- NOTE | 2017-05-15 20:51 | ED PSYCHIATRIST/APRN CONSULT ---
Psychiatrist/CLAIMS ATTORNEY ED Consult Assessment and Plan: Discussed with the crisis clinicians, reviewed medical record and interviewed the patient 1:1. The patient presented to the emergency room brought in by ambulance she called herself. She appears as a frail looking, thin, disheveled female sitting at the edge of her stretcher in the hallway of the emergency room. She has involuntary movements of her mouth and reports cramps in her legs. She was prescribed Ingrezza for tardive dyskinesia. The patient's speech is soft well articulated and goal directed, there is no overt psychosis, no delusional ideation, no history of dino or hypomania. The patient describes her mood as being depressed and anxious. She feels hopeless, helpless, worthless she reports not having energy, doing less and less for herself, not eating, thinking about and dying without any specific plan or expressed suicidal intent. She denies auditory/visual hallucinations. She has been she has been compliant with treatment and taking her medication as prescribed. The medication was resumed in the ED, she has not been given ingrezza, is receiving clonazepam probably with intent to alleviate tardive dyskinesia symptoms, being unsuccessful in doing so. Diagnoses: Bipolar disorder, current episode depressed, severe Current stressors include financial difficulties, social isolation, living with her daughter who was diagnosed bipolar and is not in treatment, son is in care home for murdering his GF. For the physical examination please see the ED physician's report. The patient needs inpatient stabilization in a safe, structured environment for grave disability Bed search is in process. Medication will be continued as noted in the emergency departments or that she needs. Cogentin was recommended for TD symptoms at 0.5 mg 3 times a day. The patient will be reassessed tomorrow.
[2017-05-16 11:28] VITALS: BP 114/72
== END 2017-05-16 12:58 | disposition other institution (70) ==
LOC: ERH 11:40
PROVIDERS: Emergency Medicine
DX: F32.9 Major depressive disorder, single episode, unspecified (principal)
CPT/HCPCS: 80307; G0463; G0480